=== PATIENT | male | born 1960 | race Caucasian/White ===

== ENCOUNTER → 2017-02-20 | Day surgery (SDC) | payer OTHER ==
[2017-02-19 08:11] VITALS: BMI 27.0
[~2017-02-20] VITALS: Ht 185.4 cm; Wt 93.2 kg
[~2017-02-20] MED LIST: ATV/1 PO; BLOO1KIT92; CALC600T36 PO; CRFL PO; CRG40 PO; EpHEDrine SULFATE 50MG/5ML SYR ONE; FRRS300 PO; FRS/40 PO; FURO-85 PO; INSDGIPEN SC; INSU32MI13 SC; LANC-393 SC; LIDOCAINE HCL 2% 2 ML VIAL (20MG/ML) ONE; MAGN250T8 PO; MAGN400T6 PO; MIDAZOLAM HCL 1 MG/ML 2ML VIAL ONE; MISCCAP80 PO; NVLGI/PEN SC; NVLGIPEN SC; OMEP40CA41 PO; ONDANSETRON INJ 2 MG/ML 2 ML VIAL ONE; PANT1TAB4 PO; PROPOFOL IV EMULSION 10 MG/ML 20 ML VIAL IV ONE; SERT25TA PO; SERT50TA PO; SIMV40TA2 PO; SODIUM CHLORIDE 0.9% 500ML 500 ML IV ONE; SPIR100T PO; VITA1CAP59 PO
[2017-02-20 09:59] VITALS: Ht 185.4 cm; Wt 93.2 kg
--- NOTE | 2017-02-20 10:12 | Endo History and Physical ---
History & Physical Date of Service: Feb 20, 2017. Chief Complaint: ANEMIA Referring Physician: DR DÍAZ History of Present Illness Patient has liver cirrhosis and Hx of varices, noted with drop in H/H. Here for EGD Past Medical History Diabetes, Anxiety, Hypertension, Liver Disease, Depression Past Surgical History Hx Cardiac Surgery: No Hx Internal Defibrillator: No Hx Pacemaker: No Hx Abdominal Surgery: No Hx of Implantable Prosthesis: No Hx Post-Op Nausea and Vomiting: No Hx Cancer Surgery: No Hx Thoracic Surgery: No Hx Orthopedic: No Hx Urinary Tract Surgery: No Family History Polyp Social History Smoking Status: Never Smoker Hx Substance Use: No Hx Alcohol Use: No Allergies Coded Allergies: [place] (Verified Allergy, Unknown, SEASONAL ALLERGIES., 02/20/17) NO KNOWN DRUG ALLERGIES (Verified Allergy, Unknown, NONE, 02/20/17) Ragweed (Verified Allergy, Unknown, SEASONAL ALLERGIES, 02/20/17) Current Medications Reported Home Medications Medications Dose Route/Sig Max Daily Dose Days Date Category Zoloft (Sertraline HCl) 25 Mg Tab 25 Mg PO QAM 02/18/17 Reported Lasix (Furosemide) 40 Mg Tab 40 Mg PO BID 02/18/17 Reported Mag-Ox (Magnesium Oxide) 400 Mg Tab 400 Mg PO BID 11/16/13 Reported Calcium (Calcium W/ Vitamin D) 1 Tab Tab 250 Mg PO BID 11/10/13 Reported Vitamin K2 & D3 45-2000 Mcg-Unit (Vitamin D & K) 1 Cap Cap 1 Cap PO QAM 11/10/13 Reported Aldactone (Spironolactone) 100 Mg Tab 300 Mg PO QAM 09/30/13 Reported Nadolol 40 Mg Tab 40 Mg PO QAM 09/01/13 Reported Ferrous Sulfate 325 Mg Tab 325 Mg PO QAM 09/01/13 Reported Zocor (Simvastatin) 40 Mg Tab 40 Mg PO HS 04/22/13 Reported Vital Signs Weight (Kilograms): 93.18 Height (Feet): 6 Height (Inches): 1 Date Time Temp Pulse Resp B/P (MAP) Pulse Ox O2 Delivery O2 Flow Rate FiO2 02/20/17 10:05 36.7 64 20 133/75 (94) 96 Room Air Physical Exam General Appearance: no apparent distress Respiratory/Chest: Auscultation: breath sounds normal Cardiovascular: Heart Auscultation: RRR Abdomen: Inspection & Palpation: soft, non-distended Assessment and Plan Patient was explained about the risk and benefit of EGD and agreed.
--- NOTE | 2017-02-20 11:18 | GI REPORT ---
Procedure Date: 02/20/2017 10:11 AM Procedure: Upper GI endoscopy Indications: Follow-up of esophageal varices, Anemia Medicines: Monitored Anesthesia Care Complications: No immediate complications. Estimated Blood Loss: Estimated blood loss: none. Procedure: Pre-Anesthesia Assessment: - Prior to the procedure, a History and Physical was performed, and patient medications and allergies were reviewed. The patient is competent. The risks and benefits of the procedure and the sedation options and risks were discussed with the patient. All questions were answered and informed consent was obtained. Patient identification and proposed procedure were verified by the physician and the nurse in the procedure room. Mental Status Examination: alert and oriented. Airway Examination: normal oropharyngeal airway and neck mobility. Respiratory Examination: clear to auscultation. CV Examination: normal. ASA Grade Assessment: IV - A patient with severe systemic disease that is a constant threat to life. After reviewing the risks and benefits, the patient was deemed in satisfactory condition to undergo the procedure. The anesthesia plan was to use monitored anesthesia care (MAC). Immediately prior to administration of medications, the patient was re-assessed for adequacy to receive sedatives. The heart rate, respiratory rate, oxygen saturations, blood pressure, adequacy of pulmonary ventilation, and response to care were monitored throughout the procedure. The physical status of the patient was re-assessed after the procedure. After obtaining informed consent, the endoscope was passed under direct vision. Throughout the procedure, the patient's blood pressure, pulse, and oxygen saturations were monitored continuously. The scope was introduced through the mouth, and advanced to the second part of duodenum. The upper GI endoscopy was accomplished without difficulty. The patient tolerated the procedure well. Findings: Three columns of non-bleeding large (> 5 mm) varices were found in the middle and lower third of the esophagus. Z-line at 36 cm from the incisors. Stigmata of recent bleeding were evident and red yasmeen and white fibrin plug signs were present. Four bands were successfully placed with incomplete eradication of varices. There was no bleeding during the procedure. Moderate portal hypertensive gastropathy was found in the gastric body. A few, small non-bleeding erosions were found in the gastric antrum. The duodenal bulb and 2nd part of the duodenum were normal. Impression: - Large (> 5 mm) esophageal varices with stigmata of recent bleeding (multiple red danny). Banded with 4 bands. - Portal hypertensive gastropathy. - Non-bleeding erosive gastropathy. - Normal duodenal bulb and 2nd part of the duodenum. - No specimens collected. Recommendation: - Discharge patient to home. - Clear liquid diet today. - Full liquid tomorrow then advance as tolerated. - Follow an antireflux regimen. - Use Prilosec (omeprazole) 40 mg PO daily for 2 months (to decrease the size of post banding ulcers). - Use sucralfate suspension 1 gram PO QID for 2 weeks. - Continue beta kendrick with dosage titrated by the heart rate. - Repeat the upper endoscopy in 4 - 6 weeks for retreatment (banding). - Return to referring physician. Kristin Roberts MD 02/20/2017 11:18:10 AM This report has been signed electronically. Note Initiated On: 02/20/2017 10:11 AM I attest to the content of the Intraoperative Record and orders documented therein, exceptions below
--- NOTE | 2017-02-20 11:20 | Discharge Instructions ---
Endoscopy Patient Instructions Date / Procedure(s) Performed Feb 20, 2017. EGD Allergy Information Coded Allergies: [place] (Verified Allergy, Unknown, SEASONAL ALLERGIES., 02/20/17) NO KNOWN DRUG ALLERGIES (Verified Allergy, Unknown, NONE, 02/20/17) Ragweed (Verified Allergy, Unknown, SEASONAL ALLERGIES, 02/20/17) Discharge Date / Findings Feb 20, 2017. Large esophageal varices with stigmata of recent bleed, banded. Portal HTN gastropathy. Gastritis Medication Instructions Omeprazole 40 mg PO daily for 8 weeks Carafate 1 gm qid for 2 weeks. Provider Instructions Activity Restrictions - No exercising or heavy lifting for 24 hours. - Do not drink alcohol the day of the procedure. - Do not drive a car or operate machinery until the day after the procedure. - Do not make any important decisions or sign important papers in 24 hours after the procedure. Following Day: - Return to full activity which may include returning to work/school. Diet Start your diet with liquids and light foods (jello, soup, juice, toast). Then eat your usual diet if not nauseated. Treatment For Common After Affects For mild abdominal pain, bloating, or excessive gas: - Rest - Eat lightly - Lie on right side Follow-Up Information Repeat EGD in 4-6 weeks Follow-up with DR DÍAZ as scheduled Anesthesia Information What You Should Know You have had a procedure that required some medicine to reduce anxiety and discomfort. This treatment is called moderate sedation. After receiving the treatment, you may be sleepy, but you will be able to breathe on your own. The effects of the treatment may last for several hours. Follow these instructions along with Activity/Diet recommendations noted above: * Do NOT do anything where dizziness or clumsiness would be dangerous. * Rest quietly at home today, then you can be up and about tomorrow. * Have a responsible person stay with you the rest of today. * You may have had an I.V. today. If so, you may take the dressing off later today. Recommendations Call your doctor if: * Trouble breathing * Continuous vomiting for more than 24 hours * Temperature above 101 degrees * Severe abdominal pain or bloating * Pain not relieved by pain medicine ordered * There is increased drainage or redness from any incision * A large amount of rectal bleeding greater than 2-3 tablespoons. (If you had a polyp/s removed or have hemorrhoids, a small amount of blood - from the rectum is to be expected.) * You have any unanswered questions or concerns. IN THE EVENT OF A SERIOUS EMERGENCY, GO TO THE NEAREST EMERGENCY ROOM Your discharge instructions were prepared by provider Kristin Roberts. Patient Instructions Signature Page Mehul Murillo Patient (or Guardian) Signature/Date: I have read and understand the instructions given to me by my caregivers. Caregiver/RN/Doctor Signature/Date: The above-named patient and/or guardian has received patient instructions on this date. + Original Patient Signature Page (only) stays with chart. Please make copy for patient.
--- NOTE | 2017-02-20 11:27 | Anesthesiology Progress Note ---
Anesthesia Post Op Note Date & Time Feb 20, 2017 at 11:27 Vital Signs Pain Intensity: 0 Vital Signs Past 12 Hours Date Time Temp Pulse Resp B/P (MAP) Pulse Ox O2 Delivery O2 Flow Rate FiO2 02/20/17 11:03 56 20 103/50 (67) 100 Room Air 02/20/17 10:05 36.7 64 20 133/75 (94) 96 Room Air Notes Mental Status: alert / awake / arousable, participated in evaluation Pt Amnestic to Procedure: Yes Nausea / Vomiting: adequately controlled Pain: adequately controlled Airway Patency, RR, SpO2: stable & adequate BP & HR: stable & adequate Hydration State: stable & adequate Anesthetic Complications: no major complications apparent
[2017-02-20 11:44] VITALS: BP 107/71; PULSE 55; O2SAT 100
== END | disposition home or self-care (01) ==
LOC: C.GI 09:48
PROVIDERS: ATTEND Student in an Organized Health Care Education/Training Program
DX: D64.9 Anemia, unspecified (principal); Z09 Encounter for follow-up examination after completed treatment for conditions other than malignant neoplasm; I85.00 Esophageal varices without bleeding; K31.89 Other diseases of stomach and duodenum; I10 Essential (primary) hypertension; E11.9 Type 2 diabetes mellitus without complications; F32.9 Major depressive disorder, single episode, unspecified; F41.9 Anxiety disorder, unspecified; Z79.899 Other long term (current) drug therapy; Z83.71 Family history of colonic polyps

== ENCOUNTER → 2017-04-15 | Day surgery (SDC) | payer OTHER ==
[2017-04-11 15:43] VITALS: BMI 26.0
[~2017-04-15] VITALS: Ht 185.4 cm; Wt 90.9 kg
[~2017-04-15] MED LIST changes: -ATV/1 PO; -BLOO1KIT92; +ETHANOLAMINE OLEATE 5% 2 ML AMP ONE; -EpHEDrine SULFATE 50MG/5ML SYR ONE; -FURO-85 PO; -INSU32MI13 SC; -LANC-393 SC; -LIDOCAINE HCL 2% 2 ML VIAL (20MG/ML) ONE; -MAGN250T8 PO; -MIDAZOLAM HCL 1 MG/ML 2ML VIAL ONE; -NVLGIPEN SC; -ONDANSETRON INJ 2 MG/ML 2 ML VIAL ONE; -PANT1TAB4 PO; -PROPOFOL IV EMULSION 10 MG/ML 20 ML VIAL IV ONE; -SERT50TA PO
[2017-04-15 13:02] VITALS: Ht 185.4 cm; Wt 90.9 kg
--- NOTE | 2017-04-15 13:30 | Endo History and Physical ---
History & Physical Date of Service: Apr 15, 2017. Chief Complaint: varices, cirrhosis of liver Referring Physician: Dr. Fuentes History of Present Illness 56 yo presenting for f/u EGD for varices as well as colonoscopy due to history of polyps. Past Medical History Diabetes, Anxiety, Hypertension, Liver Disease, Depression Past Surgical History Hx Cardiac Surgery: No Hx Internal Defibrillator: No Hx Pacemaker: No Hx Abdominal Surgery: No Hx of Implantable Prosthesis: No Hx Post-Op Nausea and Vomiting: No Hx Cancer Surgery: No Hx Thoracic Surgery: No Hx Orthopedic: No Hx Urinary Tract Surgery: No Family History Polyp Social History Smoking Status: Never Smoker Hx Substance Use: No Hx Alcohol Use: No Allergies Coded Allergies: [place] (Verified Allergy, Unknown, SEASONAL ALLERGIES., 04/15/17) NO KNOWN DRUG ALLERGIES (Verified Allergy, Unknown, NONE, 04/15/17) Ragweed (Verified Allergy, Unknown, SEASONAL ALLERGIES, 04/15/17) Current Medications Reported Home Medications Medications Dose Route/Sig Max Daily Dose Days Date Category Dose Instructions Lantus Solostar (Insulin Glargine) 100 Unit/Ml Inj 20 Units SC HS 04/11/17 Reported Novolog Flexpen (Insulin Aspart) 100 Units/Ml Inj 1 Dose SC UD 04/11/17 Reported PER SLIDING SCALE Prilosec (Omeprazole) 40 Mg Cap 40 Mg PO BID 04/11/17 Reported Carafate (Sucralfate) 1 Gm/10 Ml Leah 10 Ml PO QID 04/11/17 Reported Probiotic (Probiotic Product) 1 Cap Cap 1 Cap PO DAILY 04/11/17 Reported Zoloft (Sertraline HCl) 25 Mg Tab 25 Mg PO QAM 02/18/17 Reported Lasix (Furosemide) 40 Mg Tab 40 Mg PO BID 02/18/17 Reported Mag-Ox (Magnesium Oxide) 400 Mg Tab 400 Mg PO BID 11/16/13 Reported Calcium (Calcium W/ Vitamin D) 1 Tab Tab 250 Mg PO BID 11/10/13 Reported Vitamin K2 & D3 45-2000 Mcg-Unit (Vitamin D & K) 1 Cap Cap 1 Cap PO QAM 11/10/13 Reported Aldactone (Spironolactone) 100 Mg Tab 300 Mg PO QAM 09/30/13 Reported Nadolol 40 Mg Tab 40 Mg PO QAM 09/01/13 Reported Ferrous Sulfate 325 Mg Tab 325 Mg PO QAM 09/01/13 Reported Zocor (Simvastatin) 40 Mg Tab 40 Mg PO HS 04/22/13 Reported Vital Signs Weight (Kilograms): 90.91 Height (Feet): 6 Height (Inches): 1 Date Time Temp Pulse Resp B/P (MAP) Pulse Ox O2 Delivery O2 Flow Rate FiO2 04/15/17 13:09 37.1 71 20 127/70 (89) 98 Room Air Physical Exam General Appearance: WD/WN, + pertinent finding (pale) Respiratory/Chest: Respiratory effort: no dyspnea Auscultation: breath sounds normal Cardiovascular: Apical Impulse: not displaced Heart Auscultation: RRR, normal S1 Abdomen: Bowel Sounds: normal Inspection & Palpation: soft Assessment and Plan plan for EGD/Colonoscopy today for variceal f/u as well as surveillance
--- NOTE | 2017-04-15 14:29 | GI REPORT ---
Procedure Date: 04/15/2017 1:36 PM Procedure: Upper GI endoscopy Indications: Follow-up of esophageal varices, prior empiric banding complicated by re-bleeding from banding ulcers. Medicines: Monitored Anesthesia Care Complications: No immediate complications. Estimated blood loss: None. Estimated Blood Loss: Estimated blood loss: none. Procedure: Pre-Anesthesia Assessment: - Pre-Anesthesia Assessment: - Prior to the procedure, a History and Physical was performed, and patient medications, allergies and sensitivities were reviewed. The patient's tolerance of previous anesthesia was reviewed. Please see [employer] for complete details. - The risks and benefits of the procedure and the sedation options and risks were discussed with the patient. All questions were answered and informed consent was obtained. - Patient identification and proposed procedure were verified prior to the procedure by the physician and the nurse. The procedure was verified in the pre-procedure area in the procedure room. After obtaining informed consent, the endoscope was passed carefully and meticuously under direct vision and only advanced when the lumen was clearly identified, C02 insuflation was utilized throughout the entirity of the procedure. Throughout the procedure, the patient's blood pressure, pulse, and oxygen saturations were monitored continuously. After obtaining informed consent, the endoscope was passed under direct vision. Throughout the procedure, the patient's blood pressure, pulse, and oxygen saturations were monitored continuously. The scope was introduced through the mouth, and advanced to the second part of duodenum. The upper GI endoscopy was accomplished without difficulty. The patient tolerated the procedure well. Findings: Large (> 5 mm) varices were found in the middle third of the esophagus and in the lower third of the esophagus. No stigmata was identified. No signs of recent bleeding. Portal hypertensive gastropathy was found in the entire examined stomach. The examined duodenum was normal. Impression: - Large (> 5 mm) esophageal varices. - Portal hypertensive gastropathy. - Normal examined duodenum. - No specimens collected. Recommendation: - Discharge patient to home (with escort). - Continue with Nadolol. - Follow up with [facility], specifically discuss if thoughts of repeat banding vs TIPS eval given varices and ascites. Zhang Ashley MD 04/15/2017 2:28:45 PM This report has been signed electronically. Note Initiated On: 04/15/2017 1:36 PM I attest to the content of the Intraoperative Record and orders documented therein, exceptions below
--- NOTE | 2017-04-15 14:30 | GI REPORT ---
Procedure Date: 04/15/2017 1:58 PM Procedure: Colonoscopy Indications: High risk colon cancer surveillance: Personal history of colonic polyps Medicines: Monitored Anesthesia Care Complications: No immediate complications. Estimated blood loss: None. Estimated Blood Loss: Estimated blood loss: none. Procedure: Pre-Anesthesia Assessment: - Pre-Anesthesia Assessment: - Prior to the procedure, a History and Physical was performed, and patient medications, allergies and sensitivities were reviewed. The patient's tolerance of previous anesthesia was reviewed. Please see [employer] for complete details. - The risks and benefits of the procedure and the sedation options and risks were discussed with the patient. All questions were answered and informed consent was obtained. - Patient identification and proposed procedure were verified prior to the procedure by the physician and the nurse. The procedure was verified in the pre-procedure area in the procedure room. After obtaining informed consent, the endoscope was passed carefully and meticuously under direct vision and only advanced when the lumen was clearly identified, C02 insuflation was utilized throughout the entirity of the procedure. Throughout the procedure, the patient's blood pressure, pulse, and oxygen saturations were monitored continuously. After I obtained informed consent, the scope was passed under direct vision. Throughout the procedure, the patient's blood pressure, pulse, and oxygen saturations were monitored continuously. The Scope was introduced through the anus and advanced to the terminal ileum, with identification of the appendiceal orifice and IC valve. The colonoscopy was performed without difficulty. The patient tolerated the procedure well. The quality of the bowel preparation was poor. Findings: Multiple small-mouthed diverticula were found in the sigmoid colon. Non-bleeding rectal varices were found. The terminal ileum appeared normal. The exam was otherwise without abnormality on direct and retroflexion views. Impression: - Preparation of the colon was poor. - Diverticulosis in the sigmoid colon. - Rectal varices. - The examined portion of the ileum was normal. - The examination was otherwise normal on direct and retroflexion views. - No specimens collected. Recommendation: - Discharge patient to home (with escort). - Repeat colonoscopy in 5 years for surveillance. - Return to referring physician as previously scheduled. Zhang Ashley MD 04/15/2017 2:30:09 PM This report has been signed electronically. Note Initiated On: 04/15/2017 1:58 PM I attest to the content of the Intraoperative Record and orders documented therein, exceptions below
--- NOTE | 2017-04-15 14:36 | Discharge Instructions ---
Endoscopy Patient Instructions Date / Procedure(s) Performed Apr 15, 2017. Colonoscopy, EGD Allergy Information Coded Allergies: [place] (Verified Allergy, Unknown, SEASONAL ALLERGIES., 04/15/17) NO KNOWN DRUG ALLERGIES (Verified Allergy, Unknown, NONE, 04/15/17) Ragweed (Verified Allergy, Unknown, SEASONAL ALLERGIES, 04/15/17) Discharge Date / Findings Apr 15, 2017. EGD: Findings: Large (> 5 mm) varices were found in the middle third of the esophagus and in the lower third of the esophagus. No stigmata was identified. No signs of recent bleeding. Portal hypertensive gastropathy was found in the entire examined stomach. The examined duodenum was normal. Impression: - Large (> 5 mm) esophageal varices. - Portal hypertensive gastropathy. - Normal examined duodenum. - No specimens collected. Recommendation: - Discharge patient to home (with escort). - Continue with Nadolol. - Follow up with [facility], specifically discuss if thoughts of repeat banding vs TIPS eval given varices and ascites. Colonoscopy: No polyps Prep was not great Repeat exam in 5 years for surveillance Medication Instructions Stopped Medication(s): stopped all except BP meds Provider Instructions Activity Restrictions - No exercising or heavy lifting for 24 hours. - Do not drink alcohol the day of the procedure. - Do not drive a car or operate machinery until the day after the procedure. - Do not make any important decisions or sign important papers in 24 hours after the procedure. Following Day: - Return to full activity which may include returning to work/school. Diet Start your diet with liquids and light foods (jello, soup, juice, toast). Then eat your usual diet if not nauseated. Treatment For Common After Affects For mild abdominal pain, bloating, or excessive gas: - Rest - Eat lightly - Lie on right side Follow-Up Information Follow-up with Dr. Fuentes as scheduled Anesthesia Information What You Should Know You have had a procedure that required some medicine to reduce anxiety and discomfort. This treatment is called moderate sedation. After receiving the treatment, you may be sleepy, but you will be able to breathe on your own. The effects of the treatment may last for several hours. Follow these instructions along with Activity/Diet recommendations noted above: * Do NOT do anything where dizziness or clumsiness would be dangerous. * Rest quietly at home today, then you can be up and about tomorrow. * Have a responsible person stay with you the rest of today. * You may have had an I.V. today. If so, you may take the dressing off later today. Recommendations Call your doctor if: * Trouble breathing * Continuous vomiting for more than 24 hours * Temperature above 101 degrees * Severe abdominal pain or bloating * Pain not relieved by pain medicine ordered * There is increased drainage or redness from any incision * A large amount of rectal bleeding greater than 2-3 tablespoons. (If you had a polyp/s removed or have hemorrhoids, a small amount of blood - from the rectum is to be expected.) * You have any unanswered questions or concerns. IN THE EVENT OF A SERIOUS EMERGENCY, GO TO THE NEAREST EMERGENCY ROOM Your discharge instructions were prepared by provider Zhang Ashley. Patient Instructions Signature Page Mehul Murillo Patient (or Guardian) Signature/Date: I have read and understand the instructions given to me by my caregivers. Caregiver/RN/Doctor Signature/Date: The above-named patient and/or guardian has received patient instructions on this date. + Original Patient Signature Page (only) stays with chart. Please make copy for patient.
[2017-04-15 14:52] VITALS: BP 99/63; PULSE 66; O2SAT 99
--- NOTE | 2017-04-15 15:05 | Anesthesiology Progress Note ---
Anesthesia Post Op Note Date & Time Apr 15, 2017 at 15:05 Vital Signs Pain Intensity: 0 Vital Signs Past 12 Hours Date Time Temp Pulse Resp B/P (MAP) Pulse Ox O2 Delivery O2 Flow Rate FiO2 04/15/17 14:52 66 20 99/63 (75) 99 Room Air 04/15/17 14:35 62 20 106/58 (74) 98 Room Air 04/15/17 14:20 66 20 89/51 (64) 98 Room Air 04/15/17 13:09 37.1 71 20 127/70 (89) 98 Room Air Notes Mental Status: alert / awake / arousable, participated in evaluation Pt Amnestic to Procedure: Yes Nausea / Vomiting: adequately controlled Pain: adequately controlled Airway Patency, RR, SpO2: stable & adequate BP & HR: stable & adequate Hydration State: stable & adequate Anesthetic Complications: no major complications apparent
== END | disposition home or self-care (01) ==
LOC: C.GI 12:36
PROVIDERS: ATTEND Internal Medicine
DX: Z12.11 Encounter for screening for malignant neoplasm of colon (principal); I85.00 Esophageal varices without bleeding; K31.89 Other diseases of stomach and duodenum; I86.8 Varicose veins of other specified sites; K57.30 Diverticulosis of large intestine without perforation or abscess without bleeding; E11.9 Type 2 diabetes mellitus without complications

== ENCOUNTER 2017-07-04 06:30 | Inpatient (IN) | payer OTHER ==
[~2017-07-04] VITALS: Ht 185.4 cm; Wt 93.0 kg
[2017-07-04] VITALS (10 sets, daily range): BP systolic 107–126; BP diastolic 58–65; PULSE 56–65; TEMP 36.4–37; O2SAT 97–100; Ht 185.4 cm; Wt 93.0 kg
[~2017-07-04 06:30] MED LIST changes: -ETHANOLAMINE OLEATE 5% 2 ML AMP ONE; -SODIUM CHLORIDE 0.9% 500ML 500 ML IV ONE
[2017-07-04] MEDS ORDERED: OCTREOTIDE IV BOLUS & DRIP IV STA ×2 (06:40→08:24)
[2017-07-04] MEDS ORDERED: PANTOprazole INJ 80 MG in DEXTROSE 5% 100ML IV STA (06:44)
[2017-07-04] MEDS ORDERED: OCTREOTIDE BOLUS FROM BAG IV ONE (06:45)
--- NOTE | 2017-07-04 06:49 | EMERGENCY ROOM VISIT NOTE ---
History Report prepared by Ban: Johan Chacon Under the Supervision of: Zachary ArzateO. First contact with patient: 06:37 Chief Complaint: GI ASSESSMENT Stated Complaint: GI BLEED History of Present Illness The patient is a 56 year old male who presents to the Emergency Room with complaints of persistent hematemesis that began this morning, roughly 2 hours ago. The patient states that he has vomited large amounts of blood/clots 5 or 6 separate times. The last episode occurred at 0530, 1 hour ago. The patient does have a history of GI bleeding and had his las scope in April, 2 months ago. He had banding done in March, one month prior. The patient states that he feels like his abdomen is starting to "fill up" and feel full/bloated. He denies any history of chest pain or dyspnea Source of History: patient Onset: 2 hours ago Position: abdomen Quality: other (Full, bloated) Timing: worsening Associated Symptoms: + vomiting (hematemesis), No chest pain, No SOB Review of Systems See HPI for pertinent positives & negatives. A total of 10 systems reviewed and were otherwise negative. Past Medical & Surgical Medical Problems: (1) Acute renal failure (2) Ascites (3) Ascites (4) Diabetes (5) DMII (diabetes mellitus, type 2) (6) ITP (idiopathic thrombocytopenic purpura) (7) CHAWLA (nonalcoholic steatohepatitis) (8) CHAWLA (nonalcoholic steatohepatitis) (9) CHAWLA (nonalcoholic steatohepatitis) (10) Pancreatitis (11) Portal hypertension with esophageal varices (12) Portal hypertensive gastropathy Surgical Problems: (1) S/P tonsillectomy and adenoidectomy (2) Status post colonoscopy with polypectomy Family History Diabetes mellitus Heart disease Hypertension Kidney disease Kidney stones Social History Smoking Status: Never Smoker Alcohol Use: none Drug Use: none Housing Status: other Occupation Status: unemployed Current/Historical Medications Scheduled Calcium W/ Vitamin D (Calcium), 250 MG PO BID Ferrous Sulfate (Ferrous Sulfate), 325 MG PO QAM Furosemide (Lasix), 40 MG PO BID Insulin Aspart (Novolog Flexpen), 1 DOSE SC UD Insulin Glargine (Lantus Solostar), 25 UNITS SC HS Magnesium Oxide (Mg Supplement (Magnesium), 1 TAB PO BID Nadolol (Nadolol), 40 MG PO QAM Omeprazole (Prilosec), 40 MG PO DAILY Probiotic Product (Probiotic), 1 CAP PO DAILY Sertraline (Zoloft), 50 MG PO DAILY Simvastatin (Zocor), 40 MG PO HS Spironolactone (Aldactone), 300 MG PO QAM Vitamin D & K (Vitamin K2 & D3 45-2000 Mcg-Unit), 1 CAP PO QAM Allergies Coded Allergies: Callender (Verified Allergy, Unknown, SEASONAL ALLERGIES., 07/04/17) NO KNOWN DRUG ALLERGIES (Verified Allergy, Unknown, NONE, 07/04/17) Ragweed (Verified Allergy, Unknown, SEASONAL ALLERGIES, 07/04/17) Physical Exam Vital Signs Date Time Temp Pulse Resp B/P (MAP) Pulse Ox O2 Delivery O2 Flow Rate FiO2 07/04/17 08:18 60 120/57 07/04/17 07:49 98 Room Air 07/04/17 07:30 63 146/74 07/04/17 06:59 80 07/04/17 06:33 36.9 70 16 120/64 98 Room Air Physical Exam GENERAL: Patient is awake, alert mildly anxious appearing. Patient is comfortable. EYES: The conjunctivae are pale. The pupils are round and reactive. EARS, NOSE, MOUTH AND THROAT: The nose is without any evidence of any deformity. Mucous membranes are moist tongue is midline NECK: The neck is nontender and supple. RESPIRATORY: Normal respiratory effort is noted there is no evidence of wheezing rhonchi or rales CARDIOVASCULAR: Regular rate and rhythm noted, with a systolic ejection murmurs , rubs or gallops normal S1 normal S2 GASTROINTESTINAL: The abdomen is moderately distended, but soft. Bowel sounds are present in all quadrants. Abdomen is nontender MUSCULOSKELETAL/EXTREMITIES: There is no evidence of gross deformity full range of motion is noted in the hips and shoulders SKIN: There is no obvious evidence of any rash. There is pedal edema bilaterally. There are no petechiae, pallor or cyanosis noted. NEUROLOGIC: Patient is awake alert and oriented x3 strength is symmetric patellar reflexes are 2+ bilaterally Medical Decision & Procedures ER Provider Diagnostic Interpretation: Radiology results as stated below per my review and radiologist interpretation: CHEST ONE VIEW PORTABLE CLINICAL HISTORY: vomiting nausea COMPARISON STUDY: 03/02/2017 FINDINGS: Chronic pleural reactive change right base. Suggestion of mild increase in volume of right effusion. Left lung is clear. No significant cardiac enlargement. IMPRESSION: 1. Mild increase in volume of right pleural effusion. 2. Study is otherwise unremarkable. The above report was generated using voice recognition software. It may contain grammatical, syntax or spelling errors. Electronically signed by: Alvaro Clemons M.D. 07/04/2017 7:06 AM Dictated Date/Time: 07/04/2017 7:06 AM Laboratory Results 07/04/17 06:48 Red Blood Count 2.86, Mean Corpuscular Volume 84.3, Mean Corpuscular Hemoglobin 27.3, Mean Corpuscular Hemoglobin Concent 32.4, Neutrophils (%) (Auto) 79.6, Lymphocytes (%) (Auto) 9.2, Monocytes (%) (Auto) 7.2, Eosinophils (%) (Auto) 2.7 , Basophils (%) (Auto) 1.0, Neutrophils # (Auto) 2.32, Lymphocytes # (Auto) 0.27 , Monocytes # (Auto) 0.21, Eosinophils # (Auto) 0.08, Basophils # (Auto) 0.03 07/04/17 06:48 Test 07/04/17 06:48 07/04/17 06:54 White Blood Count 2.92 K/uL (4.8-10.8) Red Blood Count 2.86 M/uL (4.7-6.1) Hemoglobin 7.8 g/dL (14.0-18.0) Hematocrit 24.1 % (42-52) Mean Corpuscular Volume 84.3 fL (80-100) Mean Corpuscular Hemoglobin 27.3 pg (25-34) Mean Corpuscular Hemoglobin Concent 32.4 g/dl (32-36) Platelet Count 60 K/uL (130-400) Neutrophils (%) (Auto) 79.6 % Lymphocytes (%) (Auto) 9.2 % Monocytes (%) (Auto) 7.2 % Eosinophils (%) (Auto) 2.7 % Basophils (%) (Auto) 1.0 % Neutrophils # (Auto) 2.32 K/uL (1.4-6.5) Lymphocytes # (Auto) 0.27 K/uL (1.2-3.4) Monocytes # (Auto) 0.21 K/uL (0.11-0.59) Eosinophils # (Auto) 0.08 K/uL (0-0.5) Basophils # (Auto) 0.03 K/uL (0-0.2) RDW Standard Deviation 55.5 fL (36.4-46.3) RDW Coefficient of Variation 18.0 % (11.5-14.5) Immature Granulocyte % (Auto) 0.3 % Immature Granulocyte # (Auto) 0.01 K/uL (0.00-0.02) Platelet Estimate DECREASED Giant Platelets 1+ Echinocytes 1+ Prothrombin Time 11.7 SECONDS (9.0-12.0) Prothromb Time International Ratio 1.1 (0.9-1.1) Activated Partial Thromboplast Time 31.7 SECONDS (21.0-31.0) Partial Thromboplastin Ratio 1.2 Est Creatinine Clear Calc Drug Dose 72.2 ml/min Estimated GFR () 71.4 Estimated GFR (Non- 61.6 BUN/Creatinine Ratio 13.7 (10-20) Calcium Level 7.7 mg/dl (8.5-10.1) Total Bilirubin 0.8 mg/dl (0.2-1) Direct Bilirubin 0.3 mg/dl (0-0.2) Aspartate Amino Transf (AST/SGOT) 25 U/L (15-37) Alanine Aminotransferase (ALT/SGPT) 17 U/L (12-78) Alkaline Phosphatase 176 U/L (45-117) Troponin I < 0.015 ng/ml (0-0.045) Total Protein 6.8 gm/dl (6.4-8.2) Albumin 1.9 gm/dl (3.4-5.0) Lipase 248 U/L (73-393) Beta-Hydroxybutyric Acid 0.59 mg/dL (0.2-2.81) Bedside Hemoglobin 7.8 g/dl (14.0-18.0) Bedside Hematocrit 23 % (42-52) Bedside Sodium 133 mEq/L (135-144) Bedside Potassium 3.5 mEq/L (3.3-5.0) Bedside Chloride 94 mEq/L (101-112) Bedside Total CO2 25 mEq/l (24-31) Anion Gap 19.0 mmol/L (16-25) Bedside Blood Urea Nitrogen 17 mg/dl (7-18) Bedside Creatinine 1.1 mg/dl (0.6-1.3) Bedside Glucose (other) 491 mg/dl (70-99) Bedside Ionized Calcium (Christine) 1.14 mmol/l (1.12-1.32) Laboratory results per my review. Medications Administered Medications (Trade) Dose Ordered Sig/Geovanna Route Start Time Stop Time Status Last Admin Dose Admin Pantoprazole Sodium 80 mg/ Dextrose 120 ml @ 480 mls/hr NOW STAT IV 07/04/17 06:44 07/04/17 06:58 DC 07/04/17 07:12 480 MLS/HR Pantoprazole Sodium 40 mg/ Dextrose 100 ml @ 20 mls/hr Q5H IV 07/04/17 06:45 08/03/17 06:44 07/04/17 07:46 20 MLS/HR Octreotide Acetate (Sandostatin Bolus From Bag) 100 mcg ONE ONCE IV 07/04/17 06:45 07/04/17 06:46 DC 07/04/17 07:13 100 MCG Octreotide Acetate 500 mcg/ Sodium Chloride 105 ml @ 10 mls/hr [id number] IV 07/04/17 06:45 08/03/17 06:44 07/04/17 07:12 10 MLS/HR Ondansetron HCl (Zofran Inj) 4 mg NOW STAT IV 07/04/17 07:41 07/04/17 07:43 DC 07/04/17 07:59 4 MG Insulin Human Regular (novoLIN-R U-100 PER UNIT) 6 units NOW STAT IV 07/04/17 07:55 07/04/17 07:56 DC 07/04/17 08:08 6 UNITS Sodium Chloride 500 ml @ 999 mls/hr Q31M STAT IV 07/04/17 07:55 07/04/17 08:25 DC 07/04/17 07:55 999 MLS/HR ECG Per My Interpretation Indication: other (Hematemesis) Rate (beats per minute): 64 Rhythm: normal sinus Findings: no ectopy, other (No ST-segment changes, no PVCs, normal axis) ED Course 0639: The patient was evaluated in room B9. A complete history and physical examination were performed. 0644: Ordered Pantoprazole 120 mL @ 480 mL/hr IV. 0645: Ordered Octreotide Acetate 100 mcg IV. 0738: I discussed the case with Dr. Rodrigo OCHOA. He will evaluate the patient for further treatment. . 0741: Ordered Zofran 4 mg IV. 0746: I discussed the case with Dr. Dennise HERNANDEZ Drum Attendant. He will accept the patient to the ICU. Medical Decision Differential diagnosis: Etiologies such as diverticulosis, AVM, coagulopathy, colitis, inflammatory bowel disease, malignancy, Holley-Adhikari tear, esophagitis, peptic ulcer disease , variceal bleed, gastritis, epistaxis, fissure, hemorrhoids, as well as others were entertained. Nursing notes reviewed. Patient's previous electronic medical records were reviewed. The patient is a 56-year-old male who has a history of Chawla who presented to the emergency department for an evaluation of upper GI bleeding. The patient had multiple episodes of hematemesis with clots. He has a history of esophageal varices. The patient appeared very pale and his initial hemoglobin was low compared to his baseline. The patient was treated with IV fluids IV insulin IV octreotide IV Protonix with a drip as well as well as IV anti- medics. The patient was reevaluated multiple times. The patient had blood transfusion ordered. I discussed patient's laboratory and radiographic studies with him. I discussed his case with the on-call [facility] hospitalist group. I also discussed this case with the mold maker helper group. The GI group was also consulted through the mold maker helper group. The patient was reevaluated multiple times. Medication Reconcilliation Current Medication List: was personally reviewed by me Blood Pressure Screening Patient's blood pressure: Elevated blood pressure Blood pressure disposition: Elevated BP felt to be situational Consults Time Called: 705 Consulting Physician: Dr. Rodrigo Mendez Returned Call: 07 I discussed the case with Dr. Rodrigo Mendez. He will evaluate the patient for further treatment. Additional Consults: Time Called: 07 Consulted Physician: Dr. Dennise HERNANDEZ Drum Attendant Returned Call: 0746 Additional Comments: I discussed the case with Dr. Dennise HERNANDEZ Drum Attendant. He will accept the patient to the ICU. Impression Primary Impression: Upper GI bleed Additional Impressions: Esophageal varices Anemia Hyperglycemia Critical Care I have personally spent greater than 45 minutes of critical care time in the direct management of this patient. This includes bedside care, interpretation of diagnostic studies, and testing, discussion with consultants, patient, and family members, and other required patient management activities. This 45 minutes is in excess of all separately billable procedures. Scribe Attestation The scribe's documentation has been prepared under my direction and personally reviewed by me in its entirety. I confirm that the note above accurately reflects all work, treatment, procedures, and medical decision making performed by me. Departure Information Dispostion Being Evaluated By Surgeon Jamey Benson M.D. (PCP) Patient Instructions My [facility] Problem Qualifiers Additional Impressions: Esophageal varices Esophageal varices type: unspecified type Esophageal varices bleeding: with bleeding Qualified Codes: I85.01 - Esophageal varices with bleeding Anemia Anemia type: unspecified type Qualified Codes: D64.9 - Anemia, unspecified
[2017-07-04 07:07] LABS: HEMATOCRIT 24.1 % (42-52); HEMOGLOBIN 7.8 g/dL (14.0-18.0); MEAN CELL VOLUME 84.3 fL (80-100); MEAN CORPUSCULAR HEMOGLOBIN 27.3 pg (25-34); MEAN CORPUSCULAR HGB CONC 32.4 g/dl (32-36); PLATELET COUNT 60 K/uL (130-400); RED CELL DISTRIBUTION WIDTH SD 55.5 fL (36.4-46.3); WHITE BLOOD COUNT 2.92 K/uL (4.8-10.8)
--- NOTE | 2017-07-04 07:08 | DIAGNOSTIC IMAGING REPORT ---
CHEST ONE VIEW PORTABLE CLINICAL HISTORY: vomiting nausea COMPARISON STUDY: 03/02/2017 FINDINGS: Chronic pleural reactive change right base. Suggestion of mild increase in volume of right effusion. Left lung is clear. No significant cardiac enlargement. IMPRESSION: 1. Mild increase in volume of right pleural effusion. 2. Study is otherwise unremarkable. The above report was generated using voice recognition software. It may contain grammatical, syntax or spelling errors. Electronically signed by: Alvaro Clemons M.D. 07/04/2017 7:06 AM Dictated Date/Time: 07/04/2017 7:06 AM
[2017-07-04 07:09] LABS: ISTAT CREATININE 1.1 mg/dl (0.6-1.3); ISTAT IONIZED CALCIUM 1.14 mmol/l (1.12-1.32); ISTAT POTASSIUM 3.5 mEq/L (3.3-5.0)
[2017-07-04] MEDS: OCTREOTIDE ACETATE INJ 500 MCG in NSS 100ML IV SCH ×2 (07:12→12:01)
[2017-07-04 07:14] LABS: INR 1.1 (0.9-1.1); PTT PATIENT 31.7 SECONDS (21.0-31.0)
[2017-07-04] MEDS ORDERED: SERT50TA PO (07:14)
[2017-07-04] MEDS ORDERED: FURO-85 PO (07:14)
[2017-07-04] MEDS ORDERED: MAGN250T8 PO (07:14)
[2017-07-04] MEDS ORDERED: ATV/1 PO (07:14)
[2017-07-04 07:21] LABS: BASO ABS # 0.03 K/uL (0-0.2); EOS % 2.7 %; EOS ABS # 0.08 K/uL (0-0.5); IG# 0.01 K/uL (0.00-0.02); LYMPH % 9.2 %; LYMPH ABS # 0.27 K/uL (1.2-3.4); MONO % 7.2 %; MONO ABS # 0.21 K/uL (0.11-0.59); NEUT % 79.6 %; NEUT ABS # 2.32 K/uL (1.4-6.5)
[2017-07-04 07:28] LABS: ALBUMIN 1.9 gm/dl (3.4-5.0); ALKALINE PHOSPHATASE 176 U/L (45-117); ALT/SGPT 17 U/L (12-78); AST/SGOT 25 U/L (15-37); BLOOD UREA NITROGEN 18 mg/dl (7-18); CALCIUM 7.7 mg/dl (8.5-10.1); CARBON DIOXIDE 26 mmol/L (21-32); CREATININE 1.29 mg/dl (0.60-1.40); GLUCOSE 479 mg/dl (70-99); LIPASE 248 U/L (73-393); POTASSIUM 3.5 mmol/L (3.5-5.1); SODIUM 132 mmol/L (136-145); TOTAL PROTEIN 6.8 gm/dl (6.4-8.2)
[2017-07-04] MEDS ORDERED: ONDANSETRON INJ 2 MG/ML 2 ML VIAL IV STA (07:41)
[2017-07-04] MEDS: PANTOprazole INJ 40 MG in DEXTROSE 5% 100ML IV SCH ×3 (07:46→18:01)
[2017-07-04] MEDS ORDERED: SODIUM CHLORIDE 0.9% 500ML 500 ML IV STA (07:55)
[2017-07-04] MEDS ORDERED: NovoLIN-R INSULIN PER UNIT CHARGE IV STA (07:55)
[2017-07-04] MEDS ORDERED: LORAZEPAM 2 MG/ML 1 ML VIAL IV PRN (08:30)
[2017-07-04] MEDS ORDERED: ICU PROTOCOL FOR HYPERGLYCEMIA PRN (08:30)
[2017-07-04] MEDS ORDERED: GLUCOSE 10 TABS/TUBE PO PRN (08:30)
[2017-07-04] MEDS ORDERED: GLUCAGON FOR INJ 1 MG VIAL SQ PRN (08:30)
[2017-07-04] MEDS ORDERED: GLUCOSE 40% GEL 15 GM TUBE PO PRN (08:30)
[2017-07-04] MEDS ORDERED: CARBOHYDRATES FOR HYPOGLYCEMIA PO PRN (08:30)
[2017-07-04] MEDS ORDERED: MoRPHine SULFATE 4 MG/ML 1 ML CARP\\VIAL IV PRN (08:30)
[2017-07-04] MEDS ORDERED: DEXTROSE 50% 50 ML SYR IV PRN (08:30)
--- NOTE | 2017-07-04 08:43 | Gastrointestinal Consultation ---
Gastrointestinal Consultation Date of Consultation: July 04, 2017 Attending Physician: [facility]; consult from Dr. Bowden Consulting Physician: Dr. Chris Salazar Reason for Consultation: hematemesis History of Present Illness Patient is a 56 year old male patient of Dr. Fuentes with a hx of NAFLD cirrhosis with esophageal varices and prior bleeding; ascites managed with diuretics. He presented to the ED today because he vomited blood this morning. At 5:30AM he brought up about 16oz of bright red liquid blood with 5 or 6 2-3 inch sized clots as well. He did not feel weak or dizzy. No confusion. No CP. His father brought him to the ED. He is currently resting in bed in the ED and is hemodynamically stable with BP is 120/57, HR 60. Hb is 7.8 down from 9.9 in April. Protonix drip and Octreotide drip are running. No further emesis and no recent melena or hematochezia. No abdominal pain. Most recent EGD was in April with large esophageal varices. Prior to that, he had esophageal varices that were banded in January 2017 and experienced a bleed from an esophageal ulcer (the site of banding) a few weeks later. Past Medical/Surgical History Medical Problems: (1) Anemia Status: Acute (2) Esophageal varices Status: Acute (3) Hematemesis Status: Acute (4) Hematemesis Status: Acute (5) Hyperglycemia Status: Acute (6) Hyperglycemia Status: Acute (7) Upper GI bleed Status: Acute (8) Varices, esophageal Status: Acute (9) Vomiting Status: Acute Past Medical History: 1. DM 2. NAFLD cirrhosis with esophageal varices, ascites 3. Pancreatitis 4. Acute renal failure Past Surgical History: EGDs as mentioned in HPI Paracentesis in 2013 Colonoscopy 04/15/18 Dr. Ashley: non bleeding rectal varices, sigmoid diverticulosis. Family History Diabetes mellitus Heart disease Hypertension Kidney disease Kidney stones Social History Smoking Status: Never Smoker Alcohol Use: none Drug Use: none Housing Status: other Occupation Status: unemployed Allergies Coded Allergies: Zihlman (Verified Allergy, Unknown, SEASONAL ALLERGIES., 07/04/17) NO KNOWN DRUG ALLERGIES (Verified Allergy, Unknown, NONE, 07/04/17) Ragweed (Verified Allergy, Unknown, SEASONAL ALLERGIES, 07/04/17) Current Medications Home Meds and Scripts Medications Dose Route/Sig Max Daily Dose Days Date Category Dose Instructions Ativan (Lorazepam) 1 Mg Tab 1 Mg PO TID PRN 07/04/17 Reported Lasix (Furosemide) 20 Mg Tab 20 Mg PO BID 07/04/17 Reported Zoloft (Sertraline HCl) 50 Mg Tab 50 Mg PO DAILY 07/04/17 Reported Magnesium (Magnesium Oxide (Mg Supplement) 250 Mg Tab 1 Tab PO BID 07/04/17 Reported Lantus Solostar (Insulin Glargine) 100 Unit/Ml Inj 25 Units SC HS 04/11/17 Reported Novolog Flexpen (Insulin Aspart) 100 Units/Ml Inj 1 Dose SC UD 04/11/17 Reported 10UNITS TID + SLIDING SCALE WITH MEALS Prilosec (Omeprazole) 40 Mg Cap 40 Mg PO BID 04/11/17 Reported Probiotic (Probiotic Product) 1 Cap Cap 1 Cap PO DAILY 04/11/17 Reported Calcium (Calcium W/ Vitamin D) 1 Tab Tab 250 Mg PO BID 11/10/13 Reported Vitamin K2 & D3 45-2000 Mcg-Unit (Vitamin D & K) 1 Cap Cap 1 Cap PO QAM 11/10/13 Reported Aldactone (Spironolactone) 100 Mg Tab 300 Mg PO QAM 09/30/13 Reported Nadolol 40 Mg Tab 40 Mg PO QAM 09/01/13 Reported Ferrous Sulfate 325 Mg Tab 325 Mg PO QAM 09/01/13 Reported Zocor (Simvastatin) 40 Mg Tab 40 Mg PO HS 04/22/13 Reported Review of Systems Constitutional: No fever, No chills, No sweats, No weight loss, No weakness Eyes: No eye pain, No redness ENT: No sore throat, No trouble swallowing, No pain on swallowing Respiratory: No cough, No wheezing, No shortness of breath, No dyspnea on exertion Cardiac: No chest pain, No edema, No palpitations Abdomen: + see HPI Neuro: No memory loss, No weakness, No numbness/tingling, No vertigo, No balance problems Psych: No depression symptoms, No anxiety, No insomnia Heme: No abnormal bleeding/bruising, No night sweats Endo: No excessive thirst, No excessive urination Skin: No rash, No itch, No new/changing skin lesions, No jaundice Physical Exam Date Time Temp Pulse Resp B/P (MAP) Pulse Ox O2 Delivery O2 Flow Rate FiO2 07/04/17 08:18 60 120/57 07/04/17 07:49 98 Room Air 07/04/17 07:30 63 146/74 07/04/17 06:59 80 07/04/17 06:33 36.9 70 16 120/64 98 Room Air General Appearance: no apparent distress Eyes: normal inspection, EOMI Neck: supple, no adenopathy, thyroid normal Respiratory/Chest: chest non-tender, lungs clear, normal breath sounds, no accessory muscle use Cardiovascular: regular rate, rhythm, no JVD, no murmur Abdomen: normal bowel sounds, non tender, soft, no organomegaly, + pertinent finding (moderate, soft ascites) Extremities: normal inspection, normal capillary refill, + pedal edema (trace, bilat foot/ankle edema) Neurologic/Psych: alert, normal mood/affect, oriented x 3 Skin: normal color, no jaundice, warm/dry, no rash Laboratory Results Last 24 Hours Test 07/04/17 06:48 07/04/17 06:54 White Blood Count 2.92 K/uL Red Blood Count 2.86 M/uL Hemoglobin 7.8 g/dL Hematocrit 24.1 % Mean Corpuscular Volume 84.3 fL Mean Corpuscular Hemoglobin 27.3 pg Mean Corpuscular Hemoglobin Concent 32.4 g/dl Platelet Count 60 K/uL Neutrophils (%) (Auto) 79.6 % Lymphocytes (%) (Auto) 9.2 % Monocytes (%) (Auto) 7.2 % Eosinophils (%) (Auto) 2.7 % Basophils (%) (Auto) 1.0 % Neutrophils # (Auto) 2.32 K/uL Lymphocytes # (Auto) 0.27 K/uL Monocytes # (Auto) 0.21 K/uL Eosinophils # (Auto) 0.08 K/uL Basophils # (Auto) 0.03 K/uL RDW Standard Deviation 55.5 fL RDW Coefficient of Variation 18.0 % Immature Granulocyte % (Auto) 0.3 % Immature Granulocyte # (Auto) 0.01 K/uL Platelet Estimate DECREASED Giant Platelets 1+ Echinocytes 1+ Prothrombin Time 11.7 SECONDS Prothromb Time International Ratio 1.1 Activated Partial Thromboplast Time 31.7 SECONDS Partial Thromboplastin Ratio 1.2 Sodium Level 132 mmol/L Potassium Level 3.5 mmol/L Chloride Level 99 mmol/L Carbon Dioxide Level 26 mmol/L Anion Gap 6.0 mmol/L 19.0 mmol/L Blood Urea Nitrogen 18 mg/dl Creatinine 1.29 mg/dl Est Creatinine Clear Calc Drug Dose 72.2 ml/min Estimated GFR () 71.4 Estimated GFR (Non- 61.6 BUN/Creatinine Ratio 13.7 Random Glucose 479 mg/dl Calcium Level 7.7 mg/dl Total Bilirubin 0.8 mg/dl Direct Bilirubin 0.3 mg/dl Aspartate Amino Transf (AST/SGOT) 25 U/L Alanine Aminotransferase (ALT/SGPT) 17 U/L Alkaline Phosphatase 176 U/L Troponin I < 0.015 ng/ml Total Protein 6.8 gm/dl Albumin 1.9 gm/dl Lipase 248 U/L Beta-Hydroxybutyric Acid 0.59 mg/dL Bedside Hemoglobin 7.8 g/dl Bedside Hematocrit 23 % Bedside Sodium 133 mEq/L Bedside Potassium 3.5 mEq/L Bedside Chloride 94 mEq/L Bedside Total CO2 25 mEq/l Bedside Blood Urea Nitrogen 17 mg/dl Bedside Creatinine 1.1 mg/dl Bedside Glucose (other) 491 mg/dl Bedside Ionized Calcium (Christine) 1.14 mmol/l Impression Patient is a 56 year old male with NAFLD cirrhosis who experienced hematemesis, likely a variceal bleed. Plan 1. Agree with Protonix and Octreotide drips. 2. Plan for urgent EGD today. 3. Keep NPO, frequent VS, careful monitoring of outputs and recheck Hb/Hct in 2- 4 hrs. I saw and evaluated the patient. He has a history of alcoholic liver disease complicated by ascites and esophageal varices. He presented today with suspicious upper GI bleeding. Physical examination Mild distress Abdominal tenderness Impression: Patient presenting with hematemesis and suspected upper GI bleeding possibly from variceal hemorrhage. We will plan on urgent upper endoscopy today after volume resuscitation, antibiotic initiation, octreotide and a protonix drop. If endoscopic measures fail he will likely need to be transferred to a tertiary center for TIPS placement..
[2017-07-04] MEDS ORDERED: ONDANSETRON INJ 2 MG/ML 2 ML VIAL IV PRN ×2 (08:45→11:00)
--- NOTE | 2017-07-04 08:56 | History and Physical ---
History & Physical Date & Time of Service: July 04, 2017 at 08:40 Chief Complaint: Gi Bleed Primary Care Physician: Jamey Fuentes M.D. History of Present Illness Source: patient, clinic records, hospital records The patient is a 56-year-old diabetic male with Chawla cirrhosis who presents with multiple episodes of hematemesis since 5:00 this morning. He reports eating good pizza last night going to sleep feeling well and then waking up this morning feeling fine. He went to watch some TV and had sudden onset of nausea with vomiting. He reports 5 episodes of vomiting with large palm size clots and some bright red blood. He denies any belly pain, fevers, chills, recent illnesses, chest pain, shortness of breath, blood per rectum. He reports 2 stools a day. 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 He denies any recent weight gain, increase in abdominal girth, confusion, UTI symptoms and is not currently nauseous. He he recently underwent an upper and lower endoscopy on April. Upper endoscopy revealed large greater than 5 mm varices in the middle and lower third of the esophagus with portal hypertensive gastropathy throughout. Colonoscopy at that time revealed no polyps but there was a poor prep noted. He was recently admitted on 02/02-03/05 for hematemesis. He had undergone EGD on 02/20 with bands placed and notable gastritis prior to that admission. He is managed by Dr. Ashley, gastroenterology. He denies any drinking of alcohol. He is an uncontrolled diabetic with recent A1c greater than 11 and glucose in the 400s on average. Past Medical/Surgical History Medical Problems: (1) Acute renal failure Status: Resolved (2) Ascites Status: Chronic (3) DMII (diabetes mellitus, type 2) Status: Chronic (4) ITP (idiopathic thrombocytopenic purpura) Status: Chronic (5) CHAWLA (nonalcoholic steatohepatitis) Status: Chronic (6) Pancreatitis Status: Resolved (7) Portal hypertension with esophageal varices Status: Chronic (8) Portal hypertensive gastropathy Status: Chronic Surgical Problems: (1) S/P tonsillectomy and adenoidectomy Status: Chronic (2) Status post colonoscopy with polypectomy Status: Chronic Family History Diabetes mellitus Heart disease Hypertension Kidney disease Kidney stones Social History Smoking Status: Never Smoker Smokeless Tobacco Use: No Alcohol Use: none Drug Use: none Occupational Status: unemployed Immunizations History of Influenza Vaccine: Yes Influenza Vaccine Date: Feb 12, 2017 History of Tetanus Vaccine?: Yes Tetanus Immunization Date: Mar 11, 2017 History of Pneumococcal: Yes Pneumococcal Date: Feb 07, 2006 History of Hepatitis B Vaccine: Yes Hepatitis Immunization Date: Nov 23, 2013 Allergies Coded Allergies: [place] (Verified Allergy, Unknown, SEASONAL ALLERGIES., 07/04/17) NO KNOWN DRUG ALLERGIES (Verified Allergy, Unknown, NONE, 07/04/17) Ragweed (Verified Allergy, Unknown, SEASONAL ALLERGIES, 07/04/17) Home Medications Scheduled Calcium W/ Vitamin D (Calcium), 250 MG PO BID Ferrous Sulfate (Ferrous Sulfate), 325 MG PO QAM Furosemide (Lasix), 40 MG PO BID Insulin Aspart (Novolog Flexpen), 1 DOSE SC UD Insulin Glargine (Lantus Solostar), 25 UNITS SC HS Magnesium Oxide (Mg Supplement (Magnesium), 1 TAB PO BID Nadolol (Nadolol), 40 MG PO QAM Omeprazole (Prilosec), 40 MG PO DAILY Probiotic Product (Probiotic), 1 CAP PO DAILY Sertraline (Zoloft), 50 MG PO DAILY Simvastatin (Zocor), 40 MG PO HS Spironolactone (Aldactone), 300 MG PO QAM Vitamin D & K (Vitamin K2 & D3 45-2000 Mcg-Unit), 1 CAP PO QAM Review of Systems At least 10 systems were reviewed and negative except as indicated in HPI above. Physical Exam Vital Signs Date Time Temp Pulse Resp B/P (MAP) Pulse Ox O2 Delivery O2 Flow Rate FiO2 07/04/17 08:18 60 120/57 07/04/17 07:49 98 Room Air 07/04/17 07:30 63 146/74 07/04/17 06:59 80 07/04/17 06:33 36.9 70 16 120/64 98 Room Air General Appearance: WD/WN, no apparent distress Head: normocephalic, atraumatic Eyes: normal inspection, PERRL, sclerae normal ENT: hearing grossly normal, pharynx normal, + pertinent finding (Mucous membranes moist) Neck: supple, no adenopathy, no JVD, trachea midline Respiratory/Chest: lungs clear, normal breath sounds, no respiratory distress, no accessory muscle use Cardiovascular: regular rate, rhythm, no edema, no gallop, no JVD, no murmur, normal peripheral pulses Abdomen/GI: normal bowel sounds, non tender, soft, + pertinent finding (No fluid wave seen) Back: normal inspection Extremities/Musculoskelatal: normal inspection, normal capillary refill, no pedal edema, + pertinent finding (Extremities appear warm and well perfused) 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, no motor/sensory deficits, alert, normal mood/affect, oriented x 3 Skin: normal color, warm/dry, no rash, + pertinent finding (The patient is not jaundiced) Diagnostics Laboratory Results 07/04/17 06:48 Red Blood Count 2.86, Mean Corpuscular Volume 84.3, Mean Corpuscular Hemoglobin 27.3, Mean Corpuscular Hemoglobin Concent 32.4, Neutrophils (%) (Auto) 79.6, Lymphocytes (%) (Auto) 9.2, Monocytes (%) (Auto) 7.2, Eosinophils (%) (Auto) 2.7 , Basophils (%) (Auto) 1.0, Neutrophils # (Auto) 2.32, Lymphocytes # (Auto) 0.27 , Monocytes # (Auto) 0.21, Eosinophils # (Auto) 0.08, Basophils # (Auto) 0.03 07/04/17 06:48 Test 07/04/17 06:48 07/04/17 06:54 White Blood Count 2.92 K/uL (4.8-10.8) Red Blood Count 2.86 M/uL (4.7-6.1) Hemoglobin 7.8 g/dL (14.0-18.0) Hematocrit 24.1 % (42-52) Mean Corpuscular Volume 84.3 fL (80-100) Mean Corpuscular Hemoglobin 27.3 pg (25-34) Mean Corpuscular Hemoglobin Concent 32.4 g/dl (32-36) Platelet Count 60 K/uL (130-400) Neutrophils (%) (Auto) 79.6 % Lymphocytes (%) (Auto) 9.2 % Monocytes (%) (Auto) 7.2 % Eosinophils (%) (Auto) 2.7 % Basophils (%) (Auto) 1.0 % Neutrophils # (Auto) 2.32 K/uL (1.4-6.5) Lymphocytes # (Auto) 0.27 K/uL (1.2-3.4) Monocytes # (Auto) 0.21 K/uL (0.11-0.59) Eosinophils # (Auto) 0.08 K/uL (0-0.5) Basophils # (Auto) 0.03 K/uL (0-0.2) RDW Standard Deviation 55.5 fL (36.4-46.3) RDW Coefficient of Variation 18.0 % (11.5-14.5) Immature Granulocyte % (Auto) 0.3 % Immature Granulocyte # (Auto) 0.01 K/uL (0.00-0.02) Platelet Estimate DECREASED Giant Platelets 1+ Echinocytes 1+ Prothrombin Time 11.7 SECONDS (9.0-12.0) Prothromb Time International Ratio 1.1 (0.9-1.1) Activated Partial Thromboplast Time 31.7 SECONDS (21.0-31.0) Partial Thromboplastin Ratio 1.2 Est Creatinine Clear Calc Drug Dose 72.2 ml/min Estimated GFR () 71.4 Estimated GFR (Non- 61.6 BUN/Creatinine Ratio 13.7 (10-20) Calcium Level 7.7 mg/dl (8.5-10.1) Total Bilirubin 0.8 mg/dl (0.2-1) Direct Bilirubin 0.3 mg/dl (0-0.2) Aspartate Amino Transf (AST/SGOT) 25 U/L (15-37) Alanine Aminotransferase (ALT/SGPT) 17 U/L (12-78) Alkaline Phosphatase 176 U/L (45-117) Troponin I < 0.015 ng/ml (0-0.045) Total Protein 6.8 gm/dl (6.4-8.2) Albumin 1.9 gm/dl (3.4-5.0) Lipase 248 U/L (73-393) Beta-Hydroxybutyric Acid 0.59 mg/dL (0.2-2.81) Bedside Hemoglobin 7.8 g/dl (14.0-18.0) Bedside Hematocrit 23 % (42-52) Bedside Sodium 133 mEq/L (135-144) Bedside Potassium 3.5 mEq/L (3.3-5.0) Bedside Chloride 94 mEq/L (101-112) Bedside Total CO2 25 mEq/l (24-31) Anion Gap 19.0 mmol/L (16-25) Bedside Blood Urea Nitrogen 17 mg/dl (7-18) Bedside Creatinine 1.1 mg/dl (0.6-1.3) Bedside Glucose (other) 491 mg/dl (70-99) Bedside Ionized Calcium (Christine) 1.14 mmol/l (1.12-1.32) Results Past 24 Hours Test 07/04/17 06:48 07/04/17 06:54 07/04/17 08:24 Range/Units White Blood Count 2.92 4.8-10.8 K/uL Red Blood Count 2.86 4.7-6.1 M/uL Hemoglobin 7.8 14.0-18.0 g/dL Hematocrit 24.1 42-52 % Mean Corpuscular Volume 84.3 80-100 fL Mean Corpuscular Hemoglobin 27.3 25-34 pg Mean Corpuscular Hemoglobin Concent 32.4 32-36 g/dl Platelet Count 60 130-400 K/uL Neutrophils (%) (Auto) 79.6 % Lymphocytes (%) (Auto) 9.2 % Monocytes (%) (Auto) 7.2 % Eosinophils (%) (Auto) 2.7 % Basophils (%) (Auto) 1.0 % Neutrophils # (Auto) 2.32 1.4-6.5 K/uL Lymphocytes # (Auto) 0.27 1.2-3.4 K/uL Monocytes # (Auto) 0.21 0.11-0.59 K/uL Eosinophils # (Auto) 0.08 0-0.5 K/uL Basophils # (Auto) 0.03 0-0.2 K/uL RDW Standard Deviation 55.5 36.4-46.3 fL RDW Coefficient of Variation 18.0 11.5-14.5 % Immature Granulocyte % (Auto) 0.3 % Immature Granulocyte # (Auto) 0.01 0.00-0.02 K/uL Platelet Estimate DECREASED Giant Platelets 1+ Echinocytes 1+ Prothrombin Time 11.7 9.0-12.0 SECONDS Prothromb Time International Ratio 1.1 0.9-1.1 Activated Partial Thromboplast Time 31.7 21.0-31.0 SECONDS Partial Thromboplastin Ratio 1.2 Sodium Level 132 136-145 mmol/L Potassium Level 3.5 3.5-5.1 mmol/L Chloride Level 99 98-107 mmol/L Carbon Dioxide Level 26 21-32 mmol/L Anion Gap 6.0 19.0 16-25 mmol/L Blood Urea Nitrogen 18 7-18 mg/dl Creatinine 1.29 0.60-1.40 mg/dl Est Creatinine Clear Calc Drug Dose 72.2 ml/min Estimated GFR () 71.4 Estimated GFR (Non- 61.6 BUN/Creatinine Ratio 13.7 10-20 Random Glucose 479 70-99 mg/dl Calcium Level 7.7 8.5-10.1 mg/dl Total Bilirubin 0.8 0.2-1 mg/dl Direct Bilirubin 0.3 0-0.2 mg/dl Aspartate Amino Transf (AST/SGOT) 25 15-37 U/L Alanine Aminotransferase (ALT/SGPT) 17 12-78 U/L Alkaline Phosphatase 176 45-117 U/L Troponin I < 0.015 0-0.045 ng/ml Total Protein 6.8 6.4-8.2 gm/dl Albumin 1.9 3.4-5.0 gm/dl Lipase 248 73-393 U/L Beta-Hydroxybutyric Acid 0.59 0.2-2.81 mg/dL Bedside Hemoglobin 7.8 14.0-18.0 g/dl Bedside Hematocrit 23 42-52 % Bedside Sodium 133 135-144 mEq/L Bedside Potassium 3.5 3.3-5.0 mEq/L Bedside Chloride 94 101-112 mEq/L Bedside Total CO2 25 24-31 mEq/l Bedside Blood Urea Nitrogen 17 7-18 mg/dl Bedside Creatinine 1.1 0.6-1.3 mg/dl Bedside Glucose (other) 491 70-99 mg/dl Bedside Ionized Calcium (Christine) 1.14 1.12-1.32 mmol/l Diagnostic Radiology CHEST ONE VIEW PORTABLE CLINICAL HISTORY: vomiting nausea COMPARISON STUDY: 03/02/2017 FINDINGS: Chronic pleural reactive change right base. Suggestion of mild increase in volume of right effusion. Left lung is clear. No significant cardiac enlargement. IMPRESSION: 1. Mild increase in volume of right pleural effusion. 2. Study is otherwise unremarkable. EKG SR64, LAFB Impression Assessment and Plan 56-year-old man with uncontrolled diabetes and Chawla cirrhosis presents with multiple episodes of hematemesis. 1. Posthemorrhagic anemia secondary to upper GI bleed-known esophageal varices , likely source of bleeding. Patient will be continued on octreotide and Protonix drips and placed in the ICU. 2 large-bore IVs were placed peripherally. Normal saline was given in the ER and 2 units of blood were ordered. The patient is currently hemodynamically stable and is not complaining of nausea or abdominal pain. Will defer to the ICU team for continuing with the transfusion of blood or holding. Trend H&H q. 8. Nadolol was held in setting of acute bleed. GI was consulted. Appreciate recommendations. 2. Cirrhosis-appears compensated, patient's mental status is normal, no dann ascites or abdominal pain is present. No asterixis was noticed on exam. Spironolactone and Lasix were held in the setting of acute GI bleed. 3. Diabetes type 2-uncontrolled with recent A1c greater than 11. Pharmacy consult was ordered for assistance with managing on insulin sliding scale with carb coverage. Glargine was also ordered and 50% of his normal dose at home while patient is n.p.o. Diabetic consult was also ordered for education. The patient reports sugars in the 400s and will need an adjusted regimen for better control once he is more stable prior to discharge. 4. Thrombocytopenia-patient reports a diagnosis of ITP with presence of antibodies approximately 1 year prior to his diagnosis of cirrhosis. It is difficult to tell which of these is causing his thrombus cytopenia however, this is stable. Defer to ICU team for platelet transfusion in setting of bleed. Platelet count is currently 60K, which is his baseline. 5. Leukopenia-at baseline DVT prophylaxis-SCDs, chemoprophylaxis contraindicated in setting of acute bleed. Full code as discussed with the patient on admission. Disposition-to ICU DO Byron Bhatti hospitalist Advanced Directives Existing Living Will: Yes Existing Power of Offset Pressman: Yes Resuscitation Status VTE Prophylaxis Will order VTE Prophylaxis: Yes
[2017-07-04] MEDS ORDERED: PHARMACY GLYCEMIC MGMT CONSULT PRN (08:59)
[2017-07-04] MEDS ORDERED: LORAZEPAM INJ 0.5 MG in SYRINGE 0.75 ML IV PRN (09:15)
[2017-07-04] MEDS ORDERED: INSULIN GLARGINE SOLOSTAR 100 UNITS/ML 3 ML PEN SC SCH (10:00)
[2017-07-04] MEDS: INSULIN ASPART 100 UNITS/ML 3 ML PEN SC SCH ×2 (10:16→12:45)
[2017-07-04] MEDS ORDERED: EpHEDrine SULFATE INJ 50 MG/ML AMP IV PRN (11:00)
[2017-07-04] MEDS ORDERED: FENTANYL CITRATE INJ 50 MCG/1 ML 2 ML VIAL IV PRN (11:00)
[2017-07-04] MEDS ORDERED: LABETALOL HCL IV 5 MG/ML 20ML IV PRN (11:00)
[2017-07-04] MEDS ORDERED: MEPERIDINE HCL 25 MG/ML CARP IV PRN (11:00)
[2017-07-04] MEDS ORDERED: HYDROmorphone INJ 2 MG/ML SYR/VIAL IV PRN (11:00)
[2017-07-04] MEDS ORDERED: ATROPINE SULFATE 0.1 MG/ML 5ML SYR IV PRN (11:00)
[2017-07-04] MEDS ORDERED: NORMOSOL R 1,000 ML IV SCH (11:30)
[2017-07-04] MEDS ORDERED: ONDANSETRON INJ 2 MG/ML 2 ML VIAL ONE (11:53)
[2017-07-04] MEDS ORDERED: SUCCINYLCHOLINE CHLORIDE 20 MG/ML 10 ML VIAL IV ONE (11:53)
[2017-07-04] MEDS ORDERED: MIDAZOLAM HCL 1 MG/ML 2ML VIAL ONE (11:53)
[2017-07-04] MEDS ORDERED: FENTANYL CITRATE INJ 50 MCG/1 ML 2 ML VIAL ONE (11:53)
[2017-07-04] MEDS ORDERED: LIDOCAINE HCL 2% 2 ML VIAL (20MG/ML) ONE (11:53)
[2017-07-04] MEDS ORDERED: PROPOFOL IV EMULSION 10 MG/ML 20 ML VIAL ONE (11:53)
[2017-07-04] MEDS ORDERED: CEFTRIAXONE SOD INJ 1000 MG in DEXTROSE 5% 50ML IV SCH (12:00)
--- NOTE | 2017-07-04 12:27 | History & Physical Bridge Note ---
H&P Re-Evaluation Bridge Note: I have examined the patient, reviewed the History & Physical and in the interval since the performance of the History & Physical I have noted the following changes of clinical significance: No changes noted
[2017-07-04] MEDS ORDERED: INSULIN HUMAN REGULAR PER UNIT 10 UNITS in SYRINGE 9.9 ML IV SCH (12:30)
[2017-07-04] MEDS ORDERED: EpHEDrine SULFATE 50MG/5ML SYR ONE (13:11)
--- NOTE | 2017-07-04 13:12 | GI REPORT ---
Patient Name: Mehul Murillo Procedure Date: 07/04/2017 12:40 PM Date of : 1960 Admit Type: Inpatient Age: 56 Gender: Male Attending MD: Chris Salazar DO Procedure: Upper GI endoscopy Providers: Chris Salazar DO Referring MD: Alejandrina Melgar Do Indications: Hematemesis, For therapy of esophageal varices with bleeding Medicines: General Anesthesia Complications: No immediate complications. Estimated blood loss: Minimal. Estimated Blood Loss: Estimated blood loss was minimal. Procedure: Pre-Anesthesia Assessment: - Prior to the procedure, a History and Physical was performed, and patient medications, allergies and sensitivities were reviewed. The patient's tolerance of previous anesthesia was reviewed. - The risks and benefits of the procedure and the sedation options and risks were discussed with the patient. All questions were answered and informed consent was obtained. - Patient identification and proposed procedure were verified prior to the procedure by the physician, the nurse and the special forces engineer sergeant. The procedure was verified in the procedure room. - Pre-procedure physical examination revealed no contraindications to sedation. - ASA Grade Assessment: IV - A patient with severe systemic disease that is a constant threat to life. - After reviewing the risks and benefits, the patient was deemed in satisfactory condition to undergo the procedure. - The anesthesia plan was to use general anesthesia. - Immediately prior to administration of medications, the patient was re-assessed for adequacy to receive sedatives. - The heart rate, respiratory rate, oxygen saturations, blood pressure, adequacy of pulmonary ventilation, and response to care were monitored throughout the procedure. - The physical status of the patient was re-assessed after the procedure. After obtaining informed consent, the endoscope was passed under direct vision. Throughout the procedure, the patient's blood pressure, pulse, and oxygen saturations were monitored continuously. The scope was introduced through the mouth, and advanced to the third part of duodenum. The upper GI endoscopy was accomplished without difficulty. The patient tolerated the procedure well. Findings: Large (> 5 mm) varices with spurting blood were found in the lower third of the esophagus in the lower third of the esophagus. These had stigmata of recent bleeding. They were 6 mm in largest diameter. Six bands were successfully placed with incomplete eradication of varices. There was no bleeding at the end of the procedure. A large amount of food (residue) was found in the entire examined stomach. Impression: - Bleeding large (> 5 mm) esophageal varices. Incompletely eradicated. Banded. - A large amount of food (residue) in the stomach. - No specimens collected. Recommendation: - [facility]. - Give Protonix (pantoprazole): initiate therapy with 80 mg IV bolus, then 8 mg/hr IV by continuous infusion. - Continue Octreotide 50 micrograms per hour for 72 hours. - Use broad spectrum antibiotics until discharge. - Refer to a tertiary center (patient may need TIPS if rebleeding occurs) Chris Salazar D.O. Chris Salazar DO 07/04/2017 1:12:18 PM This report has been signed electronically. Note Initiated On: 07/04/2017 12:40 PM Number of Addenda: 0 I attest to the content of the Intraoperative Record and orders documented therein, exceptions below {[id number]}
--- NOTE | 2017-07-04 13:14 | [facility] Post Operative Brief Note ---
Immediate Operative Summary Operative Date July 04, 2017. Pre-Operative Diagnosis Variceal Bleed Post-Operative Diagnosis Same as preop Procedure(s) Performed Esophagogastroduodenoscopy Surgeon Dr. Chris Salazar Leisure Studies Professor Surgeon(s) None Estimated Blood Loss 0 ml Findings Consistent with Post-Op Diagnosis Specimens None per Surgeon Anesthesia Type General Complication(s) none Disposition Accompanied Pt To Recover: no Disposition: Surgical ICU
--- NOTE | 2017-07-04 13:38 | Progress Note ---
Progress Note Date of Service July 04, 2017. Progress Note The patient underwent upper endoscopy this afternoon. He was found to have active bleeding from a varix at the gastroesophageal junction. This was treated with esophageal band ligation. We placed 6 bands and the bleeding appeared to have stopped at the end of the exam today. I was not able to evaluate the stomach due to retained contents. Recommendations Continue octreotide drip for 72 hours Continue Protonix drip for 72 hours Continue broad-spectrum antibiotics Would recommend referral to a tertiary center with interventional radiology capabilities as I believe there is a high risk of rebleeding in this patient ( he would then be best served with a TIPS)
--- NOTE | 2017-07-04 14:02 | Critical Care Consultation ---
Critical Care Consultation Date of Consultation: July 04, 2017. Attending Physician: Alejandrina Melgar DO Reason for Consultation: Upper GI bleed History of Present Illness 56 yo male with history of variceal bleeding with previous banding. The patient has a history of NAFLD/DEL CID with portal hypertension, esophageal varices and hepatic portal gastropathy. He presents today after several episodes of hematemesis beginning about 530am this morning with clots of blood. He is unable to quantify the amount. He denies any abdominal or epigastric pain. He has no difficulty with swallowing. He has no melena or hematochezia. He further denies bright red blood per rectum. The patient states that he presents similar to his last episode. When asked about TIPS procedure he states that he has been told in the past that he is "not ready". 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 He is oxygenating well on room air with no pulmonary complaints. He denies fever, sweats, chills, rigors. He has no recent illness or travel. He has no pets at home. He lives with his parents at their home. He currently is on disability. 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 He denies any ethanol or illicit substance abuse and is a non- smoker. Past Medical/Surgical History Medical Problems: Upper GI bleed Acute on chronic anemia History of renal failure Ascites DMII (diabetes mellitus, type 2) ITP (idiopathic thrombocytopenic purpura) DEL CID (nonalcoholic steatohepatitis) Pancreatitis Portal hypertension with esophageal varices Portal hypertensive gastropathy Surgical Problems: S/P tonsillectomy and adenoidectomy Status post colonoscopy with polypectomy Family History Diabetes mellitus Heart disease Hypertension Kidney disease Kidney stones Social History Smoking Status: Never Smoker Smokeless Tobacco Use: No Alcohol Use: none Drug Use: none Marital Status: single Housing Status: lives with family (Lives with parents), other Occupation Status: unemployed Allergies Coded Allergies: [place] (Verified Allergy, Unknown, SEASONAL ALLERGIES., 07/04/17) NO KNOWN DRUG ALLERGIES (Verified Allergy, Unknown, NONE, 07/04/17) Ragweed (Verified Allergy, Unknown, SEASONAL ALLERGIES, 07/04/17) Home Medications Scheduled Calcium W/ Vitamin D (Calcium), 250 MG PO BID Ferrous Sulfate (Ferrous Sulfate), 325 MG PO QAM Furosemide (Lasix), 40 MG PO BID Insulin Aspart (Novolog Flexpen), 1 DOSE SC UD Insulin Glargine (Lantus Solostar), 25 UNITS SC HS Magnesium Oxide (Mg Supplement (Magnesium), 1 TAB PO BID Nadolol (Nadolol), 40 MG PO QAM Omeprazole (Prilosec), 40 MG PO DAILY Probiotic Product (Probiotic), 1 CAP PO DAILY Sertraline (Zoloft), 50 MG PO DAILY Simvastatin (Zocor), 40 MG PO HS Spironolactone (Aldactone), 300 MG PO QAM Vitamin D & K (Vitamin K2 & D3 45-2000 Mcg-Unit), 1 CAP PO QAM Current Inpatient Medications Current Inpatient Medications Medications (Trade) Dose Ordered Sig/Geovanna Route Start Time Stop Time Status Last Admin Dose Admin Pantoprazole Sodium 40 mg/ Dextrose 100 ml @ 20 mls/hr Q5H IV 07/04/17 06:45 08/03/17 06:44 07/04/17 12:01 20 MLS/HR Octreotide Acetate 500 mcg/ Sodium Chloride 105 ml @ 10 mls/hr [id number] IV 07/04/17 06:45 08/03/17 06:44 07/04/17 12:01 10 MLS/HR Lorazepam (Ativan Inj) 0.5 mg Q4H PRN IV 07/04/17 08:30 08/03/17 08:29 Morphine Sulfate (MoRPHine SULFATE INJ) 2 mg Q4H PRN IV 07/04/17 08:30 07/18/17 08:29 Miscellaneous Information (Icu Protocol For Hyperglycemia) 1 ea PRN PRN N/A 07/04/17 08:30 07/06/17 08:29 Insulin Glargine (Lantus Solostar Pen) see protocol BID SC 07/04/17 10:00 08/03/17 09:59 07/04/17 10:17 25 UNITS Insulin Aspart (novoLOG ASPART) SLIDING SCALE If C... ACHS SC 07/04/17 10:00 08/03/17 09:59 07/04/17 12:45 14 UNITS Glucose (Glucose 40% Gel) 15-30 GRAMS 15 GRAMS... UD PRN PO 5/4/18 08:30 08/03/17 08:29 Glucose (Glucose Chew Tab) 4-8 Tablets 4 Tabl... UD PRN PO 07/04/17 08:30 08/03/17 08:29 Dextrose (Dextrose 50% 50ML Syringe) 25-50ML 25ML FOR ... UD PRN IV 07/04/17 08:30 08/03/17 08:29 Glucagon (Glucagon Inj) 1 mg UD PRN SQ 07/04/17 08:30 08/03/17 08:29 Carbohydrates (Carbohydrates For Hypoglycemia) 15-30 GRAMS 15 grams if BSG 54-69... UD PRN PO 07/04/17 08:30 08/03/17 08:29 Miscellaneous Information (Consult Glycemic Management Pharmacy) 1 ea UD PRN N/A 07/04/17 08:59 08/03/17 08:58 Ondansetron HCl (Zofran Inj) 4 mg Q6H PRN IV 07/04/17 08:45 08/03/17 08:44 Lorazepam 0.5 mg/ Syringe 1 ml @ 1 mls/min Q4H PRN IV 07/04/17 09:15 08/03/17 09:14 Fentanyl Citrate (Fentanyl Inj) 50 mcg Q5M PRN IV 07/04/17 11:00 07/04/17 16:00 Hydromorphone HCl (Dilaudid Inj) 0.5 mg Q5M PRN IV 07/04/17 11:00 07/04/17 16:00 Meperidine HCl (Demerol Inj) 25 mg Q5M PRN IV 07/04/17 11:00 07/04/17 16:00 Ondansetron HCl (Zofran Inj) 4 mg ONE PRN IV 07/04/17 11:00 07/04/17 16:00 Labetalol HCl (Normodyne IV) 5 mg Q5M PRN IV 07/04/17 11:00 07/04/17 16:00 Ephedrine Sulfate (EpHEDrine SULFATE INJ) 5 mg Q5M PRN IV 07/04/17 11:00 07/04/17 16:00 Atropine Sulfate (Atropine Sulfate 0.1mg/ml Inj) 0.5 mg Q1M PRN IV 07/04/17 11:00 07/04/17 16:00 Parenteral Electrolyte Solution 1,000 ml @ 100 mls/hr Q10H IV 07/04/17 11:30 08/03/17 11:29 07/04/17 12:01 100 MLS/HR Ceftriaxone Sodium 1 gm/ Dextrose 50 ml @ 100 mls/hr Q24H IV 07/04/17 12:00 07/14/17 11:59 07/04/17 12:27 100 MLS/HR Review of Systems A total of 12 systems was reviewed and is negative other than as listed above in the HPI Physical Exam Date Time Temp Pulse Resp B/P (MAP) Pulse Ox O2 Delivery O2 Flow Rate FiO2 07/04/17 12:06 100 Room Air 07/04/17 11:00 36.5 60 19 122/60 (80) 97 Room Air 60 07/04/17 10:00 36.4 62 15 111/60 (77) 98 Room Air 07/04/17 09:28 64 14 126/65 (85) 99 Room Air 07/04/17 09:10 36.5 65 18 107/59 (75) 100 Room Air 07/04/17 09:10 36.9 61 16 107/59 07/04/17 09:04 64 115/59 07/04/17 09:00 37.0 63 16 115/59 07/04/17 08:52 36.9 59 16 108/64 07/04/17 08:50 60 07/04/17 08:18 60 120/57 07/04/17 07:49 98 Room Air 07/04/17 07:30 63 146/74 07/04/17 06:59 80 07/04/17 06:33 36.9 70 16 120/64 98 Room Air GENERAL : No acute distress. EYES: No icterus, gaze conjugate NOSE: No evidence of epistaxis MOUTH: No lesions or candidiasis. Multiple dental caries. Patient denies pain NECK: Supple. No stridor LUNGS: CTA B/L, no wheezes, rales or rhonchi. Breath sounds equal throughout HEART: Regular, rate controlled. No appreciation of ectopy or murmur ABDOMEN: Soft, NT,BS Present. Somewhat distended. Patient defines this as "close to usual but may be a little bit more distended" EXTREMITIES: No LE edema, pedal pulses intact NEURO: A&OX3 Laboratory Results Last 24 Hours Test 07/04/17 06:48 07/04/17 06:54 07/04/17 08:24 07/04/17 08:51 White Blood Count 2.92 K/uL Red Blood Count 2.86 M/uL Hemoglobin 7.8 g/dL Hematocrit 24.1 % Mean Corpuscular Volume 84.3 fL Mean Corpuscular Hemoglobin 27.3 pg Mean Corpuscular Hemoglobin Concent 32.4 g/dl Platelet Count 60 K/uL Neutrophils (%) (Auto) 79.6 % Lymphocytes (%) (Auto) 9.2 % Monocytes (%) (Auto) 7.2 % Eosinophils (%) (Auto) 2.7 % Basophils (%) (Auto) 1.0 % Neutrophils # (Auto) 2.32 K/uL Lymphocytes # (Auto) 0.27 K/uL Monocytes # (Auto) 0.21 K/uL Eosinophils # (Auto) 0.08 K/uL Basophils # (Auto) 0.03 K/uL RDW Standard Deviation 55.5 fL RDW Coefficient of Variation 18.0 % Immature Granulocyte % (Auto) 0.3 % Immature Granulocyte # (Auto) 0.01 K/uL Platelet Estimate DECREASED Giant Platelets 1+ Echinocytes 1+ Prothrombin Time 11.7 SECONDS Prothromb Time International Ratio 1.1 Activated Partial Thromboplast Time 31.7 SECONDS Partial Thromboplastin Ratio 1.2 Sodium Level 132 mmol/L Potassium Level 3.5 mmol/L Chloride Level 99 mmol/L Carbon Dioxide Level 26 mmol/L Anion Gap 6.0 mmol/L 19.0 mmol/L Blood Urea Nitrogen 18 mg/dl Creatinine 1.29 mg/dl Est Creatinine Clear Calc Drug Dose 72.2 ml/min Estimated GFR () 71.4 Estimated GFR (Non- 61.6 BUN/Creatinine Ratio 13.7 Random Glucose 479 mg/dl Calcium Level 7.7 mg/dl Total Bilirubin 0.8 mg/dl Direct Bilirubin 0.3 mg/dl Aspartate Amino Transf (AST/SGOT) 25 U/L Alanine Aminotransferase (ALT/SGPT) 17 U/L Alkaline Phosphatase 176 U/L Troponin I < 0.015 ng/ml Total Protein 6.8 gm/dl Albumin 1.9 gm/dl Lipase 248 U/L Beta-Hydroxybutyric Acid 0.59 mg/dL Bedside Hemoglobin 7.8 g/dl Bedside Hematocrit 23 % Bedside Sodium 133 mEq/L Bedside Potassium 3.5 mEq/L Bedside Chloride 94 mEq/L Bedside Total CO2 25 mEq/l Bedside Blood Urea Nitrogen 17 mg/dl Bedside Creatinine 1.1 mg/dl Bedside Glucose (other) 491 mg/dl Bedside Ionized Calcium (Christine) 1.14 mmol/l Bedside Glucose 419 mg/dl Test 07/04/17 09:39 07/04/17 12:07 Bedside Glucose 373 mg/dl 388 mg/dl Diagnostic Results CHEST ONE VIEW PORTABLE CLINICAL HISTORY: vomiting nausea COMPARISON STUDY: 03/02/2017 FINDINGS: Chronic pleural reactive change right base. Suggestion of mild increase in volume of right effusion. Left lung is clear. No significant cardiac enlargement. IMPRESSION: 1. Mild increase in volume of right pleural effusion. 2. Study is otherwise unremarkable. Electronically signed by: Alvaro Clemons M.D. 07/04/2017 7:06 AM Assessment & Plan There is a 56-year-old male admitted for upper GI bleed. He is known to the gastroenterology service from [facility]. He has had previous banding which was incomplete. Gastroenterology was contacted and will be taking the patient to the OR for EGD. Pending that he has been started on octreotide and pantoprazole. Patient is a current hemoglobin of 7.8 but is hemodynamically stable. Patient will be typed and crossed but not transfused at this time. Further workup per gastroenterology DEL CID * No history of ethanol use or abuse * AST 25, ALT 17, alk phos 176, albumin 1.9, lipase 248 Neuro * Alert and oriented 4 * No focal findings Cardiovascular * Hemodynamically stable * Home meds include nadolol * Continue simvastatin * N.p.o. for procedure. 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 for procedure * Continue BSG with SSI * Not currently being treated for hypothyroidism * One TSH level on 9/16/14 was 4.98 Heme * Current hemoglobin 7.8; hemoglobin has trended from 8.1-9.9 since 03/02/2017 * Type and cross but hold transfusion at this time pending EGD * History of thrombocytopenia * Platelet count currently 60,000 * Follow serial labs Electrolytes * Sodium 133, potassium 3.5, calcium 7.7, ionized calcium 1.14 * Add potassium to IV fluid * Monitor serial labs Nutrition * N.p.o. pending EGD * Albumin 1.9 * Consider nutritional consult for caloric and nutritional needs GI * Esophageal varices as listed above * Gastroenterology consulted -appreciate Dr. Salazar's input * EGD later today * Continue octreotide and pantoprazole and management per gastroenterology * Continue n.p.o. until cleared by gastroenterology IV access * 3 peripheral IVs are currently in place * No indication for central line at this time * If patient would require transfusion, may benefit from MAC access or central line * Continue to evaluate needs DVT prophylaxis * No chemical prophylaxis secondary to acute bleed * Teds/SCDs CCT: 40 minutes independent of any procedures Thank you for including us in the care of this patient. Please refer to Dr. Bowden's addendum for further recommendations. I have personally evaluated and examined this patient. I agree with assessment and plan of Boni Ruano PA-C. I initially saw the patient in the emergency department where we transitioned care to the critical care service. Patient is a long-standing history of hepatic insufficiency and known esophageal varices. He is typed and screened and we have ordered additional IV access. Additionally I discussed the case with Dr. Salazar gastroenterology service. He was able to place 6 bands however is felt that if he were to rebleed we did not have any therapeutic interventions the patient would be best managed tertiary care center or a TIPS procedure may be undertaken. Additionally Dr. Salazar was unable to determine whether or not gastric varices are present, that is additional concern that I feel transfer to tertiary care center is most appropriate at this time. I have personally spent 40 minutes of critical care time in the direct management of this patient. This is a life/limb threatening event. This includes time spent evaluating patient, direct bedside care, chart review, placing orders, interpretation of diagnostic studies, discussion with consultants, patient, and/or family members regarding treatment decisions, as well as other required patient management activities. This time is exclusive of all separately billable procedures, and teaching time and separate from and in addition to any other critical care service time.
[2017-07-04 14:23] LABS: HEMATOCRIT 23.7 % (42-52); HEMOGLOBIN 7.5 g/dL (14.0-18.0)
[2017-07-04] MEDS ORDERED: NSS + 20MEQ KCL 1000ML 1,000 ML IV SCH (14:30)
--- NOTE | 2017-07-04 14:32 | Anesthesiology Progress Note ---
Anesthesia Post Op Note Date & Time July 04, 2017 at 14:32 Vital Signs Pain Intensity: 0 Vital Signs Past 12 Hours Date Time Temp Pulse Resp B/P (MAP) Pulse Ox O2 Delivery O2 Flow Rate FiO2 07/04/17 14:16 36.6 61 17 104/58 96 Oxymask 2 07/04/17 14:05 36.5 65 20 118/69 95 Oxymask 2 07/04/17 13:50 36.5 63 20 128/68 96 Oxymask 2 07/04/17 13:42 36.6 64 18 118/65 94 Oxymask 2 07/04/17 12:06 100 Room Air 07/04/17 11:00 36.5 60 19 122/60 (80) 97 Room Air 60 07/04/17 10:00 36.4 62 15 111/60 (77) 98 Room Air 07/04/17 09:28 64 14 126/65 (85) 99 Room Air 07/04/17 09:10 36.5 65 18 107/59 (75) 100 Room Air 07/04/17 09:10 36.9 61 16 107/59 07/04/17 09:04 64 115/59 07/04/17 09:00 37.0 63 16 115/59 07/04/17 08:52 36.9 59 16 108/64 07/04/17 08:50 60 07/04/17 08:18 60 120/57 07/04/17 07:49 98 Room Air 07/04/17 07:30 63 146/74 07/04/17 06:59 80 07/04/17 06:33 36.9 70 16 120/64 98 Room Air Notes Mental Status: alert / awake / arousable, participated in evaluation Pt Amnestic to Procedure: Yes Nausea / Vomiting: adequately controlled Pain: adequately controlled Airway Patency, RR, SpO2: stable & adequate BP & HR: stable & adequate Hydration State: stable & adequate Anesthetic Complications: no major complications apparent
--- NOTE | 2017-07-04 15:16 | Discharge Instructions ---
Discharge Instructions Date of Service July 04, 2017. Admission Reason for Admission: Upper Gi Bleed Discharge Discharge Diagnosis / Problem: UGIB 2/2 bleeding esophageal varices Discharge Goals Goal(s): Improve disease control, Therapeutic intervention, Prevent Disease Progression Activity Recommendations Activity Limitations: per Instructions/Follow-up section . Instructions / Follow-Up Instructions / Follow-Up Please ensure follow-up with your primary care physician within one week of discharge from [facility]. You will need close follow-up of your insulin regimen and diabetes management for better sugar control. It was a pleasure taking care of you! Call if you have any questions or problems. You can reach a [place] campusist on duty at [facility] 24 hours a day by calling [phone]. Take care of yourself. Alejandrina Melgar DO [facility] Diet Patient's current hospital diet: Discharge Diet Recommended Diet: N/A (pt is NPO) Procedures Procedures Performed: Esophagogastroduodenoscopy w banding Pending Studies Studies pending at discharge: no Medical Emergencies . Who to Call and When: Medical Emergencies: If at any time you feel your situation is an emergency, please call 911 immediately. . Non-Emergent Contact Non-Emergency issues call your: Primary Care Provider . . "Provider Documentation" section prepared by Alejandrina Melgar. .
--- NOTE | 2017-07-04 15:33 | Pharmacy Progress Note ---
Glycemic Control Intl Consult Date of Service July 04, 2017. Scope Glycemic Pharmacist consulted by Dr Melgar on 07/04/17 for glycemic control and to write orders per formerly [facility] inpatient glycemic control protocol Objective Weight (Kilograms): 93.000 Accuchecks BSG (last 24hrs): Test 07/04/17 06:48 07/04/17 08:51 07/04/17 09:39 07/04/17 12:07 Random Glucose 479 mg/dl (70-99) Bedside Glucose 419 mg/dl (70-99) 373 mg/dl (70-99) 388 mg/dl (70-99) Test 07/04/17 14:33 Bedside Glucose 228 mg/dl (70-99) Laboratory Data (last 24hrs) Test 07/04/17 06:48 07/04/17 06:54 Anion Gap 6.0 mmol/L 19.0 mmol/L BUN/Creatinine Ratio 13.7 Blood Urea Nitrogen 18 mg/dl Creatinine 1.29 mg/dl Potassium Level 3.5 mmol/L Sodium Level 132 mmol/L White Blood Count 2.92 K/uL Red Blood Count 2.86 M/uL Hemoglobin 7.8 g/dL Hematocrit 24.1 % Mean Corpuscular Volume 84.3 fL Mean Corpuscular Hemoglobin 27.3 pg Mean Corpuscular Hemoglobin Concent 32.4 g/dl Platelet Count 60 K/uL Neutrophils (%) (Auto) 79.6 % Lymphocytes (%) (Auto) 9.2 % Monocytes (%) (Auto) 7.2 % Eosinophils (%) (Auto) 2.7 % Basophils (%) (Auto) 1.0 % Neutrophils # (Auto) 2.32 K/uL Lymphocytes # (Auto) 0.27 K/uL Monocytes # (Auto) 0.21 K/uL Eosinophils # (Auto) 0.08 K/uL Basophils # (Auto) 0.03 K/uL Recent Pertinent Medications Outpatient Anti-diabetic Regimen: * Lantus 25 units HS * Novolog 10 units TID with meals * A1c = 9.1 % 03/02/17 Risk Factors for Insulin Resistance: * IVF: Protonix & Octreotide drip * Recent Surgery: s/p Esophagogastroduodenoscopy with banding * Diet: NPO Assessment & Plan ASSESSMENT: * 56 year male admitted with Upper GI bleeding esophageal varices, s/p esophagogastroduodenoscopy with banding * Hyperglycemic upon admission, pt received 6 units IV insulin in ED for BSG 479mg/dl * I then added Lantus, Novolog, and additional IV insulin at 1200 for BSG 388mg/ dl. * Blood sugar now close to goal, will continue to treat with SQ insulin and add accuchecks overnight * Pt may be transferred to [place] for TIPS procedure PLAN FOR INPATIENT GLYCEMIC CONTROL: * Basal insulin with LANTUS 25 units SQ x 1 dose at 1000 * then Lantus 0-25 units based on BSG HS * Regular IV insulin 10 units x 1 dose at 1230 for BSG 388mg/dl * Recheck BSG 228mg/dl at 1433 * No additional IV insulin at this time * Correctional Insulin with NOVOLOG per scale - Q4H for NPO status and for additional accuchecks as patient was hyperglycemic this morning * Goal Range: Low 140 mg/dL - High 180 mg/dL for pt in ICU and A1c * Correction Factor: 15 mg/dL/unit * Nutritional / Prandial insulin per carb ratio of 1 unit per 5 grams CHO consumed * Please note that the plan above was derived based on current level of insulin resistance and hospital stress. These recommendations are appropriate for inpatient admission only. Plan of care upon discharge will need to be reassessed to avoid potential outpatient hypo/hyperglycemia. Thank you.
--- NOTE | 2017-07-04 15:40 | Discharge Summary ---
Discharge Summary Date of Service July 04, 2017. Discharge Summary Admission Date: July 04, 2017 at 08:35 Discharge Date: July 04, 2017 Discharge Disposition: Acute care facility Principal Diagnosis: Post hemorrhagic anemia 2/2 UGIB 2/2 esophageal varices s/p banding on 07/04/17 CHAWLA cirrhosis DMII-uncontrolled Procedures: EGD with banding Vaccinations: None. Consultations: Gastroenterology-Dr. Ramon Salazar Pending Studies/Follow-Up: see instructions below Medication Reconciliation Continued Medications: Calcium W/ Vitamin D (Calcium) 1 Tab Tab 250 MG PO BID Ferrous Sulfate (Ferrous Sulfate) 325 Mg Tab 325 MG PO QAM Furosemide (Lasix) 20 Mg Tab 40 MG PO BID, TAB Insulin Aspart (Novolog Flexpen) 100 Units/Ml Inj 1 DOSE SC UD 10UNITS TID + SLIDING SCALE WITH MEALS Insulin Glargine (Lantus Solostar) 100 Unit/Ml Inj 25 UNITS SC HS Magnesium Oxide (Mg Supplement (Magnesium) 250 Mg Tab 1 TAB PO BID Nadolol (Nadolol) 40 Mg Tab 40 MG PO QAM Omeprazole (Prilosec) 40 Mg Cap 40 MG PO DAILY Probiotic Product (Probiotic) 1 Cap Cap 1 CAP PO DAILY Sertraline (Zoloft) 50 Mg Tab 50 MG PO DAILY, TAB Simvastatin (Zocor) 40 Mg Tab 40 MG PO HS, TAB Spironolactone (Aldactone) 100 Mg Tab 300 MG PO QAM, TAB Vitamin D & K (Vitamin K2 & D3 45-2000 Mcg-Unit) 1 Cap Cap 1 CAP PO QAM Admission Information HPI (per Admitting provider): The patient is a 56-year-old diabetic male with Chawla cirrhosis who presents with multiple episodes of hematemesis since 5:00 this morning. He reports eating good pizza last night going to sleep feeling well and then waking up this morning feeling fine. He went to watch some TV and had sudden onset of nausea with vomiting. He reports 5 episodes of vomiting with large palm size clots and some bright red blood. He denies any belly pain, fevers, chills, recent illnesses, chest pain, shortness of breath, blood per rectum. He reports 2 stools a day. 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 He denies any recent weight gain, increase in abdominal girth, confusion, UTI symptoms and is not currently nauseous. He he recently underwent an upper and lower endoscopy on April. Upper endoscopy revealed large greater than 5 mm varices in the middle and lower third of the esophagus with portal hypertensive gastropathy throughout. Colonoscopy at that time revealed no polyps but there was a poor prep noted. He was recently admitted on 02/02-03/05 for hematemesis. He had undergone EGD on 02/20 with bands placed and notable gastritis prior to that admission. He is managed by Dr. Ashley, gastroenterology. He denies any drinking of alcohol. He is an uncontrolled diabetic with recent A1c greater than 11 and glucose in the 400s on average. Physical Exam (per Admitting): General Appearance: WD/WN, no apparent distress Head: normocephalic, atraumatic Eyes: normal inspection, PERRL, sclerae normal ENT: hearing grossly normal, pharynx normal, + pertinent finding (Mucous membranes moist) Neck: supple, no adenopathy, no JVD, trachea midline Respiratory/Chest: lungs clear, normal breath sounds, no respiratory distress, no accessory muscle use Cardiovascular: regular rate, rhythm, no edema, no gallop, no JVD, no murmur , normal peripheral pulses Abdomen/GI: normal bowel sounds, non tender, soft, + pertinent finding (No fluid wave seen) Back: normal inspection Extremities/Musculoskelatal: normal inspection, normal capillary refill, no pedal edema, + pertinent finding (Extremities appear warm and well perfused) 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 He presented to the ER with 5 episodes of hematemesis with large clots. He was hemodynamically stable on arrival and was transfused 1 unit of blood for an H&H of 7.8 and 24. He underwent endoscopy and was found to have large greater than 5 mm varices with spurting blood. There was also stigmata of recent bleeding present. He was treated with 6 bands , however there was incomplete eradication of the varices. As the patient is high risk for rebleeding and may need TIPS as a result, he will be transferred to tertiary care facility for further management. He will remain on broad- spectrum antibiotic therapy at this time. The patient was transferred in guarded condition to the hospitalist service. Accepting physician Dr. Maciel and the investigative analyst Dr. Pedroza was made aware of the case. Total time spent on discharge = 60 minutes This includes examination of the patient, discharge planning, medication reconciliation, and communication with other providers. Discharge Instructions [facility] [address] [place] [address] Discharge Medical Patient Name: Mehul Murillo Unit Number: [id number] Date of : 1960 Patient Status: Admitted Inpatient Attending Doctor: Alejandrina Melgar DO DI: Medical v5 Discharge Instructions Date of Service July 04, 2017. Admission Reason for Admission: Upper Gi Bleed Discharge Discharge Diagnosis / Problem: UGIB 2/2 bleeding esophageal varices Discharge Goals Goal(s): Improve disease control, Therapeutic intervention, Prevent Disease Progression Activity Recommendations Activity Limitations: per Instructions/Follow-up section . Instructions / Follow-Up Instructions / Follow-Up Please ensure follow-up with your primary care physician within one week of discharge from [facility]. You will need close follow-up of your insulin regimen and diabetes management for better sugar control. It was a pleasure taking care of you! Call if you have any questions or problems. You can reach a [facility] on [facility] at [facility] 24 hours a day by calling [phone]. Take care of yourself. Alejandrina Melgar DO [facility] Current Hospital Diet Patient's current hospital diet: Discharge Diet Recommended Diet: N/A (pt is NPO) Procedures Procedures Performed: Esophagogastroduodenoscopy w banding Pending Studies Studies pending at discharge: no Medical Emergencies . Who to Call and When: Medical Emergencies: If at any time you feel your situation is an emergency, please call 911 immediately. . Non-Emergent Contact Non-Emergency issues call your: Primary Care Provider . . "Provider Documentation" section prepared by Alejandrina Melgar. . Additional Copies To Jamey Fuentes M.D.
[2017-07-04] MEDS ORDERED: INSULIN ASPART 100 UNITS/ML 3 ML PEN SC SCH (16:00)
== END 2017-07-04 18:10 | disposition short-term general hospital (02) | DRG 369 ==
LOC: C.EDB 06:31 → C.MSICU 08:35 → ENRESERV 08:52
PROVIDERS: ADMIT Hospitalist; ATTEND Hospitalist
PROC: 0DJ08ZZ Inspection of Upper Intestinal Tract, Via Natural or Artificial Opening Endoscopic (ICD-10-PCS; principal; 2017-07-04 12:30)
DX: I85.01 Esophageal varices with bleeding (principal); D69.3 Immune thrombocytopenic purpura; K76.6 Portal hypertension; D62 Acute posthemorrhagic anemia; J90 Pleural effusion, not elsewhere classified; K75.81 Nonalcoholic steatohepatitis (NASH); D72.819 Decreased white blood cell count, unspecified; E11.9 Type 2 diabetes mellitus without complications; Z79.4 Long term (current) use of insulin; Z83.3 Family history of diabetes mellitus; Z82.49 Family history of ischemic heart disease and other diseases of the circulatory system; Z84.1 Family history of disorders of kidney and ureter

== ENCOUNTER 2018-02-20 18:04 | Inpatient (IN) ==
[2018-02-20] MEDS ORDERED: ONDANSETRON INJ 2 MG/ML 2 ML VIAL IV STA (18:23)
[2018-02-20] MEDS ORDERED: SODIUM CHLORIDE 0.9% 500 ML IV SCH (18:30)
--- NOTE | 2018-02-20 18:55 | Emergency Department Note ---
Entered by Lili Wilson acting as a scribe for Abdulkadir Lira MD History of Present Illness General Chief complaint: Weakness Stated complaint: WEAKNESS, EDEMA TO LEGS Time Seen by Provider: 02/20/18 18:12 Source: patient Mode of arrival: EMS Limitations: no limitations History of Present Illness Provider complaint: weakness Onset (ago): unknown Associated symptoms: + denies other symptoms (diarrhea, problems with urination) , + nausea/vomiting, + shortness of breath and + other (+burning in stomach, + swelling in legs); no fever/chills The patient is a 57 year old male who presents to the Emergency Room with complaints of weakness. The patient states that he has been vomiting for 2 days and states that there hasn't been any blood in his vomit. The patient states that he has burning in his stomach and shortness of breath. The patient denies being febrile, having diarrhea with black or bloody stool, or problems with urination. The patient also states that he has swelling in his legs and states that he noticed this over a month ago. The patient states that he has a history of liver disease. The patient states that he doesn't drink alcohol. The patient states that he doesn't live alone. Home Medications Home Medications Medication Instructions Recorded Confirmed Type calcium carbonate [Calcium 500] 250 mg PO BID 02/20/18 02/20/18 History ferrous sulfate 325 mg PO BID 02/20/18 02/20/18 History furosemide 40 mg PO BID 02/20/18 02/20/18 History insulin aspart U-100 [Novolog See Label Instructions .ROUTE 02/20/18 02/20/18 History Flexpen U-100 Insulin] .COMPLEX insulin glargine [Lantus Solostar 25 units SUBCUT HS 02/20/18 02/20/18 History U-100 Insulin] lactobacillus combination no.4 1 cap PO DAILY 02/20/18 02/20/18 History [Probiotic] magnesium 250 mg PO BID 02/20/18 02/20/18 History nadolol 40 mg PO QAM 02/20/18 02/20/18 History omeprazole 40 mg PO QAM 02/20/18 02/20/18 History sertraline 50 mg PO DAILY 02/20/18 02/20/18 History simvastatin 40 mg PO HS 02/20/18 02/20/18 History spironolactone 100 mg PO TID 02/20/18 02/20/18 History vitamin D3-vitamin K2 1 tab PO DAILY 02/20/18 02/20/18 History Allergies Allergy/AdvReac Type Severity Reaction Status Date / Time No Known Drug Allergies Allergy Unknown NONE Verified 07/04/17 07:14 ragweed pollen Allergy Unknown SEASONAL Verified 07/04/17 07:14 ALLERGIES [place] Allergy Unknown SEASONAL Uncoded 07/04/17 07:14 ALLERGIES. Past Med/Surg History Medical History Acute renal failure (Acute) Pancreatitis (Chronic) Surgical History History of tonsillectomy (Resolved) Social History Feels Safe at Home: Yes Smoking Status: Never smoker Review of Systems See HPI for pertinent positives & negatives. and A total of 10 systems reviewed and were otherwise negative Physical Exam Vital Signs Vital Signs - 24 hr 02/20/18 18:13 02/20/18 18:50 02/20/18 20:17 Temperature 36.5 C Temperature Source Oral Sepsis Recent Fever Within 48 Hours No Sepsis New/Unexplained Change in Mental Status No Sepsis Action Taken by Nursing No Action Required Pulse Rate 83 83 Pulse Rate [Finger] 83 80 Respiratory Rate 15 15 18 Blood Pressure 153/82 H Blood Pressure [Right Arm] 153/82 H 135/78 Blood Pressure Mean 105 Blood Pressure Mean [Right Arm] 105 97 Pulse Oximetry 94 94 95 Oxygen Delivery Method Room Air Room Air GENERAL: Patient is in no acute distress. HEENT: No acute trauma, normocephalic atraumatic, mucous membranes dry, no nasal congestion, no scleral icterus. NECK: No stridor, no adenopathy, no meningismus, trachea is midline. LUNGS: Clear to auscultation bilaterally, no wheeze, no rhonchi, breath sounds equal. HEART: Without murmurs gallops or rubs, regular rate and rhythm. ABDOMEN: Distended but non-tender, no obvious hernia, no peritonitis. GROIN: Penile edema noted, no erythema. RECTAL: Brown stool, heme negative. EXTREMITIES: No cyanosis, significant bilateral pedal edema, no erythema, full range of motion of all the joints without pain or difficulty, no signs for acute trauma. NEUROLOGIC: Oriented x 3, no acute motor or sensory deficits, no focal weakness. SKIN: Pale with jaundice.. Course 1814: Past medical records reviewed. The patient was evaluated in room A3, and a complete history and physical examination were performed. 2012: I discussed the patient�s case with Dr. Nesbitt - Internal Medicine who will evaluate the patient for further hospitalization. 2026: I updated the patient on his results and admission. The patient's sister is now with him. Consultations Consultation #1: Dr. Nesbitt - Internal Medicine Time: 20:13 Administered Medications Pantoprazole Sodium 40 mg/ (Dextrose) 100 mls @ 20 mls/hr IV Q5H SHEYLA Stop: 03/22/18 19:59 Last Admin: 02/20/18 20:47 Dose: 20 mls/hr Discontinued Medications Sodium Chloride (Nss) 500 mls @ 999 mls/hr IV .Q31M SHEYLA Stop: 02/20/18 19:00 Last Infusion: 02/20/18 20:27 Dose: 0 mls/hr Admin: 02/20/18 19:07 Dose: 999 mls/hr Pantoprazole Sodium 80 mg/ (Dextrose) 120 mls @ 400 mls/hr IV NOW ONE Stop: 02/20/18 20:04 Last Admin: 02/20/18 20:25 Dose: 400 mls/hr Pantoprazole Sodium (Protonix Bolus/Drip) 0 mls @ 1 mls/hr IV ONE STA Stop: 02/20/18 19:48 Last Admin: 02/20/18 20:58 Dose: Not Given Ondansetron HCl (Zofran) 4 mg IV NOW STA Stop: 02/20/18 18:24 Last Admin: 02/20/18 19:07 Dose: 4 mg Potassium Chloride (Klor-Con M20) 40 meq PO NOW STA Stop: 02/20/18 20:32 Last Admin: 02/20/18 20:50 Dose: 40 meq Medical Decision Making Differential Diagnosis Upper or lower GI bleed, anemia, liver failure, renal failure, electrolyte imbalance, UTI, pneumonia, cardiac ischemia. Medical Records Attestation: I reviewed the patient's medical records. Home Medications Current Medication List: was personally reviewed by me Laboratory Data Attestation: I reviewed the patient's lab results. Result diagrams: 02/20/18 18:40 02/20/18 18:40 Lab Results 02/20/18 02/20/18 02/20/18 Range/Units 18:40 18:40 18:40 WBC 5.48 (4.8-10.8) K/uL RBC 2.67 L (4.7-6.1) M/uL Hgb 7.6 L (14.0-18.0) g/dL Hct 24.9 L (42-52) % MCV 93.3 (80-100) fL MCH 28.5 (25-34) pg MCHC 30.5 L (32-36) g/dL RDW Std Deviation 72.5 H (36.4-46.3) fL RDW Coeff of Arpita 21.1 H (11.5-14.5) % Plt Count 73 L (130-400) K/uL MPV 12.3 H (7.4-10.4) fL Immature Gran % (Auto) 0.2 % Neut % (Auto) 88.2 % Lymph % (Auto) 5.5 % [place] % (Auto) 5.3 % Eos % (Auto) 0.4 % Baso % (Auto) 0.4 % Immature Gran # (Auto) 0.01 (0.00-0.02) K/uL Neut # (Auto) 4.84 (1.4-6.5) K/uL Lymph # (Auto) 0.30 L (1.2-3.4) K/uL [place] # (Auto) 0.29 (0.11-0.59) K/uL Eos # (Auto) 0.02 (0-0.5) K/uL Baso # (Auto) 0.02 (0-0.2) K/uL Platelet Estimate Decreased (Normal) RBC Morphology Unremarkable PT 13.8 H (9.0-12.0) Seconds INR 1.4 H (0.9-1.1) APTT 28.9 (21.0-31.0) Seconds PTT Ratio 1.1 Sodium 137 (136-145) mmol/L Potassium 3.3 L (3.5-5.1) mmol/L Chloride 100 (98-107) mmol/L Carbon Dioxide 28 (21-32) mmol/L Anion Gap 9.0 (3-11) BUN 19 H (7-18) mg/dl Creatinine 1.17 (0.6-1.4) mg/dl Est Cr Clr Drug Dosing 78.7 ml/min Est GFR ( Amer) 79.7 Est GFR (Non-Af Amer) 68.8 BUN/Creatinine Ratio 16.1 (10-20) Glucose 219 H (70-99) mg/dl Calcium 7.7 L (8.5-10.1) mg/dl Magnesium 1.9 (1.8-2.4) mg/dl Total Bilirubin 4.2 H (0.1-1) mg/dl AST 26 (15-37) U/L ALT 12 (12-78) U/L Alkaline Phosphatase 139 H (45-117) U/L Ammonia (11-32) umol/L Troponin I < 0.015 (0-0.045) ng/ml Total Protein 8.6 H (6.4-8.2) gm/dl Albumin 1.3 L (3.4-5.0) gm/dl Globulin 7.3 H (2.5-4.0) gm/dl Albumin/Globulin Ratio 0.2 L (0.9-2) Lipase 216 (73-393) U/L TSH 7.960 H (0.300-4.500) uIu/ml Blood Type Antibody Screen 02/20/18 02/20/18 Range/Units 18:40 19:36 WBC (4.8-10.8) K/uL RBC (4.7-6.1) M/uL Hgb (14.0-18.0) g/dL Hct (42-52) % MCV (80-100) fL MCH (25-34) pg MCHC (32-36) g/dL RDW Std Deviation (36.4-46.3) fL RDW Coeff of Arpita (11.5-14.5) % Plt Count (130-400) K/uL MPV (7.4-10.4) fL Immature Gran % (Auto) % Neut % (Auto) % Lymph % (Auto) % [place] % (Auto) % Eos % (Auto) % Baso % (Auto) % Immature Gran # (Auto) (0.00-0.02) K/uL Neut # (Auto) (1.4-6.5) K/uL Lymph # (Auto) (1.2-3.4) K/uL [place] # (Auto) (0.11-0.59) K/uL Eos # (Auto) (0-0.5) K/uL Baso # (Auto) (0-0.2) K/uL Platelet Estimate (Normal) RBC Morphology PT (9.0-12.0) Seconds INR (0.9-1.1) APTT (21.0-31.0) Seconds PTT Ratio Sodium (136-145) mmol/L Potassium (3.5-5.1) mmol/L Chloride (98-107) mmol/L Carbon Dioxide (21-32) mmol/L Anion Gap (3-11) BUN (7-18) mg/dl Creatinine (0.6-1.4) mg/dl Est Cr Clr Drug Dosing ml/min Est GFR ( Amer) Est GFR (Non-Af Amer) BUN/Creatinine Ratio (10-20) Glucose (70-99) mg/dl Calcium (8.5-10.1) mg/dl Magnesium (1.8-2.4) mg/dl Total Bilirubin (0.1-1) mg/dl AST (15-37) U/L ALT (12-78) U/L Alkaline Phosphatase (45-117) U/L Ammonia 26.3 (11-32) umol/L Troponin I (0-0.045) ng/ml Total Protein (6.4-8.2) gm/dl Albumin (3.4-5.0) gm/dl Globulin (2.5-4.0) gm/dl Albumin/Globulin Ratio (0.9-2) Lipase (73-393) U/L TSH (0.300-4.500) uIu/ml Blood Type O Positive Antibody Screen NEGATIVE Imaging Data Radiologist's Impression: Radiology results as stated below per my review and the radiologist's interpretation: US venous doppler LE BI stat pending XR chest 1V portable CLINICAL HISTORY: 57 years-old Male presenting with weakness. TECHNIQUE: Portable upright AP view of the chest was obtained. COMPARISON: 07/04/2017. FINDINGS: Atherosclerosis of the aortic arch. Cardiac silhouette enlarged. Extensive right lower lung opacity increased from prior. Increased right pleural effusion , now moderate in size and likely loculated. Low lung volumes. Osseous structures normal. Elevation of the hemidiaphragms. IMPRESSION: 1. Persistent right basilar infiltrate, which may in large part represent extensive passive atelectasis in the setting of the pleural effusion. Possible increased size of the moderate right pleural effusion, which may be loculated. Underlying infection cannot be excluded. Electronically signed by: Steven Sol M.D. 02/20/2018 7:[address] OF THE ABDOMEN AND PELVIS WITHOUT CONTRAST CLINICAL HISTORY: Vomiting. Possible obstruction. COMPARISON STUDY: CT of the abdomen and pelvis November 13, 2013. TECHNIQUE: Axial images of the abdomen and pelvis were obtained without IV contrast. Images were reviewed in the axial, sagittal, and coronal planes. Automated exposure control was utilized for the study. A dose lowering technique was utilized adhering to the principles of ALARA. FINDINGS: Decreased attenuation of the cardiac blood pressure suggest anemia. There is bilateral gynecomastia. Imaged portions of the lower chest to visualize a large left pleural effusion and small right pleural effusion. 5.4 cm round abnormality within the right lower lobe is incompletely imaged on this exam but favors round atelectasis. Right pleural thickening is noted. No pneumatosis, free air or portal venous gas is present. Evaluation of the abdomen and pelvis is suboptimal on this unenhanced exam. Moderate to large abdominal and pelvic ascites is noted with peritoneal thickening, a nonspecific finding. The liver is shrunken. This indicates cirrhosis. There are gallstones within the gallbladder. The gallbladder is not distended. Moderate splenomegaly is noted. Varices formation is noted. Wall calcification within the portal vein , superior mesenteric vein and splenic vein indicates severe portal hypertension. Patency of these vessels cannot be assessed on this unenhanced exam. There is no evidence for a bowel obstruction. There is pronounced mesenteric vessels engorgement. Moderate wall thickening of several small bowel loops is noted. Rectal wall thickening with adjacent infiltration/fluid is noted. There is no hydronephrosis. Unenhanced images of the adrenal glands and pancreas are grossly unremarkable. There are no suspicious osseous lesions. Bladder wall thickening is noted. There is generalized anasarca. IMPRESSION: 1. Cirrhosis with manifestations of portal hypertension including splenomegaly and varices formation. Moderate to large abdominal and pelvic ascites with peritoneal thickening, a nonspecific finding which could be correlated with evidence for infection. Wall thickening of the portal system, splenic vein and superior mesenteric vein indicates severe portal hypertension. Patency of these vessels cannot be assessed on this unenhanced exam. Discussed with Dr. Lira at time of dictation. 2. Volume overload with anasarca, large left pleural effusion and small right pleural effusion. Right pleural thickening may indicate a chronic pleural effusion or infection. Partially visualized 5.4 cm round right lower lobe abnormality favors round atelectasis. 3. No bowel obstruction. Pronounced mesenteric vessel engorgement/mesenteric edema related to portal hypertension. Moderate wall thickening of several small bowel loops may be due to portal hypertension or hypoalbuminemia. Ischemia cannot be excluded on this exam. No free air, pneumatosis or portal venous gas. Rectal wall thickening likely related to portal hypertension although proctitis could appear similar. 4. Moderate bladder wall thickening which could be correlated with urinalysis. 5. Cholelithiasis. Electronically signed by: Zechariah White M.D. 02/20/2018 8:40 PM ECG Data Attestation: I personally reviewed and interpreted this ECG as follows: Indication: weakness Rate (beats per minute): 79 Rhythm: sinus rhythm Findings: + nonspecific-ST abn and + ST elevation Blood Pressure Blood Pressure Findings: Normal blood pressure MDM Narrative There is no leukocytosis. The patient is quite anemic but this looks to be baseline looking back at previous testing. Rectal exam was heme-negative. Platelet count low in the 70s, also baseline. There is no kidney failure. A mild coagulopathy was seen, likely consistent with his liver disease. Bilirubin was quite elevated at over 4. Ammonia level was not elevated. EKG shows a sinus rhythm, no acute ischemia. Cardiac enzyme testing x1 is not consistent with acute cardiac injury. Lipase is not elevated. TSH slightly elevated indicating some mild hypothyroidism. Chest film shows effusions which appear chronic. No obvious focal pneumonia, no pneumothorax. Abdominal and pelvis CT shows multiple findings consistent with ascites and liver disease, there was no bowel obstruction noted. Bilateral lower extremity ultrasound is pending. The patient received IV saline, he was given IV Protonix and was placed on a Protonix drip. He received IV Zofran. The patient is dehydrated, peripherally fluid overloaded, he has significant ascites and pedal edema, he has edema of his penile shaft. His bilirubin has worsened compared to baseline. He is anemic with a low platelet count. A hospital stay is warranted. Further care is necessary. I spoke to the patient and case management. The on-call hospitalist was consulted. Impression & Plan Liver failure, Weakness, Vomiting, Pedal edema Discharge Plan Visit Data Chief Complaint: Weakness Stated Complaint: WEAKNESS, EDEMA TO LEGS ED Provider: Abdulkadir Lira Discharge Problem: Liver failure, Weakness, Vomiting, Pedal edema Forms Stand Alone Forms: [facility] Prescriptions Prescriptions: No Action furosemide 40 mg tablet 40 mg PO BID RF: 0 spironolactone 100 mg tablet 100 mg PO TID RF: 0 omeprazole 40 mg capsule,delayed release(DR/EC) 40 mg PO QAM RF: 0 nadolol 40 mg tablet 40 mg PO QAM RF: 0 sertraline 50 mg tablet 50 mg PO DAILY RF: 0 simvastatin 40 mg Tablet 40 mg PO HS RF: 0 calcium carbonate [Calcium 500] 500 mg calcium (1,250 mg) Tablet 250 mg PO BID RF: 0 ferrous sulfate 325 mg (65 mg iron) Tablet 325 mg PO BID RF: 0 magnesium 250 mg Tablet 250 mg PO BID RF: 0 insulin aspart U-100 [Novolog Flexpen U-100 Insulin] 100 unit/mL Insulin Pen See Label Instructions .ROUTE .COMPLEX RF: 0 insulin glargine [Lantus Solostar U-100 Insulin] 100 unit/mL (3 mL) Insulin Pen 25 units SUBCUT HS RF: 0 vitamin D3-vitamin K2 1000-90 unit-mcg Tablet,Disintegrating 1 tab PO DAILY RF: 0 lactobacillus combination no.4 [Probiotic] 3 billion cell Capsule 1 cap PO DAILY RF: 0 Referrals Referrals: Jamey Fuentes MD [Primary Care Provider] - The scribe's documentation has been prepared under my direction and personally reviewed by me in its entirety. I confirm that the note above accurately reflects all work, treatment, procedures, and medical decision making performed by me.
--- NOTE | 2018-02-20 19:03 | XRay Report ---
XR chest 1V portable CLINICAL HISTORY: 57 years-old Male presenting with weakness. TECHNIQUE: Portable upright AP view of the chest was obtained. COMPARISON: 07/04/2017. FINDINGS: Atherosclerosis of the aortic arch. Cardiac silhouette enlarged. Extensive right lower lung opacity i ncreased from prior. Increased right pleural effusion, now moderate in size and likely loculated. Low lung volumes. Osseous structures normal. Elevation of the hemidiaphragms. IMPRESSION: 1. Persistent right basilar infiltrate, which may in large part represent extensive passive atelecta sis in the setting of the pleural effusion. Possible increased size of the moderate right pleural eff usion, which may be loculated. Underlying infection cannot be excluded. Electronically signed by: Steven Sol M.D. 02/20/2018 7:02 PM
[2018-02-20 19:29] LABS: INR 1.4 (0.9-1.1); Partial Thromboplastin Ratio 1.1; Partial Thromboplastin Time 28.9 Seconds (21.0-31.0); Prothrombin Time 13.8 Seconds (9.0-12.0)
[2018-02-20 19:41] LABS: Hematocrit (blood only) 24.9 % (42-52); Hemoglobin 7.6 g/dL (14.0-18.0); Mean Corpuscular Hgb Conc 30.5 g/dL (32-36); Mean Corpuscular Volume 93.3 fL (80-100); Mean Platelet Volume 12.3 fL (7.4-10.4); Platelet Count 73 K/uL (130-400); RDW Coefficient of Variation 21.1 % (11.5-14.5); RDW Standard Deviation 72.5 fL (36.4-46.3); Red Blood Count 2.67 M/uL (4.7-6.1); White Blood Count 5.48 K/uL (4.8-10.8)
[2018-02-20 19:42] LABS: Alanine Aminotransferase 12 U/L (12-78); Albumin Level 1.3 gm/dl (3.4-5.0); Aspartate Aminotransferase 26 U/L (15-37); BUN Creatinine Ratio 16.1 (10-20); Basophils # (auto) 0.02 K/uL (0-0.2); Basophils % (auto) 0.4 %; Blood Urea Nitrogen 19 mg/dl (7-18); Calcium 7.7 mg/dl (8.5-10.1); Carbon Dioxide 28 mmol/L (21-32); Chloride 100 mmol/L (98-107); Creatinine Clr Calc Pharmacy 78.7 ml/min; Eosinophils # (auto) 0.02 K/uL (0-0.5); Eosinophils % (auto) 0.4 %; Est GFR (African American) 79.7; Est GFR (Non-African American) 68.8; Glucose 219 mg/dl (70-99); Immature Granulocytes # (auto) 0.01 K/uL (0.00-0.02); Immature Granulocytes % (auto) 0.2 %; Lymphocytes % (auto) 5.5 %; Magnesium 1.9 mg/dl (1.8-2.4); Monocytes # (auto) 0.29 K/uL (0.11-0.59); Monocytes % (auto) 5.3 %; Neutrophils # (auto) 4.84 K/uL (1.4-6.5); Neutrophils % (auto) 88.2 %; Potassium 3.3 mmol/L (3.5-5.1); RBC Morphology Unremarkable; Sodium 137 mmol/L (136-145)
[2018-02-20] MEDS ORDERED: PANTOprazole 80 MG in DEXTROSE 5% 100 ML IV ONE (19:47)
[2018-02-20] MEDS ORDERED: PANTOPRAZOLE BOLUS/DRIP 1 EA IV STA (19:47)
[2018-02-20 19:53] LABS: Albumin Globulin Ratio 0.2 (0.9-2); Alkaline Phosphatase 139 U/L (45-117); Bilirubin,Total 4.2 mg/dl (0.1-1); Globulin 7.3 gm/dl (2.5-4.0); Total Protein 8.6 gm/dl (6.4-8.2); Troponin I < 0.015 ng/ml (0-0.045)
[2018-02-20] MEDS ORDERED: PANTOprazole 40 MG in DEXTROSE 5% 100 ML IV SCH (20:00)
[2018-02-20] MEDS ORDERED: POTASSIUM CHLORIDE 20 MEQ TABCR PO STA (20:31)
--- NOTE | 2018-02-20 20:42 | CT Scan Report ---
CT OF THE ABDOMEN AND PELVIS WITHOUT CONTRAST CLINICAL HISTORY: Vomiting. Possible obstruction. COMPARISON STUDY: CT of the abdomen and pelvis November 13, 2013. TECHNIQUE: Axial images of the abdomen and pelvis were obtained without IV contrast. Images were revi ewed in the axial, sagittal, and coronal planes. Automated exposure control was utilized for the torito dy. A dose lowering technique was utilized adhering to the principles of ALARA. FINDINGS: Decreased attenuation of the cardiac blood pressure suggest anemia. There is bilateral gyne comastia. Imaged portions of the lower chest to visualize a large left pleural effusion and small rig ht pleural effusion. 5.4 cm round abnormality within the right lower lobe is incompletely imaged on t his exam but favors round atelectasis. Right pleural thickening is noted. No pneumatosis, free air or portal venous gas is present. Evaluation of the abdomen and pelvis is suboptimal on this unenhanced exam. Moderate to large abdominal and pelvic ascites is noted with peritoneal thickening, a nonspecif ic finding. The liver is shrunken. This indicates cirrhosis. There are gallstones within the gallblad mamie. The gallbladder is not distended. Moderate splenomegaly is noted. Varices formation is noted. Wa ll calcification within the portal vein, superior mesenteric vein and splenic vein indicates severe p ortal hypertension. Patency of these vessels cannot be assessed on this unenhanced exam. There is no evidence for a bowel obstruction. There is pronounced mesenteric vessels engorgement. Moderate wall t hickening of several small bowel loops is noted. Rectal wall thickening with adjacent infiltration/fl uid is noted. There is no hydronephrosis. Unenhanced images of the adrenal glands and pancreas are gr ossly unremarkable. There are no suspicious osseous lesions. Bladder wall thickening is noted. There is generalized anasarca. IMPRESSION: 1. Cirrhosis with manifestations of portal hypertension including splenomegaly and varices formation. Moderate to large abdominal and pelvic ascites with peritoneal thickening, a nonspecific finding whi ch could be correlated with evidence for infection. Wall thickening of the portal system, splenic vei n and superior mesenteric vein indicates severe portal hypertension. Patency of these vessels cannot be assessed on this unenhanced exam. Discussed with Dr. Lira at time of dictation. 2. Volume overload with anasarca, large left pleural effusion and small right pleural effusion. Right pleural thickening may indicate a chronic pleural effusion or infection. Partially visualized 5.4 cm round right lower lobe abnormality favors round atelectasis. 3. No bowel obstruction. Pronounced mesenteric vessel engorgement/mesenteric edema related to portal hypertension. Moderate wall thickening of several small bowel loops may be due to portal hypertension or hypoalbuminemia. Ischemia cannot be excluded on this exam. No free air, pneumatosis or portal candace ous gas. Rectal wall thickening likely related to portal hypertension although proctitis could appear similar. 4. Moderate bladder wall thickening which could be correlated with urinalysis. 5. Cholelithiasis. Electronically signed by: Zechariah White M.D. 02/20/2018 8:40 PM
[2018-02-20] MEDS ORDERED: FUROSEMIDE 40 MG/4 ML VIAL IV STA (21:08)
--- NOTE | 2018-02-20 21:35 | Ultrasound Report ---
BILATERAL LOWER EXTREMITY VENOUS DOPPLER CLINICAL HISTORY: Lower extremity swelling. COMPARISON STUDY: No previous studies for comparison. TECHNIQUE: Sonography of the deep venous system of the bilateral lower extremities was performed. Co mpression and augmentation were evaluated. FINDINGS: The bilateral common femoral, superficial femoral and popliteal veins were compressible. A ugmentation was normal. Flow was shown within the deep calf vessels although the calf vessels were mcknight boptimally assessed due to lower extremity edema. IMPRESSION: No evidence of deep venous thrombus within the bilateral lower extremities. Electronically signed by: Zechariah White M.D. 02/20/2018 9:33 PM
--- NOTE | 2018-02-20 21:51 | History & Physical Report ---
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 SCDs RE thrombocytopenia, history GI bleed Full code Present on Admission?: Yes History of Present Illness Chief Complaint: Generalized weakness. Primary Care Provider: Jamey Fuentes History obtained from patient, family, and records. Medical history significant for cirrhosis secondary to nonalcoholic fatty liver disease, hypertension, history of esophageal varices, portal gastropathy, colonic polyps, DM 2 insulin requiring, chronic anemia (baseline hemoglobin of 7), mood disorder. Recent confinement July 2017 for UGIB secondary to esophageal varices status post banding. Patient transferred to [facility] [place] for possible TIPS. Patient refused TIPS recommendation due to concerns about potential hepatic encephalopathy post procedure. Last few weeks patient noted by his sister to have progressive functional decline, not doing a lot at home. As per patient progressive abdominal distention and bilateral leg swelling despite compliance with home diuretic regimen. Patient denies chest pain, cough , SOB. 2 days history of nausea and dry heaving. Patient complaining of burning epigastric discomfort. Denies black/bloody stools. Patient noted to be a little more sleepy than usual, eyes droopy as per sister. Patient denies depression. IV PPI given at the ER. 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 Home Medications Home Medications Medication Instructions Recorded Confirmed Type calcium carbonate [Calcium 500] 250 mg PO BID 02/20/18 02/20/18 History ferrous sulfate 325 mg PO BID 02/20/18 02/20/18 History furosemide 40 mg PO BID 02/20/18 02/20/18 History insulin aspart U-100 [Novolog See Label Instructions .ROUTE 02/20/18 02/20/18 History Flexpen U-100 Insulin] .COMPLEX insulin glargine [Lantus Solostar 25 units SUBCUT HS 02/20/18 02/20/18 History U-100 Insulin] lactobacillus combination no.4 1 cap PO DAILY 02/20/18 02/20/18 History [Probiotic] magnesium 250 mg PO BID 02/20/18 02/20/18 History nadolol 40 mg PO QAM 02/20/18 02/20/18 History omeprazole 40 mg PO QAM 02/20/18 02/20/18 History sertraline 50 mg PO DAILY 02/20/18 02/20/18 History simvastatin 40 mg PO HS 02/20/18 02/20/18 History spironolactone 100 mg PO TID 02/20/18 02/20/18 History vitamin D3-vitamin K2 1 tab PO DAILY 02/20/18 02/20/18 History Past Med/Surg History Social History Current Living Situation: Parent and Family Other Information That Helps Us Care for You: No Feels Safe at Home: Yes Smoking Status: Never smoker Do You Dip or Chew Tobacco: No Second Hand Exposure: No Tobacco Cessation Education Requested by Patient: No Hx Alcohol Use: No Hx Substance Use: No Beliefs That Will Affect Care: None Preferred Language: Chilean Communication Ability: has glasse Bicycle Technician Required: No Review of Systems As per HPI, all 10 systems reviewed, all other ROS negative Physical Exam 2 Vital Signs (Past 24 Hours): Last Vital Signs Temp 36.5 C 02/20/18 18:13 Pulse 80 02/20/18 20:17 Resp 18 02/20/18 20:17 BP 135/78 02/20/18 20:17 Pulse Ox 95 02/20/18 20:17 Physical Exam: GENERAL: Comfortable, wane, cachectic/chronically ill, no respiratory distress SKIN: Pallor, warm HEENT: Pale palpebral conjunctivae, droopy eyelids bilateral, dry buccal mucosa NECK : Supple, no tenderness CHEST : Decreased breath sounds , no tenderness HEART : RRR, no obvious murmurs ABDOMEN: distention, positive fluid wave, nontender RECTAL : Stool Hemoccult negative as per ER MD EXTREMITIES : norm LE swelling, no tenderness, no other conspicuous deformities noted NEUROLOGIC : Coherent but occasionally lethargic, no facial asymmetry, no other gross focality, gait and stance not assessed Results & Data Laboratory Results Laboratory Results WBC 5.48 K/uL (4.8-10.8) 02/20/18 18:40 RBC 2.67 M/uL (4.7-6.1) L 02/20/18 18:40 Hgb 7.6 g/dL (14.0-18.0) L 02/20/18 18:40 Hct 24.9 % (42-52) L 02/20/18 18:40 MCV 93.3 fL (80-100) 02/20/18 18:40 MCH 28.5 pg (25-34) 02/20/18 18:40 MCHC 30.5 g/dL (32-36) L 02/20/18 18:40 RDW Std Deviation 72.5 fL (36.4-46.3) H 02/20/18 18:40 RDW Coeff of Arpita 21.1 % (11.5-14.5) H 02/20/18 18:40 Plt Count 73 K/uL (130-400) L 02/20/18 18:40 MPV 12.3 fL (7.4-10.4) H 02/20/18 18:40 Immature Gran % (Auto) 0.2 % 02/20/18 18:40 Neut % (Auto) 88.2 % 02/20/18 18:40 Lymph % (Auto) 5.5 % 02/20/18 18:40 Dickens % (Auto) 5.3 % 02/20/18 18:40 Eos % (Auto) 0.4 % 02/20/18 18:40 Baso % (Auto) 0.4 % 02/20/18 18:40 Immature Gran # (Auto) 0.01 K/uL (0.00-0.02) 02/20/18 18:40 Neut # (Auto) 4.84 K/uL (1.4-6.5) 02/20/18 18:40 Lymph # (Auto) 0.30 K/uL (1.2-3.4) L 02/20/18 18:40 Dickens # (Auto) 0.29 K/uL (0.11-0.59) 02/20/18 18:40 Eos # (Auto) 0.02 K/uL (0-0.5) 02/20/18 18:40 Baso # (Auto) 0.02 K/uL (0-0.2) 02/20/18 18:40 Platelet Estimate Decreased (Normal) 02/20/18 18:40 RBC Morphology Unremarkable 02/20/18 18:40 PT 13.8 Seconds (9.0-12.0) H 02/20/18 18:40 INR 1.4 (0.9-1.1) H 02/20/18 18:40 APTT 28.9 Seconds (21.0-31.0) 02/20/18 18:40 PTT Ratio 1.1 02/20/18 18:40 Sodium 137 mmol/L (136-145) 02/20/18 18:40 Potassium 3.3 mmol/L (3.5-5.1) L 02/20/18 18:40 Chloride 100 mmol/L (98-107) 02/20/18 18:40 Carbon Dioxide 28 mmol/L (21-32) 02/20/18 18:40 Anion Gap 9.0 (3-11) 02/20/18 18:40 BUN 19 mg/dl (7-18) H 02/20/18 18:40 Creatinine 1.17 mg/dl (0.6-1.4) 02/20/18 18:40 Est Cr Clr Drug Dosing 78.7 ml/min 02/20/18 18:40 Est GFR ( Amer) 79.7 02/20/18 18:40 Est GFR (Non-Af Amer) 68.8 02/20/18 18:40 BUN/Creatinine Ratio 16.1 (10-20) 02/20/18 18:40 Glucose 219 mg/dl (70-99) H 02/20/18 18:40 Calcium 7.7 mg/dl (8.5-10.1) L 02/20/18 18:40 Magnesium 1.9 mg/dl (1.8-2.4) 02/20/18 18:40 Total Bilirubin 4.2 mg/dl (0.1-1) H 02/20/18 18:40 AST 26 U/L (15-37) 02/20/18 18:40 ALT 12 U/L (12-78) 02/20/18 18:40 Alkaline Phosphatase 139 U/L (45-117) H 02/20/18 18:40 Ammonia 26.3 umol/L (11-32) 02/20/18 19:36 Troponin I < 0.015 ng/ml (0-0.045) 02/20/18 18:40 Total Protein 8.6 gm/dl (6.4-8.2) H 02/20/18 18:40 Albumin 1.3 gm/dl (3.4-5.0) L 02/20/18 18:40 Globulin 7.3 gm/dl (2.5-4.0) H 02/20/18 18:40 Albumin/Globulin Ratio 0.2 (0.9-2) L 02/20/18 18:40 Lipase 216 U/L (73-393) 02/20/18 18:40 TSH 7.960 uIu/ml (0.300-4.500) H 02/20/18 18:40 Blood Type O Positive 02/20/18 18:40 Antibody Screen NEGATIVE 02/20/18 18:40 Diagnostic Findings Chest x-ray: Persistent right basilar infiltrate, which may in large part represent extensive passive atelectasis in the setting of the pleural effusion. Possible increased size of the moderate right pleural effusion, which may be loculated. Underlying infection cannot be excluded. CT abdomen pelvis: 1. Cirrhosis with manifestations of portal hypertension including splenomegaly and varices formation. Moderate to large abdominal and pelvic ascites with peritoneal thickening, a nonspecific finding which could be correlated with evidence for infection. Wall thickening of the portal system, splenic vein and superior mesenteric vein indicates severe portal hypertension. Patency of these vessels cannot be assessed on this unenhanced exam. 2. Volume overload with anasarca, large left pleural effusion and small right pleural effusion. Right pleural thickening may indicate a chronic pleural effusion or infection. Partially visualized 5.4 cm round right lower lobe abnormality favors round atelectasis. 3. No bowel obstruction. Pronounced mesenteric vessel engorgement/mesenteric edema related to portal hypertension. Moderate wall thickening of several small bowel loops may be due to portal hypertension or hypoalbuminemia. Ischemia cannot be excluded on this exam. No free air, pneumatosis or portal venous gas. Rectal wall thickening likely related to portal hypertension although proctitis could appear similar. 4. Moderate bladder wall thickening which could be correlated with urinalysis. 5. Cholelithiasis. CT head no acute pathology LE venous Dopplers no DVT DS per my interpretation rate 80, NSR, LAD, LAFB, T wave flattening inferior leads
[2018-02-20 22:14] LABS: T4 Free Thyroxine 1.16 ng/dl (0.8-1.6)
--- NOTE | 2018-02-20 22:46 | CT Scan Report ---
CT OF THE HEAD WITHOUT CONTRAST CLINICAL HISTORY: ptosis, ams COMPARISON STUDY: No previous studies for comparison. CT DOSE: 614.27 mGy.cm TECHNIQUE: Helical axial images of the head were obtained without IV contrast. Automated exposure con trol was utilized for the study. A dose lowering technique was utilized adhering to the principles o f ALARA. FINDINGS: No acute intracranial hemorrhage, midline shift or mass effect is present. Brain volume is normal. Ventricular system is normal. The basilar cisterns are patent. There are no extra-axial colle ctions. Rose-white differentiation is maintained. There are no findings to suggest acute dural sinus thrombosis or acute territorial infarct. There is no calvarial fracture. Left maxillary sinus air-flu id levels noted which contains hyperdense material. The right sphenoid sinus is opacified. IMPRESSION: 1. No acute intracranial findings. 2. Air fluid within the left maxillary sinus and opacified right sphenoid sinus. Electronically signed by: Zechariah White M.D. 02/20/2018 10:45 PM
[2018-02-21] MEDS ORDERED: ACETAMINOPHEN 325 MG TAB PO PRN (00:51)
[2018-02-21] MEDS ORDERED: CARBOHYDRATES FOR HYPOGLYCEMIA PO PRN (01:02)
[2018-02-21] MEDS ORDERED: GLUCOSE 10 TABS/TUBE PO PRN (01:02)
[2018-02-21] MEDS ORDERED: DEXTROSE 50% 50 ML SYRINGE IV PRN (01:02)
[2018-02-21] MEDS ORDERED: GLUCAGON FOR INJ 1 MG VIAL IM PRN (01:02)
[2018-02-21] MEDS ORDERED: GLUCOSE 40% GEL 15 GM TUBE PO PRN (01:02)
[2018-02-21] MEDS: INSULIN GLARGINE SOLOSTAR 100 UNITS/ML 3 ML PEN SQ SCH ×2 (01:36→08:41)
[2018-02-21] MEDS: SPIRONOLACTONE 100 MG TAB PO SCH ×4 (01:36→21:19)
[2018-02-21 06:59] LABS: Estimated Average Glucose 154 mg/dl
[2018-02-21 07:35] LABS: Appearance Urine Turbid (Clear); Color Urine Orange; Glucose Urine UA Negative (Negative); Ketones Urine Negative (Negative); Leukocyte Esterase Urine 3+ (Negative); Nitrite Urine Positive (Negative); Protein Urine 1+ (Negative); Specific Gravity Urine 1.021 (1.000-1.030); Urobilinogen Urine Positive (Negative)
[2018-02-21 07:52] LABS: Bilirubin Urine 2+ (Negative); Ictotest Urine Positive (Negative)
[2018-02-21 08:30] LABS: Bacteria Urine 4+ (Negative); RBC Urine 0-4 /hpf (0-4); WBC Urine >30 /hpf (0-5)
[2018-02-21] MEDS: FERROUS SULFATE 325 MG TAB PO SCH ×2 (08:39→17:31)
[2018-02-21] MEDS: PANTOprazole 40 MG TAB PO SCH (08:40)
[2018-02-21] MEDS: NADOLOL 40 MG TAB PO SCH (08:41)
[2018-02-21] MEDS: SERTRALINE HCL 50 MG TABLET PO SCH (08:41)
[2018-02-21] MEDS: FUROSEMIDE 40 MG in SYRINGE 0 ML IV SCH ×2 (08:41→17:31)
[2018-02-21] MEDS ORDERED: LACTOBACILLUS COMBINATION NO 4 PO SCH (09:00)
[2018-02-21] MEDS ORDERED: FUROSEMIDE 40 MG/4 ML VIAL IV SCH (09:00)
[2018-02-21] MEDS ORDERED: cefTRIAXone SODIUM 1,000 MG in DEXTROSE 5% 50 ML IV SCH (09:00)
[2018-02-21] MEDS: ALBUMIN 25% 50 ML IV SCH ×2 (09:06→10:03)
[2018-02-21] MEDS ORDERED: DEXTROSE 5% IV SCH (09:15)
[2018-02-21] MEDS ORDERED: CEFOTAXIME SOD IV SCH (09:15)
[2018-02-21] MEDS ORDERED: cefTRIAXone SODIUM 2,000 MG in DEXTROSE 5% 50 ML IV SCH (10:00)
[2018-02-21 10:17] LABS: Albumin Level 1.2 gm/dl (3.4-5.0); BUN Creatinine Ratio 18.1 (10-20); Creatinine Clr Calc Pharmacy 85.3 ml/min; Est GFR (African American) 87.8; Est GFR (Non-African American) 75.8; Potassium 3.5 mmol/L (3.5-5.1)
[2018-02-21 10:25] LABS: Albumin Globulin Ratio 0.2 (0.9-2); Bilirubin,Total 2.5 mg/dl (0.1-1); Globulin 5.7 gm/dl (2.5-4.0); Total Protein 6.9 gm/dl (6.4-8.2)
--- NOTE | 2018-02-21 11:15 | Ultrasound Report ---
US paracentesis abd w/image CLINICAL HISTORY: 57 years-old Male presenting with r/o SBP. COMPARISON: CT from 02/20/2018. PROCEDURE: The procedure and its risks, benefits, and alternatives were discussed with the patient, and written informed consent was obtained. A timeout was performed to confirm patient identity. Limited ultrasound of the abdomen was performed to determine a safe needle entry site, and the site w as marker for paracentesis. Ascites was noted to be loculated. As a result, it was explained that the overall volume of drainable ascites will likely be less than the volume present. The left lower quadrant was prepped and draped in the usual aseptic fashion. 1% Lidocaine was used fo r local anesthesia. A paracentesis needle-sheath was inserted into the peritoneal space using ultrasound guidance. The ne edle was removed and the sheath was connected to tubing and a vacuum suction device. A total of 2.8 L of clear yellow ascites was aspirated. The sheath was removed, and a dressing applied. The patient tolerated the procedure well. No immediate complications. IMPRESSION: Ultrasound-guided diagnostic and therapeutic paracentesis with aspiration of 2.8 L of ascites. Electronically signed by: Steven Sol M.D. 02/21/2018 11:14 AM
[2018-02-21] MEDS: TRAMADOL HCL 50 MG TABLET PO PRN ×2 (11:37→17:38)
[2018-02-21 12:39] LABS: RBC Peritoneal Fluid (A) < 3000 /uL; WBC Peritoneal Fluid (A) 34 /ul (0-300)
--- NOTE | 2018-02-21 15:30 | Hospitalist Progress Note ---
Date of Service February 21, 2018 Assessment & Plan (1) Decompensated hepatic cirrhosis: Anasarca present with significant ascites and concerning imaging finding. Diagnostic and therapeutic paracentesis performed today. 2.8 L removed. Albumin was given preprocedure in the setting of elevated bilirubin. Patient does not have SBP and empiric antibiotics will be decreased by half empirically recover UTI which is present. Cirrhosis is secondary to NAFLD. GI following. Continue diuretics. Continue daily weights, low-sodium diet. (2) DMII (diabetes mellitus, type 2): Continue Lantus at increased 10 units twice daily and added NovoLog with carb coverage and correction factor. Glucose slightly elevated. We will continue to trend blood sugars overnight. Adjust as needed (3) Thrombocytopenia: Chronic, stable. Secondary to cirrhosis. DVT prophylaxis contraindicated. (4) Anemia of chronic disease: H&H is low but stable. No active bleeding. May benefit from blood transfusion this administration but will discuss with nurse. Threshold to transfuse empirically will be 09/20. (5) DVT prophylaxis: Contraindicated in setting of thrombocytopenia Full code Disposition-continue to monitor pending clinical improvement. Alejandrina Melgar DO [facility] Hospitalist Subjective 57-year-old man presents with generalized weakness and somnolence increasing over the past day. He was admitted with decompensated cirrhosis and presence of ascites. Placed on IV diuretics. He underwent a abdominal paracentesis with no evidence of SBP. 2.8 L were removed. He was treated with preprocedure albumin. Continue diuretics. The patient is expressing significant weakness. Tolerating p.o. Afebrile with no abdominal pain. Consistently having bowel movements daily. Physical Exam 2 Vital Signs (Past 24 Hours): Last Vital Signs Temp 36.4 C L 02/21/18 07:39 Pulse 73 02/21/18 07:39 Resp 20 02/21/18 07:39 BP 100/61 02/21/18 07:39 Pulse Ox 97 02/21/18 07:39 CONSTITUTIONAL: WNWD, vitals as above, generally ill-appearing EYES: normal conjuctivae, +scleral icterus, RESPIRATORY: clear to auscultation bilaterally, no crackles, rales or wheezes, normal respiratory effort CARDIOVASCULAR: regular rate and rhythm, S1 and 2 heard without murmurs, gallops or rubs, no JVD, 3+ peripheral edema to groin GASTROINTESTINAL: normal bowel sounds, soft, nontender, nondistended, hernia noted that is large. +fluid wave MUSCULOSKELETAL: generalized weakness SKIN: warm and dry NEUROLOGIC: CN 2-12 grossly intact, normal cognition, normal speech PSYCHIATRIC: alert cooperative and oriented to person, place and time. Results & Data Laboratory Results Short CBC 02/20/18 Range/Units 18:40 WBC 5.48 (4.8-10.8) K/uL Hgb 7.6 L (14.0-18.0) g/dL Hct 24.9 L (42-52) % Plt Count 73 L (130-400) K/uL BMP 02/20/18 02/21/18 18:40 09:32 Sodium 137 138 Potassium 3.3 L 3.5 Chloride 100 104 Carbon Dioxide 28 28 BUN 19 H 20 H Creatinine 1.17 1.08 Glucose 219 H 177 H Calcium 7.7 L 7.0 L Cardiac Enzymes 02/20/18 Range/Units 18:40 Troponin I < 0.015 (0-0.045) ng/ml Liver Function 02/20/18 02/21/18 Range/Units 18:40 09:32 Total Bilirubin 4.2 H 2.5 H (0.1-1) mg/dl AST 26 26 (15-37) U/L ALT 12 9 L (12-78) U/L Alkaline Phosphatase 139 H 108 (45-117) U/L Albumin 1.3 L 1.2 L (3.4-5.0) gm/dl Urine 02/21/18 Range/Units 07:00 Urine Color [place] Urine Appearance Turbid H (Clear) Urine pH 5.0 (4.5-7.5) Ur Specific [place] 1.021 (1.000-1.030) Urine Protein 1+ H (Negative) Urine Glucose (UA) Negative (Negative) Medications Administered Current Inpatient Medications Acetaminophen (Tylenol) 325 mg PO Q6H PRN PRN Reason: pain/fever Stop: 03/23/18 00:50 Dextrose (Dextrose 50%) 25 - 50 ml IV UD PRN; Protocol PRN Reason: Hypoglycemia Protocol Stop: 03/23/18 01:01 Ferrous Sulfate (Feosol) 325 mg PO BIDM [facility] Stop: 03/23/18 07:59 Last Admin: 02/21/18 17:31 Dose: 325 mg Glucagon (Glucagen) 1 mg IM UD PRN; Protocol PRN Reason: Hypoglycemia Protocol Stop: 03/23/18 01:01 Glucose (Glucose 40%) 15 - 30 gm PO UD PRN; Protocol PRN Reason: Hypoglycemia Protocol Stop: 03/23/18 01:01 Glucose (Dex4 Glucose) 4 - 8 tabs PO UD PRN; Protocol PRN Reason: Hypoglycemia Protocol Stop: 03/23/18 01:01 Prochlorperazine 5 mg/ Syringe 5 mls @ 5 mls/min IV Q6H PRN PRN Reason: Nausea And Vomiting Stop: 03/23/18 00:50 Furosemide 40 mg/ Syringe 4 mls @ 4 mls/min IV BID17 [facility] Stop: 03/23/18 08:59 Last Admin: 02/21/18 17:31 Dose: 4 mls/min Ceftriaxone Sodium 2,000 mg/ (Dextrose) 70 mls @ 140 mls/hr IV DAILY@1000 [facility] Stop: 02/23/18 09:59 Last Infusion: 02/21/18 10:40 Dose: Infused Insulin Aspart (Novolog Flexpen) 0 units SC ACHS [facility] Stop: 03/23/18 20:59 Insulin Glargine (Lantus Solostar Pen) 10 units SC BID [facility] Stop: 03/23/18 20:59 Miscellaneous (Carbohydrates For Hypoglycemia) 15 - 30 gm PO UD PRN PRN Reason: Hypoglycemia Treatment Stop: 03/23/18 01:01 Nadolol (Corgard) 40 mg PO QAM [facility] Stop: 03/23/18 08:59 Last Admin: 02/21/18 08:41 Dose: 40 mg Pantoprazole Sodium (Protonix) 40 mg PO DAILY [facility] Stop: 03/23/18 08:59 Last Admin: 02/21/18 08:40 Dose: 40 mg Sertraline HCl (Zoloft) 50 mg PO DAILY [facility] Stop: 03/23/18 08:59 Last Admin: 02/21/18 08:41 Dose: 50 mg Spironolactone (Aldactone) 100 mg PO TID [facility] Stop: 03/22/18 22:59 Last Admin: 02/21/18 13:51 Dose: 100 mg Tramadol HCl (Ultram) 25 mg PO Q4H PRN PRN Reason: Pain Stop: 03/23/18 00:50 Last Admin: 02/21/18 17:38 Dose: 25 mg
--- NOTE | 2018-02-21 16:37 | Gastrointestinal Consultation ---
Date of Consultation February 21, 2018 Assessment & Plan (1) Decompensated hepatic cirrhosis: 57 yo male with decompensated NAFLD cirrhosis admitted with worsening edema as well as nausea and non-bloody emesis. UA concerning for UTI as possible source of his decompensation. Ascitic fluid studies pending. No s/o Gi bleeding. - Agree with use of antibiotics. Once source identified, can tailor further. - OK to continue current diuretic dose as ordered. Watch renal function and electrolytes closely. - Await cultures. - Na restricted diet. (2) Ascites: (3) Pedal edema: (4) UTI (urinary tract infection): History of Present Illness Reason for Consultation: decompensated cirrhosis Attending Physician: Alejandrina Melgar DO History of Present Illness Mr. 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 He was transferred to [facility] at that time for possible TIPS but this was not pursued as patient was concerned about the risk of hepatic encephalopathy. He was in his usual state until the last few weeks when he noted increasing LE edema and abd girth despite compliance with diuretics. Paracentesis was done and approx 3 L removed. Studies pending. He denies and melena or hematochezia. H/H at baseline. Feels like he has been slower and more tired than usual. Ammonia level is normal. No fevers or abdominal pain. Some nausea and episode of non-bloody emesis. Imaging consistent with volume overload. Labs are significant for INR 1.4, Cr 1.2, TB 2.5 (down from 4.2) stable hgb, and positive UA. Urine and blood cultures as well as ascitic fluid studies are pending. Allergies Allergy/AdvReac Type Severity Reaction Status Date / Time No Known Drug Allergies Allergy Unknown NONE Verified 07/04/17 07:14 ragweed pollen Allergy Unknown SEASONAL Verified 07/04/17 07:14 ALLERGIES [place] Allergy Unknown SEASONAL Uncoded 07/04/17 07:14 ALLERGIES. Home Medications Home Medications Medication Instructions Recorded Confirmed Type calcium carbonate [Calcium 500] 250 mg PO BID 02/20/18 02/20/18 History ferrous sulfate 325 mg PO BID 02/20/18 02/20/18 History furosemide 40 mg PO BID 02/20/18 02/20/18 History insulin aspart U-100 [Novolog See Label Instructions .ROUTE 02/20/18 02/20/18 History Flexpen U-100 Insulin] .COMPLEX insulin glargine [Lantus Solostar 25 units SUBCUT HS 02/20/18 02/20/18 History U-100 Insulin] lactobacillus combination no.4 1 cap PO DAILY 02/20/18 02/20/18 History [Probiotic] magnesium 250 mg PO BID 02/20/18 02/20/18 History nadolol 40 mg PO QAM 02/20/18 02/20/18 History omeprazole 40 mg PO QAM 02/20/18 02/20/18 History sertraline 50 mg PO DAILY 02/20/18 02/20/18 History simvastatin 40 mg PO HS 02/20/18 02/20/18 History spironolactone 100 mg PO TID 02/20/18 02/20/18 History vitamin D3-vitamin K2 1 tab PO DAILY 02/20/18 02/20/18 History Patient History Social History Current Living Situation: Parent and Family Other Information That Helps Us Care for You: No Feels Safe at Home: Yes Smoking Status: Never smoker Do You Dip or Chew Tobacco: No Second Hand Exposure: No Tobacco Cessation Education Requested by Patient: No Hx Alcohol Use: No Hx Substance Use: No Beliefs That Will Affect Care: None Communication Ability: Effective Review of Systems 12 systems reviewed and negative except as noted Physical Exam 2 Vital Signs (Past 24 Hours): Last Vital Signs Temp 36.5 C 02/21/18 15:54 Pulse 71 02/21/18 15:54 Resp 16 02/21/18 15:54 BP 104/56 L 02/21/18 15:54 Pulse Ox 93 02/21/18 15:54 Constitutional: WD/WN, vitals as above Eyes: PERRL, conjunctivae normal, anicteric sclerae Neck: trachea midline, no thyromegaly Respiratory: normal respiratory effort, lungs clear to auscultation Cardiovascular: RRR, no murmur, no edema Extremities: + edema Gastrointestinal (Abdomen): Inspection/Auscultation: normal bowel sounds Percussion/Palpation: + ascites and + dullness to percussion Musculoskeletal: no cyanosis or clubbing, extremities motor strength 5/5 Neurologic: CN's II-XI intact bilaterally Results & Data Laboratory Results reviewed
[2018-02-21] MEDS: INSULIN GLARGINE SOLOSTAR 100 UNITS/ML 3 ML PEN SC SCH (21:11)
[2018-02-21] MEDS: INSULIN ASPART 100 UNITS/ML 3 ML PEN SC SCH (21:14)
[2018-02-22] MEDS: SPIRONOLACTONE 100 MG TAB PO SCH ×3 (08:16→21:19)
[2018-02-22] MEDS: PANTOprazole 40 MG TAB PO SCH (08:16)
[2018-02-22] MEDS: SERTRALINE HCL 50 MG TABLET PO SCH (08:16)
[2018-02-22] MEDS: FERROUS SULFATE 325 MG TAB PO SCH ×2 (08:16→17:08)
[2018-02-22] MEDS: NADOLOL 40 MG TAB PO SCH (08:17)
[2018-02-22] MEDS: INSULIN GLARGINE SOLOSTAR 100 UNITS/ML 3 ML PEN SC SCH ×2 (08:17→21:17)
[2018-02-22] MEDS: INSULIN ASPART 100 UNITS/ML 3 ML PEN SC SCH ×4 (08:18→21:18)
[2018-02-22] MEDS: FUROSEMIDE 40 MG in SYRINGE 0 ML IV SCH ×2 (08:19→17:41)
[2018-02-22 09:17] LABS: Hematocrit (blood only) 21.1 % (42-52); Hemoglobin 6.4 g/dL (14.0-18.0); Mean Corpuscular Hgb Conc 30.3 g/dL (32-36); Mean Platelet Volume 11.2 fL (7.4-10.4); Platelet Count 64 K/uL (130-400); RDW Coefficient of Variation 21.4 % (11.5-14.5); RDW Standard Deviation 73.6 fL (36.4-46.3); Red Blood Count 2.22 M/uL (4.7-6.1); White Blood Count 3.32 K/uL (4.8-10.8)
[2018-02-22 09:25] LABS: Anisocytosis Present; Basophils # (auto) 0.01 K/uL (0-0.2); Basophils % (auto) 0.3 %; Eosinophils # (auto) 0.05 K/uL (0-0.5); Eosinophils % (auto) 1.5 %; Hypochromasia Present; Immature Granulocytes # (auto) 0.01 K/uL (0.00-0.02); Immature Granulocytes % (auto) 0.3 %; Lymphocytes # (auto) 0.43 K/uL (1.2-3.4); Monocytes # (auto) 0.27 K/uL (0.11-0.59); Monocytes % (auto) 8.1 %; Neutrophils # (auto) 2.55 K/uL (1.4-6.5); Neutrophils % (auto) 76.8 %; Ovalocytes 1+
[2018-02-22 09:41] LABS: Albumin Level 1.2 gm/dl (3.4-5.0); BUN Creatinine Ratio 16.1 (10-20); Calcium 7.4 mg/dl (8.5-10.1); Creatinine Clr Calc Pharmacy 70.4 ml/min; Est GFR (African American) 72.2; Est GFR (Non-African American) 62.3; Magnesium 1.8 mg/dl (1.8-2.4); Potassium 3.3 mmol/L (3.5-5.1)
[2018-02-22 09:44] LABS: Albumin Globulin Ratio 0.2 (0.9-2); Bilirubin,Total 1.5 mg/dl (0.1-1); Globulin 5.5 gm/dl (2.5-4.0); Total Protein 6.7 gm/dl (6.4-8.2)
[2018-02-22] MEDS ORDERED: POTASSIUM CHLORIDE 20 MEQ TABCR PO STA (10:10)
[2018-02-22] MEDS: cefTRIAXone SODIUM 1,000 MG in DEXTROSE 5% 50 ML IV SCH (10:29)
[2018-02-22] MEDS ORDERED: ACETAMINOPHEN 325 MG TAB PO SCH (11:30)
[2018-02-22] MEDS ORDERED: FUROSEMIDE 40 MG in SYRINGE 0 ML IV SCH (12:30)
--- NOTE | 2018-02-22 16:15 | Hospitalist Progress Note ---
Date of Service February 22, 2018 Assessment & Plan (1) Decompensated hepatic cirrhosis: Cirrhosis is secondary to NAFLD. Anasarca present with significant ascites. No HE but he is somnolent. This and the weakness may be related to his UTI. Diagnostic and therapeutic paracentesis performed on 02/21. 2.8 L removed. Albumin was given preprocedure in the setting of elevated bilirubin. No albumin today as we are giving blood and do not want to overload. GI following. Continue diuretics. Continue daily weights, low-sodium diet. (2) Acute cystitis: Empiric Rocephin pending culture results. Likely a major contributor to his weakness on presentation. (3) Anemia of chronic disease: H/H dropped too low on bloodwork this morning. No reported bleeding per patient. Will transfuse 2 units now with Lasix given in between units. Repeat H/H in am. (4) DMII (diabetes mellitus, type 2): Continue Lantus at increased 10 units twice daily and added NovoLog with carb coverage and correction factor. Glucose is more controlled today. Cont current regimen (5) Thrombocytopenia: Chronic, stable. Secondary to cirrhosis. DVT prophylaxis contraindicated. (6) Hypokalemia: Likely secondary to diuretics. Replace and repeat BMP in a.m. Hesitant to add daily standing potassium in the setting of high-dose spironolactone. (7) DVT prophylaxis: Contraindicated in setting of thrombocytopenia Full code Disposition-continue to monitor pending clinical improvement. Alejandrina Melgar DO [facility] Hospitalist Subjective No SBP on paracentesis labs from yesterday. Patient denies any fevers, chills, pain. Patient denies any bleeding per rectum or otherwise. H&H decreased below threshold for transfusion. Anasarca appears to be improved to him. He reports his weakness has improved slightly in the last 24 hours. He reports his abdomen feels less full after 2.8 L removed yesterday. He is tolerating p.o. He is afebrile. Physical Exam 2 Vital Signs (Past 24 Hours): Last Vital Signs Temp 36.3 C L 02/22/18 15:57 Pulse 71 02/22/18 15:57 Resp 18 02/22/18 15:57 BP 103/59 L 02/22/18 15:57 Pulse Ox 94 02/22/18 15:57 CONSTITUTIONAL: cachectic-appearing with anasarca and sallowed cheeks. appears malnourished, vitals as above EYES: normal conjuctivae, +scleral icterus RESPIRATORY: clear to auscultation bilaterally, no crackles, rales or wheezes, normal respiratory effort CARDIOVASCULAR: regular rate and rhythm, S1 and 2 heard without murmurs, gallops or rubs, no JVD, 3+ peripheral edema to groin and on abdomen. GASTROINTESTINAL: normal bowel sounds, soft, nontender, nondistended, hernia noted that is large. fluid wave resolved. MUSCULOSKELETAL: generalized weakness SKIN: warm and dry, +jaundice NEUROLOGIC: CN 2-12 grossly intact, normal cognition, normal speech, somnolent PSYCHIATRIC: alert cooperative and oriented to person, place and time. Results & Data Laboratory Results Short CBC 02/22/18 Range/Units 08:50 WBC 3.32 L (4.8-10.8) K/uL Hgb 6.4 L* (14.0-18.0) g/dL Hct 21.1 L (42-52) % Plt Count 64 L (130-400) K/uL BMP 02/22/18 08:50 Sodium 138 Potassium 3.3 L Chloride 101 Carbon Dioxide 32 BUN 21 H Creatinine 1.27 Glucose 126 H Calcium 7.4 L Liver Function 02/22/18 Range/Units 08:50 Total Bilirubin 1.5 H (0.1-1) mg/dl AST 18 (15-37) U/L ALT 9 L (12-78) U/L Alkaline Phosphatase 99 (45-117) U/L Albumin 1.2 L (3.4-5.0) gm/dl
[2018-02-22] MEDS: PROCHLORPERAZINE 5 MG in SYRINGE 4 ML IV PRN (19:41)
[2018-02-23 06:51] LABS: Hematocrit (blood only) 24.4 % (42-52); Hemoglobin 7.4 g/dL (14.0-18.0); Mean Corpuscular Hgb Conc 30.3 g/dL (32-36); Mean Corpuscular Volume 93.1 fL (80-100); RDW Standard Deviation 70.3 fL (36.4-46.3); Red Blood Count 2.62 M/uL (4.7-6.1); White Blood Count 4.05 K/uL (4.8-10.8)
[2018-02-23 06:59] LABS: Mean Platelet Volume 11.7 fL (7.4-10.4); Platelet Count 58 K/uL (130-400)
[2018-02-23 07:34] LABS: BUN Creatinine Ratio 16.5 (10-20); Calcium 7.6 mg/dl (8.5-10.1); Creatinine Clr Calc Pharmacy 77.8 ml/min; Est GFR (African American) 81.4; Est GFR (Non-African American) 70.3; Potassium 3.9 mmol/L (3.5-5.1)
[2018-02-23] MEDS: SERTRALINE HCL 50 MG TABLET PO SCH (07:55)
[2018-02-23] MEDS: FERROUS SULFATE 325 MG TAB PO SCH (07:55)
[2018-02-23] MEDS: SPIRONOLACTONE 100 MG TAB PO SCH ×3 (07:55→20:50)
[2018-02-23] MEDS: PANTOprazole 40 MG TAB PO SCH (07:55)
[2018-02-23] MEDS: NADOLOL 40 MG TAB PO SCH (07:55)
[2018-02-23] MEDS: INSULIN GLARGINE SOLOSTAR 100 UNITS/ML 3 ML PEN SC SCH ×2 (07:56→20:50)
[2018-02-23] MEDS: FUROSEMIDE 40 MG in SYRINGE 0 ML IV SCH (07:56)
[2018-02-23] MEDS: INSULIN ASPART 100 UNITS/ML 3 ML PEN SC SCH ×4 (07:57→20:51)
[2018-02-23] MEDS: cefTRIAXone SODIUM 1,000 MG in DEXTROSE 5% 50 ML IV SCH (10:22)
[2018-02-23] MEDS ORDERED: PROCHLORPERAZINE 5 MG in SYRINGE 4 ML IV ONE (12:45)
--- NOTE | 2018-02-23 12:54 | Gastroenterology Progress Note ---
Date of Service February 23, 2018 Assessment & Plan (1) Decompensated hepatic cirrhosis: 57 yo male with decompensated NAFLD cirrhosis admitted with worsening edema as well as nausea and non-bloody emesis. Urine culture grew Ecoli UTI as possible source of his decompensation. Ascitic fluid studies negative for SBP, Blood culture negative. No s/o GI bleeding. - UTI treatment per primary team. - OK to continue current diuretic dose as ordered. Watch renal function and electrolytes closely. 2g Na diet - Hx of variceal bleeding but currently w/o s/s of GI bleed. Will eval once DC in outpt to consider repeat EGD and possible variceal banding (last banding done 07/2017) (2) Ascites: (3) Pedal edema: (4) UTI (urinary tract infection): Supervising Physician Co-Signing Physician Notes Attg add: I interviewed and examined pt, reviewed chart and labs. Pt without any new complaint. On exam, he has marked wasting; his abdomen is distended and dull to percussion; he has no pedal edema. He is lucid, without asterixis. His labs show normal sodium, increased BUN / creat, and profound hypoalbuminemia. A/P: Vol overload - hold beta blockade given marked ascites and increased creat. Plan to manage ascites by LVP + albumin rather than IV diuretics; his hypoalbuminemia may blunt efficacy of lasix, and may help prevent worsening creat. Hypoalbuminemia - Malnutrition? Protein losing enteropathy? Dietitiian consult. Conside routpt w/u for PLE. Nausea - Hold BID iron, follow after paracentesis. . Consider reglan if persistent. Subjective Pt feels ok overall. Denies any abd pain, n/v, difficulty breathing. He said swelling on legs are improved from admission. He appears to be oriented and not confused today. Physical Exam 2 Vital Signs (Past 24 Hours): Last Vital Signs Temp 36.7 C 02/23/18 07:31 Pulse 68 02/23/18 07:31 Resp 18 02/23/18 07:31 BP 110/62 02/23/18 07:31 Pulse Ox 94 02/23/18 07:31 Constitutional: + thin, cooperative and comfortable Eyes: PERRL, conjunctivae normal, anicteric sclerae ENMT: external ear and nose normal, oropharynx normal Respiratory: normal respiratory effort, lungs clear to auscultation Cardiovascular: Rate/Rhythm: regular rate and regular rhythm Heart Sounds: no murmur Extremities: + edema (+1/2 pitting edema on legs ) Gastrointestinal (Abdomen): Inspection/Auscultation: + abdomen distended (mild ) and normal bowel sounds Percussion/Palpation: abdomen nontender Skin: + pallor; no jaundice Neurologic: Motor/Sensory: no asterixis Psychiatric: A+Ox3, euthymic affect Results & Data Laboratory Results Laboratory Results - last 72 hr 02/20/18 02/20/18 02/20/18 18:40 18:40 18:40 WBC 5.48 RBC 2.67 L Hgb 7.6 L Hct 24.9 L MCV 93.3 MCH 28.5 MCHC 30.5 L RDW Std Deviation 72.5 H RDW Coeff of Arpita 21.1 H Plt Count 73 L MPV 12.3 H Immature Gran % (Auto) 0.2 Neut % (Auto) 88.2 Lymph % (Auto) 5.5 [place] % (Auto) 5.3 Eos % (Auto) 0.4 Baso % (Auto) 0.4 Immature Gran # (Auto) 0.01 Neut # (Auto) 4.84 Lymph # (Auto) 0.30 L [place] # (Auto) 0.29 Eos # (Auto) 0.02 Baso # (Auto) 0.02 Platelet Estimate Decreased RBC Morphology Unremarkable Hypochromasia Anisocytosis Ovalocytes PT 13.8 H INR 1.4 H APTT 28.9 PTT Ratio 1.1 Sodium 137 Potassium 3.3 L Chloride 100 Carbon Dioxide 28 Anion Gap 9.0 BUN 19 H Creatinine 1.17 Est Cr Clr Drug Dosing 78.7 Est GFR ( Amer) 79.7 Est GFR (Non-Af Amer) 68.8 BUN/Creatinine Ratio 16.1 Glucose 219 H POC Glucose Estimat Average Glucose Hemoglobin A1c Calcium 7.7 L Magnesium 1.9 Total Bilirubin 4.2 H AST 26 ALT 12 Alkaline Phosphatase 139 H Ammonia Troponin I < 0.015 Total Protein 8.6 H Albumin 1.3 L Globulin 7.3 H Albumin/Globulin Ratio 0.2 L Lipase 216 TSH 7.960 H Free T4 1.16 Total T3 Urine Color Urine Appearance Urine pH Ur Specific [place] Urine Protein Urine Glucose (UA) Urine Ketones Urine Blood Urine Nitrite Urine Bilirubin Urine Urobilinogen Ur Leukocyte Esterase Urine RBC Urine WBC Ur Epithelial Cells Urine Bacteria Peritoneal Color Peritoneal Appearance Peritoneal WBC Peritoneal RBC Mononuclear WBCs % Polynuclear WBCs % Peritoneal Tot Protein Peritoneal Albumin Peritoneal LDH Peritoneal Glucose Hepatitis C Ab Screen Blood Type Antibody Screen Crossmatch 02/20/18 02/20/18 02/20/18 18:40 18:40 18:40 WBC RBC Hgb Hct MCV MCH MCHC RDW Std Deviation RDW Coeff of Arpita Plt Count MPV Immature Gran % (Auto) Neut % (Auto) Lymph % (Auto) [place] % (Auto) Eos % (Auto) Baso % (Auto) Immature Gran # (Auto) Neut # (Auto) Lymph # (Auto) [place] # (Auto) Eos # (Auto) Baso # (Auto) Platelet Estimate RBC Morphology Hypochromasia Anisocytosis Ovalocytes PT INR APTT PTT Ratio Sodium Potassium Chloride Carbon Dioxide Anion Gap BUN Creatinine Est Cr Clr Drug Dosing Est GFR ( Amer) Est GFR (Non-Af Amer) BUN/Creatinine Ratio Glucose POC Glucose Estimat Average Glucose 154 Hemoglobin A1c 7.0 H Calcium Magnesium Total Bilirubin AST ALT Alkaline Phosphatase Ammonia Troponin I Total Protein Albumin Globulin Albumin/Globulin Ratio Lipase TSH Free T4 Total T3 0.54 L Urine Color Urine Appearance Urine pH Ur Specific [place] Urine Protein Urine Glucose (UA) Urine Ketones Urine Blood Urine Nitrite Urine Bilirubin Urine Urobilinogen Ur Leukocyte Esterase Urine RBC Urine WBC Ur Epithelial Cells Urine Bacteria Peritoneal Color Peritoneal Appearance Peritoneal WBC Peritoneal RBC Mononuclear WBCs % Polynuclear WBCs % Peritoneal Tot Protein Peritoneal Albumin Peritoneal LDH Peritoneal Glucose Hepatitis C Ab Screen Blood Type O Positive Antibody Screen NEGATIVE Crossmatch See Detail 02/20/18 02/20/18 02/21/18 18:40 19:36 07:00 WBC RBC Hgb Hct MCV MCH MCHC RDW Std Deviation RDW Coeff of Arpita Plt Count MPV Immature Gran % (Auto) Neut % (Auto) Lymph % (Auto) [place] % (Auto) Eos % (Auto) Baso % (Auto) Immature Gran # (Auto) Neut # (Auto) Lymph # (Auto) [place] # (Auto) Eos # (Auto) Baso # (Auto) Platelet Estimate RBC Morphology Hypochromasia Anisocytosis Ovalocytes PT INR APTT PTT Ratio Sodium Potassium Chloride Carbon Dioxide Anion Gap BUN Creatinine Est Cr Clr Drug Dosing Est GFR ( Amer) Est GFR (Non-Af Amer) BUN/Creatinine Ratio Glucose POC Glucose Estimat Average Glucose Hemoglobin A1c Calcium Magnesium Total Bilirubin AST ALT Alkaline Phosphatase Ammonia 26.3 Troponin I Total Protein Albumin Globulin Albumin/Globulin Ratio Lipase TSH Free T4 Total T3 Urine Color [place] Urine Appearance Turbid H Urine pH 5.0 Ur Specific [place] 1.021 Urine Protein 1+ H Urine Glucose (UA) Negative Urine Ketones Negative Urine Blood Trace H Urine Nitrite Positive H Urine Bilirubin 2+ H Urine Urobilinogen Positive H Ur Leukocyte Esterase 3+ H Urine RBC 0-4 Urine WBC >30 H Ur Epithelial Cells 0-5 Urine Bacteria 4+ H Peritoneal Color Peritoneal Appearance Peritoneal WBC Peritoneal RBC Mononuclear WBCs % Polynuclear WBCs % Peritoneal Tot Protein Peritoneal Albumin Peritoneal LDH Peritoneal Glucose Hepatitis C Ab Screen Neg Blood Type Antibody Screen Crossmatch 02/21/18 02/21/18 02/21/18 07:03 09:32 11:12 WBC RBC Hgb Hct MCV MCH MCHC RDW Std Deviation RDW Coeff of Arpita Plt Count MPV Immature Gran % (Auto) Neut % (Auto) Lymph % (Auto) [place] % (Auto) Eos % (Auto) Baso % (Auto) Immature Gran # (Auto) Neut # (Auto) Lymph # (Auto) [place] # (Auto) Eos # (Auto) Baso # (Auto) Platelet Estimate RBC Morphology Hypochromasia Anisocytosis Ovalocytes PT INR APTT PTT Ratio Sodium 138 Potassium 3.5 Chloride 104 Carbon Dioxide 28 Anion Gap 6.0 BUN 20 H Creatinine 1.08 Est Cr Clr Drug Dosing 85.3 Est GFR ( Amer) 87.8 Est GFR (Non-Af Amer) 75.8 BUN/Creatinine Ratio 18.1 Glucose 177 H POC Glucose 167 H 192 H Estimat Average Glucose Hemoglobin A1c Calcium 7.0 L Magnesium Total Bilirubin 2.5 H AST 26 ALT 9 L Alkaline Phosphatase 108 Ammonia Troponin I Total Protein 6.9 Albumin 1.2 L Globulin 5.7 H Albumin/Globulin Ratio 0.2 L Lipase TSH Free T4 Total T3 Urine Color Urine Appearance Urine pH Ur Specific [place] Urine Protein Urine Glucose (UA) Urine Ketones Urine Blood Urine Nitrite Urine Bilirubin Urine Urobilinogen Ur Leukocyte Esterase Urine RBC Urine WBC Ur Epithelial Cells Urine Bacteria Peritoneal Color Peritoneal Appearance Peritoneal WBC Peritoneal RBC Mononuclear WBCs % Polynuclear WBCs % Peritoneal Tot Protein Peritoneal Albumin Peritoneal LDH Peritoneal Glucose Hepatitis C Ab Screen Blood Type Antibody Screen Crossmatch 02/21/18 02/21/18 02/21/18 11:30 11:30 11:30 WBC RBC Hgb Hct MCV MCH MCHC RDW Std Deviation RDW Coeff of Arpita Plt Count MPV Immature Gran % (Auto) Neut % (Auto) Lymph % (Auto) [place] % (Auto) Eos % (Auto) Baso % (Auto) Immature Gran # (Auto) Neut # (Auto) Lymph # (Auto) [place] # (Auto) Eos # (Auto) Baso # (Auto) Platelet Estimate RBC Morphology Hypochromasia Anisocytosis Ovalocytes PT INR APTT PTT Ratio Sodium Potassium Chloride Carbon Dioxide Anion Gap BUN Creatinine Est Cr Clr Drug Dosing Est GFR ( Amer) Est GFR (Non-Af Amer) BUN/Creatinine Ratio Glucose POC Glucose Estimat Average Glucose Hemoglobin A1c Calcium Magnesium Total Bilirubin AST ALT Alkaline Phosphatase Ammonia Troponin I Total Protein Albumin Globulin Albumin/Globulin Ratio Lipase TSH Free T4 Total T3 Urine Color Urine Appearance Urine pH Ur Specific [place] Urine Protein Urine Glucose (UA) Urine Ketones Urine Blood Urine Nitrite Urine Bilirubin Urine Urobilinogen Ur Leukocyte Esterase Urine RBC Urine WBC Ur Epithelial Cells Urine Bacteria Peritoneal Color PALE YELLOW Peritoneal Appearance HAZY Peritoneal WBC 34 Peritoneal RBC < 3000 Mononuclear WBCs % 79.0 Polynuclear WBCs % 21.0 Peritoneal Tot Protein Peritoneal Albumin < 0.6 Peritoneal LDH Peritoneal Glucose 169 Hepatitis C Ab Screen Blood Type Antibody Screen Crossmatch 02/21/18 02/21/18 02/21/18 11:30 11:30 16:14 WBC RBC Hgb Hct MCV MCH MCHC RDW Std Deviation RDW Coeff of Arpita Plt Count MPV Immature Gran % (Auto) Neut % (Auto) Lymph % (Auto) [place] % (Auto) Eos % (Auto) Baso % (Auto) Immature Gran # (Auto) Neut # (Auto) Lymph # (Auto) [place] # (Auto) Eos # (Auto) Baso # (Auto) Platelet Estimate RBC Morphology Hypochromasia Anisocytosis Ovalocytes PT INR APTT PTT Ratio Sodium Potassium Chloride Carbon Dioxide Anion Gap BUN Creatinine Est Cr Clr Drug Dosing Est GFR ( Amer) Est GFR (Non-Af Amer) BUN/Creatinine Ratio Glucose POC Glucose 296 H Estimat Average Glucose Hemoglobin A1c Calcium Magnesium Total Bilirubin AST ALT Alkaline Phosphatase Ammonia Troponin I Total Protein Albumin Globulin Albumin/Globulin Ratio Lipase TSH Free T4 Total T3 Urine Color Urine Appearance Urine pH Ur Specific [place] Urine Protein Urine Glucose (UA) Urine Ketones Urine Blood Urine Nitrite Urine Bilirubin Urine Urobilinogen Ur Leukocyte Esterase Urine RBC Urine WBC Ur Epithelial Cells Urine Bacteria Peritoneal Color Peritoneal Appearance Peritoneal WBC Peritoneal RBC Mononuclear WBCs % Polynuclear WBCs % Peritoneal Tot Protein 1.0 Peritoneal Albumin Peritoneal LDH 74 Peritoneal Glucose Hepatitis C Ab Screen Blood Type Antibody Screen Crossmatch 02/21/18 02/21/18 02/21/18 21:01 21:41 22:43 WBC RBC Hgb Hct MCV MCH MCHC RDW Std Deviation RDW Coeff of Arpita Plt Count MPV Immature Gran % (Auto) Neut % (Auto) Lymph % (Auto) [place] % (Auto) Eos % (Auto) Baso % (Auto) Immature Gran # (Auto) Neut # (Auto) Lymph # (Auto) [place] # (Auto) Eos # (Auto) Baso # (Auto) Platelet Estimate RBC Morphology Hypochromasia Anisocytosis Ovalocytes PT INR APTT PTT Ratio Sodium Potassium Chloride Carbon Dioxide Anion Gap BUN Creatinine Est Cr Clr Drug Dosing Est GFR ( Amer) Est GFR (Non-Af Amer) BUN/Creatinine Ratio Glucose POC Glucose 299 H 320 H 271 H Estimat Average Glucose Hemoglobin A1c Calcium Magnesium Total Bilirubin AST ALT Alkaline Phosphatase Ammonia Troponin I Total Protein Albumin Globulin Albumin/Globulin Ratio Lipase TSH Free T4 Total T3 Urine Color Urine Appearance Urine pH Ur Specific [place] Urine Protein Urine Glucose (UA) Urine Ketones Urine Blood Urine Nitrite Urine Bilirubin Urine Urobilinogen Ur Leukocyte Esterase Urine RBC Urine WBC Ur Epithelial Cells Urine Bacteria Peritoneal Color Peritoneal Appearance Peritoneal WBC Peritoneal RBC Mononuclear WBCs % Polynuclear WBCs % Peritoneal Tot Protein Peritoneal Albumin Peritoneal LDH Peritoneal Glucose Hepatitis C Ab Screen Blood Type Antibody Screen Crossmatch 02/22/18 02/22/18 02/22/18 00:20 07:31 08:50 WBC 3.32 L RBC 2.22 L Hgb 6.4 L* Hct 21.1 L MCV 95.0 MCH 28.8 MCHC 30.3 L RDW Std Deviation 73.6 H RDW Coeff of Arpita 21.4 H Plt Count 64 L MPV 11.2 H Immature Gran % (Auto) 0.3 Neut % (Auto) 76.8 Lymph % (Auto) 13.0 [place] % (Auto) 8.1 Eos % (Auto) 1.5 Baso % (Auto) 0.3 Immature Gran # (Auto) 0.01 Neut # (Auto) 2.55 Lymph # (Auto) 0.43 L [place] # (Auto) 0.27 Eos # (Auto) 0.05 Baso # (Auto) 0.01 Platelet Estimate RBC Morphology Hypochromasia Present Anisocytosis Present Ovalocytes 1+ PT INR APTT PTT Ratio Sodium Potassium Chloride Carbon Dioxide Anion Gap BUN Creatinine Est Cr Clr Drug Dosing Est GFR ( Amer) Est GFR (Non-Af Amer) BUN/Creatinine Ratio Glucose POC Glucose 225 H 138 H Estimat Average Glucose Hemoglobin A1c Calcium Magnesium Total Bilirubin AST ALT Alkaline Phosphatase Ammonia Troponin I Total Protein Albumin Globulin Albumin/Globulin Ratio Lipase TSH Free T4 Total T3 Urine Color Urine Appearance Urine pH Ur Specific [place] Urine Protein Urine Glucose (UA) Urine Ketones Urine Blood Urine Nitrite Urine Bilirubin Urine Urobilinogen Ur Leukocyte Esterase Urine RBC Urine WBC Ur Epithelial Cells Urine Bacteria Peritoneal Color Peritoneal Appearance Peritoneal WBC Peritoneal RBC Mononuclear WBCs % Polynuclear WBCs % Peritoneal Tot Protein Peritoneal Albumin Peritoneal LDH Peritoneal Glucose Hepatitis C Ab Screen Blood Type Antibody Screen Crossmatch 02/22/18 02/22/18 02/22/18 08:50 11:32 16:21 WBC RBC Hgb Hct MCV MCH MCHC RDW Std Deviation RDW Coeff of Arpita Plt Count MPV Immature Gran % (Auto) Neut % (Auto) Lymph % (Auto) [place] % (Auto) Eos % (Auto) Baso % (Auto) Immature Gran # (Auto) Neut # (Auto) Lymph # (Auto) [place] # (Auto) Eos # (Auto) Baso # (Auto) Platelet Estimate RBC Morphology Hypochromasia Anisocytosis Ovalocytes PT INR APTT PTT Ratio Sodium 138 Potassium 3.3 L Chloride 101 Carbon Dioxide 32 Anion Gap 5.0 BUN 21 H Creatinine 1.27 Est Cr Clr Drug Dosing 70.4 Est GFR ( Amer) 72.2 Est GFR (Non-Af Amer) 62.3 BUN/Creatinine Ratio 16.1 Glucose 126 H POC Glucose 144 H 181 H Estimat Average Glucose Hemoglobin A1c Calcium 7.4 L Magnesium 1.8 Total Bilirubin 1.5 H AST 18 ALT 9 L Alkaline Phosphatase 99 Ammonia Troponin I Total Protein 6.7 Albumin 1.2 L Globulin 5.5 H Albumin/Globulin Ratio 0.2 L Lipase TSH Free T4 Total T3 Urine Color Urine Appearance Urine pH Ur Specific [place] Urine Protein Urine Glucose (UA) Urine Ketones Urine Blood Urine Nitrite Urine Bilirubin Urine Urobilinogen Ur Leukocyte Esterase Urine RBC Urine WBC Ur Epithelial Cells Urine Bacteria Peritoneal Color Peritoneal Appearance Peritoneal WBC Peritoneal RBC Mononuclear WBCs % Polynuclear WBCs % Peritoneal Tot Protein Peritoneal Albumin Peritoneal LDH Peritoneal Glucose Hepatitis C Ab Screen Blood Type Antibody Screen Crossmatch 02/22/18 02/23/18 02/23/18 19:55 06:29 06:29 WBC 4.05 L RBC 2.62 L Hgb 7.4 L Hct 24.4 L MCV 93.1 MCH 28.2 MCHC 30.3 L RDW Std Deviation 70.3 H RDW Coeff of Arpita 21.0 H Plt Count 58 L MPV 11.7 H Immature Gran % (Auto) Neut % (Auto) Lymph % (Auto) [place] % (Auto) Eos % (Auto) Baso % (Auto) Immature Gran # (Auto) Neut # (Auto) Lymph # (Auto) [place] # (Auto) Eos # (Auto) Baso # (Auto) Platelet Estimate RBC Morphology Hypochromasia Anisocytosis Ovalocytes PT INR APTT PTT Ratio Sodium 138 Potassium 3.9 D Chloride 102 Carbon Dioxide 33 H Anion Gap 3.0 BUN 19 H Creatinine 1.15 Est Cr Clr Drug Dosing 77.8 Est GFR ( Amer) 81.4 Est GFR (Non-Af Amer) 70.3 BUN/Creatinine Ratio 16.5 Glucose 110 H POC Glucose 199 H Estimat Average Glucose Hemoglobin A1c Calcium 7.6 L Magnesium Total Bilirubin AST ALT Alkaline Phosphatase Ammonia Troponin I Total Protein Albumin Globulin Albumin/Globulin Ratio Lipase TSH Free T4 Total T3 Urine Color Urine Appearance Urine pH Ur Specific [place] Urine Protein Urine Glucose (UA) Urine Ketones Urine Blood Urine Nitrite Urine Bilirubin Urine Urobilinogen Ur Leukocyte Esterase Urine RBC Urine WBC Ur Epithelial Cells Urine Bacteria Peritoneal Color Peritoneal Appearance Peritoneal WBC Peritoneal RBC Mononuclear WBCs % Polynuclear WBCs % Peritoneal Tot Protein Peritoneal Albumin Peritoneal LDH Peritoneal Glucose Hepatitis C Ab Screen Blood Type Antibody Screen Crossmatch 02/23/18 02/23/18 07:38 11:19 WBC RBC Hgb Hct MCV MCH MCHC RDW Std Deviation RDW Coeff of Arpita Plt Count MPV Immature Gran % (Auto) Neut % (Auto) Lymph % (Auto) [place] % (Auto) Eos % (Auto) Baso % (Auto) Immature Gran # (Auto) Neut # (Auto) Lymph # (Auto) [place] # (Auto) Eos # (Auto) Baso # (Auto) Platelet Estimate RBC Morphology Hypochromasia Anisocytosis Ovalocytes PT INR APTT PTT Ratio Sodium Potassium Chloride Carbon Dioxide Anion Gap BUN Creatinine Est Cr Clr Drug Dosing Est GFR ( Amer) Est GFR (Non-Af Amer) BUN/Creatinine Ratio Glucose POC Glucose 122 H 164 H Estimat Average Glucose Hemoglobin A1c Calcium Magnesium Total Bilirubin AST ALT Alkaline Phosphatase Ammonia Troponin I Total Protein Albumin Globulin Albumin/Globulin Ratio Lipase TSH Free T4 Total T3 Urine Color Urine Appearance Urine pH Ur Specific [place] Urine Protein Urine Glucose (UA) Urine Ketones Urine Blood Urine Nitrite Urine Bilirubin Urine Urobilinogen Ur Leukocyte Esterase Urine RBC Urine WBC Ur Epithelial Cells Urine Bacteria Peritoneal Color Peritoneal Appearance Peritoneal WBC Peritoneal RBC Mononuclear WBCs % Polynuclear WBCs % Peritoneal Tot Protein Peritoneal Albumin Peritoneal LDH Peritoneal Glucose Hepatitis C Ab Screen Blood Type Antibody Screen Crossmatch
[2018-02-23] MEDS: PROCHLORPERAZINE 5 MG in SYRINGE 4 ML IV PRN (17:00)
[2018-02-23] MEDS: FUROSEMIDE 40 MG TAB PO SCH (17:44)
[2018-02-23] MEDS: TRAMADOL HCL 50 MG TABLET PO PRN (17:45)
--- NOTE | 2018-02-23 18:26 | Hospitalist Progress Note ---
Date of Service February 23, 2018 Assessment & Plan (1) Decompensated hepatic cirrhosis: Diagnostic and therapeutic paracentesis performed on 02/21/18 with 2.8 L removed. As per GI notes on 02/23/18 the plan appears to be give albumin today and possible paracentesis again on 02/24/18 will keep NPo after midnight except meds/sips/chips (2) Acute cystitis: urine culture from 02/21/18 as pansensitive Escherichia coli, continue ceftriaxone which was started on 02/22/18 (3) Anemia of chronic disease: Hgb 6.4 on 02/22/18 and after blood transfusion is 7.4 on AM of 02/23/18, continue to monitor CBC, maintain active type and screen (4) DMII (diabetes mellitus, type 2): Continue Lantus at increased 10 units twice daily and NovoLog with carb coverage and correction factor. (5) Thrombocytopenia: Chronic, stable. Secondary to cirrhosis (6) Hypokalemia: serum sodium at goal today replete as needed to maintain serum potassium above 3.5 (7) DVT prophylaxis: SCDs continue PT/OT Full code Subjective Patient seen and examined earlier today and reported that he generally feels weak. breathes on room air and moves all extremities. he reports that his abdominal distension is now about the same size as he was before he got tapped with paracentesis on the admission. Patient reports he is eating with some nausea. Denied abdominal pain. denies chest pain or shortness of breath Physical Exam 2 Vital Signs (Past 24 Hours): Last Vital Signs Temp 36.8 C 02/23/18 16:12 Pulse 72 02/23/18 16:12 Resp 18 02/23/18 16:12 BP 117/69 02/23/18 16:12 Pulse Ox 95 02/23/18 16:12 Constitutional: WD/WN, vitals as above Eyes: EOM intact bilaterally ENMT: external ear and nose normal, oropharynx normal Respiratory: normal respiratory effort, lungs clear to auscultation Cardiovascular: Rate/Rhythm: regular rate and regular rhythm Gastrointestinal (Abdomen): Inspection/Auscultation: + abdomen distended and normal bowel sounds Musculoskeletal: no cyanosis or clubbing, extremities motor strength 5/5 Head/Neck/Chest: normocephalic Neurologic: PERRL, EOMI, accommodation nl, no face palsy, no dysarthria CN' s II-XI intact bilaterally Psychiatric: A+Ox3, euthymic affect
[2018-02-23] MEDS: ALBUMIN HUMAN 25% 12.5 GM/50 ML VIAL IV SCH ×4 (19:58→22:19)
[2018-02-24 06:29] LABS: Hematocrit (blood only) 20.6 % (42-52); Hemoglobin 6.5 g/dL (14.0-18.0); Mean Corpuscular Hgb Conc 31.6 g/dL (32-36); Mean Corpuscular Volume 92.4 fL (80-100); Platelet Count 49 K/uL (130-400); RDW Coefficient of Variation 20.5 % (11.5-14.5); RDW Standard Deviation 68.3 fL (36.4-46.3); Red Blood Count 2.23 M/uL (4.7-6.1); White Blood Count 3.06 K/uL (4.8-10.8)
[2018-02-24 06:38] LABS: Anisocytosis Present; Basophils # (auto) 0.01 K/uL (0-0.2); Basophils % (auto) 0.3 %; Eosinophils # (auto) 0.03 K/uL (0-0.5); Hypochromasia Present; Immature Granulocytes # (auto) 0.01 K/uL (0.00-0.02); Immature Granulocytes % (auto) 0.3 %; Lymphocytes # (auto) 0.36 K/uL (1.2-3.4); Lymphocytes % (auto) 11.8 %; Monocytes # (auto) 0.25 K/uL (0.11-0.59); Monocytes % (auto) 8.2 %; Neutrophils % (auto) 78.4 %; Ovalocytes 1+
[2018-02-24 06:49] LABS: Albumin Level 1.5 gm/dl (3.4-5.0); BUN Creatinine Ratio 18.6 (10-20); Calcium 7.5 mg/dl (8.5-10.1); Creatinine Clr Calc Pharmacy 75.2 ml/min; Est GFR (African American) 78.1; Est GFR (Non-African American) 67.4; Magnesium 1.8 mg/dl (1.8-2.4); Potassium 3.9 mmol/L (3.5-5.1)
[2018-02-24 06:51] LABS: Albumin Globulin Ratio 0.3 (0.9-2); Bilirubin,Total 1.9 mg/dl (0.1-1); Globulin 5.2 gm/dl (2.5-4.0); Total Protein 6.7 gm/dl (6.4-8.2)
[2018-02-24] MEDS: FUROSEMIDE 40 MG TAB PO SCH ×2 (09:33→18:24)
[2018-02-24] MEDS: SERTRALINE HCL 50 MG TABLET PO SCH (09:33)
[2018-02-24] MEDS: PANTOprazole 40 MG TAB PO SCH (09:33)
[2018-02-24] MEDS: SPIRONOLACTONE 100 MG TAB PO SCH ×3 (09:34→21:14)
[2018-02-24] MEDS: INSULIN ASPART 100 UNITS/ML 3 ML PEN SC SCH ×4 (09:34→21:08)
[2018-02-24] MEDS: INSULIN GLARGINE SOLOSTAR 100 UNITS/ML 3 ML PEN SC SCH ×2 (09:35→21:08)
--- NOTE | 2018-02-24 11:01 | Hospitalist Progress Note ---
Date of Service February 24, 2018 Assessment & Plan (1) Decompensated hepatic cirrhosis: 57 year old male who presents to the Emergency Room with complaints of weakness and evaluations to date shows decompensated cirrohosis with anemia Diagnostic and therapeutic paracentesis performed on 02/21/18 with 2.8 L removed. Because patient continues to be anemic and no worsening abdominal distention between 02/23/18 to 02/24/18, will defer paracentesis tentatively for tomorrow on 02/25/18 Low salt, diabetic diet for now; will keep NPO after midnight except meds/sips/ chips continue furosemide 40 mg BID oral, continue nadolol 40 mg daily Hypoalbuminemia from cirrhosis patient has received albumin on this admission shuttle repairer consult (2) Acute cystitis: urine culture from 02/21/18 as pansensitive Escherichia coli, continue ceftriaxone which was started on 02/22/18 (3) Anemia of chronic disease: Hgb 6.4 on 02/22/18 and after blood transfusion is 7.4 on AM of 02/23/18 Hgb 6.5 on 02/24/18 and transfused 1 unit PRBC;Gastroenterology service notified ; continue to monitor CBC, maintain active type and screen (4) DMII (diabetes mellitus, type 2): Continue Lantus at increased 10 units twice daily and NovoLog with carb coverage and correction factor. (5) Thrombocytopenia: Chronic, Secondary to cirrhosis platelets downtrended to 49, continue to monitor (6) Hypokalemia: serum sodium at goal today replete as needed to maintain serum potassium above 3.5 Hypomagnesemia serum magnesium 1.8, give 1 gram Iv magnesium and place on scheduled daily oral magnesium (7) DVT prophylaxis: SCDs continue PT/OT Full code Subjective Patient seen and examined at bedside. Because Hgb dropped on AM labs, patient receiving 1 unit or PRBC breathes on room air and moves all extremities. Denies abdominal pain. denies vomiting. denies blood from body orifices. Abdominal distention remains unchanged as yesterday denies chest pain or shortness of breath. denies lightheadedness Physical Exam 2 Vital Signs (Past 24 Hours): Last Vital Signs Temp 36.7 C 02/24/18 08:03 Pulse 67 02/24/18 08:03 Resp 20 02/24/18 08:03 BP 115/61 02/24/18 08:03 Pulse Ox 94 02/24/18 08:03 Constitutional: WD/WN, vitals as above Eyes: EOM intact bilaterally ENMT: external ear and nose normal, oropharynx normal Respiratory: normal respiratory effort, lungs clear to auscultation Cardiovascular: Rate/Rhythm: regular rate and regular rhythm Gastrointestinal (Abdomen): Inspection/Auscultation: + abdomen distended and normal bowel sounds Musculoskeletal: no cyanosis or clubbing, extremities motor strength 5/5 Head/Neck/Chest: normocephalic Neurologic: PERRL, EOMI, accommodation nl, no face palsy, no dysarthria CN' s II-XI intact bilaterally Psychiatric: A+Ox3, euthymic affect
[2018-02-24] MEDS ORDERED: MAGNESIUM SULFATE / D5W 1 GM/100 ML BAG IV ONE (11:45)
[2018-02-24] MEDS: cefTRIAXone SODIUM 1,000 MG in DEXTROSE 5% 50 ML IV SCH (12:46)
--- NOTE | 2018-02-24 13:25 | Gastroenterology Progress Note ---
Date of Service February 24, 2018 Subjective Pt is without complaint today. He had fall in hgb from 7's to 6's, without corresponding rise in BUN and no overt GIB. He is currently receiving 1 U PRBC. He is saadia PO well. On exam, he appears chronically ill, much older thatn stated age. He is lucid, answering questions appropriately, although his speech is slow. He is cachectic , with muscle wasting. Abd exam shows distention that is perhaps mildly increased from yesterday but not tense. He has no flank edema. Abd is dull to percussion; I cannot appreciate a fluid wave. Extrem: mild bilat pedal edema bilat to both knees. He has faint asterixis. Labs reviewed A/P: Volume overload - Cont same dose of diuretics, hold beta-blockade. Plan for LVP with albumin tomorrow. Anemia, Drop in Hgb - Fall in Hgb may be dilutional, related to volume shift in this pt with profoundly low albumin and portal HTN; it also may be related to occult GI blood loss due to portal gastropathy. Follow for now; may consider eventual EGD if cont to fall, although he most likely does not have a bleeding lesion that would be amenable to endoscopic intervention. Malnutrition, hypoalbuminemia - Cont to follow and encourage PO intake. Physical Exam 2 Vital Signs (Past 24 Hours): Last Vital Signs Temp 36.8 C 02/24/18 10:05 Pulse 67 02/24/18 10:05 Resp 20 02/24/18 10:05 BP 103/51 L 02/24/18 10:05 Pulse Ox 95 02/24/18 10:05
[2018-02-24] MEDS: PROCHLORPERAZINE 5 MG in SYRINGE 4 ML IV PRN (13:26)
[2018-02-24] MEDS: MAGNESIUM OXIDE 400 MG TAB PO SCH (13:46)
[2018-02-24 14:17] LABS: Mean Corpuscular Hgb Conc 31.5 g/dL (32-36)
[2018-02-24 14:29] LABS: Hematocrit (blood only) 24.1 % (42-52); Hemoglobin 7.6 g/dL (14.0-18.0); Mean Corpuscular Volume 92.3 fL (80-100); RDW Standard Deviation 64.8 fL (36.4-46.3); Red Blood Count 2.61 M/uL (4.7-6.1); White Blood Count 3.79 K/uL (4.8-10.8)
[2018-02-24 15:19] LABS: Platelet Count 62 K/uL (130-400)
[2018-02-25 07:38] LABS: Hemoglobin 7.2 g/dL (14.0-18.0); Mean Corpuscular Hgb Conc 32.7 g/dL (32-36); Mean Corpuscular Volume 92.4 fL (80-100); RDW Standard Deviation 65.6 fL (36.4-46.3); Red Blood Count 2.38 M/uL (4.7-6.1); White Blood Count 3.32 K/uL (4.8-10.8)
[2018-02-25 08:05] LABS: BUN Creatinine Ratio 18.8 (10-20); Calcium 8.2 mg/dl (8.5-10.1); Creatinine Clr Calc Pharmacy 81.3 ml/min; Est GFR (African American) 85.9; Est GFR (Non-African American) 74.1; Magnesium 1.9 mg/dl (1.8-2.4); Phosphorus 3.2 mg/dl (2.5-4.9); Potassium 3.9 mmol/L (3.5-5.1)
[2018-02-25] MEDS: PANTOprazole 40 MG TAB PO SCH (08:28)
[2018-02-25] MEDS: MAGNESIUM OXIDE 400 MG TAB PO SCH (08:28)
[2018-02-25] MEDS: SERTRALINE HCL 50 MG TABLET PO SCH (08:28)
[2018-02-25] MEDS: SPIRONOLACTONE 100 MG TAB PO SCH ×3 (08:28→21:24)
[2018-02-25] MEDS: FUROSEMIDE 40 MG TAB PO SCH ×2 (08:28→17:40)
[2018-02-25] MEDS: INSULIN ASPART 100 UNITS/ML 3 ML PEN SC SCH ×4 (08:30→21:26)
[2018-02-25 08:33] LABS: Anisocytosis Present; Basophils # (auto) 0.01 K/uL (0-0.2); Basophils % (auto) 0.3 %; Eosinophils # (auto) 0.04 K/uL (0-0.5); Eosinophils % (auto) 1.2 %; Immature Granulocytes # (auto) 0.01 K/uL (0.00-0.02); Immature Granulocytes % (auto) 0.3 %; Lymphocytes # (auto) 0.33 K/uL (1.2-3.4); Lymphocytes % (auto) 9.9 %; Mean Platelet Volume 11.5 fL (7.4-10.4); Monocytes # (auto) 0.24 K/uL (0.11-0.59); Monocytes % (auto) 7.2 %; Neutrophils # (auto) 2.69 K/uL (1.4-6.5); Neutrophils % (auto) 81.1 %; Ovalocytes 1+; Platelet Count 51 K/uL (130-400)
[2018-02-25] MEDS: INSULIN GLARGINE SOLOSTAR 100 UNITS/ML 3 ML PEN SC SCH ×2 (08:48→21:25)
[2018-02-25] MEDS: ALBUMIN HUMAN 25% 12.5 GM/50 ML VIAL IV SCH ×4 (09:56→13:49)
[2018-02-25] MEDS: cefTRIAXone SODIUM 1,000 MG in DEXTROSE 5% 50 ML IV SCH (12:15)
--- NOTE | 2018-02-25 12:16 | Ultrasound Report ---
ULTRASOUND GUIDED THERAPEUTIC PARACENTESIS CLINICAL HISTORY: ascites PROCEDURE: The risks, benefits, and alternatives to the procedure were discussed with the patient inc luding the risk of bleeding, infection and injury to adjacent structures. The patient agreed to the procedure and informed written consent was obtained. Following real-time ultrasound localization, the skin of the left lower quadrant was prepped and draped. Following local anesthesia with Xylocaine, t he sheath paracentesis needle was inserted and approximately 2.8 liters of serosanguineous fluid was removed by vacuum suction. The patient tolerated the procedure well and no immediate complications were evident. IMPRESSION: Ultrasound-guided paracentesis with removal of 2.8 liters of ascites. Electronically signed by: Zechariah White M.D. 02/25/2018 12:14 PM
--- NOTE | 2018-02-25 13:13 | Gastroenterology Progress Note ---
Date of Service February 25, 2018 Assessment & Plan (1) Decompensated hepatic cirrhosis: 57 yo male with decompensated NAFLD cirrhosis admitted with worsening edema as well as nausea and non-bloody emesis. Urine culture grew Ecoli UTI as possible source of his decompensation. Ascitic fluid studies negative for SBP, Blood culture negative. No s/o GI bleeding. His blood ct dropped over the weekend and needing 1U PRBC transfusion. Hgb 6.5 - >7.2. He denies s/s of acute GI bleeding. Is scheduled for u/s guided paracentesis today. - Monitor H/H and transfuse as needed. Will consider EGD eval (hx of variceal bleed; last banded 07/2017) if blood ct continues to drop - U/S guided paracentesis w fluid cell ct, cx. Will give Albumin 25% 50g IV total pre/post paracentesis - Continue current diuretics, 2g Na diet. Attg add: I interviewed and examined pt, reviewed chart and labs. Pt without acute complaints, s/p paracentesis this am. Hgb fluctuating, without gross evidence of GIB. No changes in management - cont current diuretic dose, HE therapy. (2) Ascites: (3) Pedal edema: (4) UTI (urinary tract infection): Subjective Pt reports feeling fine. Denies any abd pain, n/v, eating well. He is scheduled for u/s guided paracentesis this afternoon. Physical Exam 2 Vital Signs (Past 24 Hours): Last Vital Signs Temp 36.6 C 02/25/18 12:45 Pulse 64 02/25/18 13:02 Resp 18 02/25/18 13:02 BP 117/65 02/25/18 13:02 Pulse Ox 97 02/25/18 13:02 Constitutional: + thin, cooperative and comfortable Eyes: PERRL, conjunctivae normal, anicteric sclerae ENMT: external ear and nose normal, oropharynx normal Respiratory: normal respiratory effort, lungs clear to auscultation Cardiovascular: Rate/Rhythm: regular rate and regular rhythm Heart Sounds: no murmur Extremities: + edema (+1/2 pitting edema on legs ) Gastrointestinal (Abdomen): Inspection/Auscultation: + abdomen distended (mild ) and normal bowel sounds Percussion/Palpation: abdomen nontender Skin: + pallor; no jaundice Neurologic: Motor/Sensory: no asterixis Psychiatric: A+Ox3, euthymic affect
--- NOTE | 2018-02-25 19:08 | Hospitalist Progress Note ---
Date of Service February 25, 2018 Assessment & Plan (1) Decompensated hepatic cirrhosis: 57 year old male who presents to the Emergency Room with complaints of weakness and evaluations to date shows decompensated cirrohosis with anemia Diagnostic and therapeutic paracentesis performed on 02/21/18 with 2.8 L removed. paracentesis again performed on 02/25/18 Low salt, diabetic diet for now continue furosemide 40 mg BID oral, continue nadolol 40 mg daily Hypoalbuminemia from cirrhosis patient has received albumin on this admission strap maker consult (2) Acute cystitis: urine culture from 02/21/18 as pansensitive Escherichia coli, continue ceftriaxone which was started on 02/22/18 (3) Anemia of chronic disease: Hgb 6.4 on 02/22/18 and after blood transfusion is 7.4 on AM of 02/23/18 Hgb 6.5 on 02/24/18 and transfused 1 unit PRBC; Hgb 7.2 on 02/25/18 monitor (4) DMII (diabetes mellitus, type 2): Continue Lantus at increased 10 units twice daily and NovoLog with carb coverage and correction factor. (5) Thrombocytopenia: Chronic, Secondary to cirrhosis platelets downtrended to 49K and now back up to 62K (6) Hypokalemia: serum sodium at goal today replete as needed to maintain serum potassium above 3.5 Hypomagnesemia serum magnesium now is 1.9, on daily oral magnesium (7) DVT prophylaxis: SCDs continue PT/OT Full code Subjective Patient s/p paracentesis again today. Abdomen is less distended. Patient denies abdominal pain. Denies vomiting. denies shortness of breath. denies chest pain. denies lightheadedness Physical Exam 2 Vital Signs (Past 24 Hours): Last Vital Signs Temp 36.2 C L 02/25/18 13:55 Pulse 73 02/25/18 13:55 Resp 18 02/25/18 13:55 BP 113/63 02/25/18 13:55 Pulse Ox 97 02/25/18 13:55 Constitutional: WD/WN, vitals as above Eyes: EOM intact bilaterally ENMT: external ear and nose normal, oropharynx normal Respiratory: normal respiratory effort, lungs clear to auscultation Cardiovascular: Rate/Rhythm: regular rate and regular rhythm Gastrointestinal (Abdomen): Inspection/Auscultation: + abdomen distended and normal bowel sounds Musculoskeletal: no cyanosis or clubbing, extremities motor strength 5/5 Head/Neck/Chest: normocephalic Neurologic: PERRL, EOMI, accommodation nl, no face palsy, no dysarthria CN' s II-XI intact bilaterally Psychiatric: A+Ox3, euthymic affect
[2018-02-25] MEDS: TRAMADOL HCL 50 MG TABLET PO PRN (21:24)
[2018-02-26] MEDS: TRAMADOL HCL 50 MG TABLET PO PRN ×2 (01:26→08:36)
[2018-02-26 06:52] LABS: Hematocrit (blood only) 21.5 % (42-52); Hemoglobin 6.8 g/dL (14.0-18.0); Mean Corpuscular Hgb Conc 31.6 g/dL (32-36); Mean Corpuscular Volume 93.1 fL (80-100); Mean Platelet Volume 11.7 fL (7.4-10.4); Platelet Count 54 K/uL (130-400); RDW Coefficient of Variation 19.9 % (11.5-14.5); RDW Standard Deviation 64.9 fL (36.4-46.3); Red Blood Count 2.31 M/uL (4.7-6.1); White Blood Count 2.71 K/uL (4.8-10.8)
[2018-02-26 07:00] LABS: Albumin Level 1.6 gm/dl (3.4-5.0); BUN Creatinine Ratio 17.3 (10-20); Creatinine Clr Calc Pharmacy 76.5 ml/min; Est GFR (African American) 79.7; Est GFR (Non-African American) 68.8; Magnesium 1.8 mg/dl (1.8-2.4); Potassium 3.9 mmol/L (3.5-5.1)
[2018-02-26 07:06] LABS: Albumin Globulin Ratio 0.3 (0.9-2); Bilirubin,Total 1.4 mg/dl (0.1-1); Total Protein 6.6 gm/dl (6.4-8.2)
[2018-02-26 07:41] LABS: Anisocytosis Present; Basophils # (auto) 0.02 K/uL (0-0.2); Basophils % (auto) 0.7 %; Eosinophils # (auto) 0.03 K/uL (0-0.5); Eosinophils % (auto) 1.1 %; Immature Granulocytes # (auto) 0.01 K/uL (0.00-0.02); Immature Granulocytes % (auto) 0.4 %; Lymphocytes % (auto) 11.1 %; Monocytes # (auto) 0.28 K/uL (0.11-0.59); Monocytes % (auto) 10.3 %; Neutrophils # (auto) 2.07 K/uL (1.4-6.5); Neutrophils % (auto) 76.4 %; Spherocytes 1+
[2018-02-26] MEDS: SPIRONOLACTONE 100 MG TAB PO SCH ×3 (08:23→20:35)
[2018-02-26] MEDS: FUROSEMIDE 40 MG TAB PO SCH ×2 (08:23→17:07)
[2018-02-26] MEDS: INSULIN ASPART 100 UNITS/ML 3 ML PEN SC SCH ×4 (08:23→20:31)
[2018-02-26] MEDS: MAGNESIUM OXIDE 400 MG TAB PO SCH ×3 (08:23→20:36)
[2018-02-26] MEDS: SERTRALINE HCL 50 MG TABLET PO SCH (08:23)
[2018-02-26] MEDS: PANTOprazole 40 MG TAB PO SCH (08:23)
[2018-02-26] MEDS: INSULIN GLARGINE SOLOSTAR 100 UNITS/ML 3 ML PEN SC SCH ×2 (08:24→20:36)
--- NOTE | 2018-02-26 09:27 | Hospitalist Progress Note ---
Date of Service February 26, 2018 Assessment & Plan (1) Decompensated hepatic cirrhosis: 57 year old male who presents to the Emergency Room with complaints of weakness and evaluations to date shows decompensated cirrohosis with anemia Diagnostic and therapeutic paracentesis performed on 02/21/18 with 2.8 L removed. paracentesis again performed on 02/25/18 with 2.8 L removed Low salt, diabetic diet for now continue furosemide 40 mg BID oral - will give additional 20 mg IV Lasix on because of blood transfuions continue nadolol 40 mg daily Hypoalbuminemia from cirrhosis patient has received albumin on this admission point of sale associate consult (2) Acute cystitis: urine culture from 02/21/18 as pansensitive Escherichia coli, ceftriaxone daily was started on 02/22/18, stopped order on 02/26/18 as a 3 day course of antibiotics should be sufficient for uncomplicated urinary tract infection (3) Anemia of chronic disease: Hgb 6.4 on 02/22/18 and after 1 PRBC the Hgb is 7.4 on AM of 02/23/18 Hgb 6.5 on 02/24/18 and transfused 1 unit PRBC; Hgb 7.2 on 02/25/18 Hgb 6.8 on 02/26/18 and 2 units or PRBC to be transfused given frequent Hgb downtrended appreciate further gastroenterology recommendations (4) DMII (diabetes mellitus, type 2): Continue Lantus at increased 10 units twice daily and NovoLog with carb coverage and correction factor. (5) Thrombocytopenia: Chronic, Secondary to cirrhosis platelets stablizing around 50 K (6) Hypokalemia: serum sodium at goal today replete as needed to maintain serum potassium above 3.5 Hypomagnesemia serum magnesium now is 1.8, increase oral magnesium to BID (7) DVT prophylaxis: SCDs continue PT/OT Full code Subjective Patient receiving blood transfusion denies lightheadedness or gross bleeding from orifices Denies vomiting. denies shortness of breath. denies chest pain. denies lightheadedness Physical Exam 2 Vital Signs (Past 24 Hours): Last Vital Signs Temp 36.5 C 02/26/18 08:31 Pulse 67 02/26/18 08:31 Resp 18 02/26/18 08:31 BP 119/74 02/26/18 08:31 Pulse Ox 96 02/26/18 08:31 Constitutional: WD/WN, vitals as above Eyes: EOM intact bilaterally ENMT: external ear and nose normal, oropharynx normal Respiratory: normal respiratory effort, lungs clear to auscultation Cardiovascular: Rate/Rhythm: regular rate and regular rhythm Gastrointestinal (Abdomen): Inspection/Auscultation: + abdomen distended and normal bowel sounds Musculoskeletal: no cyanosis or clubbing, extremities motor strength 5/5 Head/Neck/Chest: normocephalic Neurologic: PERRL, EOMI, accommodation nl, no face palsy, no dysarthria CN' s II-XI intact bilaterally Psychiatric: A+Ox3, euthymic affect
--- NOTE | 2018-02-26 10:22 | Gastroenterology Progress Note ---
Date of Service February 26, 2018 Assessment & Plan (1) Decompensated hepatic cirrhosis: 57 yo male with decompensated NAFLD cirrhosis admitted with worsening edema as well as nausea and non-bloody emesis. Urine culture grew Ecoli UTI as possible source of his decompensation. Ascitic fluid studies negative for SBP, Blood culture negative. No s/o GI bleeding but he has had downward trending HGB requiring transfusion. He ate regular breakfast this AM. - No acute GI bleeding but downward trending H&H - Continue to monitor - Trend H&H - Transfuse PRN - Does have hx of varices banded in July - EGD tomorrow - Continue current diuretics, 2g Na diet - If ongoing paracentesis are needed can discuss options - ? TIPS Thank you for allowing us to participate in the care of this patient. Please call with any acute changes, questions or concerns. Please see addendum below with additional recommendation from my supervising physician. Attg add: I interviewed and examined pt, reviewed chart and labs. Pt without complaint. His abd is stably distended. His Hgb has fallen. RECS: - Anemi a- related to tap? occult GIB. Follow for now, plan EGD tomorrow to eval Hgb drift. - Volume overload - cont same dose of diuretics. (2) Ascites: (3) Pedal edema: (4) UTI (urinary tract infection): Subjective Pt was seen and evaluated, chart reviewed. No complaints this AM. Recieving unit of blood as HGB drifted down. Otherwise feels well. Moving bowels daily. Brown stools. Denies prior black/bloody stools. Tolerating PO. No nausea, vomiting. Denies any hematemesis or coffee ground emesis. Is hungry. No fever, chills, CP, SOB Physical Exam 2 Vital Signs (Past 24 Hours): Last Vital Signs Temp 36.5 C 02/26/18 08:31 Pulse 67 02/26/18 08:31 Resp 18 02/26/18 08:31 BP 119/74 02/26/18 08:31 Pulse Ox 96 02/26/18 08:31 Constitutional: + ill appearing, + thin, cooperative and comfortable Respiratory: normal respiratory effort, lungs clear to auscultation Cardiovascular: RRR, no murmur, no edema Gastrointestinal (Abdomen): normal bowel sounds, soft, nontender, no hepatosplenomegaly Skin: no rashes, warm and dry no jaundice Results & Data Laboratory Results 02/26/18 02/26/18 02/26/18 Range/Units 07:44 06:12 06:12 WBC 2.71 L (4.8-10.8) K/uL RBC 2.31 L (4.7-6.1) M/uL Hgb 6.8 L* (14.0-18.0) g/dL Hct 21.5 L (42-52) % MCV 93.1 (80-100) fL MCH 29.4 (25-34) pg MCHC 31.6 L (32-36) g/dL RDW Std Deviation 64.9 H (36.4-46.3) fL RDW Coeff of Arpita 19.9 H (11.5-14.5) % Plt Count 54 L (130-400) K/uL MPV 11.7 H (7.4-10.4) fL Immature Gran % (Auto) 0.4 % Neut % (Auto) 76.4 % Lymph % (Auto) 11.1 % [place] % (Auto) 10.3 % Eos % (Auto) 1.1 % Baso % (Auto) 0.7 % Immature Gran # (Auto) 0.01 (0.00-0.02) K/uL Neut # (Auto) 2.07 (1.4-6.5) K/uL Lymph # (Auto) 0.30 L (1.2-3.4) K/uL [place] # (Auto) 0.28 (0.11-0.59) K/uL Eos # (Auto) 0.03 (0-0.5) K/uL Baso # (Auto) 0.02 (0-0.2) K/uL Giant Platelets 1+ Anisocytosis Present Spherocytes 1+ Sodium 132 L (136-145) mmol/L Potassium 3.9 (3.5-5.1) mmol/L Chloride 94 L (98-107) mmol/L Carbon Dioxide 32 (21-32) mmol/L Anion Gap 6.0 (3-11) BUN 20 H (7-18) mg/dl Creatinine 1.17 (0.6-1.4) mg/dl Est Cr Clr Drug Dosing 76.5 ml/min Est GFR ( Amer) 79.7 Est GFR (Non-Af Amer) 68.8 BUN/Creatinine Ratio 17.3 (10-20) Glucose 252 H (70-99) mg/dl POC Glucose 240 H (70-99) Calcium 8.0 L (8.5-10.1) mg/dl Magnesium 1.8 (1.8-2.4) mg/dl Total Bilirubin 1.4 H (0.1-1) mg/dl AST 18 (15-37) U/L ALT 9 L (12-78) U/L Alkaline Phosphatase 106 (45-117) U/L Total Protein 6.6 (6.4-8.2) gm/dl Albumin 1.6 L (3.4-5.0) gm/dl Globulin 5.0 H (2.5-4.0) gm/dl Albumin/Globulin Ratio 0.3 L (0.9-2) Blood Type Antibody Screen Crossmatch 02/25/18 02/25/18 02/25/18 Range/Units 19:56 16:13 13:07 WBC (4.8-10.8) K/uL RBC (4.7-6.1) M/uL Hgb (14.0-18.0) g/dL Hct (42-52) % MCV (80-100) fL MCH (25-34) pg MCHC (32-36) g/dL RDW Std Deviation (36.4-46.3) fL RDW Coeff of Arpita (11.5-14.5) % Plt Count (130-400) K/uL MPV (7.4-10.4) fL Immature Gran % (Auto) % Neut % (Auto) % Lymph % (Auto) % [place] % (Auto) % Eos % (Auto) % Baso % (Auto) % Immature Gran # (Auto) (0.00-0.02) K/uL Neut # (Auto) (1.4-6.5) K/uL Lymph # (Auto) (1.2-3.4) K/uL [place] # (Auto) (0.11-0.59) K/uL Eos # (Auto) (0-0.5) K/uL Baso # (Auto) (0-0.2) K/uL Giant Platelets Anisocytosis Spherocytes Sodium (136-145) mmol/L Potassium (3.5-5.1) mmol/L Chloride (98-107) mmol/L Carbon Dioxide (21-32) mmol/L Anion Gap (3-11) BUN (7-18) mg/dl Creatinine (0.6-1.4) mg/dl Est Cr Clr Drug Dosing ml/min Est GFR ( Amer) Est GFR (Non-Af Amer) BUN/Creatinine Ratio (10-20) Glucose (70-99) mg/dl POC Glucose 210 H 218 H 182 H (70-99) Calcium (8.5-10.1) mg/dl Magnesium (1.8-2.4) mg/dl Total Bilirubin (0.1-1) mg/dl AST (15-37) U/L ALT (12-78) U/L Alkaline Phosphatase (45-117) U/L Total Protein (6.4-8.2) gm/dl Albumin (3.4-5.0) gm/dl Globulin (2.5-4.0) gm/dl Albumin/Globulin Ratio (0.9-2) Blood Type Antibody Screen Crossmatch 02/24/18 Range/Units 06:03 WBC (4.8-10.8) K/uL RBC (4.7-6.1) M/uL Hgb (14.0-18.0) g/dL Hct (42-52) % MCV (80-100) fL MCH (25-34) pg MCHC (32-36) g/dL RDW Std Deviation (36.4-46.3) fL RDW Coeff of Arpita (11.5-14.5) % Plt Count (130-400) K/uL MPV (7.4-10.4) fL Immature Gran % (Auto) % Neut % (Auto) % Lymph % (Auto) % [place] % (Auto) % Eos % (Auto) % Baso % (Auto) % Immature Gran # (Auto) (0.00-0.02) K/uL Neut # (Auto) (1.4-6.5) K/uL Lymph # (Auto) (1.2-3.4) K/uL [place] # (Auto) (0.11-0.59) K/uL Eos # (Auto) (0-0.5) K/uL Baso # (Auto) (0-0.2) K/uL Giant Platelets Anisocytosis Spherocytes Sodium (136-145) mmol/L Potassium (3.5-5.1) mmol/L Chloride (98-107) mmol/L Carbon Dioxide (21-32) mmol/L Anion Gap (3-11) BUN (7-18) mg/dl Creatinine (0.6-1.4) mg/dl Est Cr Clr Drug Dosing ml/min Est GFR ( Amer) Est GFR (Non-Af Amer) BUN/Creatinine Ratio (10-20) Glucose (70-99) mg/dl POC Glucose (70-99) Calcium (8.5-10.1) mg/dl Magnesium (1.8-2.4) mg/dl Total Bilirubin (0.1-1) mg/dl AST (15-37) U/L ALT (12-78) U/L Alkaline Phosphatase (45-117) U/L Total Protein (6.4-8.2) gm/dl Albumin (3.4-5.0) gm/dl Globulin (2.5-4.0) gm/dl Albumin/Globulin Ratio (0.9-2) Blood Type O Positive Antibody Screen NEGATIVE Crossmatch See Detail
[2018-02-26] MEDS ORDERED: FUROSEMIDE 20 MG in SYRINGE 0 ML IV ONE (13:00)
[2018-02-26] MEDS: PROCHLORPERAZINE 5 MG in SYRINGE 4 ML IV PRN ×2 (13:19→17:55)
[2018-02-26 17:21] LABS: Mean Corpuscular Hgb Conc 31.1 g/dL (32-36)
[2018-02-26 17:33] LABS: Hematocrit (blood only) 29.2 % (42-52); Hemoglobin 9.2 g/dL (14.0-18.0); Mean Corpuscular Volume 92.4 fL (80-100); RDW Coefficient of Variation 19.6 % (11.5-14.5); RDW Standard Deviation 63.4 fL (36.4-46.3); Red Blood Count 3.16 M/uL (4.7-6.1); White Blood Count 3.51 K/uL (4.8-10.8)
[2018-02-26 18:13] LABS: Platelet Count 58 K/uL (130-400)
[2018-02-26 18:14] LABS: Basophils # (auto) 0.03 K/uL (0-0.2); Basophils % (auto) 0.9 %; Eosinophils # (auto) 0.03 K/uL (0-0.5); Eosinophils % (auto) 0.9 %; Immature Granulocytes # (auto) 0.02 K/uL (0.00-0.02); Immature Granulocytes % (auto) 0.6 %; Lymphocytes # (auto) 0.33 K/uL (1.2-3.4); Lymphocytes % (auto) 9.4 %; Monocytes # (auto) 0.43 K/uL (0.11-0.59); Monocytes % (auto) 12.3 %; Neutrophils # (auto) 2.67 K/uL (1.4-6.5); Neutrophils % (auto) 75.9 %; Spherocytes 1+
[2018-02-27] MEDS ORDERED: Nursing to Pharmacy Communication ONE (01:14)
[2018-02-27 05:59] LABS: Hematocrit (blood only) 26.9 % (42-52); Hemoglobin 8.7 g/dL (14.0-18.0); Mean Corpuscular Volume 91.5 fL (80-100); RDW Coefficient of Variation 19.6 % (11.5-14.5); Red Blood Count 2.94 M/uL (4.7-6.1); White Blood Count 3.44 K/uL (4.8-10.8)
[2018-02-27 06:14] LABS: BUN Creatinine Ratio 20.7 (10-20); Calcium 8.6 mg/dl (8.5-10.1); Est GFR (African American) 88.8; Est GFR (Non-African American) 76.7; Magnesium 1.9 mg/dl (1.8-2.4); Potassium 4.4 mmol/L (3.5-5.1)
[2018-02-27 06:20] LABS: Basophils # (auto) 0.02 K/uL (0-0.2); Basophils % (auto) 0.6 %; Eosinophils # (auto) 0.05 K/uL (0-0.5); Eosinophils % (auto) 1.5 %; Immature Granulocytes # (auto) 0.01 K/uL (0.00-0.02); Immature Granulocytes % (auto) 0.3 %; Lymphocytes # (auto) 0.39 K/uL (1.2-3.4); Lymphocytes % (auto) 11.3 %; Mean Corpuscular Hgb Conc 32.3 g/dL (32-36); Mean Platelet Volume 10.4 fL (7.4-10.4); Monocytes # (auto) 0.34 K/uL (0.11-0.59); Monocytes % (auto) 9.9 %; Neutrophils # (auto) 2.63 K/uL (1.4-6.5); Neutrophils % (auto) 76.4 %; Platelet Count 49 K/uL (130-400)
[2018-02-27] MEDS: INSULIN ASPART 100 UNITS/ML 3 ML PEN SC SCH ×4 (06:28→20:56)
[2018-02-27] MEDS ORDERED: PROPOFOL IV EMULSION 10 MG/ML 20 ML VIAL IV ONE (08:07)
[2018-02-27] MEDS ORDERED: LIDOCAINE HCL 2% 2 ML VIAL/AMP(20MG/ML) INFIL ONE (08:07)
--- NOTE | 2018-02-27 08:18 | Gastroenterology Progress Note ---
Date of Service February 27, 2018 Assessment & Plan (1) Decompensated hepatic cirrhosis: 57 yo male with decompensated NAFLD cirrhosis admitted with worsening edema as well as nausea and non-bloody emesis. Urine culture grew Ecoli UTI as possible source of his decompensation. Ascitic fluid studies negative for SBP, Blood culture negative. No s/o GI bleeding but he has had downward trending HGB requiring transfusion and is NPO for EGD. - Keep NPO - EGD today - Please see EGD report for additional recommendations once completed - Continue current diuretics, 2g Na diet Thank you for allowing us to participate in the care of this patient. Please call with any acute changes, questions or concerns. Please see addendum below with additional recommendation from my supervising physician. Attg add: I interviewed and examined pt, reviewed chart and labs. Pt with downward drifitng hg, although no overt GIB. SUspect portal enteropathy/ gastropathy; plan EGD. (2) Ascites: (3) Pedal edema: (4) UTI (urinary tract infection): Subjective Pt was seen and evaluated down in endoscopy unit, chart reviewed. No complaints this AM. Recieving 2 units of blood as HGB drifted down. Continues to deny abd pain, nausea, vomiting. No black or bloody stools. No hematemesis or coffee ground emesis. Otherwise feels well. Is NPO. No fever, chills, CP, SOB Constitutional: no fever, no chills and no weight loss Respiratory: no cough, no chest congestion and no wheezing Cardiovascular: no chest pain, no chest pain at rest and no claudication Gastrointestinal: no abdominal pain, no belching and no melena Physical Exam 2 Vital Signs (Past 24 Hours): Last Vital Signs Temp 36.8 C 02/27/18 08:07 Pulse 67 02/27/18 08:07 Resp 16 02/27/18 08:07 BP 120/68 02/27/18 08:07 Pulse Ox 96 02/27/18 08:07 Constitutional: + ill appearing, + thin, cooperative and comfortable Respiratory: normal respiratory effort, lungs clear to auscultation Cardiovascular: RRR, no murmur, no edema Gastrointestinal (Abdomen): normal bowel sounds, soft, nontender, no hepatosplenomegaly Skin: no rashes, warm and dry no jaundice Results & Data Laboratory Results 02/27/18 02/27/18 02/27/18 Range/Units 06:00 05:51 05:51 WBC 3.44 L (4.8-10.8) K/uL RBC 2.94 L (4.7-6.1) M/uL Hgb 8.7 L (14.0-18.0) g/dL Hct 26.9 L (42-52) % MCV 91.5 (80-100) fL MCH 29.6 (25-34) pg MCHC 32.3 (32-36) g/dL RDW Std Deviation 64.0 H (36.4-46.3) fL RDW Coeff of Arpita 19.6 H (11.5-14.5) % Plt Count 49 L (130-400) K/uL MPV 10.4 (7.4-10.4) fL Immature Gran % (Auto) 0.3 % Neut % (Auto) 76.4 % Lymph % (Auto) 11.3 % [place] % (Auto) 9.9 % Eos % (Auto) 1.5 % Baso % (Auto) 0.6 % Immature Gran # (Auto) 0.01 (0.00-0.02) K/uL Neut # (Auto) 2.63 (1.4-6.5) K/uL Lymph # (Auto) 0.39 L (1.2-3.4) K/uL [place] # (Auto) 0.34 (0.11-0.59) K/uL Eos # (Auto) 0.05 (0-0.5) K/uL Baso # (Auto) 0.02 (0-0.2) K/uL Platelet Estimate (Normal) Giant Platelets 1+ Spherocytes Sodium 132 L (136-145) mmol/L Potassium 4.4 (3.5-5.1) mmol/L Chloride 94 L (98-107) mmol/L Carbon Dioxide 34 H (21-32) mmol/L Anion Gap 5.0 (3-11) BUN 22 H (7-18) mg/dl Creatinine 1.07 (0.6-1.4) mg/dl Est Cr Clr Drug Dosing 80.0 ml/min Est GFR ( Amer) 88.8 Est GFR (Non-Af Amer) 76.7 BUN/Creatinine Ratio 20.7 H (10-20) Glucose 151 H (70-99) mg/dl POC Glucose 175 H (70-99) Calcium 8.6 (8.5-10.1) mg/dl Magnesium 1.9 (1.8-2.4) mg/dl Blood Type Antibody Screen Crossmatch 02/26/18 02/26/18 02/26/18 Range/Units 20:14 17:11 16:32 WBC 3.51 L (4.8-10.8) K/uL RBC 3.16 L (4.7-6.1) M/uL Hgb 9.2 L (14.0-18.0) g/dL Hct 29.2 L (42-52) % MCV 92.4 (80-100) fL MCH 29.1 (25-34) pg MCHC 31.1 L (32-36) g/dL RDW Std Deviation 63.4 H (36.4-46.3) fL RDW Coeff of Arpita 19.6 H (11.5-14.5) % Plt Count 58 L (130-400) K/uL MPV (7.4-10.4) fL Immature Gran % (Auto) 0.6 % Neut % (Auto) 75.9 % Lymph % (Auto) 9.4 % [place] % (Auto) 12.3 % Eos % (Auto) 0.9 % Baso % (Auto) 0.9 % Immature Gran # (Auto) 0.02 (0.00-0.02) K/uL Neut # (Auto) 2.67 (1.4-6.5) K/uL Lymph # (Auto) 0.33 L (1.2-3.4) K/uL [place] # (Auto) 0.43 (0.11-0.59) K/uL Eos # (Auto) 0.03 (0-0.5) K/uL Baso # (Auto) 0.03 (0-0.2) K/uL Platelet Estimate Decreased (Normal) Giant Platelets Spherocytes 1+ Sodium (136-145) mmol/L Potassium (3.5-5.1) mmol/L Chloride (98-107) mmol/L Carbon Dioxide (21-32) mmol/L Anion Gap (3-11) BUN (7-18) mg/dl Creatinine (0.6-1.4) mg/dl Est Cr Clr Drug Dosing ml/min Est GFR ( Amer) Est GFR (Non-Af Amer) BUN/Creatinine Ratio (10-20) Glucose (70-99) mg/dl POC Glucose 152 H 143 H (70-99) Calcium (8.5-10.1) mg/dl Magnesium (1.8-2.4) mg/dl Blood Type Antibody Screen Crossmatch 02/26/18 02/24/18 Range/Units 11:32 06:03 WBC (4.8-10.8) K/uL RBC (4.7-6.1) M/uL Hgb (14.0-18.0) g/dL Hct (42-52) % MCV (80-100) fL MCH (25-34) pg MCHC (32-36) g/dL RDW Std Deviation (36.4-46.3) fL RDW Coeff of Arpita (11.5-14.5) % Plt Count (130-400) K/uL MPV (7.4-10.4) fL Immature Gran % (Auto) % Neut % (Auto) % Lymph % (Auto) % [place] % (Auto) % Eos % (Auto) % Baso % (Auto) % Immature Gran # (Auto) (0.00-0.02) K/uL Neut # (Auto) (1.4-6.5) K/uL Lymph # (Auto) (1.2-3.4) K/uL [place] # (Auto) (0.11-0.59) K/uL Eos # (Auto) (0-0.5) K/uL Baso # (Auto) (0-0.2) K/uL Platelet Estimate (Normal) Giant Platelets Spherocytes Sodium (136-145) mmol/L Potassium (3.5-5.1) mmol/L Chloride (98-107) mmol/L Carbon Dioxide (21-32) mmol/L Anion Gap (3-11) BUN (7-18) mg/dl Creatinine (0.6-1.4) mg/dl Est Cr Clr Drug Dosing ml/min Est GFR ( Amer) Est GFR (Non-Af Amer) BUN/Creatinine Ratio (10-20) Glucose (70-99) mg/dl POC Glucose 166 H (70-99) Calcium (8.5-10.1) mg/dl Magnesium (1.8-2.4) mg/dl Blood Type O Positive Antibody Screen NEGATIVE Crossmatch See Detail
[2018-02-27] MEDS ORDERED: KETAMINE HCL INJ 50 MG/ML 10 ML VIAL ONE (08:23)
[2018-02-27] MEDS ORDERED: fentaNYL citrate 100 MCG/2 ML VIAL ONE (08:24)
[2018-02-27] MEDS ORDERED: MIDAZOLAM HCL 1 MG/ML 2ML VIAL ONE (08:24)
--- NOTE | 2018-02-27 08:43 | Anesthesiology Consultation ---
Date of Service February 27, 2018 Assessment & Plan Chart Review Chart Review: Acceptable Risk for Surgery and Patient NOT seen in Pre Admission Testing Consults Requested none ASA ASA4 Proposed Anesthesia Anesthesia Type: MAC Risk / Benefits Reviewed With: PT / POA / Parent / Guardian, Accepts Plan and Informed Consent Obtained NPO Date Last Intake of Fluids: 02/26/18 Time Last Intake of Fluids: 22:00 Date Last Intake of Solids: 02/26/18 Time Last Intake of Solids: 18:00 History Surgery Operation Date: 02/27/18 08:30 Proposed Procedures p Esophagogastroduodenoscopy Dr Mathieu Mahmood Height/Weight Height: 6 ft Weight: 72 kg Allergies Allergy/AdvReac Type Severity Reaction Status Date / Time No Known Drug Allergies Allergy Unknown NONE Verified 07/04/17 07:14 ragweed pollen Allergy Unknown SEASONAL Verified 07/04/17 07:14 ALLERGIES [place] Allergy Unknown SEASONAL Uncoded 07/04/17 07:14 ALLERGIES. Medications Home Medications Medication Instructions Recorded Confirmed Last Taken calcium carbonate [Calcium 500] 250 mg PO BID 02/20/18 02/20/18 Unknown ferrous sulfate 325 mg PO BID 02/20/18 02/20/18 Unknown furosemide 40 mg PO BID 02/20/18 02/20/18 Unknown insulin aspart U-100 [Novolog See Label Instructions .ROUTE 02/20/18 02/20/18 Unknown Flexpen U-100 Insulin] .COMPLEX insulin glargine [Lantus Solostar 25 units SUBCUT HS 02/20/18 02/20/18 Unknown U-100 Insulin] lactobacillus combination no.4 1 cap PO DAILY 02/20/18 02/20/18 Unknown [Probiotic] magnesium 250 mg PO BID 02/20/18 02/20/18 Unknown nadolol 40 mg PO QAM 02/20/18 02/20/18 Unknown omeprazole 40 mg PO QAM 02/20/18 02/20/18 Unknown sertraline 50 mg PO DAILY 02/20/18 02/20/18 Unknown simvastatin 40 mg PO HS 02/20/18 02/20/18 Unknown spironolactone 100 mg PO TID 02/20/18 02/20/18 Unknown vitamin D3-vitamin K2 1 tab PO DAILY 02/20/18 02/20/18 Unknown Active Medications Generic Name Dose Route Start Last Admin Trade Name Freq PRN Reason Stop Dose Admin Furosemide 40 mg 02/23/18 17:00 02/26/18 17:07 Lasix PO 03/25/18 16:59 40 mg BID17 SHEYLA Administration Prochlorperazine 5 mg/ Syringe 5 mls @ 5 mls/min 02/21/18 00:51 02/26/18 17: 55 IV 03/23/18 00:50 5 mls/min Q6H PRN Administration Nausea And Vomiting Insulin Aspart 0 units 02/27/18 06:00 02/27/18 06:28 Novolog Flexpen SC 03/29/18 05:59 1 units Q6 SHEYLA Administration Insulin Glargine 10 units 02/21/18 21:00 02/26/18 20:36 Lantus Solostar Pen SC 03/23/18 20:59 10 units BID SHEYLA Administration Magnesium Oxide 400 mg 02/26/18 10:00 02/26/18 20:36 Mag-Ox PO 03/28/18 09:59 400 mg BID SHEYLA Administration Pantoprazole Sodium 40 mg 02/21/18 09:00 02/26/18 08:23 Protonix PO 03/23/18 08:59 40 mg DAILY SHEYLA Administration Sertraline HCl 50 mg 02/21/18 09:00 02/26/18 08:23 Zoloft PO 03/23/18 08:59 50 mg DAILY SHEYLA Administration Spironolactone 100 mg 02/20/18 23:00 02/26/18 20:35 Aldactone PO 03/22/18 22:59 100 mg TID SHEYLA Administration Tramadol HCl 25 mg 02/21/18 00:51 02/26/18 08:36 Ultram PO 03/23/18 00:50 25 mg Q4H PRN Administration Pain Beta Raul Beta Raul Taken Within 24 Hours: No Past Medical History Medical History Acute renal failure (Acute) Pancreatitis (Chronic) Cirrhosis Colon polyp Dyslipidemia Esophageal varices Hypertension Portal hypertension Splenomegaly Past Surgical History Surgical History History of tonsillectomy (Resolved) Past Anesthesia History No Hx of Anesthesia Complications History of PONV No Motion Sickness Screening History of Motion Sickness: No Social History Smoking Status: Never smoker Do You Dip or Chew Tobacco: No Hx Alcohol Use: No Hx Substance Use: No substance use type: does not use Exercise / Class Metabolic Activity III < 4 Walking/Shop/Light housework Negative for chest pain or shortness of breath. Patient denies active symptoms of GERD. Physical Exam Vital Signs Last Vital Signs Temp 36.8 C 02/27/18 08:07 Pulse 67 02/27/18 08:07 Resp 16 02/27/18 08:07 BP 120/68 02/27/18 08:07 Pulse Ox 96 02/27/18 08:07 Constitutional + cachectic ENMT Mouth: + poor dentition (Chipped, missing, broken and rotten throughout); no TMJ abnormality and oral opening not small Thyromental Distance: < 3.5 Finger Breadths Mallampati Class: II Neck normal visual inspection; neck extension not limited Respiratory normal respiratory effort Auscultation: lungs clear to auscultation bilaterally Cardiovascular Rate/Rhythm: regular rate and regular rhythm Heart Sounds: no murmur Psychiatric A+Ox3, euthymic affect Testing Electrocardiogram Date: 02/20/18 Findings: + NSR @ (79) Possible Left atrial enlargement, Left axis deviation, Prolonged QT, Abnormal ECG, When compared with ECG of 04-JUL-2017 06:53, T wave amplitude has decreased in Lateral leads Chest X-Ray Date: 02/20/18 FINDINGS: Atherosclerosis of the aortic arch. Cardiac silhouette enlarged. Extensive right lower lung opacity increased from prior. Increased right pleural effusion , now moderate in size and likely loculated. Low lung volumes. Osseous structures normal. Elevation of the hemidiaphragms. IMPRESSION: 1. Persistent right basilar infiltrate, which may in large part represent extensive passive atelectasis in the setting of the pleural effusion. Possible increased size of the moderate right pleural effusion, which may be loculated. Underlying infection cannot be excluded. Laboratory Results 02/27/18 05:51 02/27/18 05:51 Blood Type O Positive 02/24/18 06:03 Antibody Screen NEGATIVE 02/24/18 06:03 PT 13.8 Seconds (9.0-12.0) H 02/20/18 18:40 INR 1.4 (0.9-1.1) H 02/20/18 18:40 APTT 28.9 Seconds (21.0-31.0) 02/20/18 18:40 Hemoglobin A1c 7.0 % (4.5-5.6) H 02/20/18 18:40 Urine Color [place] 02/21/18 07:00 Urine Appearance Turbid (Clear) H 02/21/18 07:00 Urine pH 5.0 (4.5-7.5) 02/21/18 07:00 Ur Specific [place] 1.021 (1.000-1.030) 02/21/18 07:00 Urine Protein 1+ (Negative) H 02/21/18 07:00 Urine Glucose (UA) Negative (Negative) 02/21/18 07:00 Urine Ketones Negative (Negative) 02/21/18 07:00 Urine Nitrite Positive (Negative) H 02/21/18 07:00 Ur Leukocyte Esterase 3+ (Negative) H 02/21/18 07:00 Urine RBC 0-4 /hpf (0-4) 02/21/18 07:00 Urine WBC >30 /hpf (0-5) H 02/21/18 07:00 Ur Epithelial Cells 0-5 /lpf (0-5) 02/21/18 07:00 02/21/18 11:30 Gram Stain - Final Peritoneal Fluid Aerobic and Anaerobic Culture - Final No growth 02/20/18 18:50 Blood Culture - Final Blood No growth 02/20/18 18:40 Blood Culture - Final Blood No growth 02/21/18 07:00 Urine Culture - Final Urine,Clean Catch Escherichia coli 02/27/18 06:00 POC Glucose 175 H
[2018-02-27] MEDS: INSULIN GLARGINE SOLOSTAR 100 UNITS/ML 3 ML PEN SC SCH ×2 (09:00→20:57)
--- NOTE | 2018-02-27 09:05 | History & Physical Bridge Note ---
Date of Service February 27, 2018 History & Physical Bridge Note I have examined the patient, reviewed the History & Physical and in the interval since the performance of the History & Physical I have noted the following changes of clinical significance: no changes noted
--- NOTE | 2018-02-27 10:27 | Anesthesiology Progress Note ---
Date of Service February 27, 2018 Anesthesia Post Procedure Vital Signs Vital Signs: Temp Pulse Pulse Resp BP BP Pulse Ox 02/27/18 10:19 64 16 107/67 98 02/27/18 10:04 62 16 109/64 100 02/27/18 09:49 61 16 102/61 100 02/27/18 08:07 36.8 C 67 16 120/68 96 02/27/18 07:58 36.4 C L 68 16 118/66 94 02/26/18 23:10 36.5 C 67 16 113/68 94 02/26/18 15:38 36.7 C 73 18 109/69 95 02/26/18 14:48 36.5 C 59 L 18 126/71 93 02/26/18 14:42 36.5 C 59 L 18 126/71 93 02/26/18 13:00 36.4 C L 72 18 113/66 96 02/26/18 12:30 36.4 C L 78 18 122/68 93 02/26/18 12:15 36.4 C L 78 18 108/61 96 02/26/18 11:56 36.5 C 74 16 115/65 95 02/26/18 11:13 36.6 C 73 18 105/48 L 97 02/26/18 10:45 36.4 C L 70 18 109/51 L Pain Intensity Bilateral Abdomen: Pain Intensity: 4 Notes Mental Status: alert / awake / arousable and participated in evaluation Nausea / Vomiting: adequately controlled Pain: adequately controlled Airway Patency, RR, SpO2: stable & adequate BP & HR: stable & adequate Hydration State: stable & adequate Anesthetic Complications: no major complications apparent and Pt Satisfied with anesthetic care
[2018-02-27] MEDS: SPIRONOLACTONE 100 MG TAB PO SCH ×3 (11:57→20:57)
--- NOTE | 2018-02-27 12:27 | GI REPORT ---
Patient Name: Mehul Murillo Procedure Date: 02/27/2018 8:15 AM Date of : 1960 Admit Type: Inpatient Age: 57 Gender: Male Attending MD: Smita Mahmood MD Procedure: Upper GI endoscopy Providers: Smita Mahmood MD Referring MD: Andriy White M.d. Indications: Acute post hemorrhagic anemia Medicines: See the Anesthesia note for documentation of the administered medications Complications: No immediate complications. Estimated Blood Loss: Estimated blood loss: none. Procedure: Pre-Anesthesia Assessment: - ASA Grade Assessment: IV - A patient with severe systemic disease that is a constant threat to life. After obtaining informed consent, the endoscope was passed under direct vision. Throughout the procedure, the patient's blood pressure, pulse, and oxygen saturations were monitored continuously. The Endoscope was introduced through the mouth, and advanced to the third part of duodenum. The upper GI endoscopy was accomplished without difficulty. The patient tolerated the procedure well. Findings: There were two columns small straight grade 1 varices that did not encroach onto esophageal lumen in the lower esophagus without red yasmeen signs or risks of impending hemorrhage. There was stigmata of banding in the lower esophagus. There were two small punctate ulcers in the lower esophagus, just above the GE junction. These were brushed. Appearance may be consistent with pill esophagitis, although viral esophagitis is not excluded. There was a ring at the GE junction. There were no gastric varices. There was mild portal gastropathy in the body of the stomach. The antral folds were edematous and deformed. No ulcer was seen with careful examination. There was mild contact oozing of the mucosa in the antrum. The mucosa of the duodenum was nodular, with spontaneous oozing. Appearance consistent with portal duodenopathy. Impression: G1 varices. Small distal esophageal ulcers, likely pill esophagitis but cannot exclude viral esophagitis. Portal gastropathy. Portal duodenopathy with spontaneous oozing. Recommendation: - Discharge patient to floor. Further recs to follow. Andreea Cruz MD 02/27/2018 12:27:24 PM This report has been signed electronically. Note Initiated On: 02/27/2018 8:15 AM Number of Addenda: 0 I attest to the content of the Intraoperative Record and orders documented therein, exceptions below {[id number]}
[2018-02-27] MEDS: MAGNESIUM OXIDE 400 MG TAB PO SCH ×2 (13:27→20:58)
[2018-02-27] MEDS: PANTOprazole 40 MG TAB PO SCH (13:27)
[2018-02-27] MEDS: SERTRALINE HCL 50 MG TABLET PO SCH (13:27)
[2018-02-27] MEDS: FUROSEMIDE 40 MG TAB PO SCH ×2 (13:27→16:49)
[2018-02-27] MEDS: TRAMADOL HCL 50 MG TABLET PO PRN ×2 (15:07→21:07)
[2018-02-27] MEDS: PROCHLORPERAZINE 5 MG in SYRINGE 4 ML IV PRN (15:41)
--- NOTE | 2018-02-27 15:59 | Palliative Care Consultation ---
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 Patient was admitted on 1220 with increased weakness, vomiting for 2 days, burning in his stomach, and increased lower extremity edema. Patient had been taking his PPI prior to admission. In the emergency room patient's hemoglobin was 6.8 with a platelet count of 73K -he was admitted to manage his vomiting and evaluate anemia. Patient with large amount of ascites-he underwent paracentesis on 02/21 for 2.8 L and again on 02/25 for another 2.8 L Since admission patient has required transfusion of 5 units of packed red cells. She was seen and evaluated by GI who performed an upper endoscopy which showed oozing from the duodenum as well as punctate ulceration. Patient is continued on his PPI. Patient's last transfusion was on 02/26-he received 2 units for hemoglobin of 6.8, his hemoglobin this a.m. was 8.7. Last platelet count was 49K, albumin was 1.3 at admission-last albumin 1.6, on admission total bilirubin was 4.2- last labs 1.4, of note patient's INR on admission was 1.4. Patient was found to have a UTI and was treated with Rocephin. Patient states he feels he is getting a little bit better, reports his appetite has increased. Patient reports mild abdominal pain/discomfort-improved after paracentesis. Patient has marked hepatomegaly on exam. - When asked about CODE STATUS-patient reported "code 1",-patient will remain a FULL CODE. - Discussed with patient goals of care-he is awaiting further recommendations per GI-we will follow along to assist with medical decision making. (2) Decompensated hepatic cirrhosis: Patient followed by GI (3) DEL CID (nonalcoholic steatohepatitis): On liver transplant list at [place] (4) Acute renal failure: Creatinine improved-now 1.07 (5) Vomiting: Resolved, may have been due to UTI Nausea presence: unspecified Vomiting Intractability: unspecified Vomiting type: unspecified Qualified Code(s): R11.10 - Vomiting, unspecified (6) Ascites: Status post thoracentesis on 02/21 and on 02/25-both times were 2.8 L History of Present Illness Reason for Consultation: Address goals of care Requesting Physician: Andriy White MD Attending Physician: Andriy White MD History of Present Illness Patient is a 57-year-old 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 Patient was admitted on 1220 with increased weakness, vomiting for 2 days, burning in his stomach, and increased lower extremity edema. Patient had been taking his PPI prior to admission. In the emergency room patient's hemoglobin was 6.8 with a platelet count of 73K -he was admitted to manage his vomiting and evaluate anemia. Patient with large amount of ascites-he underwent paracentesis on 02/21 for 2.8 L and again on 02/25 for another 2.8 L Since admission patient has required transfusion of 5 units of packed red cells. She was seen and evaluated by GI who performed an upper endoscopy which showed oozing from the duodenum as well as punctate ulceration. Patient is continued on his PPI. Patient's last transfusion was on 02/26-he received 2 units for hemoglobin of 6.8, his hemoglobin this a.m. was 8.7. Last platelet count was 49K, albumin was 1.3 at admission-last albumin 1.6, on admission total bilirubin was 4.2- last labs 1.4, of note patient's INR on admission was 1.4. Patient was found to have a UTI and was treated with Rocephin. Patient states he feels he is getting a little bit better, reports his appetite has increased. Patient reports mild abdominal pain/discomfort-improved after paracentesis. Patient has marked hepatomegaly on exam. 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 Patient is single, no children. Allergies Allergy/AdvReac Type Severity Reaction Status Date / Time No Known Drug Allergies Allergy Unknown NONE Verified 07/04/17 07:14 ragweed pollen Allergy Unknown SEASONAL Verified 07/04/17 07:14 ALLERGIES [place] Allergy Unknown SEASONAL Uncoded 07/04/17 07:14 ALLERGIES. Home Medications Home Medications Medication Instructions Recorded Confirmed Type calcium carbonate [Calcium 500] 250 mg PO BID 02/20/18 02/20/18 History ferrous sulfate 325 mg PO BID 02/20/18 02/20/18 History furosemide 40 mg PO BID 02/20/18 02/20/18 History insulin aspart U-100 [Novolog See Label Instructions .ROUTE 02/20/18 02/20/18 History Flexpen U-100 Insulin] .COMPLEX insulin glargine [Lantus Solostar 25 units SUBCUT HS 02/20/18 02/20/18 History U-100 Insulin] lactobacillus combination no.4 1 cap PO DAILY 02/20/18 02/20/18 History [Probiotic] magnesium 250 mg PO BID 02/20/18 02/20/18 History nadolol 40 mg PO QAM 02/20/18 02/20/18 History omeprazole 40 mg PO QAM 02/20/18 02/20/18 History sertraline 50 mg PO DAILY 02/20/18 02/20/18 History simvastatin 40 mg PO HS 02/20/18 02/20/18 History spironolactone 100 mg PO TID 02/20/18 02/20/18 History vitamin D3-vitamin K2 1 tab PO DAILY 02/20/18 02/20/18 History Patient History Medical History Acute renal failure (Acute) Pancreatitis (Chronic) Cirrhosis Colon polyp Dyslipidemia Esophageal varices Hypertension Portal hypertension Splenomegaly Surgical History History of tonsillectomy (Resolved) Social History Current Living Situation: Parent and Family Other Information That Helps Us Care for You: No Feels Safe at Home: Yes Smoking Status: Never smoker Do You Dip or Chew Tobacco: No Hx Alcohol Use: No Hx Substance Use: No Beliefs That Will Affect Care: None Communication Ability: Effective Review of Systems Appetite improved since admission Eyes: no problem reported Ear, Nose, Mouth, Throat: no problem reported Poor dentition Respiratory: no problem reported Cardiovascular: no problem reported Hepatomegaly, ascites, NAFLD Weakness, muscle atrophy, lower extremity edema Weakness Anemia, thrombocytopenia, coagulopathy Physical Exam 2 Vital Signs (Past 24 Hours): Last Vital Signs Temp 36.6 C 02/27/18 15:13 Pulse 71 02/27/18 15:13 Resp 18 02/27/18 15:13 BP 120/74 02/27/18 15:13 Pulse Ox 95 02/27/18 15:13 Constitutional: Cachectic, temporal wasting Eyes: EOMI, mild esotropia ENMT: Poor dentition Respiratory: Clear Cardiovascular: Regular rate, left lower extremity edema pitting to the knee, no edema on the right Gastrointestinal (Abdomen): Distended, nontender with light palpation, hepatomegaly-liver edge just above iliac crest Musculoskeletal: Significant muscle wasting Neurologic: Weakness Time Spent Attending Total time spent 50 minutes with greater than 50% of the time spent at bedside discussing patient's goals of care, CODE STATUS and reviewing current labs and endoscopy findings.
--- NOTE | 2018-02-27 18:09 | Hospitalist Progress Note ---
Date of Service February 27, 2018 Assessment & Plan (1) Decompensated hepatic cirrhosis: 57 year old male who presents to the Emergency Room with complaints of weakness and evaluations to date shows decompensated cirrohosis with anemia Diagnostic and therapeutic paracentesis performed on 02/21/18 with 2.8 L removed. paracentesis again performed on 02/25/18 with 2.8 L removed Low salt, diabetic diet for now continue furosemide 40 mg BID oral - will give additional 20 mg IV Lasix on because of blood transfuions continue nadolol 40 mg daily 02/27/18 upper EDG: which reports gastric varices, portal gastropathy, portal duodenopathy with spontaneous oozing, small distal esophageal ulcers. -discussed with patient that he is at high risk to continue having slow GI bleed and recurrent ascites. Palliative care also dicsussed with patient. Patient now considering TIPs option in future. Will continue to monitor inpatient at [facility] for now. Hypoalbuminemia from cirrhosis patient has received albumin on this admission superintendent transportation consult (2) Acute cystitis: urine culture from 02/21/18 as pansensitive Escherichia coli, ceftriaxone daily was started on 02/22/18, stopped order on 02/26/18 as a 3 day course of antibiotics should be sufficient for uncomplicated urinary tract infection (3) Anemia of chronic disease: Hgb 6.4 on 02/22/18 and after 1 PRBC the Hgb is 7.4 on AM of 02/23/18 Hgb 6.5 on 02/24/18 and transfused 1 unit PRBC; Hgb 7.2 on 02/25/18 Hgb 6.8 on 02/26/18 and 2 units or PRBC to be transfused given frequent Hgb downtrended and repeat was 9.2 Hgb 8.7 on 02/27/18 (4) DMII (diabetes mellitus, type 2): Continue Lantus at increased 10 units twice daily and NovoLog with carb coverage and correction factor. (5) Thrombocytopenia: Chronic, Secondary to cirrhosis platelets stablizing around 50 K (6) Hypokalemia: serum sodium at goal today replete as needed to maintain serum potassium above 3.5 Hypomagnesemia serum magnesium now is 1.9, continue oral magnesium to BID (7) DVT prophylaxis: SCDs continue PT/OT Full code Subjective Patient returned from upper EDG: which reports gastric varices, portal gastropathy, portal duodenopathy with spontaneous oozing, small distal esophageal ulcers denies lightheadedness Denies vomiting. denies shortness of breath. denies chest pain. denies abdominal pain Physical Exam 2 Vital Signs (Past 24 Hours): Last Vital Signs Temp 36.6 C 02/27/18 15:13 Pulse 71 02/27/18 15:13 Resp 18 02/27/18 15:13 BP 120/74 02/27/18 15:13 Pulse Ox 95 02/27/18 15:13 Constitutional: WD/WN, vitals as above Eyes: EOM intact bilaterally ENMT: external ear and nose normal, oropharynx normal Neck: normal visual inspection and trachea midline Respiratory: normal respiratory effort, lungs clear to auscultation Cardiovascular: Rate/Rhythm: regular rate and regular rhythm Gastrointestinal (Abdomen): Inspection/Auscultation: + abdomen distended and normal bowel sounds Musculoskeletal: no cyanosis or clubbing, extremities motor strength 5/5 Head/Neck/Chest: normocephalic Neurologic: PERRL, EOMI, accommodation nl, no face palsy, no dysarthria CN' s II-XI intact bilaterally Psychiatric: A+Ox3, euthymic affect
[2018-02-28] MEDS ORDERED: INSULIN ASPART 100 UNITS/ML 3 ML PEN SC SCH
[2018-02-28 08:10] LABS: Hematocrit (blood only) 28.5 % (42-52); Mean Corpuscular Hgb Conc 31.6 g/dL (32-36); Mean Corpuscular Volume 92.2 fL (80-100); RDW Coefficient of Variation 19.2 % (11.5-14.5); RDW Standard Deviation 62.9 fL (36.4-46.3); Red Blood Count 3.09 M/uL (4.7-6.1)
[2018-02-28] MEDS: SPIRONOLACTONE 100 MG TAB PO SCH ×3 (08:24→21:59)
[2018-02-28] MEDS: FUROSEMIDE 40 MG TAB PO SCH ×2 (08:25→16:35)
[2018-02-28] MEDS: SERTRALINE HCL 50 MG TABLET PO SCH (08:26)
[2018-02-28] MEDS: MAGNESIUM OXIDE 400 MG TAB PO SCH ×2 (08:26→22:00)
[2018-02-28] MEDS: PANTOprazole 40 MG TAB PO SCH (08:26)
[2018-02-28] MEDS: INSULIN GLARGINE SOLOSTAR 100 UNITS/ML 3 ML PEN SC SCH ×2 (08:27→22:01)
[2018-02-28] MEDS: INSULIN ASPART 100 UNITS/ML 3 ML PEN SC SCH ×4 (08:29→22:00)
[2018-02-28] MEDS: TRAMADOL HCL 50 MG TABLET PO PRN ×2 (08:33→12:34)
[2018-02-28 08:35] LABS: Mean Platelet Volume 11.6 fL (7.4-10.4); Platelet Count 61 K/uL (130-400)
[2018-02-28 08:36] LABS: Basophils # (auto) 0.01 K/uL (0-0.2); Basophils % (auto) 0.3 %; Eosinophils # (auto) 0.03 K/uL (0-0.5); Eosinophils % (auto) 0.8 %; Immature Granulocytes # (auto) 0.01 K/uL (0.00-0.02); Immature Granulocytes % (auto) 0.3 %; Lymphocytes # (auto) 0.31 K/uL (1.2-3.4); Lymphocytes % (auto) 7.8 %; Neutrophils # (auto) 3.24 K/uL (1.4-6.5); Neutrophils % (auto) 80.8 %
[2018-02-28] MEDS: PROCHLORPERAZINE 5 MG in SYRINGE 4 ML IV PRN ×2 (09:24→17:09)
[2018-02-28] MEDS ORDERED: ONDANSETRON INJ 2 MG/ML 2 ML VIAL IV STA (12:21)
--- NOTE | 2018-02-28 16:06 | Hospitalist Progress Note ---
Date of Service February 28, 2018 Assessment & Plan (1) Decompensated hepatic cirrhosis: 57 year old male who presents to the Emergency Room with complaints of weakness and evaluations to date shows decompensated cirrohosis with anemia Diagnostic and therapeutic paracentesis performed on 02/21/18 with 2.8 L removed. paracentesis again performed on 02/25/18 with 2.8 L removed Low salt, diabetic diet for now continue furosemide 40 mg BID oral - will give additional 20 mg IV Lasix on because of blood transfuions continue nadolol 40 mg daily 02/27/18 upper EDG: which reports gastric varices, portal gastropathy, portal duodenopathy with spontaneous oozing, small distal esophageal ulcers. -discussed with patient that he is at high risk to continue having slow GI bleed and recurrent ascites. Palliative care also dicsussed with patient. Patient now considering TIPs option in future. Will continue to monitor inpatient at [facility] for now. 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 (2) Acute cystitis: urine culture from 02/21/18 as pansensitive Escherichia coli, ceftriaxone daily was started on 02/22/18, stopped order on 02/26/18 as a 3 day course of antibiotics should be sufficient for uncomplicated urinary tract infection (3) Anemia of chronic disease: Hgb 6.4 on 02/22/18 and after 1 PRBC the Hgb is 7.4 on AM of 02/23/18 Hgb 6.5 on 02/24/18 and transfused 1 unit PRBC; Hgb 7.2 on 02/25/18 Hgb 6.8 on 02/26/18 and 2 units or PRBC to be transfused given frequent Hgb downtrended and repeat was 9.2 Hgb 8.7 on 02/27/18 Hgb 9 on 02/28/18 (4) DMII (diabetes mellitus, type 2): Continue Lantus at increased 10 units twice daily and NovoLog with carb coverage and correction factor. (5) Thrombocytopenia: Chronic, Secondary to cirrhosis platelets stablizing around 50 K (6) Hypokalemia: serum potassium at goal 02/27/18 Hypomagnesemia serum magnesium now is 1.9 02/27/18 continue oral magnesium to BID (7) DVT prophylaxis: SCDs continue PT/OT Full code Subjective Recent CBC trend more stable However patient reports mnimally ambulating. Feels weak. Denies chest pain or shortness of breath. Denies abdominal pain or leg pains Have encouraged patient to walk more today Reported more nausea. No vomitting at this time Physical Exam 2 Vital Signs (Past 24 Hours): Last Vital Signs Temp 36.4 C L 02/28/18 14:51 Pulse 75 02/28/18 14:51 Resp 18 02/28/18 14:51 BP 132/74 02/28/18 14:51 Pulse Ox 94 02/28/18 14:51 Constitutional: WD/WN, vitals as above Eyes: EOM intact bilaterally ENMT: external ear and nose normal, oropharynx normal Neck: normal visual inspection and trachea midline Respiratory: normal respiratory effort, lungs clear to auscultation Cardiovascular: Rate/Rhythm: regular rate and regular rhythm Gastrointestinal (Abdomen): Inspection/Auscultation: + abdomen distended and normal bowel sounds Musculoskeletal: no cyanosis or clubbing, extremities motor strength 5/5 Head/Neck/Chest: normocephalic Neurologic: PERRL, EOMI, accommodation nl, no face palsy, no dysarthria CN' s II-XI intact bilaterally Psychiatric: A+Ox3, euthymic affect
[2018-03-01] MEDS: INSULIN GLARGINE SOLOSTAR 100 UNITS/ML 3 ML PEN SC SCH ×2 (08:23→20:23)
[2018-03-01] MEDS: MAGNESIUM OXIDE 400 MG TAB PO SCH ×2 (08:24→20:21)
[2018-03-01] MEDS: INSULIN ASPART 100 UNITS/ML 3 ML PEN SC SCH ×4 (08:24→20:23)
[2018-03-01] MEDS: PANTOprazole 40 MG TAB PO SCH (08:24)
[2018-03-01] MEDS: SPIRONOLACTONE 100 MG TAB PO SCH ×3 (08:24→20:21)
[2018-03-01] MEDS: SERTRALINE HCL 50 MG TABLET PO SCH (08:24)
[2018-03-01] MEDS: FUROSEMIDE 40 MG TAB PO SCH ×2 (08:24→17:16)
[2018-03-01] MEDS: PROCHLORPERAZINE 5 MG in SYRINGE 4 ML IV PRN (10:13)
--- NOTE | 2018-03-01 16:21 | Hospitalist Progress Note ---
Date of Service March 01, 2018 Assessment & Plan (1) Decompensated hepatic cirrhosis: 57 year old male who presents to the Emergency Room with complaints of weakness and evaluations to date shows decompensated cirrohosis with anemia Diagnostic and therapeutic paracentesis performed on 02/21/18 with 2.8 L removed. paracentesis again performed on 02/25/18 with 2.8 L removed Low salt, diabetic diet for now continue furosemide 40 mg BID oral - given additional 20 mg IV Lasix on because of blood transfuions continue nadolol 40 mg daily 02/27/18 upper EDG: which reports gastric varices, portal gastropathy, portal duodenopathy with spontaneous oozing, small distal esophageal ulcers. -discussed with patient that he is at high risk to continue having slow GI bleed and recurrent ascites. -Palliative care saw the patient on 02/27/18 -of note there is a August 27, 2017 transplant comittee note that discusses that " The patient was referred for a TIPS during the hospital admission and refused procedure. The recommendation of the Tx comm is that he remain on tx list at this time and he will be offered an appt to discuss the need for the TIPS with Dr. Topete" -Patient now considering TIPs option in future, however as per inpatient house painter helper that there does not seem to be emergent need for TIPs procedure at this time Hypoalbuminemia from cirrhosis patient has received albumin on this admission surgical physician assistant consulted (2) Acute cystitis: -urine culture from 02/21/18 as pansensitive Escherichia coli, -ceftriaxone daily was started on 02/22/18, stopped order on 02/26/18 as a 3 day course of antibiotics should be sufficient for uncomplicated urinary tract infection (3) Anemia of chronic disease: Hgb 6.4 on 02/22/18 and after 1 PRBC the Hgb is 7.4 on AM of 02/23/18 Hgb 6.5 on 02/24/18 and transfused 1 unit PRBC; Hgb 7.2 on 02/25/18 Hgb 6.8 on 02/26/18 and 2 units or PRBC to be transfused given frequent Hgb downtrended and repeat was 9.2 Hgb 8.7 on 02/27/18 Hgb 9 on 02/28/18 will check CBC on 03/02/18 (4) DMII (diabetes mellitus, type 2): Continue Lantus at increased 10 units twice daily and NovoLog with carb coverage and correction factor. (5) Thrombocytopenia: Chronic, Secondary to cirrhosis platelets stablizing around 50 K (6) Hypokalemia: serum potassium at goal 02/27/18 Hypomagnesemia serum magnesium now is 1.9 02/27/18 continue oral magnesium to BID recheck electrolytes on 03/02/18 (7) DVT prophylaxis: SCDs continue PT/OT Full code Subjective Recent CBC trend more stable Have encouraged the patient to try to do more ambulation today. Review of PT notes on 03/01/18 that due to patient's functional limitations he would benefit from rehab with PT/OT services when medically ready to be discharged from hospital Denies chest pain or shortness of breath. Denies abdominal pain. the abdomen is somewhat more distended today compared to last paracentesis but not grossly over distended Physical Exam 2 Vital Signs (Past 24 Hours): Last Vital Signs Temp 36.8 C 03/01/18 15:12 Pulse 78 03/01/18 15:12 Resp 18 03/01/18 15:12 BP 123/72 03/01/18 15:12 Pulse Ox 95 03/01/18 15:12 Constitutional: WD/WN, vitals as above Eyes: EOM intact bilaterally ENMT: external ear and nose normal, oropharynx normal Neck: normal visual inspection and trachea midline Respiratory: normal respiratory effort, lungs clear to auscultation Cardiovascular: Rate/Rhythm: regular rate and regular rhythm Gastrointestinal (Abdomen): Inspection/Auscultation: + abdomen distended and normal bowel sounds Musculoskeletal: no cyanosis or clubbing, extremities motor strength 5/5 Head/Neck/Chest: normocephalic Neurologic: PERRL, EOMI, accommodation nl, no face palsy, no dysarthria CN' s II-XI intact bilaterally Psychiatric: A+Ox3, euthymic affect
[2018-03-01] MEDS: TRAMADOL HCL 50 MG TABLET PO PRN (18:35)
[2018-03-02 07:16] LABS: Hematocrit (blood only) 28.3 % (42-52); Mean Corpuscular Hgb Conc 31.8 g/dL (32-36); Mean Corpuscular Volume 93.1 fL (80-100); RDW Coefficient of Variation 18.8 % (11.5-14.5); RDW Standard Deviation 63.7 fL (36.4-46.3); Red Blood Count 3.04 M/uL (4.7-6.1)
[2018-03-02 07:24] LABS: Mean Platelet Volume 11.3 fL (7.4-10.4); Platelet Count 73 K/uL (130-400)
[2018-03-02 07:40] LABS: Basophils # (auto) 0.01 K/uL (0-0.2); Basophils % (auto) 0.2 %; Eosinophils # (auto) 0.03 K/uL (0-0.5); Eosinophils % (auto) 0.6 %; Immature Granulocytes # (auto) 0.01 K/uL (0.00-0.02); Immature Granulocytes % (auto) 0.2 %; Lymphocytes # (auto) 0.42 K/uL (1.2-3.4); Lymphocytes % (auto) 8.6 %; Monocytes # (auto) 0.37 K/uL (0.11-0.59); Monocytes % (auto) 7.6 %; Neutrophils # (auto) 4.06 K/uL (1.4-6.5); Neutrophils % (auto) 82.8 %
[2018-03-02 07:49] LABS: Albumin Level 1.8 gm/dl (3.4-5.0); BUN Creatinine Ratio 23.8 (10-20); Calcium 9.1 mg/dl (8.5-10.1); Creatinine Clr Calc Pharmacy 48.8 ml/min; Est GFR (African American) 57.7; Est GFR (Non-African American) 49.7; Magnesium 2.1 mg/dl (1.8-2.4); Potassium 4.9 mmol/L (3.5-5.1)
[2018-03-02 07:52] LABS: Albumin Globulin Ratio 0.3 (0.9-2); Globulin 6.6 gm/dl (2.5-4.0); Total Protein 8.4 gm/dl (6.4-8.2)
[2018-03-02] MEDS: PANTOprazole 40 MG TAB PO SCH ×2 (07:57→21:34)
[2018-03-02] MEDS: SPIRONOLACTONE 100 MG TAB PO SCH ×3 (07:57→21:34)
[2018-03-02] MEDS: MAGNESIUM OXIDE 400 MG TAB PO SCH ×2 (07:58→21:35)
[2018-03-02] MEDS: TRAMADOL HCL 50 MG TABLET PO PRN ×2 (07:58→18:02)
[2018-03-02] MEDS: INSULIN ASPART 100 UNITS/ML 3 ML PEN SC SCH ×4 (07:58→21:36)
[2018-03-02] MEDS: FUROSEMIDE 40 MG TAB PO SCH ×2 (07:58→16:50)
[2018-03-02] MEDS: SERTRALINE HCL 50 MG TABLET PO SCH (07:58)
[2018-03-02] MEDS: INSULIN GLARGINE SOLOSTAR 100 UNITS/ML 3 ML PEN SC SCH ×2 (07:59→21:36)
--- NOTE | 2018-03-02 09:47 | Anesthesiology Progress Note ---
Date of Service March 02, 2018 Anesthesia Post Procedure Vital Signs Vital Signs: Temp Pulse Resp BP BP Pulse Ox 03/04/18 07:19 36.6 C 81 16 156/85 H 97 03/04/18 00:35 154/81 H 03/03/18 23:03 36.2 C L 77 16 162/81 H 95 03/03/18 14:55 36.7 C 79 18 140/76 97 Pain Intensity Bilateral Abdomen: Pain Intensity: 1 Notes Mental Status: alert / awake / arousable and participated in evaluation Nausea / Vomiting: adequately controlled Pain: adequately controlled Airway Patency, RR, SpO2: stable & adequate BP & HR: stable & adequate Hydration State: stable & adequate Anesthetic Complications: no major complications apparent and Pt Satisfied with anesthetic care
--- NOTE | 2018-03-02 14:20 | Palliative Care Progress Note ---
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 Patient was admitted on 122 with increased weakness, vomiting for 2 days, burning in his stomach, and increased lower extremity edema. Patient had been taking his PPI prior to admission. In the emergency room patient's hemoglobin was 6.8 with a platelet count of 73K -he was admitted to manage his vomiting and evaluate anemia. Patient with large amount of ascites-he underwent paracentesis on 02/21 for 2.8 L and again on 02/25 for another 2.8 L Since admission patient has required transfusion of 5 units of packed red cells. She was seen and evaluated by GI who performed an upper endoscopy which showed oozing from the duodenum as well as punctate ulceration. Patient is continued on his PPI. Patient's last transfusion was on 02/26-he received 2 units for hemoglobin of 6.8, his hemoglobin this a.m. was 9.0. Last platelet count was 73K, albumin was 1.3 at admission-last albumin 1.8, on admission total bilirubin was 4.2- last labs 2.0, of note patient's INR on admission was 1.4. Patient was found to have a UTI and was treated with Rocephin. Patient states he feels he is getting a little bit better, reports his appetite has increased. Patient reports mild abdominal pain/discomfort-improved after paracentesis. Patient has marked hepatomegaly on exam. - When asked about CODE STATUS-patient reported "code 1",-patient will remain a FULL CODE. - Discussed with patient and his sister ,goals of care-he would like to receive some rehab to regain strength with the goal of eventually returning home (2) Decompensated hepatic cirrhosis: Patient followed by GI-ascites has not reaccumulated by exam, labs stable (3) DEL CID (nonalcoholic steatohepatitis): On liver transplant list at [facility] (4) Acute renal failure: Creatinine elevated at 1.53-monitor for hepatorenal syndrome (5) Vomiting: Resolved, may have been due to UTI (6) Ascites: Status post thoracentesis on 02/21 and on 02/25-both times were 2.8 L-has not reaccumulated by exam Subjective Patient awake and alert, no acute distress. Patient appears slightly less fatigued. Patient does feel he is slightly stronger, as well as his appetite has also increased slightly. Patient denies fever, chills, chest pain, shortness of breath, or GI issues. Patient does not have any evidence of ascites reaccumulation on exam. Lower extremity edema has resolved-improved from last exam. Patient seen and examined-patient's sister and co-POA at bedside. Physical Exam 2 Vital Signs (Past 24 Hours): Last Vital Signs Temp 36.7 C 03/02/18 07:48 Pulse 80 03/02/18 07:48 Resp 20 03/02/18 07:48 BP 137/75 03/02/18 07:48 Pulse Ox 93 03/02/18 07:48 Constitutional: Cachectic, temporal wasting Eyes: EOMI Respiratory: Unlabored Cardiovascular: Regular rate, no edema Gastrointestinal (Abdomen): Distended, no tenderness with light palpation, marked hepatomegaly Musculoskeletal: Generalized weakness, muscle atrophy Skin: No increased pallor Neurologic: Alert and oriented x4 Psychiatric: Appropriate Time Spent Attending Total time spent 35 minutes with greater than 50% of the time spent at bedside discussing patient's options for further care with his sister who is his co- POA. Patient is excepting of rehab at [facility] as a first choice, [facility] as a second choice. Patient's goal is to get stronger and to return home-patient lives with his elderly parents and provides transportation for them. _ (1) Vomiting Nausea presence: unspecified Vomiting Intractability: unspecified Vomiting type: unspecified Qualified Code(s): R11.10 - Vomiting, unspecified
--- NOTE | 2018-03-02 18:00 | Hospitalist Progress Note ---
Date of Service March 02, 2018 Assessment & Plan (1) ASTRID (acute kidney injury): Likely related to diuretic use vs poor PO intake (finishing 25-50% of meals). Recent IV Lasix was stopped. Repeat in am and consider adjusting diuretics. 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 This is resolved with therapeutic paracentesis and diuretic use. He continues on home diuretic dose of Lasix 40 mg p.o. twice daily and Aldactone 100 mg p.o. 3 times daily. He is continued on nadolol 40 mg p.o. daily. He underwent an upper endoscopy on 02/27 revealing evidence of gastric varices, portal gastropathy, portal dual adenopathy with spontaneous oozing and small distal esophageal ulcers. Increase Protonix to twice daily. GI was following patient but there has been no rec since EGD performed. Per [facility] transplant note in outpatient records, the patient was referred for a TIPS and refused at that time. He is amenable to this as an option now. We will wait for GI recommendations regarding urgency of this and clearance for discharge to [facility]. (3) Acute cystitis: Pansensitive E. coli treated with ceftriaxone. Repeat UA to ensure cure. (4) Anemia of chronic disease: Multifactorial including anemia of chronic disease and chronic GI blood loss. Stable H&H through the weekend after 5 units of packed red blood cells this admission. Continue to monitor every other day. No bright red blood per rectum per patient or other bleeding. (5) DMII (diabetes mellitus, type 2): Not at goal, increase Lantus from 10 units twice daily to 16 units twice daily. Continue current carb coverage and correction factor with NovoLog scale. (6) Thrombocytopenia: Chronic, Secondary to cirrhosis (7) DVT prophylaxis: SCDs, chemoprophylaxis contraindicated with oozing of blood seen in GI tract, and relatively contraindicated in setting of thrombocytopenia. continue PT/OT Full code-confirmed by patient again today Dispo-once cleared by GI will send to [facility]AL Melgar DO [facility] Hospitalist Subjective 57-year-old man with Del Cid cirrhosis presented with decompensation including anasarca. Weakness was thought secondary to UTI which was treated with ceftriaxone. However, patient remains extremely weak. He is out of bed with assistance only and is fine with transferring to [facility] once cleared from GI. We discussed the spontaneous oozing and varices found on EGD and stable H& H over the weekend. He denies any rectal bleeding or other bleeding or bruising. We discussed the [facility] transplant plan regarding follow-up in the office and possible TIPS placement. The patient is amenable to TIPS placement if it were to be offered at this point. His sister is present at the bedside and offers that in the last 2 years he has been neglectful of his finances and not forthcoming with other issues such as this. It is questionable if this was intentional or if the patient was intermittently confused. He is currently lucid today. He is eating 25-50% of his meals and denies any nausea or abdominal pain. He denies any fevers, chills or other issues at this time. Physical Exam 2 Vital Signs (Past 24 Hours): Last Vital Signs Temp 36.7 C 03/02/18 15:00 Pulse 75 03/02/18 15:00 Resp 18 03/02/18 15:00 BP 137/76 03/02/18 15:00 Pulse Ox 96 03/02/18 15:00 CONSTITUTIONAL: cachectic, weak and ill-appearing, vitals as above EYES: normal conjuctivae, +scleral icterus RESPIRATORY: clear to auscultation bilaterally, no crackles, rales or wheezes, normal respiratory effort CARDIOVASCULAR: regular rate and rhythm, S1 and 2 heard without murmurs, gallops or rubs, no JVD, no peripheral edema GASTROINTESTINAL: normal bowel sounds, soft, nontender, nondistended, palpable hernia is stable. MUSCULOSKELETAL: generalized weakness, head is NCAT SKIN: warm and dry, some chronic pretibial brownish skin macular markings bilaterally NEUROLOGIC: No facial palsy, no dysarthria but slow to respond. CN 2-12 grossly intact, no sensory deficit, normal cognition, normal speech PSYCHIATRIC: alert cooperative, flat affect, slow to respond to questioning. Results & Data Laboratory Results Short CBC 02/20/18 02/20/18 02/20/18 Range/Units 18:40 18:40 18:40 WBC (4.8-10.8) K/uL RBC 2.67 L (4.7-6.1) M/uL Hgb (14.0-18.0) g/dL Hct (42-52) % MCV 93.3 (80-100) fL MCH 28.5 (25-34) pg MCHC 30.5 L (32-36) g/dL RDW Std Deviation 72.5 H (36.4-46.3) fL RDW Coeff of Arpita 21.1 H (11.5-14.5) % Plt Count (130-400) K/uL MPV 12.3 H (7.4-10.4) fL Immature Gran % (Auto) 0.2 % Neut % (Auto) 88.2 % Lymph % (Auto) 5.5 % [place] % (Auto) 5.3 % Eos % (Auto) 0.4 % Baso % (Auto) 0.4 % Immature Gran # (Auto) 0.01 (0.00-0.02) K/uL Neut # (Auto) 4.84 (1.4-6.5) K/uL Lymph # (Auto) 0.30 L (1.2-3.4) K/uL [place] # (Auto) 0.29 (0.11-0.59) K/uL Eos # (Auto) 0.02 (0-0.5) K/uL Baso # (Auto) 0.02 (0-0.2) K/uL Platelet Estimate Decreased (Normal) Giant Platelets RBC Morphology Unremarkable Hypochromasia Anisocytosis Spherocytes Ovalocytes PT 13.8 H (9.0-12.0) Seconds INR 1.4 H (0.9-1.1) APTT 28.9 (21.0-31.0) Seconds PTT Ratio 1.1 Sodium 137 (136-145) mmol/L Potassium 3.3 L (3.5-5.1) mmol/L Chloride 100 (98-107) mmol/L Carbon Dioxide 28 (21-32) mmol/L Anion Gap 9.0 (3-11) BUN 19 H (7-18) mg/dl Creatinine 1.17 (0.6-1.4) mg/dl Est Cr Clr Drug Dosing 78.7 ml/min Est GFR ( Amer) 79.7 Est GFR (Non-Af Amer) 68.8 BUN/Creatinine Ratio 16.1 (10-20) Glucose 219 H (70-99) mg/dl POC Glucose (70-99) Estimat Average Glucose mg/dl Hemoglobin A1c (4.5-5.6) % Calcium 7.7 L (8.5-10.1) mg/dl Phosphorus (2.5-4.9) mg/dl Magnesium 1.9 (1.8-2.4) mg/dl Total Bilirubin 4.2 H (0.1-1) mg/dl AST 26 (15-37) U/L ALT 12 (12-78) U/L Alkaline Phosphatase 139 H (45-117) U/L Ammonia (11-32) umol/L Troponin I < 0.015 (0-0.045) ng/ml Total Protein 8.6 H (6.4-8.2) gm/dl Albumin 1.3 L (3.4-5.0) gm/dl Globulin 7.3 H (2.5-4.0) gm/dl Albumin/Globulin Ratio 0.2 L (0.9-2) Lipase 216 (73-393) U/L TSH 7.960 H (0.300-4.500) uIu/ml Free T4 1.16 (0.8-1.6) ng/dl Total T3 (0.60-1.81) ng/ml Urine Color Urine Appearance (Clear) Urine pH (4.5-7.5) Ur Specific Superior (1.000-1.030) Urine Protein (Negative) Urine Glucose (UA) (Negative) Urine Ketones (Negative) Urine Blood (Negative) Urine Nitrite (Negative) Urine Bilirubin (Negative) Urine Urobilinogen (Negative) Ur Leukocyte Esterase (Negative) Urine RBC (0-4) /hpf Urine WBC (0-5) /hpf Ur Epithelial Cells (0-5) /lpf Urine Bacteria (Negative) Peritoneal Color Peritoneal Appearance Peritoneal WBC (0-300) /ul Peritoneal RBC /uL Mononuclear WBCs % % Polynuclear WBCs % % Peritoneal Tot Protein g/dl Peritoneal Albumin g/dl Peritoneal LDH IU Peritoneal Glucose mg/dl Hepatitis C Ab Screen (Neg) Blood Type Antibody Screen Crossmatch 02/20/18 02/20/18 02/20/18 Range/Units 18:40 18:40 18:40 WBC (4.8-10.8) K/uL RBC (4.7-6.1) M/uL Hgb (14.0-18.0) g/dL Hct (42-52) % MCV (80-100) fL MCH (25-34) pg MCHC (32-36) g/dL RDW Std Deviation (36.4-46.3) fL RDW Coeff of Arpita (11.5-14.5) % Plt Count (130-400) K/uL MPV (7.4-10.4) fL Immature Gran % (Auto) % Neut % (Auto) % Lymph % (Auto) % [place] % (Auto) % Eos % (Auto) % Baso % (Auto) % Immature Gran # (Auto) (0.00-0.02) K/uL Neut # (Auto) (1.4-6.5) K/uL Lymph # (Auto) (1.2-3.4) K/uL [place] # (Auto) (0.11-0.59) K/uL Eos # (Auto) (0-0.5) K/uL Baso # (Auto) (0-0.2) K/uL Platelet Estimate (Normal) Giant Platelets RBC Morphology Hypochromasia Anisocytosis Spherocytes Ovalocytes PT (9.0-12.0) Seconds INR (0.9-1.1) APTT (21.0-31.0) Seconds PTT Ratio Sodium (136-145) mmol/L Potassium (3.5-5.1) mmol/L Chloride (98-107) mmol/L Carbon Dioxide (21-32) mmol/L Anion Gap (3-11) BUN (7-18) mg/dl Creatinine (0.6-1.4) mg/dl Est Cr Clr Drug Dosing ml/min Est GFR ( Amer) Est GFR (Non-Af Amer) BUN/Creatinine Ratio (10-20) Glucose (70-99) mg/dl POC Glucose (70-99) Estimat Average Glucose 154 mg/dl Hemoglobin A1c 7.0 H (4.5-5.6) % Calcium (8.5-10.1) mg/dl Phosphorus (2.5-4.9) mg/dl Magnesium (1.8-2.4) mg/dl Total Bilirubin (0.1-1) mg/dl AST (15-37) U/L ALT (12-78) U/L Alkaline Phosphatase (45-117) U/L Ammonia (11-32) umol/L Troponin I (0-0.045) ng/ml Total Protein (6.4-8.2) gm/dl Albumin (3.4-5.0) gm/dl Globulin (2.5-4.0) gm/dl Albumin/Globulin Ratio (0.9-2) Lipase (73-393) U/L TSH (0.300-4.500) uIu/ml Free T4 (0.8-1.6) ng/dl Total T3 0.54 L (0.60-1.81) ng/ml Urine Color Urine Appearance (Clear) Urine pH (4.5-7.5) Ur Specific Superior (1.000-1.030) Urine Protein (Negative) Urine Glucose (UA) (Negative) Urine Ketones (Negative) Urine Blood (Negative) Urine Nitrite (Negative) Urine Bilirubin (Negative) Urine Urobilinogen (Negative) Ur Leukocyte Esterase (Negative) Urine RBC (0-4) /hpf Urine WBC (0-5) /hpf Ur Epithelial Cells (0-5) /lpf Urine Bacteria (Negative) Peritoneal Color Peritoneal Appearance Peritoneal WBC (0-300) /ul Peritoneal RBC /uL Mononuclear WBCs % % Polynuclear WBCs % % Peritoneal Tot Protein g/dl Peritoneal Albumin g/dl Peritoneal LDH IU Peritoneal Glucose mg/dl Hepatitis C Ab Screen (Neg) Blood Type O Positive Antibody Screen NEGATIVE Crossmatch See Detail 02/20/18 02/20/18 02/21/18 Range/Units 18:40 19:36 07:00 WBC (4.8-10.8) K/uL RBC (4.7-6.1) M/uL Hgb (14.0-18.0) g/dL Hct (42-52) % MCV (80-100) fL MCH (25-34) pg MCHC (32-36) g/dL RDW Std Deviation (36.4-46.3) fL RDW Coeff of Arpita (11.5-14.5) % Plt Count (130-400) K/uL MPV (7.4-10.4) fL Immature Gran % (Auto) % Neut % (Auto) % Lymph % (Auto) % [place] % (Auto) % Eos % (Auto) % Baso % (Auto) % Immature Gran # (Auto) (0.00-0.02) K/uL Neut # (Auto) (1.4-6.5) K/uL Lymph # (Auto) (1.2-3.4) K/uL [place] # (Auto) (0.11-0.59) K/uL Eos # (Auto) (0-0.5) K/uL Baso # (Auto) (0-0.2) K/uL Platelet Estimate (Normal) Giant Platelets RBC Morphology Hypochromasia Anisocytosis Spherocytes Ovalocytes PT (9.0-12.0) Seconds INR (0.9-1.1) APTT (21.0-31.0) Seconds PTT Ratio Sodium (136-145) mmol/L Potassium (3.5-5.1) mmol/L Chloride (98-107) mmol/L Carbon Dioxide (21-32) mmol/L Anion Gap (3-11) BUN (7-18) mg/dl Creatinine (0.6-1.4) mg/dl Est Cr Clr Drug Dosing ml/min Est GFR ( Amer) Est GFR (Non-Af Amer) BUN/Creatinine Ratio (10-20) Glucose (70-99) mg/dl POC Glucose (70-99) Estimat Average Glucose mg/dl Hemoglobin A1c (4.5-5.6) % Calcium (8.5-10.1) mg/dl Phosphorus (2.5-4.9) mg/dl Magnesium (1.8-2.4) mg/dl Total Bilirubin (0.1-1) mg/dl AST (15-37) U/L ALT (12-78) U/L Alkaline Phosphatase (45-117) U/L Ammonia 26.3 (11-32) umol/L Troponin I (0-0.045) ng/ml Total Protein (6.4-8.2) gm/dl Albumin (3.4-5.0) gm/dl Globulin (2.5-4.0) gm/dl Albumin/Globulin Ratio (0.9-2) Lipase (73-393) U/L TSH (0.300-4.500) uIu/ml Free T4 (0.8-1.6) ng/dl Total T3 (0.60-1.81) ng/ml Urine Color Errol Urine Appearance Turbid H (Clear) Urine pH 5.0 (4.5-7.5) Ur Specific Superior 1.021 (1.000-1.030) Urine Protein 1+ H (Negative) Urine Glucose (UA) Negative (Negative) Urine Ketones Negative (Negative) Urine Blood Trace H (Negative) Urine Nitrite Positive H (Negative) Urine Bilirubin 2+ H (Negative) Urine Urobilinogen Positive H (Negative) Ur Leukocyte Esterase 3+ H (Negative) Urine RBC 0-4 (0-4) /hpf Urine WBC >30 H (0-5) /hpf Ur Epithelial Cells 0-5 (0-5) /lpf Urine Bacteria 4+ H (Negative) Peritoneal Color Peritoneal Appearance Peritoneal WBC (0-300) /ul Peritoneal RBC /uL Mononuclear WBCs % % Polynuclear WBCs % % Peritoneal Tot Protein g/dl Peritoneal Albumin g/dl Peritoneal LDH IU Peritoneal Glucose mg/dl Hepatitis C Ab Screen Neg (Neg) Blood Type Antibody Screen Crossmatch 02/21/18 02/21/18 02/21/18 Range/Units 07:03 09:32 11:12 WBC (4.8-10.8) K/uL RBC (4.7-6.1) M/uL Hgb (14.0-18.0) g/dL Hct (42-52) % MCV (80-100) fL MCH (25-34) pg MCHC (32-36) g/dL RDW Std Deviation (36.4-46.3) fL RDW Coeff of Arpita (11.5-14.5) % Plt Count (130-400) K/uL MPV (7.4-10.4) fL Immature Gran % (Auto) % Neut % (Auto) % Lymph % (Auto) % [place] % (Auto) % Eos % (Auto) % Baso % (Auto) % Immature Gran # (Auto) (0.00-0.02) K/uL Neut # (Auto) (1.4-6.5) K/uL Lymph # (Auto) (1.2-3.4) K/uL [place] # (Auto) (0.11-0.59) K/uL Eos # (Auto) (0-0.5) K/uL Baso # (Auto) (0-0.2) K/uL Platelet Estimate (Normal) Giant Platelets RBC Morphology Hypochromasia Anisocytosis Spherocytes Ovalocytes PT (9.0-12.0) Seconds INR (0.9-1.1) APTT (21.0-31.0) Seconds PTT Ratio Sodium 138 (136-145) mmol/L Potassium 3.5 (3.5-5.1) mmol/L Chloride 104 (98-107) mmol/L Carbon Dioxide 28 (21-32) mmol/L Anion Gap 6.0 (3-11) BUN 20 H (7-18) mg/dl Creatinine 1.08 (0.6-1.4) mg/dl Est Cr Clr Drug Dosing 85.3 ml/min Est GFR ( Amer) 87.8 Est GFR (Non-Af Amer) 75.8 BUN/Creatinine Ratio 18.1 (10-20) Glucose 177 H (70-99) mg/dl POC Glucose 167 H 192 H (70-99) Estimat Average Glucose mg/dl Hemoglobin A1c (4.5-5.6) % Calcium 7.0 L (8.5-10.1) mg/dl Phosphorus (2.5-4.9) mg/dl Magnesium (1.8-2.4) mg/dl Total Bilirubin 2.5 H (0.1-1) mg/dl AST 26 (15-37) U/L ALT 9 L (12-78) U/L Alkaline Phosphatase 108 (45-117) U/L Ammonia (11-32) umol/L Troponin I (0-0.045) ng/ml Total Protein 6.9 (6.4-8.2) gm/dl Albumin 1.2 L (3.4-5.0) gm/dl Globulin 5.7 H (2.5-4.0) gm/dl Albumin/Globulin Ratio 0.2 L (0.9-2) Lipase (73-393) U/L TSH (0.300-4.500) uIu/ml Free T4 (0.8-1.6) ng/dl Total T3 (0.60-1.81) ng/ml Urine Color Urine Appearance (Clear) Urine pH (4.5-7.5) Ur Specific Superior (1.000-1.030) Urine Protein (Negative) Urine Glucose (UA) (Negative) Urine Ketones (Negative) Urine Blood (Negative) Urine Nitrite (Negative) Urine Bilirubin (Negative) Urine Urobilinogen (Negative) Ur Leukocyte Esterase (Negative) Urine RBC (0-4) /hpf Urine WBC (0-5) /hpf Ur Epithelial Cells (0-5) /lpf Urine Bacteria (Negative) Peritoneal Color Peritoneal Appearance Peritoneal WBC (0-300) /ul Peritoneal RBC /uL Mononuclear WBCs % % Polynuclear WBCs % % Peritoneal Tot Protein g/dl Peritoneal Albumin g/dl Peritoneal LDH IU Peritoneal Glucose mg/dl Hepatitis C Ab Screen (Neg) Blood Type Antibody Screen Crossmatch 02/21/18 02/21/18 02/21/18 Range/Units 11:30 11:30 11:30 WBC (4.8-10.8) K/uL RBC (4.7-6.1) M/uL Hgb (14.0-18.0) g/dL Hct (42-52) % MCV (80-100) fL MCH (25-34) pg MCHC (32-36) g/dL RDW Std Deviation (36.4-46.3) fL RDW Coeff of Arpita (11.5-14.5) % Plt Count (130-400) K/uL MPV (7.4-10.4) fL Immature Gran % (Auto) % Neut % (Auto) % Lymph % (Auto) % [place] % (Auto) % Eos % (Auto) % Baso % (Auto) % Immature Gran # (Auto) (0.00-0.02) K/uL Neut # (Auto) (1.4-6.5) K/uL Lymph # (Auto) (1.2-3.4) K/uL [place] # (Auto) (0.11-0.59) K/uL Eos # (Auto) (0-0.5) K/uL Baso # (Auto) (0-0.2) K/uL Platelet Estimate (Normal) Giant Platelets RBC Morphology Hypochromasia Anisocytosis Spherocytes Ovalocytes PT (9.0-12.0) Seconds INR (0.9-1.1) APTT (21.0-31.0) Seconds PTT Ratio Sodium (136-145) mmol/L Potassium (3.5-5.1) mmol/L Chloride (98-107) mmol/L Carbon Dioxide (21-32) mmol/L Anion Gap (3-11) BUN (7-18) mg/dl Creatinine (0.6-1.4) mg/dl Est Cr Clr Drug Dosing ml/min Est GFR ( Amer) Est GFR (Non-Af Amer) BUN/Creatinine Ratio (10-20) Glucose (70-99) mg/dl POC Glucose (70-99) Estimat Average Glucose mg/dl Hemoglobin A1c (4.5-5.6) % Calcium (8.5-10.1) mg/dl Phosphorus (2.5-4.9) mg/dl Magnesium (1.8-2.4) mg/dl Total Bilirubin (0.1-1) mg/dl AST (15-37) U/L ALT (12-78) U/L Alkaline Phosphatase (45-117) U/L Ammonia (11-32) umol/L Troponin I (0-0.045) ng/ml Total Protein (6.4-8.2) gm/dl Albumin (3.4-5.0) gm/dl Globulin (2.5-4.0) gm/dl Albumin/Globulin Ratio (0.9-2) Lipase (73-393) U/L TSH (0.300-4.500) uIu/ml Free T4 (0.8-1.6) ng/dl Total T3 (0.60-1.81) ng/ml Urine Color Urine Appearance (Clear) Urine pH (4.5-7.5) Ur Specific Superior (1.000-1.030) Urine Protein (Negative) Urine Glucose (UA) (Negative) Urine Ketones (Negative) Urine Blood (Negative) Urine Nitrite (Negative) Urine Bilirubin (Negative) Urine Urobilinogen (Negative) Ur Leukocyte Esterase (Negative) Urine RBC (0-4) /hpf Urine WBC (0-5) /hpf Ur Epithelial Cells (0-5) /lpf Urine Bacteria (Negative) Peritoneal Color PALE YELLOW Peritoneal Appearance HAZY Peritoneal WBC 34 (0-300) /ul Peritoneal RBC < 3000 /uL Mononuclear WBCs % 79.0 % Polynuclear WBCs % 21.0 % Peritoneal Tot Protein g/dl Peritoneal Albumin < 0.6 g/dl Peritoneal LDH IU Peritoneal Glucose 169 mg/dl Hepatitis C Ab Screen (Neg) Blood Type Antibody Screen Crossmatch 12/02/21/18 02/21/18 Range/Units 11:30 11:30 16:14 WBC (4.8-10.8) K/uL RBC (4.7-6.1) M/uL Hgb (14.0-18.0) g/dL Hct (42-52) % MCV (80-100) fL MCH (25-34) pg MCHC (32-36) g/dL RDW Std Deviation (36.4-46.3) fL RDW Coeff of Arpita (11.5-14.5) % Plt Count (130-400) K/uL MPV (7.4-10.4) fL Immature Gran % (Auto) % Neut % (Auto) % Lymph % (Auto) % [place] % (Auto) % Eos % (Auto) % Baso % (Auto) % Immature Gran # (Auto) (0.00-0.02) K/uL Neut # (Auto) (1.4-6.5) K/uL Lymph # (Auto) (1.2-3.4) K/uL [place] # (Auto) (0.11-0.59) K/uL Eos # (Auto) (0-0.5) K/uL Baso # (Auto) (0-0.2) K/uL Platelet Estimate (Normal) Giant Platelets RBC Morphology Hypochromasia Anisocytosis Spherocytes Ovalocytes PT (9.0-12.0) Seconds INR (0.9-1.1) APTT (21.0-31.0) Seconds PTT Ratio Sodium (136-145) mmol/L Potassium (3.5-5.1) mmol/L Chloride (98-107) mmol/L Carbon Dioxide (21-32) mmol/L Anion Gap (3-11) BUN (7-18) mg/dl Creatinine (0.6-1.4) mg/dl Est Cr Clr Drug Dosing ml/min Est GFR ( Amer) Est GFR (Non-Af Amer) BUN/Creatinine Ratio (10-20) Glucose (70-99) mg/dl POC Glucose 296 H (70-99) Estimat Average Glucose mg/dl Hemoglobin A1c (4.5-5.6) % Calcium (8.5-10.1) mg/dl Phosphorus (2.5-4.9) mg/dl Magnesium (1.8-2.4) mg/dl Total Bilirubin (0.1-1) mg/dl AST (15-37) U/L ALT (12-78) U/L Alkaline Phosphatase (45-117) U/L Ammonia (11-32) umol/L Troponin I (0-0.045) ng/ml Total Protein (6.4-8.2) gm/dl Albumin (3.4-5.0) gm/dl Globulin (2.5-4.0) gm/dl Albumin/Globulin Ratio (0.9-2) Lipase (73-393) U/L TSH (0.300-4.500) uIu/ml Free T4 (0.8-1.6) ng/dl Total T3 (0.60-1.81) ng/ml Urine Color Urine Appearance (Clear) Urine pH (4.5-7.5) Ur Specific Superior (1.000-1.030) Urine Protein (Negative) Urine Glucose (UA) (Negative) Urine Ketones (Negative) Urine Blood (Negative) Urine Nitrite (Negative) Urine Bilirubin (Negative) Urine Urobilinogen (Negative) Ur Leukocyte Esterase (Negative) Urine RBC (0-4) /hpf Urine WBC (0-5) /hpf Ur Epithelial Cells (0-5) /lpf Urine Bacteria (Negative) Peritoneal Color Peritoneal Appearance Peritoneal WBC (0-300) /ul Peritoneal RBC /uL Mononuclear WBCs % % Polynuclear WBCs % % Peritoneal Tot Protein 1.0 g/dl Peritoneal Albumin g/dl Peritoneal LDH 74 IU Peritoneal Glucose mg/dl Hepatitis C Ab Screen (Neg) Blood Type Antibody Screen Crossmatch 02/21/18 02/21/18 02/21/18 Range/Units 21:01 21:41 22:43 WBC (4.8-10.8) K/uL RBC (4.7-6.1) M/uL Hgb (14.0-18.0) g/dL Hct (42-52) % MCV (80-100) fL MCH (25-34) pg MCHC (32-36) g/dL RDW Std Deviation (36.4-46.3) fL RDW Coeff of Arpita (11.5-14.5) % Plt Count (130-400) K/uL MPV (7.4-10.4) fL Immature Gran % (Auto) % Neut % (Auto) % Lymph % (Auto) % [place] % (Auto) % Eos % (Auto) % Baso % (Auto) % Immature Gran # (Auto) (0.00-0.02) K/uL Neut # (Auto) (1.4-6.5) K/uL Lymph # (Auto) (1.2-3.4) K/uL [place] # (Auto) (0.11-0.59) K/uL Eos # (Auto) (0-0.5) K/uL Baso # (Auto) (0-0.2) K/uL Platelet Estimate (Normal) Giant Platelets RBC Morphology Hypochromasia Anisocytosis Spherocytes Ovalocytes PT (9.0-12.0) Seconds INR (0.9-1.1) APTT (21.0-31.0) Seconds PTT Ratio Sodium (136-145) mmol/L Potassium (3.5-5.1) mmol/L Chloride (98-107) mmol/L Carbon Dioxide (21-32) mmol/L Anion Gap (3-11) BUN (7-18) mg/dl Creatinine (0.6-1.4) mg/dl Est Cr Clr Drug Dosing ml/min Est GFR ( Amer) Est GFR (Non-Af Amer) BUN/Creatinine Ratio (10-20) Glucose (70-99) mg/dl POC Glucose 299 H 320 H 271 H (70-99) Estimat Average Glucose mg/dl Hemoglobin A1c (4.5-5.6) % Calcium (8.5-10.1) mg/dl Phosphorus (2.5-4.9) mg/dl Magnesium (1.8-2.4) mg/dl Total Bilirubin (0.1-1) mg/dl AST (15-37) U/L ALT (12-78) U/L Alkaline Phosphatase (45-117) U/L Ammonia (11-32) umol/L Troponin I (0-0.045) ng/ml Total Protein (6.4-8.2) gm/dl Albumin (3.4-5.0) gm/dl Globulin (2.5-4.0) gm/dl Albumin/Globulin Ratio (0.9-2) Lipase (73-393) U/L TSH (0.300-4.500) uIu/ml Free T4 (0.8-1.6) ng/dl Total T3 (0.60-1.81) ng/ml Urine Color Urine Appearance (Clear) Urine pH (4.5-7.5) Ur Specific Superior (1.000-1.030) Urine Protein (Negative) Urine Glucose (UA) (Negative) Urine Ketones (Negative) Urine Blood (Negative) Urine Nitrite (Negative) Urine Bilirubin (Negative) Urine Urobilinogen (Negative) Ur Leukocyte Esterase (Negative) Urine RBC (0-4) /hpf Urine WBC (0-5) /hpf Ur Epithelial Cells (0-5) /lpf Urine Bacteria (Negative) Peritoneal Color Peritoneal Appearance Peritoneal WBC (0-300) /ul Peritoneal RBC /uL Mononuclear WBCs % % Polynuclear WBCs % % Peritoneal Tot Protein g/dl Peritoneal Albumin g/dl Peritoneal LDH IU Peritoneal Glucose mg/dl Hepatitis C Ab Screen (Neg) Blood Type Antibody Screen Crossmatch 02/22/18 02/22/18 02/22/18 Range/Units 00:20 07:31 08:50 WBC (4.8-10.8) K/uL RBC 2.22 L (4.7-6.1) M/uL Hgb (14.0-18.0) g/dL Hct (42-52) % MCV 95.0 (80-100) fL MCH 28.8 (25-34) pg MCHC 30.3 L (32-36) g/dL RDW Std Deviation 73.6 H (36.4-46.3) fL RDW Coeff of Arpita 21.4 H (11.5-14.5) % Plt Count (130-400) K/uL MPV 11.2 H (7.4-10.4) fL Immature Gran % (Auto) 0.3 % Neut % (Auto) 76.8 % Lymph % (Auto) 13.0 % [place] % (Auto) 8.1 % Eos % (Auto) 1.5 % Baso % (Auto) 0.3 % Immature Gran # (Auto) 0.01 (0.00-0.02) K/uL Neut # (Auto) 2.55 (1.4-6.5) K/uL Lymph # (Auto) 0.43 L (1.2-3.4) K/uL [place] # (Auto) 0.27 (0.11-0.59) K/uL Eos # (Auto) 0.05 (0-0.5) K/uL Baso # (Auto) 0.01 (0-0.2) K/uL Platelet Estimate (Normal) Giant Platelets RBC Morphology Hypochromasia Present Anisocytosis Present Spherocytes Ovalocytes 1+ PT (9.0-12.0) Seconds INR (0.9-1.1) APTT (21.0-31.0) Seconds PTT Ratio Sodium (136-145) mmol/L Potassium (3.5-5.1) mmol/L Chloride (98-107) mmol/L Carbon Dioxide (21-32) mmol/L Anion Gap (3-11) BUN (7-18) mg/dl Creatinine (0.6-1.4) mg/dl Est Cr Clr Drug Dosing ml/min Est GFR ( Amer) Est GFR (Non-Af Amer) BUN/Creatinine Ratio (10-20) Glucose (70-99) mg/dl POC Glucose 225 H 138 H (70-99) Estimat Average Glucose mg/dl Hemoglobin A1c (4.5-5.6) % Calcium (8.5-10.1) mg/dl Phosphorus (2.5-4.9) mg/dl Magnesium (1.8-2.4) mg/dl Total Bilirubin (0.1-1) mg/dl AST (15-37) U/L ALT (12-78) U/L Alkaline Phosphatase (45-117) U/L Ammonia (11-32) umol/L Troponin I (0-0.045) ng/ml Total Protein (6.4-8.2) gm/dl Albumin (3.4-5.0) gm/dl Globulin (2.5-4.0) gm/dl Albumin/Globulin Ratio (0.9-2) Lipase (73-393) U/L TSH (0.300-4.500) uIu/ml Free T4 (0.8-1.6) ng/dl Total T3 (0.60-1.81) ng/ml Urine Color Urine Appearance (Clear) Urine pH (4.5-7.5) Ur Specific [place] (1.000-1.030) Urine Protein (Negative) Urine Glucose (UA) (Negative) Urine Ketones (Negative) Urine Blood (Negative) Urine Nitrite (Negative) Urine Bilirubin (Negative) Urine Urobilinogen (Negative) Ur Leukocyte Esterase (Negative) Urine RBC (0-4) /hpf Urine WBC (0-5) /hpf Ur Epithelial Cells (0-5) /lpf Urine Bacteria (Negative) Peritoneal Color Peritoneal Appearance Peritoneal WBC (0-300) /ul Peritoneal RBC /uL Mononuclear WBCs % % Polynuclear WBCs % % Peritoneal Tot Protein g/dl Peritoneal Albumin g/dl Peritoneal LDH IU Peritoneal Glucose mg/dl Hepatitis C Ab Screen (Neg) Blood Type Antibody Screen Crossmatch 02/22/18 02/22/18 02/22/18 Range/Units 08:50 11:32 16:21 WBC (4.8-10.8) K/uL RBC (4.7-6.1) M/uL Hgb (14.0-18.0) g/dL Hct (42-52) % MCV (80-100) fL MCH (25-34) pg MCHC (32-36) g/dL RDW Std Deviation (36.4-46.3) fL RDW Coeff of Arpita (11.5-14.5) % Plt Count (130-400) K/uL MPV (7.4-10.4) fL Immature Gran % (Auto) % Neut % (Auto) % Lymph % (Auto) % [place] % (Auto) % Eos % (Auto) % Baso % (Auto) % Immature Gran # (Auto) (0.00-0.02) K/uL Neut # (Auto) (1.4-6.5) K/uL Lymph # (Auto) (1.2-3.4) K/uL [place] # (Auto) (0.11-0.59) K/uL Eos # (Auto) (0-0.5) K/uL Baso # (Auto) (0-0.2) K/uL Platelet Estimate (Normal) Giant Platelets RBC Morphology Hypochromasia Anisocytosis Spherocytes Ovalocytes PT (9.0-12.0) Seconds INR (0.9-1.1) APTT (21.0-31.0) Seconds PTT Ratio Sodium 138 (136-145) mmol/L Potassium 3.3 L (3.5-5.1) mmol/L Chloride 101 (98-107) mmol/L Carbon Dioxide 32 (21-32) mmol/L Anion Gap 5.0 (3-11) BUN 21 H (7-18) mg/dl Creatinine 1.27 (0.6-1.4) mg/dl Est Cr Clr Drug Dosing 70.4 ml/min Est GFR ( Amer) 72.2 Est GFR (Non-Af Amer) 62.3 BUN/Creatinine Ratio 16.1 (10-20) Glucose 126 H (70-99) mg/dl POC Glucose 144 H 181 H (70-99) Estimat Average Glucose mg/dl Hemoglobin A1c (4.5-5.6) % Calcium 7.4 L (8.5-10.1) mg/dl Phosphorus (2.5-4.9) mg/dl Magnesium 1.8 (1.8-2.4) mg/dl Total Bilirubin 1.5 H (0.1-1) mg/dl AST 18 (15-37) U/L ALT 9 L (12-78) U/L Alkaline Phosphatase 99 (45-117) U/L Ammonia (11-32) umol/L Troponin I (0-0.045) ng/ml Total Protein 6.7 (6.4-8.2) gm/dl Albumin 1.2 L (3.4-5.0) gm/dl Globulin 5.5 H (2.5-4.0) gm/dl Albumin/Globulin Ratio 0.2 L (0.9-2) Lipase (73-393) U/L TSH (0.300-4.500) uIu/ml Free T4 (0.8-1.6) ng/dl Total T3 (0.60-1.81) ng/ml Urine Color Urine Appearance (Clear) Urine pH (4.5-7.5) Ur Specific Superior (1.000-1.030) Urine Protein (Negative) Urine Glucose (UA) (Negative) Urine Ketones (Negative) Urine Blood (Negative) Urine Nitrite (Negative) Urine Bilirubin (Negative) Urine Urobilinogen (Negative) Ur Leukocyte Esterase (Negative) Urine RBC (0-4) /hpf Urine WBC (0-5) /hpf Ur Epithelial Cells (0-5) /lpf Urine Bacteria (Negative) Peritoneal Color Peritoneal Appearance Peritoneal WBC (0-300) /ul Peritoneal RBC /uL Mononuclear WBCs % % Polynuclear WBCs % % Peritoneal Tot Protein g/dl Peritoneal Albumin g/dl Peritoneal LDH IU Peritoneal Glucose mg/dl Hepatitis C Ab Screen (Neg) Blood Type Antibody Screen Crossmatch 02/22/18 02/23/18 02/23/18 Range/Units 19:55 06:29 06:29 WBC (4.8-10.8) K/uL RBC 2.62 L (4.7-6.1) M/uL Hgb (14.0-18.0) g/dL Hct (42-52) % MCV 93.1 (80-100) fL MCH 28.2 (25-34) pg MCHC 30.3 L (32-36) g/dL RDW Std Deviation 70.3 H (36.4-46.3) fL RDW Coeff of Arpita 21.0 H (11.5-14.5) % Plt Count (130-400) K/uL MPV 11.7 H (7.4-10.4) fL Immature Gran % (Auto) % Neut % (Auto) % Lymph % (Auto) % [place] % (Auto) % Eos % (Auto) % Baso % (Auto) % Immature Gran # (Auto) (0.00-0.02) K/uL Neut # (Auto) (1.4-6.5) K/uL Lymph # (Auto) (1.2-3.4) K/uL [place] # (Auto) (0.11-0.59) K/uL Eos # (Auto) (0-0.5) K/uL Baso # (Auto) (0-0.2) K/uL Platelet Estimate (Normal) Giant Platelets RBC Morphology Hypochromasia Anisocytosis Spherocytes Ovalocytes PT (9.0-12.0) Seconds INR (0.9-1.1) APTT (21.0-31.0) Seconds PTT Ratio Sodium 138 (136-145) mmol/L Potassium 3.9 D (3.5-5.1) mmol/L Chloride 102 (98-107) mmol/L Carbon Dioxide 33 H (21-32) mmol/L Anion Gap 3.0 (3-11) BUN 19 H (7-18) mg/dl Creatinine 1.15 (0.6-1.4) mg/dl Est Cr Clr Drug Dosing 77.8 ml/min Est GFR ( Amer) 81.4 Est GFR (Non-Af Amer) 70.3 BUN/Creatinine Ratio 16.5 (10-20) Glucose 110 H (70-99) mg/dl POC Glucose 199 H (70-99) Estimat Average Glucose mg/dl Hemoglobin A1c (4.5-5.6) % Calcium 7.6 L (8.5-10.1) mg/dl Phosphorus (2.5-4.9) mg/dl Magnesium (1.8-2.4) mg/dl Total Bilirubin (0.1-1) mg/dl AST (15-37) U/L ALT (12-78) U/L Alkaline Phosphatase (45-117) U/L Ammonia (11-32) umol/L Troponin I (0-0.045) ng/ml Total Protein (6.4-8.2) gm/dl Albumin (3.4-5.0) gm/dl Globulin (2.5-4.0) gm/dl Albumin/Globulin Ratio (0.9-2) Lipase (73-393) U/L TSH (0.300-4.500) uIu/ml Free T4 (0.8-1.6) ng/dl Total T3 (0.60-1.81) ng/ml Urine Color Urine Appearance (Clear) Urine pH (4.5-7.5) Ur Specific Superior (1.000-1.030) Urine Protein (Negative) Urine Glucose (UA) (Negative) Urine Ketones (Negative) Urine Blood (Negative) Urine Nitrite (Negative) Urine Bilirubin (Negative) Urine Urobilinogen (Negative) Ur Leukocyte Esterase (Negative) Urine RBC (0-4) /hpf Urine WBC (0-5) /hpf Ur Epithelial Cells (0-5) /lpf Urine Bacteria (Negative) Peritoneal Color Peritoneal Appearance Peritoneal WBC (0-300) /ul Peritoneal RBC /uL Mononuclear WBCs % % Polynuclear WBCs % % Peritoneal Tot Protein g/dl Peritoneal Albumin g/dl Peritoneal LDH IU Peritoneal Glucose mg/dl Hepatitis C Ab Screen (Neg) Blood Type Antibody Screen Crossmatch 12/24/18 12/24/18 12/24/18 Range/Units 07:38 11:19 16:37 WBC (4.8-10.8) K/uL RBC (4.7-6.1) M/uL Hgb (14.0-18.0) g/dL Hct (42-52) % MCV (80-100) fL MCH (25-34) pg MCHC (32-36) g/dL RDW Std Deviation (36.4-46.3) fL RDW Coeff of Arpita (11.5-14.5) % Plt Count (130-400) K/uL MPV (7.4-10.4) fL Immature Gran % (Auto) % Neut % (Auto) % Lymph % (Auto) % [place] % (Auto) % Eos % (Auto) % Baso % (Auto) % Immature Gran # (Auto) (0.00-0.02) K/uL Neut # (Auto) (1.4-6.5) K/uL Lymph # (Auto) (1.2-3.4) K/uL [place] # (Auto) (0.11-0.59) K/uL Eos # (Auto) (0-0.5) K/uL Baso # (Auto) (0-0.2) K/uL Platelet Estimate (Normal) Giant Platelets RBC Morphology Hypochromasia Anisocytosis Spherocytes Ovalocytes PT (9.0-12.0) Seconds INR (0.9-1.1) APTT (21.0-31.0) Seconds PTT Ratio Sodium (136-145) mmol/L Potassium (3.5-5.1) mmol/L Chloride (98-107) mmol/L Carbon Dioxide (21-32) mmol/L Anion Gap (3-11) BUN (7-18) mg/dl Creatinine (0.6-1.4) mg/dl Est Cr Clr Drug Dosing ml/min Est GFR ( Amer) Est GFR (Non-Af Amer) BUN/Creatinine Ratio (10-20) Glucose (70-99) mg/dl POC Glucose 122 H 164 H 226 H (70-99) Estimat Average Glucose mg/dl Hemoglobin A1c (4.5-5.6) % Calcium (8.5-10.1) mg/dl Phosphorus (2.5-4.9) mg/dl Magnesium (1.8-2.4) mg/dl Total Bilirubin (0.1-1) mg/dl AST (15-37) U/L ALT (12-78) U/L Alkaline Phosphatase (45-117) U/L Ammonia (11-32) umol/L Troponin I (0-0.045) ng/ml Total Protein (6.4-8.2) gm/dl Albumin (3.4-5.0) gm/dl Globulin (2.5-4.0) gm/dl Albumin/Globulin Ratio (0.9-2) Lipase (73-393) U/L TSH (0.300-4.500) uIu/ml Free T4 (0.8-1.6) ng/dl Total T3 (0.60-1.81) ng/ml Urine Color Urine Appearance (Clear) Urine pH (4.5-7.5) Ur Specific Superior (1.000-1.030) Urine Protein (Negative) Urine Glucose (UA) (Negative) Urine Ketones (Negative) Urine Blood (Negative) Urine Nitrite (Negative) Urine Bilirubin (Negative) Urine Urobilinogen (Negative) Ur Leukocyte Esterase (Negative) Urine RBC (0-4) /hpf Urine WBC (0-5) /hpf Ur Epithelial Cells (0-5) /lpf Urine Bacteria (Negative) Peritoneal Color Peritoneal Appearance Peritoneal WBC (0-300) /ul Peritoneal RBC /uL Mononuclear WBCs % % Polynuclear WBCs % % Peritoneal Tot Protein g/dl Peritoneal Albumin g/dl Peritoneal LDH IU Peritoneal Glucose mg/dl Hepatitis C Ab Screen (Neg) Blood Type Antibody Screen Crossmatch 02/23/18 02/24/18 02/24/18 Range/Units 20:09 06:03 06:03 WBC (4.8-10.8) K/uL RBC 2.23 L (4.7-6.1) M/uL Hgb (14.0-18.0) g/dL Hct (42-52) % MCV 92.4 (80-100) fL MCH 29.1 (25-34) pg MCHC 31.6 L (32-36) g/dL RDW Std Deviation 68.3 H (36.4-46.3) fL RDW Coeff of Arpita 20.5 H (11.5-14.5) % Plt Count (130-400) K/uL MPV (7.4-10.4) fL Immature Gran % (Auto) 0.3 % Neut % (Auto) 78.4 % Lymph % (Auto) 11.8 % [place] % (Auto) 8.2 % Eos % (Auto) 1.0 % Baso % (Auto) 0.3 % Immature Gran # (Auto) 0.01 (0.00-0.02) K/uL Neut # (Auto) 2.40 (1.4-6.5) K/uL Lymph # (Auto) 0.36 L (1.2-3.4) K/uL [place] # (Auto) 0.25 (0.11-0.59) K/uL Eos # (Auto) 0.03 (0-0.5) K/uL Baso # (Auto) 0.01 (0-0.2) K/uL Platelet Estimate (Normal) Giant Platelets 1+ RBC Morphology Hypochromasia Present Anisocytosis Present Spherocytes Ovalocytes 1+ PT (9.0-12.0) Seconds INR (0.9-1.1) APTT (21.0-31.0) Seconds PTT Ratio Sodium (136-145) mmol/L Potassium (3.5-5.1) mmol/L Chloride (98-107) mmol/L Carbon Dioxide (21-32) mmol/L Anion Gap (3-11) BUN (7-18) mg/dl Creatinine (0.6-1.4) mg/dl Est Cr Clr Drug Dosing ml/min Est GFR ( Amer) Est GFR (Non-Af Amer) BUN/Creatinine Ratio (10-20) Glucose (70-99) mg/dl POC Glucose 223 H (70-99) Estimat Average Glucose mg/dl Hemoglobin A1c (4.5-5.6) % Calcium (8.5-10.1) mg/dl Phosphorus (2.5-4.9) mg/dl Magnesium (1.8-2.4) mg/dl Total Bilirubin (0.1-1) mg/dl AST (15-37) U/L ALT (12-78) U/L Alkaline Phosphatase (45-117) U/L Ammonia (11-32) umol/L Troponin I (0-0.045) ng/ml Total Protein (6.4-8.2) gm/dl Albumin (3.4-5.0) gm/dl Globulin (2.5-4.0) gm/dl Albumin/Globulin Ratio (0.9-2) Lipase (73-393) U/L TSH (0.300-4.500) uIu/ml Free T4 (0.8-1.6) ng/dl Total T3 (0.60-1.81) ng/ml Urine Color Urine Appearance (Clear) Urine pH (4.5-7.5) Ur Specific Superior (1.000-1.030) Urine Protein (Negative) Urine Glucose (UA) (Negative) Urine Ketones (Negative) Urine Blood (Negative) Urine Nitrite (Negative) Urine Bilirubin (Negative) Urine Urobilinogen (Negative) Ur Leukocyte Esterase (Negative) Urine RBC (0-4) /hpf Urine WBC (0-5) /hpf Ur Epithelial Cells (0-5) /lpf Urine Bacteria (Negative) Peritoneal Color Peritoneal Appearance Peritoneal WBC (0-300) /ul Peritoneal RBC /uL Mononuclear WBCs % % Polynuclear WBCs % % Peritoneal Tot Protein g/dl Peritoneal Albumin g/dl Peritoneal LDH IU Peritoneal Glucose mg/dl Hepatitis C Ab Screen (Neg) Blood Type O Positive Antibody Screen NEGATIVE Crossmatch See Detail 02/24/18 02/24/18 02/24/18 Range/Units 06:03 07:46 09:31 WBC (4.8-10.8) K/uL RBC (4.7-6.1) M/uL Hgb (14.0-18.0) g/dL Hct (42-52) % MCV (80-100) fL MCH (25-34) pg MCHC (32-36) g/dL RDW Std Deviation (36.4-46.3) fL RDW Coeff of Arpita (11.5-14.5) % Plt Count (130-400) K/uL MPV (7.4-10.4) fL Immature Gran % (Auto) % Neut % (Auto) % Lymph % (Auto) % [place] % (Auto) % Eos % (Auto) % Baso % (Auto) % Immature Gran # (Auto) (0.00-0.02) K/uL Neut # (Auto) (1.4-6.5) K/uL Lymph # (Auto) (1.2-3.4) K/uL [place] # (Auto) (0.11-0.59) K/uL Eos # (Auto) (0-0.5) K/uL Baso # (Auto) (0-0.2) K/uL Platelet Estimate (Normal) Giant Platelets RBC Morphology Hypochromasia Anisocytosis Spherocytes Ovalocytes PT (9.0-12.0) Seconds INR (0.9-1.1) APTT (21.0-31.0) Seconds PTT Ratio Sodium 137 (136-145) mmol/L Potassium 3.9 (3.5-5.1) mmol/L Chloride 100 (98-107) mmol/L Carbon Dioxide 33 H (21-32) mmol/L Anion Gap 4.0 (3-11) BUN 22 H (7-18) mg/dl Creatinine 1.19 (0.6-1.4) mg/dl Est Cr Clr Drug Dosing 75.2 ml/min Est GFR ( Amer) 78.1 Est GFR (Non-Af Amer) 67.4 BUN/Creatinine Ratio 18.6 (10-20) Glucose 174 H (70-99) mg/dl POC Glucose 187 H 161 H (70-99) Estimat Average Glucose mg/dl Hemoglobin A1c (4.5-5.6) % Calcium 7.5 L (8.5-10.1) mg/dl Phosphorus (2.5-4.9) mg/dl Magnesium 1.8 (1.8-2.4) mg/dl Total Bilirubin 1.9 H (0.1-1) mg/dl AST 17 (15-37) U/L ALT 7 L (12-78) U/L Alkaline Phosphatase 90 (45-117) U/L Ammonia (11-32) umol/L Troponin I (0-0.045) ng/ml Total Protein 6.7 (6.4-8.2) gm/dl Albumin 1.5 L (3.4-5.0) gm/dl Globulin 5.2 H (2.5-4.0) gm/dl Albumin/Globulin Ratio 0.3 L (0.9-2) Lipase (73-393) U/L TSH (0.300-4.500) uIu/ml Free T4 (0.8-1.6) ng/dl Total T3 (0.60-1.81) ng/ml Urine Color Urine Appearance (Clear) Urine pH (4.5-7.5) Ur Specific Superior (1.000-1.030) Urine Protein (Negative) Urine Glucose (UA) (Negative) Urine Ketones (Negative) Urine Blood (Negative) Urine Nitrite (Negative) Urine Bilirubin (Negative) Urine Urobilinogen (Negative) Ur Leukocyte Esterase (Negative) Urine RBC (0-4) /hpf Urine WBC (0-5) /hpf Ur Epithelial Cells (0-5) /lpf Urine Bacteria (Negative) Peritoneal Color Peritoneal Appearance Peritoneal WBC (0-300) /ul Peritoneal RBC /uL Mononuclear WBCs % % Polynuclear WBCs % % Peritoneal Tot Protein g/dl Peritoneal Albumin g/dl Peritoneal LDH IU Peritoneal Glucose mg/dl Hepatitis C Ab Screen (Neg) Blood Type Antibody Screen Crossmatch 02/24/18 02/24/18 02/24/18 Range/Units 11:25 13:47 16:10 WBC (4.8-10.8) K/uL RBC 2.61 L (4.7-6.1) M/uL Hgb (14.0-18.0) g/dL Hct (42-52) % MCV 92.3 (80-100) fL MCH 29.1 (25-34) pg MCHC 31.5 L (32-36) g/dL RDW Std Deviation 64.8 H (36.4-46.3) fL RDW Coeff of Arpita 20.0 H (11.5-14.5) % Plt Count (130-400) K/uL MPV (7.4-10.4) fL Immature Gran % (Auto) % Neut % (Auto) % Lymph % (Auto) % [place] % (Auto) % Eos % (Auto) % Baso % (Auto) % Immature Gran # (Auto) (0.00-0.02) K/uL Neut # (Auto) (1.4-6.5) K/uL Lymph # (Auto) (1.2-3.4) K/uL [place] # (Auto) (0.11-0.59) K/uL Eos # (Auto) (0-0.5) K/uL Baso # (Auto) (0-0.2) K/uL Platelet Estimate Decreased (Normal) Giant Platelets RBC Morphology Hypochromasia Anisocytosis Spherocytes Ovalocytes PT (9.0-12.0) Seconds INR (0.9-1.1) APTT (21.0-31.0) Seconds PTT Ratio Sodium (136-145) mmol/L Potassium (3.5-5.1) mmol/L Chloride (98-107) mmol/L Carbon Dioxide (21-32) mmol/L Anion Gap (3-11) BUN (7-18) mg/dl Creatinine (0.6-1.4) mg/dl Est Cr Clr Drug Dosing ml/min Est GFR ( Amer) Est GFR (Non-Af Amer) BUN/Creatinine Ratio (10-20) Glucose (70-99) mg/dl POC Glucose 154 H 176 H (70-99) Estimat Average Glucose mg/dl Hemoglobin A1c (4.5-5.6) % Calcium (8.5-10.1) mg/dl Phosphorus (2.5-4.9) mg/dl Magnesium (1.8-2.4) mg/dl Total Bilirubin (0.1-1) mg/dl AST (15-37) U/L ALT (12-78) U/L Alkaline Phosphatase (45-117) U/L Ammonia (11-32) umol/L Troponin I (0-0.045) ng/ml Total Protein (6.4-8.2) gm/dl Albumin (3.4-5.0) gm/dl Globulin (2.5-4.0) gm/dl Albumin/Globulin Ratio (0.9-2) Lipase (73-393) U/L TSH (0.300-4.500) uIu/ml Free T4 (0.8-1.6) ng/dl Total T3 (0.60-1.81) ng/ml Urine Color Urine Appearance (Clear) Urine pH (4.5-7.5) Ur Specific [place] (1.000-1.030) Urine Protein (Negative) Urine Glucose (UA) (Negative) Urine Ketones (Negative) Urine Blood (Negative) Urine Nitrite (Negative) Urine Bilirubin (Negative) Urine Urobilinogen (Negative) Ur Leukocyte Esterase (Negative) Urine RBC (0-4) /hpf Urine WBC (0-5) /hpf Ur Epithelial Cells (0-5) /lpf Urine Bacteria (Negative) Peritoneal Color Peritoneal Appearance Peritoneal WBC (0-300) /ul Peritoneal RBC /uL Mononuclear WBCs % % Polynuclear WBCs % % Peritoneal Tot Protein g/dl Peritoneal Albumin g/dl Peritoneal LDH IU Peritoneal Glucose mg/dl Hepatitis C Ab Screen (Neg) Blood Type Antibody Screen Crossmatch 02/24/18 02/25/18 02/25/18 Range/Units 20:43 05:52 07:13 WBC (4.8-10.8) K/uL RBC 2.38 L (4.7-6.1) M/uL Hgb (14.0-18.0) g/dL Hct (42-52) % MCV 92.4 (80-100) fL MCH 30.3 (25-34) pg MCHC 32.7 (32-36) g/dL RDW Std Deviation 65.6 H (36.4-46.3) fL RDW Coeff of Arpita 20.0 H (11.5-14.5) % Plt Count (130-400) K/uL MPV 11.5 H (7.4-10.4) fL Immature Gran % (Auto) 0.3 % Neut % (Auto) 81.1 % Lymph % (Auto) 9.9 % [place] % (Auto) 7.2 % Eos % (Auto) 1.2 % Baso % (Auto) 0.3 % Immature Gran # (Auto) 0.01 (0.00-0.02) K/uL Neut # (Auto) 2.69 (1.4-6.5) K/uL Lymph # (Auto) 0.33 L (1.2-3.4) K/uL [place] # (Auto) 0.24 (0.11-0.59) K/uL Eos # (Auto) 0.04 (0-0.5) K/uL Baso # (Auto) 0.01 (0-0.2) K/uL Platelet Estimate Decreased (Normal) Giant Platelets RBC Morphology Hypochromasia Anisocytosis Present Spherocytes Ovalocytes 1+ PT (9.0-12.0) Seconds INR (0.9-1.1) APTT (21.0-31.0) Seconds PTT Ratio Sodium (136-145) mmol/L Potassium (3.5-5.1) mmol/L Chloride (98-107) mmol/L Carbon Dioxide (21-32) mmol/L Anion Gap (3-11) BUN (7-18) mg/dl Creatinine (0.6-1.4) mg/dl Est Cr Clr Drug Dosing ml/min Est GFR ( Amer) Est GFR (Non-Af Amer) BUN/Creatinine Ratio (10-20) Glucose (70-99) mg/dl POC Glucose 220 H 259 H (70-99) Estimat Average Glucose mg/dl Hemoglobin A1c (4.5-5.6) % Calcium (8.5-10.1) mg/dl Phosphorus (2.5-4.9) mg/dl Magnesium (1.8-2.4) mg/dl Total Bilirubin (0.1-1) mg/dl AST (15-37) U/L ALT (12-78) U/L Alkaline Phosphatase (45-117) U/L Ammonia (11-32) umol/L Troponin I (0-0.045) ng/ml Total Protein (6.4-8.2) gm/dl Albumin (3.4-5.0) gm/dl Globulin (2.5-4.0) gm/dl Albumin/Globulin Ratio (0.9-2) Lipase (73-393) U/L TSH (0.300-4.500) uIu/ml Free T4 (0.8-1.6) ng/dl Total T3 (0.60-1.81) ng/ml Urine Color Urine Appearance (Clear) Urine pH (4.5-7.5) Ur Specific [place] (1.000-1.030) Urine Protein (Negative) Urine Glucose (UA) (Negative) Urine Ketones (Negative) Urine Blood (Negative) Urine Nitrite (Negative) Urine Bilirubin (Negative) Urine Urobilinogen (Negative) Ur Leukocyte Esterase (Negative) Urine RBC (0-4) /hpf Urine WBC (0-5) /hpf Ur Epithelial Cells (0-5) /lpf Urine Bacteria (Negative) Peritoneal Color Peritoneal Appearance Peritoneal WBC (0-300) /ul Peritoneal RBC /uL Mononuclear WBCs % % Polynuclear WBCs % % Peritoneal Tot Protein g/dl Peritoneal Albumin g/dl Peritoneal LDH IU Peritoneal Glucose mg/dl Hepatitis C Ab Screen (Neg) Blood Type Antibody Screen Crossmatch 02/25/18 02/25/18 02/25/18 Range/Units 07:13 08:21 13:07 WBC (4.8-10.8) K/uL RBC (4.7-6.1) M/uL Hgb (14.0-18.0) g/dL Hct (42-52) % MCV (80-100) fL MCH (25-34) pg MCHC (32-36) g/dL RDW Std Deviation (36.4-46.3) fL RDW Coeff of Arpita (11.5-14.5) % Plt Count (130-400) K/uL MPV (7.4-10.4) fL Immature Gran % (Auto) % Neut % (Auto) % Lymph % (Auto) % [place] % (Auto) % Eos % (Auto) % Baso % (Auto) % Immature Gran # (Auto) (0.00-0.02) K/uL Neut # (Auto) (1.4-6.5) K/uL Lymph # (Auto) (1.2-3.4) K/uL [place] # (Auto) (0.11-0.59) K/uL Eos # (Auto) (0-0.5) K/uL Baso # (Auto) (0-0.2) K/uL Platelet Estimate (Normal) Giant Platelets RBC Morphology Hypochromasia Anisocytosis Spherocytes Ovalocytes PT (9.0-12.0) Seconds INR (0.9-1.1) APTT (21.0-31.0) Seconds PTT Ratio Sodium 134 L (136-145) mmol/L Potassium 3.9 (3.5-5.1) mmol/L Chloride 95 L (98-107) mmol/L Carbon Dioxide 31 (21-32) mmol/L Anion Gap 8.0 (3-11) BUN 21 H (7-18) mg/dl Creatinine 1.10 (0.6-1.4) mg/dl Est Cr Clr Drug Dosing 81.3 ml/min Est GFR ( Amer) 85.9 Est GFR (Non-Af Amer) 74.1 BUN/Creatinine Ratio 18.8 (10-20) Glucose 216 H (70-99) mg/dl POC Glucose 223 H 182 H (70-99) Estimat Average Glucose mg/dl Hemoglobin A1c (4.5-5.6) % Calcium 8.2 L (8.5-10.1) mg/dl Phosphorus 3.2 (2.5-4.9) mg/dl Magnesium 1.9 (1.8-2.4) mg/dl Total Bilirubin (0.1-1) mg/dl AST (15-37) U/L ALT (12-78) U/L Alkaline Phosphatase (45-117) U/L Ammonia (11-32) umol/L Troponin I (0-0.045) ng/ml Total Protein (6.4-8.2) gm/dl Albumin (3.4-5.0) gm/dl Globulin (2.5-4.0) gm/dl Albumin/Globulin Ratio (0.9-2) Lipase (73-393) U/L TSH (0.300-4.500) uIu/ml Free T4 (0.8-1.6) ng/dl Total T3 (0.60-1.81) ng/ml Urine Color Urine Appearance (Clear) Urine pH (4.5-7.5) Ur Specific [place] (1.000-1.030) Urine Protein (Negative) Urine Glucose (UA) (Negative) Urine Ketones (Negative) Urine Blood (Negative) Urine Nitrite (Negative) Urine Bilirubin (Negative) Urine Urobilinogen (Negative) Ur Leukocyte Esterase (Negative) Urine RBC (0-4) /hpf Urine WBC (0-5) /hpf Ur Epithelial Cells (0-5) /lpf Urine Bacteria (Negative) Peritoneal Color Peritoneal Appearance Peritoneal WBC (0-300) /ul Peritoneal RBC /uL Mononuclear WBCs % % Polynuclear WBCs % % Peritoneal Tot Protein g/dl Peritoneal Albumin g/dl Peritoneal LDH IU Peritoneal Glucose mg/dl Hepatitis C Ab Screen (Neg) Blood Type Antibody Screen Crossmatch 02/25/18 02/25/18 02/26/18 Range/Units 16:13 19:56 06:12 WBC (4.8-10.8) K/uL RBC 2.31 L (4.7-6.1) M/uL Hgb (14.0-18.0) g/dL Hct (42-52) % MCV 93.1 (80-100) fL MCH 29.4 (25-34) pg MCHC 31.6 L (32-36) g/dL RDW Std Deviation 64.9 H (36.4-46.3) fL RDW Coeff of Arpita 19.9 H (11.5-14.5) % Plt Count (130-400) K/uL MPV 11.7 H (7.4-10.4) fL Immature Gran % (Auto) 0.4 % Neut % (Auto) 76.4 % Lymph % (Auto) 11.1 % [place] % (Auto) 10.3 % Eos % (Auto) 1.1 % Baso % (Auto) 0.7 % Immature Gran # (Auto) 0.01 (0.00-0.02) K/uL Neut # (Auto) 2.07 (1.4-6.5) K/uL Lymph # (Auto) 0.30 L (1.2-3.4) K/uL [place] # (Auto) 0.28 (0.11-0.59) K/uL Eos # (Auto) 0.03 (0-0.5) K/uL Baso # (Auto) 0.02 (0-0.2) K/uL Platelet Estimate (Normal) Giant Platelets 1+ RBC Morphology Hypochromasia Anisocytosis Present Spherocytes 1+ Ovalocytes PT (9.0-12.0) Seconds INR (0.9-1.1) APTT (21.0-31.0) Seconds PTT Ratio Sodium (136-145) mmol/L Potassium (3.5-5.1) mmol/L Chloride (98-107) mmol/L Carbon Dioxide (21-32) mmol/L Anion Gap (3-11) BUN (7-18) mg/dl Creatinine (0.6-1.4) mg/dl Est Cr Clr Drug Dosing ml/min Est GFR ( Amer) Est GFR (Non-Af Amer) BUN/Creatinine Ratio (10-20) Glucose (70-99) mg/dl POC Glucose 218 H 210 H (70-99) Estimat Average Glucose mg/dl Hemoglobin A1c (4.5-5.6) % Calcium (8.5-10.1) mg/dl Phosphorus (2.5-4.9) mg/dl Magnesium (1.8-2.4) mg/dl Total Bilirubin (0.1-1) mg/dl AST (15-37) U/L ALT (12-78) U/L Alkaline Phosphatase (45-117) U/L Ammonia (11-32) umol/L Troponin I (0-0.045) ng/ml Total Protein (6.4-8.2) gm/dl Albumin (3.4-5.0) gm/dl Globulin (2.5-4.0) gm/dl Albumin/Globulin Ratio (0.9-2) Lipase (73-393) U/L TSH (0.300-4.500) uIu/ml Free T4 (0.8-1.6) ng/dl Total T3 (0.60-1.81) ng/ml Urine Color Urine Appearance (Clear) Urine pH (4.5-7.5) Ur Specific Superior (1.000-1.030) Urine Protein (Negative) Urine Glucose (UA) (Negative) Urine Ketones (Negative) Urine Blood (Negative) Urine Nitrite (Negative) Urine Bilirubin (Negative) Urine Urobilinogen (Negative) Ur Leukocyte Esterase (Negative) Urine RBC (0-4) /hpf Urine WBC (0-5) /hpf Ur Epithelial Cells (0-5) /lpf Urine Bacteria (Negative) Peritoneal Color Peritoneal Appearance Peritoneal WBC (0-300) /ul Peritoneal RBC /uL Mononuclear WBCs % % Polynuclear WBCs % % Peritoneal Tot Protein g/dl Peritoneal Albumin g/dl Peritoneal LDH IU Peritoneal Glucose mg/dl Hepatitis C Ab Screen (Neg) Blood Type Antibody Screen Crossmatch 02/26/18 02/26/18 02/26/18 Range/Units 06:12 07:44 11:32 WBC (4.8-10.8) K/uL RBC (4.7-6.1) M/uL Hgb (14.0-18.0) g/dL Hct (42-52) % MCV (80-100) fL MCH (25-34) pg MCHC (32-36) g/dL RDW Std Deviation (36.4-46.3) fL RDW Coeff of Arpita (11.5-14.5) % Plt Count (130-400) K/uL MPV (7.4-10.4) fL Immature Gran % (Auto) % Neut % (Auto) % Lymph % (Auto) % [place] % (Auto) % Eos % (Auto) % Baso % (Auto) % Immature Gran # (Auto) (0.00-0.02) K/uL Neut # (Auto) (1.4-6.5) K/uL Lymph # (Auto) (1.2-3.4) K/uL [place] # (Auto) (0.11-0.59) K/uL Eos # (Auto) (0-0.5) K/uL Baso # (Auto) (0-0.2) K/uL Platelet Estimate (Normal) Giant Platelets RBC Morphology Hypochromasia Anisocytosis Spherocytes Ovalocytes PT (9.0-12.0) Seconds INR (0.9-1.1) APTT (21.0-31.0) Seconds PTT Ratio Sodium 132 L (136-145) mmol/L Potassium 3.9 (3.5-5.1) mmol/L Chloride 94 L (98-107) mmol/L Carbon Dioxide 32 (21-32) mmol/L Anion Gap 6.0 (3-11) BUN 20 H (7-18) mg/dl Creatinine 1.17 (0.6-1.4) mg/dl Est Cr Clr Drug Dosing 76.5 ml/min Est GFR ( Amer) 79.7 Est GFR (Non-Af Amer) 68.8 BUN/Creatinine Ratio 17.3 (10-20) Glucose 252 H (70-99) mg/dl POC Glucose 240 H 166 H (70-99) Estimat Average Glucose mg/dl Hemoglobin A1c (4.5-5.6) % Calcium 8.0 L (8.5-10.1) mg/dl Phosphorus (2.5-4.9) mg/dl Magnesium 1.8 (1.8-2.4) mg/dl Total Bilirubin 1.4 H (0.1-1) mg/dl AST 18 (15-37) U/L ALT 9 L (12-78) U/L Alkaline Phosphatase 106 (45-117) U/L Ammonia (11-32) umol/L Troponin I (0-0.045) ng/ml Total Protein 6.6 (6.4-8.2) gm/dl Albumin 1.6 L (3.4-5.0) gm/dl Globulin 5.0 H (2.5-4.0) gm/dl Albumin/Globulin Ratio 0.3 L (0.9-2) Lipase (73-393) U/L TSH (0.300-4.500) uIu/ml Free T4 (0.8-1.6) ng/dl Total T3 (0.60-1.81) ng/ml Urine Color Urine Appearance (Clear) Urine pH (4.5-7.5) Ur Specific [place] (1.000-1.030) Urine Protein (Negative) Urine Glucose (UA) (Negative) Urine Ketones (Negative) Urine Blood (Negative) Urine Nitrite (Negative) Urine Bilirubin (Negative) Urine Urobilinogen (Negative) Ur Leukocyte Esterase (Negative) Urine RBC (0-4) /hpf Urine WBC (0-5) /hpf Ur Epithelial Cells (0-5) /lpf Urine Bacteria (Negative) Peritoneal Color Peritoneal Appearance Peritoneal WBC (0-300) /ul Peritoneal RBC /uL Mononuclear WBCs % % Polynuclear WBCs % % Peritoneal Tot Protein g/dl Peritoneal Albumin g/dl Peritoneal LDH IU Peritoneal Glucose mg/dl Hepatitis C Ab Screen (Neg) Blood Type Antibody Screen Crossmatch 02/26/18 02/26/18 02/26/18 Range/Units 16:32 17:11 20:14 WBC (4.8-10.8) K/uL RBC 3.16 L (4.7-6.1) M/uL Hgb (14.0-18.0) g/dL Hct (42-52) % MCV 92.4 (80-100) fL MCH 29.1 (25-34) pg MCHC 31.1 L (32-36) g/dL RDW Std Deviation 63.4 H (36.4-46.3) fL RDW Coeff of Arpita 19.6 H (11.5-14.5) % Plt Count (130-400) K/uL MPV (7.4-10.4) fL Immature Gran % (Auto) 0.6 % Neut % (Auto) 75.9 % Lymph % (Auto) 9.4 % [place] % (Auto) 12.3 % Eos % (Auto) 0.9 % Baso % (Auto) 0.9 % Immature Gran # (Auto) 0.02 (0.00-0.02) K/uL Neut # (Auto) 2.67 (1.4-6.5) K/uL Lymph # (Auto) 0.33 L (1.2-3.4) K/uL [place] # (Auto) 0.43 (0.11-0.59) K/uL Eos # (Auto) 0.03 (0-0.5) K/uL Baso # (Auto) 0.03 (0-0.2) K/uL Platelet Estimate Decreased (Normal) Giant Platelets RBC Morphology Hypochromasia Anisocytosis Spherocytes 1+ Ovalocytes PT (9.0-12.0) Seconds INR (0.9-1.1) APTT (21.0-31.0) Seconds PTT Ratio Sodium (136-145) mmol/L Potassium (3.5-5.1) mmol/L Chloride (98-107) mmol/L Carbon Dioxide (21-32) mmol/L Anion Gap (3-11) BUN (7-18) mg/dl Creatinine (0.6-1.4) mg/dl Est Cr Clr Drug Dosing ml/min Est GFR ( Amer) Est GFR (Non-Af Amer) BUN/Creatinine Ratio (10-20) Glucose (70-99) mg/dl POC Glucose 143 H 152 H (70-99) Estimat Average Glucose mg/dl Hemoglobin A1c (4.5-5.6) % Calcium (8.5-10.1) mg/dl Phosphorus (2.5-4.9) mg/dl Magnesium (1.8-2.4) mg/dl Total Bilirubin (0.1-1) mg/dl AST (15-37) U/L ALT (12-78) U/L Alkaline Phosphatase (45-117) U/L Ammonia (11-32) umol/L Troponin I (0-0.045) ng/ml Total Protein (6.4-8.2) gm/dl Albumin (3.4-5.0) gm/dl Globulin (2.5-4.0) gm/dl Albumin/Globulin Ratio (0.9-2) Lipase (73-393) U/L TSH (0.300-4.500) uIu/ml Free T4 (0.8-1.6) ng/dl Total T3 (0.60-1.81) ng/ml Urine Color Urine Appearance (Clear) Urine pH (4.5-7.5) Ur Specific Superior (1.000-1.030) Urine Protein (Negative) Urine Glucose (UA) (Negative) Urine Ketones (Negative) Urine Blood (Negative) Urine Nitrite (Negative) Urine Bilirubin (Negative) Urine Urobilinogen (Negative) Ur Leukocyte Esterase (Negative) Urine RBC (0-4) /hpf Urine WBC (0-5) /hpf Ur Epithelial Cells (0-5) /lpf Urine Bacteria (Negative) Peritoneal Color Peritoneal Appearance Peritoneal WBC (0-300) /ul Peritoneal RBC /uL Mononuclear WBCs % % Polynuclear WBCs % % Peritoneal Tot Protein g/dl Peritoneal Albumin g/dl Peritoneal LDH IU Peritoneal Glucose mg/dl Hepatitis C Ab Screen (Neg) Blood Type Antibody Screen Crossmatch 02/27/18 02/27/18 02/27/18 Range/Units 05:51 05:51 06:00 WBC (4.8-10.8) K/uL RBC 2.94 L (4.7-6.1) M/uL Hgb (14.0-18.0) g/dL Hct (42-52) % MCV 91.5 (80-100) fL MCH 29.6 (25-34) pg MCHC 32.3 (32-36) g/dL RDW Std Deviation 64.0 H (36.4-46.3) fL RDW Coeff of Arpita 19.6 H (11.5-14.5) % Plt Count (130-400) K/uL MPV 10.4 (7.4-10.4) fL Immature Gran % (Auto) 0.3 % Neut % (Auto) 76.4 % Lymph % (Auto) 11.3 % [place] % (Auto) 9.9 % Eos % (Auto) 1.5 % Baso % (Auto) 0.6 % Immature Gran # (Auto) 0.01 (0.00-0.02) K/uL Neut # (Auto) 2.63 (1.4-6.5) K/uL Lymph # (Auto) 0.39 L (1.2-3.4) K/uL [place] # (Auto) 0.34 (0.11-0.59) K/uL Eos # (Auto) 0.05 (0-0.5) K/uL Baso # (Auto) 0.02 (0-0.2) K/uL Platelet Estimate (Normal) Giant Platelets 1+ RBC Morphology Hypochromasia Anisocytosis Spherocytes Ovalocytes PT (9.0-12.0) Seconds INR (0.9-1.1) APTT (21.0-31.0) Seconds PTT Ratio Sodium 132 L (136-145) mmol/L Potassium 4.4 (3.5-5.1) mmol/L Chloride 94 L (98-107) mmol/L Carbon Dioxide 34 H (21-32) mmol/L Anion Gap 5.0 (3-11) BUN 22 H (7-18) mg/dl Creatinine 1.07 (0.6-1.4) mg/dl Est Cr Clr Drug Dosing 80.0 ml/min Est GFR ( Amer) 88.8 Est GFR (Non-Af Amer) 76.7 BUN/Creatinine Ratio 20.7 H (10-20) Glucose 151 H (70-99) mg/dl POC Glucose 175 H (70-99) Estimat Average Glucose mg/dl Hemoglobin A1c (4.5-5.6) % Calcium 8.6 (8.5-10.1) mg/dl Phosphorus (2.5-4.9) mg/dl Magnesium 1.9 (1.8-2.4) mg/dl Total Bilirubin (0.1-1) mg/dl AST (15-37) U/L ALT (12-78) U/L Alkaline Phosphatase (45-117) U/L Ammonia (11-32) umol/L Troponin I (0-0.045) ng/ml Total Protein (6.4-8.2) gm/dl Albumin (3.4-5.0) gm/dl Globulin (2.5-4.0) gm/dl Albumin/Globulin Ratio (0.9-2) Lipase (73-393) U/L TSH (0.300-4.500) uIu/ml Free T4 (0.8-1.6) ng/dl Total T3 (0.60-1.81) ng/ml Urine Color Urine Appearance (Clear) Urine pH (4.5-7.5) Ur Specific Superior (1.000-1.030) Urine Protein (Negative) Urine Glucose (UA) (Negative) Urine Ketones (Negative) Urine Blood (Negative) Urine Nitrite (Negative) Urine Bilirubin (Negative) Urine Urobilinogen (Negative) Ur Leukocyte Esterase (Negative) Urine RBC (0-4) /hpf Urine WBC (0-5) /hpf Ur Epithelial Cells (0-5) /lpf Urine Bacteria (Negative) Peritoneal Color Peritoneal Appearance Peritoneal WBC (0-300) /ul Peritoneal RBC /uL Mononuclear WBCs % % Polynuclear WBCs % % Peritoneal Tot Protein g/dl Peritoneal Albumin g/dl Peritoneal LDH IU Peritoneal Glucose mg/dl Hepatitis C Ab Screen (Neg) Blood Type Antibody Screen Crossmatch 02/27/18 02/27/18 02/27/18 Range/Units 11:28 16:47 20:37 WBC (4.8-10.8) K/uL RBC (4.7-6.1) M/uL Hgb (14.0-18.0) g/dL Hct (42-52) % MCV (80-100) fL MCH (25-34) pg MCHC (32-36) g/dL RDW Std Deviation (36.4-46.3) fL RDW Coeff of Arpita (11.5-14.5) % Plt Count (130-400) K/uL MPV (7.4-10.4) fL Immature Gran % (Auto) % Neut % (Auto) % Lymph % (Auto) % [place] % (Auto) % Eos % (Auto) % Baso % (Auto) % Immature Gran # (Auto) (0.00-0.02) K/uL Neut # (Auto) (1.4-6.5) K/uL Lymph # (Auto) (1.2-3.4) K/uL [place] # (Auto) (0.11-0.59) K/uL Eos # (Auto) (0-0.5) K/uL Baso # (Auto) (0-0.2) K/uL Platelet Estimate (Normal) Giant Platelets RBC Morphology Hypochromasia Anisocytosis Spherocytes Ovalocytes PT (9.0-12.0) Seconds INR (0.9-1.1) APTT (21.0-31.0) Seconds PTT Ratio Sodium (136-145) mmol/L Potassium (3.5-5.1) mmol/L Chloride (98-107) mmol/L Carbon Dioxide (21-32) mmol/L Anion Gap (3-11) BUN (7-18) mg/dl Creatinine (0.6-1.4) mg/dl Est Cr Clr Drug Dosing ml/min Est GFR ( Amer) Est GFR (Non-Af Amer) BUN/Creatinine Ratio (10-20) Glucose (70-99) mg/dl POC Glucose 153 H 213 H 200 H (70-99) Estimat Average Glucose mg/dl Hemoglobin A1c (4.5-5.6) % Calcium (8.5-10.1) mg/dl Phosphorus (2.5-4.9) mg/dl Magnesium (1.8-2.4) mg/dl Total Bilirubin (0.1-1) mg/dl AST (15-37) U/L ALT (12-78) U/L Alkaline Phosphatase (45-117) U/L Ammonia (11-32) umol/L Troponin I (0-0.045) ng/ml Total Protein (6.4-8.2) gm/dl Albumin (3.4-5.0) gm/dl Globulin (2.5-4.0) gm/dl Albumin/Globulin Ratio (0.9-2) Lipase (73-393) U/L TSH (0.300-4.500) uIu/ml Free T4 (0.8-1.6) ng/dl Total T3 (0.60-1.81) ng/ml Urine Color Urine Appearance (Clear) Urine pH (4.5-7.5) Ur Specific Superior (1.000-1.030) Urine Protein (Negative) Urine Glucose (UA) (Negative) Urine Ketones (Negative) Urine Blood (Negative) Urine Nitrite (Negative) Urine Bilirubin (Negative) Urine Urobilinogen (Negative) Ur Leukocyte Esterase (Negative) Urine RBC (0-4) /hpf Urine WBC (0-5) /hpf Ur Epithelial Cells (0-5) /lpf Urine Bacteria (Negative) Peritoneal Color Peritoneal Appearance Peritoneal WBC (0-300) /ul Peritoneal RBC /uL Mononuclear WBCs % % Polynuclear WBCs % % Peritoneal Tot Protein g/dl Peritoneal Albumin g/dl Peritoneal LDH IU Peritoneal Glucose mg/dl Hepatitis C Ab Screen (Neg) Blood Type Antibody Screen Crossmatch 02/28/18 02/28/18 02/28/18 Range/Units 07:39 07:55 11:29 WBC (4.8-10.8) K/uL RBC 3.09 L (4.7-6.1) M/uL Hgb (14.0-18.0) g/dL Hct (42-52) % MCV 92.2 (80-100) fL MCH 29.1 (25-34) pg MCHC 31.6 L (32-36) g/dL RDW Std Deviation 62.9 H (36.4-46.3) fL RDW Coeff of Arpita 19.2 H (11.5-14.5) % Plt Count (130-400) K/uL MPV 11.6 H (7.4-10.4) fL Immature Gran % (Auto) 0.3 % Neut % (Auto) 80.8 % Lymph % (Auto) 7.8 % [place] % (Auto) 10.0 % Eos % (Auto) 0.8 % Baso % (Auto) 0.3 % Immature Gran # (Auto) 0.01 (0.00-0.02) K/uL Neut # (Auto) 3.24 (1.4-6.5) K/uL Lymph # (Auto) 0.31 L (1.2-3.4) K/uL [place] # (Auto) 0.40 (0.11-0.59) K/uL Eos # (Auto) 0.03 (0-0.5) K/uL Baso # (Auto) 0.01 (0-0.2) K/uL Platelet Estimate (Normal) Giant Platelets RBC Morphology Hypochromasia Anisocytosis Spherocytes Ovalocytes PT (9.0-12.0) Seconds INR (0.9-1.1) APTT (21.0-31.0) Seconds PTT Ratio Sodium (136-145) mmol/L Potassium (3.5-5.1) mmol/L Chloride (98-107) mmol/L Carbon Dioxide (21-32) mmol/L Anion Gap (3-11) BUN (7-18) mg/dl Creatinine (0.6-1.4) mg/dl Est Cr Clr Drug Dosing ml/min Est GFR ( Amer) Est GFR (Non-Af Amer) BUN/Creatinine Ratio (10-20) Glucose (70-99) mg/dl POC Glucose 153 H 206 H (70-99) Estimat Average Glucose mg/dl Hemoglobin A1c (4.5-5.6) % Calcium (8.5-10.1) mg/dl Phosphorus (2.5-4.9) mg/dl Magnesium (1.8-2.4) mg/dl Total Bilirubin (0.1-1) mg/dl AST (15-37) U/L ALT (12-78) U/L Alkaline Phosphatase (45-117) U/L Ammonia (11-32) umol/L Troponin I (0-0.045) ng/ml Total Protein (6.4-8.2) gm/dl Albumin (3.4-5.0) gm/dl Globulin (2.5-4.0) gm/dl Albumin/Globulin Ratio (0.9-2) Lipase (73-393) U/L TSH (0.300-4.500) uIu/ml Free T4 (0.8-1.6) ng/dl Total T3 (0.60-1.81) ng/ml Urine Color Urine Appearance (Clear) Urine pH (4.5-7.5) Ur Specific Superior (1.000-1.030) Urine Protein (Negative) Urine Glucose (UA) (Negative) Urine Ketones (Negative) Urine Blood (Negative) Urine Nitrite (Negative) Urine Bilirubin (Negative) Urine Urobilinogen (Negative) Ur Leukocyte Esterase (Negative) Urine RBC (0-4) /hpf Urine WBC (0-5) /hpf Ur Epithelial Cells (0-5) /lpf Urine Bacteria (Negative) Peritoneal Color Peritoneal Appearance Peritoneal WBC (0-300) /ul Peritoneal RBC /uL Mononuclear WBCs % % Polynuclear WBCs % % Peritoneal Tot Protein g/dl Peritoneal Albumin g/dl Peritoneal LDH IU Peritoneal Glucose mg/dl Hepatitis C Ab Screen (Neg) Blood Type Antibody Screen Crossmatch 02/28/18 02/28/18 03/01/18 Range/Units 16:37 19:55 07:31 WBC (4.8-10.8) K/uL RBC (4.7-6.1) M/uL Hgb (14.0-18.0) g/dL Hct (42-52) % MCV (80-100) fL MCH (25-34) pg MCHC (32-36) g/dL RDW Std Deviation (36.4-46.3) fL RDW Coeff of Arpita (11.5-14.5) % Plt Count (130-400) K/uL MPV (7.4-10.4) fL Immature Gran % (Auto) % Neut % (Auto) % Lymph % (Auto) % [place] % (Auto) % Eos % (Auto) % Baso % (Auto) % Immature Gran # (Auto) (0.00-0.02) K/uL Neut # (Auto) (1.4-6.5) K/uL Lymph # (Auto) (1.2-3.4) K/uL [place] # (Auto) (0.11-0.59) K/uL Eos # (Auto) (0-0.5) K/uL Baso # (Auto) (0-0.2) K/uL Platelet Estimate (Normal) Giant Platelets RBC Morphology Hypochromasia Anisocytosis Spherocytes Ovalocytes PT (9.0-12.0) Seconds INR (0.9-1.1) APTT (21.0-31.0) Seconds PTT Ratio Sodium (136-145) mmol/L Potassium (3.5-5.1) mmol/L Chloride (98-107) mmol/L Carbon Dioxide (21-32) mmol/L Anion Gap (3-11) BUN (7-18) mg/dl Creatinine (0.6-1.4) mg/dl Est Cr Clr Drug Dosing ml/min Est GFR ( Amer) Est GFR (Non-Af Amer) BUN/Creatinine Ratio (10-20) Glucose (70-99) mg/dl POC Glucose 213 H 148 H 182 H (70-99) Estimat Average Glucose mg/dl Hemoglobin A1c (4.5-5.6) % Calcium (8.5-10.1) mg/dl Phosphorus (2.5-4.9) mg/dl Magnesium (1.8-2.4) mg/dl Total Bilirubin (0.1-1) mg/dl AST (15-37) U/L ALT (12-78) U/L Alkaline Phosphatase (45-117) U/L Ammonia (11-32) umol/L Troponin I (0-0.045) ng/ml Total Protein (6.4-8.2) gm/dl Albumin (3.4-5.0) gm/dl Globulin (2.5-4.0) gm/dl Albumin/Globulin Ratio (0.9-2) Lipase (73-393) U/L TSH (0.300-4.500) uIu/ml Free T4 (0.8-1.6) ng/dl Total T3 (0.60-1.81) ng/ml Urine Color Urine Appearance (Clear) Urine pH (4.5-7.5) Ur Specific Superior (1.000-1.030) Urine Protein (Negative) Urine Glucose (UA) (Negative) Urine Ketones (Negative) Urine Blood (Negative) Urine Nitrite (Negative) Urine Bilirubin (Negative) Urine Urobilinogen (Negative) Ur Leukocyte Esterase (Negative) Urine RBC (0-4) /hpf Urine WBC (0-5) /hpf Ur Epithelial Cells (0-5) /lpf Urine Bacteria (Negative) Peritoneal Color Peritoneal Appearance Peritoneal WBC (0-300) /ul Peritoneal RBC /uL Mononuclear WBCs % % Polynuclear WBCs % % Peritoneal Tot Protein g/dl Peritoneal Albumin g/dl Peritoneal LDH IU Peritoneal Glucose mg/dl Hepatitis C Ab Screen (Neg) Blood Type Antibody Screen Crossmatch 03/01/18 03/01/18 03/01/18 Range/Units 11:37 16:28 20:17 WBC (4.8-10.8) K/uL RBC (4.7-6.1) M/uL Hgb (14.0-18.0) g/dL Hct (42-52) % MCV (80-100) fL MCH (25-34) pg MCHC (32-36) g/dL RDW Std Deviation (36.4-46.3) fL RDW Coeff of Arpita (11.5-14.5) % Plt Count (130-400) K/uL MPV (7.4-10.4) fL Immature Gran % (Auto) % Neut % (Auto) % Lymph % (Auto) % [place] % (Auto) % Eos % (Auto) % Baso % (Auto) % Immature Gran # (Auto) (0.00-0.02) K/uL Neut # (Auto) (1.4-6.5) K/uL Lymph # (Auto) (1.2-3.4) K/uL [place] # (Auto) (0.11-0.59) K/uL Eos # (Auto) (0-0.5) K/uL Baso # (Auto) (0-0.2) K/uL Platelet Estimate (Normal) Giant Platelets RBC Morphology Hypochromasia Anisocytosis Spherocytes Ovalocytes PT (9.0-12.0) Seconds INR (0.9-1.1) APTT (21.0-31.0) Seconds PTT Ratio Sodium (136-145) mmol/L Potassium (3.5-5.1) mmol/L Chloride (98-107) mmol/L Carbon Dioxide (21-32) mmol/L Anion Gap (3-11) BUN (7-18) mg/dl Creatinine (0.6-1.4) mg/dl Est Cr Clr Drug Dosing ml/min Est GFR ( Amer) Est GFR (Non-Af Amer) BUN/Creatinine Ratio (10-20) Glucose (70-99) mg/dl POC Glucose 225 H 219 H 202 H (70-99) Estimat Average Glucose mg/dl Hemoglobin A1c (4.5-5.6) % Calcium (8.5-10.1) mg/dl Phosphorus (2.5-4.9) mg/dl Magnesium (1.8-2.4) mg/dl Total Bilirubin (0.1-1) mg/dl AST (15-37) U/L ALT (12-78) U/L Alkaline Phosphatase (45-117) U/L Ammonia (11-32) umol/L Troponin I (0-0.045) ng/ml Total Protein (6.4-8.2) gm/dl Albumin (3.4-5.0) gm/dl Globulin (2.5-4.0) gm/dl Albumin/Globulin Ratio (0.9-2) Lipase (73-393) U/L TSH (0.300-4.500) uIu/ml Free T4 (0.8-1.6) ng/dl Total T3 (0.60-1.81) ng/ml Urine Color Urine Appearance (Clear) Urine pH (4.5-7.5) Ur Specific [place] (1.000-1.030) Urine Protein (Negative) Urine Glucose (UA) (Negative) Urine Ketones (Negative) Urine Blood (Negative) Urine Nitrite (Negative) Urine Bilirubin (Negative) Urine Urobilinogen (Negative) Ur Leukocyte Esterase (Negative) Urine RBC (0-4) /hpf Urine WBC (0-5) /hpf Ur Epithelial Cells (0-5) /lpf Urine Bacteria (Negative) Peritoneal Color Peritoneal Appearance Peritoneal WBC (0-300) /ul Peritoneal RBC /uL Mononuclear WBCs % % Polynuclear WBCs % % Peritoneal Tot Protein g/dl Peritoneal Albumin g/dl Peritoneal LDH IU Peritoneal Glucose mg/dl Hepatitis C Ab Screen (Neg) Blood Type Antibody Screen Crossmatch 03/02/18 03/02/18 03/02/18 Range/Units 06:52 06:52 07:16 WBC 4.90 (4.8-10.8) K/uL RBC 3.04 L (4.7-6.1) M/uL Hgb 9.0 L (14.0-18.0) g/dL Hct 28.3 L (42-52) % MCV 93.1 (80-100) fL MCH 29.6 (25-34) pg MCHC 31.8 L (32-36) g/dL RDW Std Deviation 63.7 H (36.4-46.3) fL RDW Coeff of Arpita 18.8 H (11.5-14.5) % Plt Count 73 L (130-400) K/uL MPV 11.3 H (7.4-10.4) fL Immature Gran % (Auto) 0.2 % Neut % (Auto) 82.8 % Lymph % (Auto) 8.6 % [place] % (Auto) 7.6 % Eos % (Auto) 0.6 % Baso % (Auto) 0.2 % Immature Gran # (Auto) 0.01 (0.00-0.02) K/uL Neut # (Auto) 4.06 (1.4-6.5) K/uL Lymph # (Auto) 0.42 L (1.2-3.4) K/uL [place] # (Auto) 0.37 (0.11-0.59) K/uL Eos # (Auto) 0.03 (0-0.5) K/uL Baso # (Auto) 0.01 (0-0.2) K/uL Platelet Estimate (Normal) Giant Platelets RBC Morphology Hypochromasia Anisocytosis Spherocytes Ovalocytes PT (9.0-12.0) Seconds INR (0.9-1.1) APTT (21.0-31.0) Seconds PTT Ratio Sodium 132 L (136-145) mmol/L Potassium 4.9 (3.5-5.1) mmol/L Chloride 94 L (98-107) mmol/L Carbon Dioxide 32 (21-32) mmol/L Anion Gap 6.0 (3-11) BUN 36 H (7-18) mg/dl Creatinine 1.53 H (0.6-1.4) mg/dl Est Cr Clr Drug Dosing 48.8 ml/min Est GFR ( Amer) 57.7 Est GFR (Non-Af Amer) 49.7 BUN/Creatinine Ratio 23.8 H (10-20) Glucose 178 H (70-99) mg/dl POC Glucose 197 H (70-99) Estimat Average Glucose mg/dl Hemoglobin A1c (4.5-5.6) % Calcium 9.1 (8.5-10.1) mg/dl Phosphorus (2.5-4.9) mg/dl Magnesium 2.1 (1.8-2.4) mg/dl Total Bilirubin 2.0 H (0.1-1) mg/dl AST 27 (15-37) U/L ALT 14 (12-78) U/L Alkaline Phosphatase 157 H (45-117) U/L Ammonia (11-32) umol/L Troponin I (0-0.045) ng/ml Total Protein 8.4 H (6.4-8.2) gm/dl Albumin 1.8 L (3.4-5.0) gm/dl Globulin 6.6 H (2.5-4.0) gm/dl Albumin/Globulin Ratio 0.3 L (0.9-2) Lipase (73-393) U/L TSH (0.300-4.500) uIu/ml Free T4 (0.8-1.6) ng/dl Total T3 (0.60-1.81) ng/ml Urine Color Urine Appearance (Clear) Urine pH (4.5-7.5) Ur Specific [place] (1.000-1.030) Urine Protein (Negative) Urine Glucose (UA) (Negative) Urine Ketones (Negative) Urine Blood (Negative) Urine Nitrite (Negative) Urine Bilirubin (Negative) Urine Urobilinogen (Negative) Ur Leukocyte Esterase (Negative) Urine RBC (0-4) /hpf Urine WBC (0-5) /hpf Ur Epithelial Cells (0-5) /lpf Urine Bacteria (Negative) Peritoneal Color Peritoneal Appearance Peritoneal WBC (0-300) /ul Peritoneal RBC /uL Mononuclear WBCs % % Polynuclear WBCs % % Peritoneal Tot Protein g/dl Peritoneal Albumin g/dl Peritoneal LDH IU Peritoneal Glucose mg/dl Hepatitis C Ab Screen (Neg) Blood Type Antibody Screen Crossmatch 03/02/18 03/02/18 Range/Units 11:15 16:15 WBC (4.8-10.8) K/uL RBC (4.7-6.1) M/uL Hgb (14.0-18.0) g/dL Hct (42-52) % MCV (80-100) fL MCH (25-34) pg MCHC (32-36) g/dL RDW Std Deviation (36.4-46.3) fL RDW Coeff of Arpita (11.5-14.5) % Plt Count (130-400) K/uL MPV (7.4-10.4) fL Immature Gran % (Auto) % Neut % (Auto) % Lymph % (Auto) % [place] % (Auto) % Eos % (Auto) % Baso % (Auto) % Immature Gran # (Auto) (0.00-0.02) K/uL Neut # (Auto) (1.4-6.5) K/uL Lymph # (Auto) (1.2-3.4) K/uL [place] # (Auto) (0.11-0.59) K/uL Eos # (Auto) (0-0.5) K/uL Baso # (Auto) (0-0.2) K/uL Platelet Estimate (Normal) Giant Platelets RBC Morphology Hypochromasia Anisocytosis Spherocytes Ovalocytes PT (9.0-12.0) Seconds INR (0.9-1.1) APTT (21.0-31.0) Seconds PTT Ratio Sodium (136-145) mmol/L Potassium (3.5-5.1) mmol/L Chloride (98-107) mmol/L Carbon Dioxide (21-32) mmol/L Anion Gap (3-11) BUN (7-18) mg/dl Creatinine (0.6-1.4) mg/dl Est Cr Clr Drug Dosing ml/min Est GFR ( Amer) Est GFR (Non-Af Amer) BUN/Creatinine Ratio (10-20) Glucose (70-99) mg/dl POC Glucose 232 H 219 H (70-99) Estimat Average Glucose mg/dl Hemoglobin A1c (4.5-5.6) % Calcium (8.5-10.1) mg/dl Phosphorus (2.5-4.9) mg/dl Magnesium (1.8-2.4) mg/dl Total Bilirubin (0.1-1) mg/dl AST (15-37) U/L ALT (12-78) U/L Alkaline Phosphatase (45-117) U/L Ammonia (11-32) umol/L Troponin I (0-0.045) ng/ml Total Protein (6.4-8.2) gm/dl Albumin (3.4-5.0) gm/dl Globulin (2.5-4.0) gm/dl Albumin/Globulin Ratio (0.9-2) Lipase (73-393) U/L TSH (0.300-4.500) uIu/ml Free T4 (0.8-1.6) ng/dl Total T3 (0.60-1.81) ng/ml Urine Color Urine Appearance (Clear) Urine pH (4.5-7.5) Ur Specific [place] (1.000-1.030) Urine Protein (Negative) Urine Glucose (UA) (Negative) Urine Ketones (Negative) Urine Blood (Negative) Urine Nitrite (Negative) Urine Bilirubin (Negative) Urine Urobilinogen (Negative) Ur Leukocyte Esterase (Negative) Urine RBC (0-4) /hpf Urine WBC (0-5) /hpf Ur Epithelial Cells (0-5) /lpf Urine Bacteria (Negative) Peritoneal Color Peritoneal Appearance Peritoneal WBC (0-300) /ul Peritoneal RBC /uL Mononuclear WBCs % % Polynuclear WBCs % % Peritoneal Tot Protein g/dl Peritoneal Albumin g/dl Peritoneal LDH IU Peritoneal Glucose mg/dl Hepatitis C Ab Screen (Neg) Blood Type Antibody Screen Crossmatch [facility] 03/02/18 06:52 Sodium 132 L Potassium 4.9 Chloride 94 L Carbon Dioxide 32 BUN 36 H Creatinine 1.53 H Glucose 178 H Calcium 9.1 Liver Function 03/02/18 Range/Units 06:52 Total Bilirubin 2.0 H (0.2-1) mg/dl AST 27 (15-37) U/L ALT 14 (12-78) U/L Alkaline Phosphatase 157 H (45-117) U/L Albumin 1.8 L (3.4-5.0) gm/dl Medications Administered Current Inpatient Medications Acetaminophen (Tylenol) 325 mg PO Q6H PRN PRN Reason: pain/fever Stop: 03/23/18 00:50 Dextrose (Dextrose 50%) 25 - 50 ml IV UD PRN; Protocol PRN Reason: Hypoglycemia Protocol Stop: 03/23/18 01:01 Furosemide (Lasix) 40 mg PO [id number] [facility] Stop: 03/25/18 16:59 Last Admin: 03/02/18 16:50 Dose: 40 mg Glucagon (Glucagen) 1 mg IM UD PRN; Protocol PRN Reason: Hypoglycemia Protocol Stop: 03/23/18 01:01 Glucose (Glucose 40%) 15 - 30 gm PO UD PRN; Protocol PRN Reason: Hypoglycemia Protocol Stop: 03/23/18 01:01 Glucose (Dex4 Glucose) 4 - 8 tabs PO UD PRN; Protocol PRN Reason: Hypoglycemia Protocol Stop: 03/23/18 01:01 Prochlorperazine 5 mg/ Syringe 5 mls @ 5 mls/min IV Q6H PRN PRN Reason: Nausea And Vomiting Stop: 03/23/18 00:50 Last Admin: 03/01/18 10:13 Dose: 5 mls/min Insulin Aspart (Novolog Flexpen) 0 units SC ACHS [facility] Stop: 04/01/18 20:59 Insulin Glargine (Lantus Solostar Pen) 16 units SC BID [facility] Stop: 04/01/18 20:59 Magnesium Oxide (Mag-Ox) 400 mg PO BID [facility] Stop: 03/28/18 09:59 Last Admin: 03/02/18 07:58 Dose: 400 mg Miscellaneous (Carbohydrates For Hypoglycemia) 15 - 30 gm PO UD PRN PRN Reason: Hypoglycemia Treatment Stop: 03/23/18 01:01 Pantoprazole Sodium (Protonix) 40 mg PO BID [facility] Stop: 04/01/18 20:59 Sertraline HCl (Zoloft) 50 mg PO DAILY [facility] Stop: 03/23/18 08:59 Last Admin: 03/02/18 07:58 Dose: 50 mg Spironolactone (Aldactone) 100 mg PO TID [facility] Stop: 03/22/18 22:59 Last Admin: 03/02/18 15:34 Dose: 100 mg Tramadol HCl (Ultram) 25 mg PO Q4H PRN PRN Reason: Pain Stop: 03/23/18 00:50 Last Admin: 03/02/18 18:02 Dose: 25 mg
[2018-03-02] MEDS ORDERED: INSULIN ASPART 100 UNITS/ML 3 ML PEN SC SCH (18:16)
[2018-03-03 05:47] LABS: Hematocrit (blood only) 28.2 % (42-52); Mean Corpuscular Hgb Conc 31.9 g/dL (32-36); Mean Corpuscular Volume 92.8 fL (80-100); RDW Coefficient of Variation 18.7 % (11.5-14.5); RDW Standard Deviation 63.4 fL (36.4-46.3); Red Blood Count 3.04 M/uL (4.7-6.1); White Blood Count 4.71 K/uL (4.8-10.8)
[2018-03-03 06:04] LABS: Mean Platelet Volume 11.5 fL (7.4-10.4); Platelet Count 79 K/uL (130-400)
[2018-03-03 06:07] LABS: INR 1.2 (0.9-1.1); Prothrombin Time 12.4 Seconds (9.0-12.0)
[2018-03-03 06:30] LABS: BUN Creatinine Ratio 32.9 (10-20); Calcium 8.9 mg/dl (8.5-10.1); Creatinine Clr Calc Pharmacy 63.6 ml/min; Est GFR (African American) 79.7; Est GFR (Non-African American) 68.8; Phosphorus 3.9 mg/dl (2.5-4.9)
[2018-03-03] MEDS: PANTOprazole 40 MG TAB PO SCH (09:16)
[2018-03-03] MEDS: SERTRALINE HCL 50 MG TABLET PO SCH (09:16)
[2018-03-03] MEDS: SPIRONOLACTONE 100 MG TAB PO SCH ×2 (09:17→14:33)
[2018-03-03] MEDS: MAGNESIUM OXIDE 400 MG TAB PO SCH ×2 (09:18→21:21)
[2018-03-03] MEDS: INSULIN GLARGINE SOLOSTAR 100 UNITS/ML 3 ML PEN SC SCH ×2 (09:19→21:18)
[2018-03-03] MEDS: INSULIN ASPART 100 UNITS/ML 3 ML PEN SC SCH ×4 (09:20→21:20)
[2018-03-03] MEDS: FUROSEMIDE 40 MG TAB PO SCH (09:23)
[2018-03-03] MEDS: TRAMADOL HCL 50 MG TABLET PO PRN (10:16)
[2018-03-03 12:59] LABS: Appearance Urine Clear (Clear); Bilirubin Urine Negative (Negative); Color Urine Yellow; Glucose Urine UA Negative (Negative); Ketones Urine Negative (Negative); Leukocyte Esterase Urine Negative (Negative); Nitrite Urine Negative (Negative); Protein Urine Negative (Negative); Specific Gravity Urine 1.015 (1.000-1.030); Urobilinogen Urine Negative (Negative); pH Urine 7.5 (4.5-7.5)
[2018-03-03] MEDS ORDERED: POLYETHYLENE (MIRALAX) 17 GM PACK PO PRN (14:11)
[2018-03-03] MEDS ORDERED: PHARMACY GLYCEMIC MGMT CONSULT SCH (14:51)
--- NOTE | 2018-03-03 16:13 | Hospitalist Progress Note ---
Date of Service March 03, 2018 Assessment & Plan (1) Hyponatremia: Poor p.o. intake this admission secondary to severe generalized weakness. As anasarca has improved and creatinine is fluctuating up and down, will decrease diuretics to Lasix 40 p.o. daily and Aldactone 100 p.o. daily. Continue to encourage patient to eat and hydrate. He is notably not taking an excessive free water. (2) ASTRID (acute kidney injury): Resolved. Adjusting diuretics down in setting of hyponatremia and poor p.o. intake. . 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 This is resolved with therapeutic paracentesis and diuretic use. He continues on home diuretic dose of Lasix 40 mg p.o. twice daily and Aldactone 100 mg p.o. 3 times daily. He is continued on nadolol 40 mg p.o. daily. He underwent an upper endoscopy on 02/27 revealing evidence of gastric varices, portal gastropathy, portal dual adenopathy with spontaneous oozing and small distal esophageal ulcers. I discussed the case with Dr. Barbosa today, [employer] principal on-call, and with stable H&H the patient is cleared for discharge to [facility]. We discussed the option of TIPS which will be something to explore as an outpatient with [facility]. This was reviewed with the patient today who verbalized understanding. (4) Acute cystitis: Pansensitive E. coli treated with ceftriaxone. Repeat urinalysis is clear. (5) Anemia of chronic disease: Multifactorial including anemia of chronic disease and chronic GI blood loss. Stable H&H through the weekend after 5 units of packed red blood cells this admission. No bright red blood per rectum per patient or other bleeding. Essentially stable at this point and will stop phlebotomizing so as not to add to his anemia. (6) DMII (diabetes mellitus, type 2): Not at goal, increase Lantus from 16 units twice daily to 25 units twice daily. Continue #3 carb coverage and consulted inpatient glycemic pharmacist for assistance. (7) Thrombocytopenia: Chronic, Secondary to cirrhosis (8) DVT prophylaxis: SCDs, chemoprophylaxis contraindicated with oozing of blood seen in GI tract, in setting of anemia requiring blood transfusion this admission, and relatively contraindicated in setting of thrombocytopenia. continue PT/OT Full code-confirmed by patient again today Dispo-once cleared by GI will send to [facility] Alejandrina Melgar DO [facility] Hospitalist Subjective 57-year-old man with Chawla cirrhosis presented with decompensation including anasarca. Weakness was thought secondary to UTI which was treated with ceftriaxone. However, patient remains extremely weak. He is out of bed with assistance only and is fine with transferring to [facility]. He denies symptoms today, he reports not drinking excessive water. He is tolerating p.o. but appears to have a low appetite. He is motivated to walk around, but is cautious with this secondary to his weakness. He is amenable to using MiraLAX to have a bowel movement today with elevated ammonia level. He is oriented. Physical Exam 2 Vital Signs (Past 24 Hours): Last Vital Signs Temp 36.7 C 03/03/18 14:55 Pulse 79 03/03/18 14:55 Resp 18 03/03/18 14:55 BP 140/76 03/03/18 14:55 Pulse Ox 97 03/03/18 14:55 CONSTITUTIONAL: cachectic, weak and ill-appearing, vitals as above EYES: normal conjuctivae, +scleral icterus RESPIRATORY: clear to auscultation bilaterally with some decreased breath sounds on the right lung, no crackles, rales or wheezes, normal respiratory effort CARDIOVASCULAR: regular rate and rhythm, S1 and 2 heard without murmurs, gallops or rubs, no JVD, no peripheral edema GASTROINTESTINAL: normal bowel sounds, soft, nontender, nondistended, palpable engorgement is stable. MUSCULOSKELETAL: generalized weakness, head is NCAT SKIN: warm and dry, some chronic pretibial brownish skin macular markings bilaterally NEUROLOGIC: No facial palsy, no dysarthria but slow to respond. CN 2-12 grossly intact, no sensory deficit, normal cognition, normal speech PSYCHIATRIC: alert cooperative, flat affect, slow to respond to questioning. Results & Data Laboratory Results Short CBC 03/03/18 Range/Units 05:24 WBC 4.71 L (4.8-10.8) K/uL Hgb 9.0 L (14.0-18.0) g/dL Hct 28.2 L (42-52) % Plt Count 79 L (130-400) K/uL BMP 03/03/18 05:24 Sodium 129 L Potassium 5.0 Chloride 93 L Carbon Dioxide 30 BUN 39 H Creatinine 1.17 D Glucose 211 H Calcium 8.9 Liver Function 03/03/18 Range/Units 05:24 Albumin 2.0 L (3.4-5.0) gm/dl Urine 03/03/18 Range/Units 12:50 Urine Color Yellow Urine Appearance Clear (Clear) Urine pH 7.5 (4.5-7.5) Ur Specific [place] 1.015 (1.000-1.030) Urine Protein Negative (Negative) Urine Glucose (UA) Negative (Negative) Medications Administered Current Inpatient Medications Acetaminophen (Tylenol) 325 mg PO Q6H PRN PRN Reason: pain/fever Stop: 03/23/18 00:50 Dextrose (Dextrose 50%) 25 - 50 ml IV UD PRN; Protocol PRN Reason: Hypoglycemia Protocol Stop: 03/23/18 01:01 Furosemide (Lasix) 40 mg PO QAM [facility] Stop: 04/03/18 08:59 Glucagon (Glucagen) 1 mg IM UD PRN; Protocol PRN Reason: Hypoglycemia Protocol Stop: 03/23/18 01:01 Glucose (Glucose 40%) 15 - 30 gm PO UD PRN; Protocol PRN Reason: Hypoglycemia Protocol Stop: 03/23/18 01:01 Glucose (Dex4 Glucose) 4 - 8 tabs PO UD PRN; Protocol PRN Reason: Hypoglycemia Protocol Stop: 03/23/18 01:01 Prochlorperazine 5 mg/ Syringe 5 mls @ 5 mls/min IV Q6H PRN PRN Reason: Nausea And Vomiting Stop: 03/23/18 00:50 Last Admin: 03/01/18 10:13 Dose: 5 mls/min Insulin Aspart (Novolog Flexpen) 0 units SC ACHS [facility]; Protocol Stop: 04/01/18 20:59 Last Admin: 03/03/18 17:06 Dose: 20 units Insulin Aspart (Novolog Flexpen) 0 units SC 0000 [facility]; Protocol Stop: 03/04/18 00:01 Insulin Glargine (Lantus Solostar Pen) 0 units SC BID [facility]; Protocol Stop: 04/02/18 20:59 Magnesium Oxide (Mag-Ox) 400 mg PO BID [facility] Stop: 03/28/18 09:59 Last Admin: 03/03/18 09:18 Dose: 400 mg Miscellaneous (Carbohydrates For Hypoglycemia) 15 - 30 gm PO UD PRN PRN Reason: Hypoglycemia Treatment Stop: 03/23/18 01:01 Miscellaneous Information (Consult Glycemic Management Pharmacy) 1 ea N/A UD [facility] Stop: 04/02/18 14:50 Pantoprazole Sodium (Protonix) 40 mg PO QAM [facility] Stop: 04/03/18 08:59 Polyethylene Glycol (Miralax Powder Packet) 17 gm PO DAILY PRN PRN Reason: Constipation Stop: 04/02/18 14:10 Sertraline HCl (Zoloft) 50 mg PO DAILY [facility] Stop: 03/23/18 08:59 Last Admin: 03/03/18 09:16 Dose: 50 mg Spironolactone (Aldactone) 100 mg PO QAM [facility] Stop: 04/03/18 08:59 Tramadol HCl (Ultram) 25 mg PO Q4H PRN PRN Reason: Pain Stop: 03/23/18 00:50 Last Admin: 03/03/18 10:16 Dose: 25 mg
[2018-03-03] MEDS ORDERED: INSULIN GLARGINE SOLOSTAR 100 UNITS/ML 3 ML PEN SC SCH (21:00)
[2018-03-04] MEDS ORDERED: INSULIN ASPART 100 UNITS/ML 3 ML PEN SC SCH
[2018-03-04 07:23] LABS: BUN Creatinine Ratio 29.5 (10-20); Calcium 8.9 mg/dl (8.5-10.1); Creatinine Clr Calc Pharmacy 55.5 ml/min; Est GFR (African American) 70.2; Est GFR (Non-African American) 60.6; Phosphorus 3.9 mg/dl (2.5-4.9); Potassium 4.9 mmol/L (3.5-5.1)
[2018-03-04] MEDS: INSULIN ASPART 100 UNITS/ML 3 ML PEN SC SCH ×4 (08:16→21:26)
[2018-03-04] MEDS: INSULIN GLARGINE SOLOSTAR 100 UNITS/ML 3 ML PEN SC SCH ×2 (08:17→21:26)
[2018-03-04] MEDS: PANTOprazole 40 MG TAB PO SCH (08:17)
[2018-03-04] MEDS: SERTRALINE HCL 50 MG TABLET PO SCH (08:17)
[2018-03-04] MEDS: MAGNESIUM OXIDE 400 MG TAB PO SCH ×2 (08:18→21:24)
[2018-03-04] MEDS ORDERED: FUROSEMIDE 40 MG TAB PO SCH (09:00)
[2018-03-04] MEDS ORDERED: SPIRONOLACTONE 100 MG TAB PO SCH (09:00)
--- NOTE | 2018-03-04 09:39 | Pharmacy Report ---
Glycemic Control Consultation - Date of Service March 04, 2018 - Scope Scope: Glycemic Pharmacist consulted by Dr Melgar on 03/03/18 for glycemic control and to write orders per [facility] inpatient glycemic control protocol - Objective Weight: 62.6 kg Accuchecks BSG (last 24hrs): 03/03/18 03/03/18 03/03/18 11:38 16:04 20:39 Glucose POC Glucose 264 H 293 H 118 H 03/03/18 03/04/18 03/04/18 23:58 06:39 07:03 Glucose 196 H POC Glucose 100 H > 600 H* 03/04/18 03/04/18 07:03 07:04 Glucose POC Glucose 219 H 263 H Laboratory Data (last 24hrs): 03/04/18 03/04/18 06:39 08:45 Potassium 4.9 Carbon Dioxide 32 Anion Gap 5.0 Creatinine 1.30 Est Cr Clr Drug Dosing 55.5 Osmolality 297 HbA1c: Hemoglobin A1c 7.0 % (4.5-5.6) H 02/20/18 18:40 - Recent Pertinent Medications Outpatient Anti-diabetic Regimen: * Lantus 25 units SQ HS * A1c = 7 % 02/20/18 The patient is currently receiving: * Basal insulin: Lantus 16-20 units every 12 hours * Correctional Insulin: Novolog Correction per scale ACHS Goal Range: Low 120 mg/dL - High 160 mg/dL Correction Factor: 20 mg/dL/unit * Prandial insulin: Per carb ratio of 1 unit per 8 grams CHO consumed - Assessment & Plan Assessment & Plan: ASSESSMENT: * 57 yr old T2DM with h/o Chawla cirrhosis presenting with decompensation and weakness. * Hyperglycemia persists despite ~20% increase in basal and bolus insulin yesterday afternoon. * Mehul received 71 units of SQ insulin yesterday (32 units of basal/ 39 units of bolus) * Fasting BSG of 219 mg/dL is above goal. I will continue Lantus dose per scale until basal needs are known. * Post prandial BSGs are trending downward after change to Novolog was made on PM. PLAN FOR INPATIENT GLYCEMIC CONTROL: * Basal insulin * Lantus per scale SQ BID * 16 units for BSG < 120 * 18 units for BSG 120 - 200 * 20 units for BSG > 200 * Bolus insulin * NovoLog per scale ACHS or Q6hrs while NPO * Goal Range: Low 120 mg/dL - High 160 mg/dL * Correction Factor: 20 mg/dL/unit * Nutritional / Prandial insulin per carb ratio of 1 unit per 8 grams CHO consumed PLAN FOR DISCHARGE: * A1c of 7% (02/20/18) is acceptable. Recommend continuation of home regimen on discharge with dose titration per outpatient provider. Thank you.
[2018-03-04 11:44] LABS: Creatinine Urine Random 23.3 mg/dl
[2018-03-04] MEDS ORDERED: SODIUM CHLORIDE 0.9% 500 ML IV SCH (14:45)
--- NOTE | 2018-03-04 15:06 | Hospitalist Progress Note ---
Date of Service March 04, 2018 Assessment & Plan (1) Hepatic encephalopathy: clinically more encephalopathic today. At least 1 BM daily, encouraged 2- 3. Waxing and waning mental status and appears very fatigued. Frequently falling asleep during our conversation. (2) Hyponatremia: Likely secondary to hypovolemia. Orthostatics are positive. Poor p.o. intake this admission secondary to severe generalized weakness. As anasarca has improved and creatinine is fluctuating up and down, initially dropped diuretics to Lasix and Aldactone once daily. Will hold these for now and give 500 cc of fluid. Continue to encourage to eat and hydrate well. He is notably not taking in excess of free water. Lab and urine studies ordered. (3) ASTRID (acute kidney injury): Resolved. Adjusting diuretics down in setting of hyponatremia and poor p.o. intake. . 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 This is resolved with therapeutic paracentesis and diuretic use. He continues on home diuretic dose of Lasix 40 mg p.o. twice daily and Aldactone 100 mg p.o. 3 times daily. He is continued on nadolol 40 mg p.o. daily. He underwent an upper endoscopy on 02/27 revealing evidence of gastric varices, portal gastropathy, portal dual adenopathy with spontaneous oozing and small distal esophageal ulcers. I discussed the case with Dr. Barbosa, and with stable H&H the patient is cleared for discharge. We discussed the option of TIPS which will be something to explore as an outpatient with [facility]. This was reviewed with the patient and his sister who verbalized understanding. (5) Acute cystitis: Pansensitive E. coli treated with ceftriaxone. Repeat urinalysis is clear. (6) Anemia of chronic disease: Multifactorial including anemia of chronic disease and chronic GI blood loss. Stable H&H through the weekend after 5 units of packed red blood cells this admission. No bright red blood per rectum per patient or other bleeding. Essentially stable at this point and will stop phlebotomizing so as not to add to his anemia. (7) DMII (diabetes mellitus, type 2): Uncontrolled into the 300s last night but now at goal this morning. Apprec inpatient glycemic pharmacist assistance with insulin titrations. (8) Thrombocytopenia: Chronic, Secondary to cirrhosis (9) DVT prophylaxis: SCDs, chemoprophylaxis contraindicated with oozing of blood seen in GI tract, in setting of anemia requiring blood transfusion this admission, and relatively contraindicated in setting of thrombocytopenia. continue PT/OT DNR after repeat discussion with [facility] with sister, Jigna, present for the conversation. Dispo-will need placement if he leaves, but may be moving toward comfort care measures based on status. Uncertain at this time. Alejandrina Melgar DO [facility] Hospitalist Subjective 57-year-old man with end-stage Chawla cirrhosis. Waxing and waning mental status secondary to likely hepatic encephalopathy. Patient reports 1 bowel movement today. Encouraged at least 2-3. Sister Jigna is at bedside. Had a very dann conversation with patient and sister regarding condition and lack of clinical improvement this admission. The patient insists he is a full code and wants to go to a prison. We will continue to have discussions with palliative care. Review of systems is limited secondary to mental status however patient denies any pain at this time. Physical Exam 2 Vital Signs (Past 24 Hours): Last Vital Signs Temp 36.6 C 03/04/18 07:19 Pulse 81 03/04/18 07:19 Resp 16 03/04/18 07:19 BP 156/85 H 03/04/18 07:19 Pulse Ox 97 03/04/18 07:19 CONSTITUTIONAL: cachectic, weak and ill-appearing, vitals as above EYES: normal conjuctivae, +scleral icterus RESPIRATORY: clear to auscultation bilaterall, normal respiratory effort CARDIOVASCULAR: regular rate and rhythm, S1 and 2 heard without murmurs, gallops or rubs, no JVD, no peripheral edema GASTROINTESTINAL: normal bowel sounds, soft, nontender, nondistended, palpable engorgement is stable. MUSCULOSKELETAL: generalized weakness, head is NCAT SKIN: warm and dry, some chronic pretibial brownish skin macular markings bilaterally NEUROLOGIC: No facial palsy, no dysarthria but slow to respond. CN 2-12 grossly intact, no sensory deficit, normal cognition, normal speech PSYCHIATRIC: Somnolent but can reorient to verbal stimulation and become cooperative, flat affect, slow to respond to questioning. Results & Data Laboratory Results [facility] 03/04/18 06:39 Sodium 128 L Potassium 4.9 Chloride 91 L Carbon Dioxide 32 BUN 38 H Creatinine 1.30 Glucose 196 H Calcium 8.9 Medications Administered Current Inpatient Medications Acetaminophen (Tylenol) 325 mg PO Q6H PRN PRN Reason: pain/fever Stop: 03/23/18 00:50 Dextrose (Dextrose 50%) 25 - 50 ml IV UD PRN; Protocol PRN Reason: Hypoglycemia Protocol Stop: 03/23/18 01:01 Furosemide (Lasix) 40 mg PO QAM [facility] Stop: 04/03/18 08:59 Last Admin: 03/04/18 08:18 Dose: 40 mg Glucagon (Glucagen) 1 mg IM UD PRN; Protocol PRN Reason: Hypoglycemia Protocol Stop: 03/23/18 01:01 Glucose (Glucose 40%) 15 - 30 gm PO UD PRN; Protocol PRN Reason: Hypoglycemia Protocol Stop: 03/23/18 01:01 Glucose (Dex4 Glucose) 4 - 8 tabs PO UD PRN; Protocol PRN Reason: Hypoglycemia Protocol Stop: 03/23/18 01:01 Prochlorperazine 5 mg/ Syringe 5 mls @ 5 mls/min IV Q6H PRN PRN Reason: Nausea And Vomiting Stop: 03/23/18 00:50 Last Admin: 03/01/18 10:13 Dose: 5 mls/min Insulin Aspart (Novolog Flexpen) 0 units SC ACHS [facility]; Protocol Stop: 04/01/18 20:59 Last Admin: 03/04/18 21:26 Dose: 9 units Insulin Glargine (Lantus Solostar Pen) 0 units SC BID [facility]; Protocol Stop: 04/02/18 20:59 Last Admin: 03/04/18 21:26 Dose: 20 units Magnesium Oxide (Mag-Ox) 400 mg PO BID [facility] Stop: 03/28/18 09:59 Last Admin: 03/04/18 21:24 Dose: 400 mg Miscellaneous (Carbohydrates For Hypoglycemia) 15 - 30 gm PO UD PRN PRN Reason: Hypoglycemia Treatment Stop: 03/23/18 01:01 Miscellaneous Information (Consult Glycemic Management Pharmacy) 1 ea N/A UD [facility] Stop: 04/02/18 14:50 Pantoprazole Sodium (Protonix) 40 mg PO QAM [facility] Stop: 04/03/18 08:59 Last Admin: 03/04/18 08:17 Dose: 40 mg Polyethylene Glycol (Miralax Powder Packet) 17 gm PO DAILY PRN PRN Reason: Constipation Stop: 04/02/18 14:10 Last Admin: 03/04/18 21:37 Dose: 17 gm Sertraline HCl (Zoloft) 50 mg PO DAILY [facility] Stop: 03/23/18 08:59 Last Admin: 03/04/18 08:17 Dose: 50 mg Spironolactone (Aldactone) 100 mg PO QAM [facility] Stop: 04/03/18 08:59 Last Admin: 03/04/18 08:18 Dose: 100 mg Tramadol HCl (Ultram) 25 mg PO Q4H PRN PRN Reason: Pain Stop: 03/23/18 00:50 Last Admin: 03/03/18 10:16 Dose: 25 mg
--- NOTE | 2018-03-04 15:26 | Palliative Care Progress Note ---
Date of Service March 04, 2018 Assessment & Plan (1) Palliative care encounter: -57-year-old male with NAFLD -on the liver transplant list at [place]. Patient was admitted on 02/20 with increased weakness, vomiting for 2 days, burning in his stomach, and increased lower extremity edema. Hemoglobin was 6.8 with a plt count of 73K. He was admitted to manage his vomiting and evaluate anemia. Had large amount of ascites-he underwent paracentesis on 02/21 for 2.8 L and again on 02/25 for another 2.8 L. Patient has required transfusion of 5 units of packed red cells. He was seen and evaluated by GI who performed an upper endoscopy which showed oozing from the duodenum as well as punctate ulceration. Patient is continued on his PPI. Found to have UTI which has been treated with Rocephin. INR has been elevated indicative of severe liver disease. -Patient seen in follow up today to discuss code status and goals of care. -Patient's sister, Jigna, who shares POA with patient's father, is quite concerned. She states patient's condition is worsening every day in her opinion. He is severely weak, thin, fragile, and becoming encephalopathic. -Patient is drowsy but awake and able to answer open-ended questions appropriately. Patient was confused about the date but is otherwise oriented. -We discussed CODE STATUS. Patient initially stated that he wanted to be a " full code," however, when we talked further about what that means, he stated he would not want that. 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 He will now be DO NOT RESUSCITATE/level 5. -Asked patient what his wishes would be if he continues to decline despite the treatment he is receiving. Patient stated, "If it looks like I'm gonna go, just let me go." His sister Jigna was tearful but also agreed with patient's decision. Patient does not want his life prolonged if he has poor quality of life. To him, quality of life means spending meaningful time with family and being able to take care of his mom and dad. -Uncertain of discharge planning. Patient has no insurance and likely does not qualify for medical assistance. However, he does not have the funds to pay out of pocket for SNF services for a long period of time. -Given patient's severe liver disease, albumin 2.0, INR 1.2, ammonia >80, progressive weakness and continued decline, I am uncertain of when he will be ready for discharge. These are very poor prognostic signs. Uncertain of rehab potential at this point. Patient's sister seems to be aware of poor prognosis and states she plans to bring her elderly parents to hospital to see patient. (2) Decompensated hepatic cirrhosis: -Severe liver disease. On transplant list per report. -Approaching end-stage if not already there. -GI following. -S/P two paracenteses since admission. Last one on 02/25. (3) DEL CID (nonalcoholic steatohepatitis): (4) Acute renal failure: -Resolved for now. -Monitor for hepatorenal syndrome. Subjective Met with patient and sister, Jigna, at length. Patient is not improving as far as strength or mentation. See A&P for details. Constitutional: + weakness and + anorexia Ear, Nose, Mouth, Throat: no dysphagia Respiratory: no cough and no dyspnea Cardiovascular: no chest pain and no edema Gastrointestinal: + bloating; no abdominal pain, no nausea and no vomiting no BM today Musculoskeletal: + muscle weakness Neurologic: no confusion Psychiatric: no anxiety Physical Exam 2 Vital Signs (Past 24 Hours): Last Vital Signs Temp 36.6 C 03/04/18 07:19 Pulse 81 03/04/18 07:19 Resp 16 03/04/18 07:19 BP 156/85 H 03/04/18 07:19 Pulse Ox 97 03/04/18 07:19 Constitutional: + ill appearing and + cachectic; no acute distress ENMT: Ears: no hearing impairment Neck: normal visual inspection and trachea midline Respiratory: normal respiratory effort, lungs clear to auscultation Auscultation: + diminished lung sounds Cardiovascular: RRR, no murmur, no edema Heart Sounds: + murmur Gastrointestinal (Abdomen): Inspection/Auscultation: + abdomen distended and normal bowel sounds Percussion/Palpation: abdomen soft; abdomen nontender and no guarding Skin: no rashes, warm and dry Neurologic: awake (but drowsy/lethargic) Psychiatric: Orientation: oriented to person, oriented to place and cooperative; + not oriented to time Time Spent Midlevel 45 minutes with >50% of time spent at bedside with patient and sister discussing CODE STATUS and goals of care.
[2018-03-05 07:23] LABS: BUN Creatinine Ratio 29.6 (10-20); Creatinine Clr Calc Pharmacy 58.9 ml/min; Est GFR (African American) 72.9; Est GFR (Non-African American) 62.9; Potassium 4.7 mmol/L (3.5-5.1)
[2018-03-05] MEDS: PANTOprazole 40 MG TAB PO SCH (08:35)
[2018-03-05] MEDS: SERTRALINE HCL 50 MG TABLET PO SCH (08:35)
[2018-03-05] MEDS: MAGNESIUM OXIDE 400 MG TAB PO SCH ×2 (08:35→21:58)
--- NOTE | 2018-03-05 09:59 | Pharmacy Report ---
Pharmacy Glycemic Short Note 2 - Date of Service March 05, 2018 - Glycemic Short BSG Results (Last 24 hours): 03/04/18 03/04/18 03/04/18 11:00 16:26 20:35 Glucose POC Glucose 157 H 221 H 329 H 03/04/18 03/05/18 03/05/18 20:36 06:35 07:27 Glucose 128 H POC Glucose 325 H 138 H OUTPATIENT ANTIDIABETIC REGIMEN: * Lantus 25 units SQ HS * A1c = 7 % 02/20/18 ASSESSMENT: * 57 yr old T2DM with h/o Chawla cirrhosis presenting with decompensation and weakness * Mehul received 85 units of SQ insulin yesterday (40 units of basal/ 45 units of bolus) * Fasting BSG of 138 mg/dL is above goal. No changes will be made to basal insulin today. * Post prandial BSGs have improved but continue to trend up throughout the day. Will tighten Novolog CF and CR. PLAN FOR INPATIENT GLYCEMIC CONTROL: * Basal insulin * Lantus per scale SQ BID * 16 units for BSG < 120 * 18 units for BSG 120 - 200 * 20 units for BSG > 200 * Bolus insulin - tighten * NovoLog per scale ACHS or Q6hrs while NPO * Goal Range: Low 120 mg/dL - High 160 mg/dL * Correction Factor: 15 mg/dL/unit * Nutritional / Prandial insulin per carb ratio of 1 unit per 6 grams CHO consumed PLAN FOR DISCHARGE: * A1c of 7% (02/20/18) is acceptable. Recommend continuation of home regimen on discharge with dose titration per outpatient provider. Thank you.
[2018-03-05] MEDS: INSULIN GLARGINE SOLOSTAR 100 UNITS/ML 3 ML PEN SC SCH ×2 (10:12→21:54)
[2018-03-05] MEDS: INSULIN ASPART 100 UNITS/ML 3 ML PEN SC SCH ×4 (10:12→21:52)
--- NOTE | 2018-03-05 15:39 | Palliative Care Progress Note ---
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 Patient was admitted on 1220 with increased weakness, vomiting for 2 days, burning in his stomach, and increased lower extremity edema. Patient had been taking his PPI prior to admission. In the emergency room patient's hemoglobin was 6.8 with a platelet count of 73K -he was admitted to manage his vomiting and evaluate anemia. Patient with large amount of ascites-he underwent paracentesis on 02/21 for 2.8 L and again on 02/25 for another 2.8 L Since admission patient has required transfusion of 5 units of packed red cells. She was seen and evaluated by GI who performed an upper endoscopy which showed oozing from the duodenum as well as punctate ulceration. Patient is continued on his PPI. Patient's last transfusion was on 02/26-he received 2 units for hemoglobin of 6.8, his hemoglobin this a.m. was 9.0. Last platelet count was 73K, albumin was 1.3 at admission-last albumin 1.8, on admission total bilirubin was 4.2- last labs 2.0, of note patient's INR on admission was 1.4. Patient was found to have a UTI and was treated with Rocephin. Patient with increased fatigue-family attributes it to now having a roommate Patient reports mild abdominal pain/discomfort-improved after paracentesis. Patient has marked hepatomegaly on exam. -Per discussion with MISTY Parks yesterday-patient is now a DNR. -Patient's sister is looking into facilities for when patient is discharged (2) Decompensated hepatic cirrhosis: Patient followed by GI-ascites has not reaccumulated by exam, labs stable , ammonia slightly improved (3) DEL CID (nonalcoholic steatohepatitis): On liver transplant list at [place]-patient now DNR, moving towards comfort care (4) Acute renal failure: Creatinine improved-now 1.26, down from 1.53-monitor for hepatorenal syndrome (5) Vomiting: Resolved, may have been due to UTI (6) Ascites: Status post thoracentesis on 02/21 and on 02/25-both times were 2.8 L-has not reaccumulated by exam Subjective Patient seen and examined, no acute distress, no family at bedside. Did speak to patient's sister later by phone. Patient appeared very fatigued, would only answer questions by nodding yes or no , opened his eyes briefly. Patient denied pain, fever, chills, general discomfort, abdominal pain. Patient does not have any increased abdominal distention. Patient's ammonia level has slightly decreased to 78, pleural fluid culture has been no growth. Physical Exam 2 Vital Signs (Past 24 Hours): Last Vital Signs Temp 36.4 C L 03/04/18 23:59 Pulse 87 03/04/18 23:59 Resp 18 03/04/18 23:59 BP 156/75 H 03/04/18 23:59 Pulse Ox 97 03/04/18 23:59 Constitutional: NAD ENMT: Poor dentition, dry mucous membranes Respiratory: Unlabored Cardiovascular: Regular rate, no edema Gastrointestinal (Abdomen): Distended, minimal ascites, marked hepatomegaly, nontender to palpation Musculoskeletal: Positive muscle wasting Skin: No increased pallor Neurologic: Fatigued, less alert Time Spent Attending Total time spent 35 minutes with greater than 50% of the time at bedside assessing patient's level of comfort as well as discussing goals of care with patient's sister _ (1) Vomiting Nausea presence: unspecified Vomiting Intractability: unspecified Vomiting type: unspecified Qualified Code(s): R11.10 - Vomiting, unspecified
--- NOTE | 2018-03-05 16:14 | Hospitalist Progress Note ---
Date of Service March 05, 2018 Assessment & Plan (1) Hepatic encephalopathy: appears brighter today, ammonia trending down. +BM (2) Hyponatremia: improved to 132 2/2 IVF and holding duretics. (3) ASTRID (acute kidney injury): Resolved. Adjusting diuretics down in setting of hyponatremia and poor p.o. intake. . (4) Liver cirrhosis secondary to DEL CID: Decompensated cirrhotic on admission with anasarca. This is resolved with therapeutic paracentesis and diuretic use. He continues on home diuretic dose of Lasix 40 mg p.o. twice daily and Aldactone 100 mg p.o. 3 times daily. He is continued on nadolol 40 mg p.o. daily. He underwent an upper endoscopy on 02/27 revealing evidence of gastric varices, portal gastropathy, portal dual adenopathy with spontaneous oozing and small distal esophageal ulcers. I discussed the case with Dr. Barbosa, and with stable H&H the patient is cleared for discharge. We discussed the option of TIPS which will be something to explore as an outpatient with [facility]. This was reviewed with the patient and his sister who verbalized understanding. (5) Acute cystitis: Pansensitive E. coli treated with ceftriaxone. Repeat urinalysis is clear. (6) Anemia of chronic disease: Multifactorial including anemia of chronic disease and chronic GI blood loss. Stable H&H through the weekend after 5 units of packed red blood cells this admission. No bright red blood per rectum per patient or other bleeding. Essentially stable at this point and will stop phlebotomizing so as not to add to his anemia. (7) DMII (diabetes mellitus, type 2): At goal, Apprec inpatient glycemic pharmacist assistance with insulin titrations. (8) Thrombocytopenia: Chronic, Secondary to cirrhosis (9) DVT prophylaxis: SCDs, chemoprophylaxis contraindicated with oozing of blood seen in GI tract, in setting of anemia requiring blood transfusion this admission, and relatively contraindicated in setting of thrombocytopenia. continue PT/OT DNR after repeat discussion with WARREN Lucas-Palliative Care with sisterJigna, present for the conversation. Dispo-will need placement if he leaves, but may be moving toward comfort care measures based on status. Uncertain at this time. Transfer to 4th floor. Alejandrina Melgar DO [facility] Hospitalist Subjective Appears more fatigued today. Sister at bedside and feels he is worse. Discussed DNR status. The patient reports no issues today but is clearly more fatigued. Physical Exam 2 Vital Signs (Past 24 Hours): Last Vital Signs Temp 36.3 C L 03/05/18 16:00 Pulse 80 03/05/18 16:00 Resp 16 03/05/18 16:00 BP 170/89 H 03/05/18 16:00 Pulse Ox 100 03/05/18 16:00 CONSTITUTIONAL: cachectic, weak and ill-appearing, vitals as above, frequently falling asleep EYES: normal conjuctivae, +scleral icterus RESPIRATORY: clear to auscultation bilateral, normal respiratory effort CARDIOVASCULAR: regular rate and rhythm, S1 and 2 heard without murmurs, gallops or rubs, no JVD, no peripheral edema GASTROINTESTINAL: normal bowel sounds, soft, nontender, nondistended, palpable engorgement is stable. MUSCULOSKELETAL: generalized weakness, head is NCAT SKIN: warm and dry, some chronic pretibial brownish skin macular markings bilaterally NEUROLOGIC: No facial palsy, no dysarthria but slow to respond. CN 2-12 grossly intact, no sensory deficit, normal cognition, normal speech PSYCHIATRIC: Somnolent but can reorient to verbal stimulation and become cooperative, flat affect, slow to respond to questioning. Results & Data Laboratory Results [facility] 03/05/18 06:35 Sodium 132 L Potassium 4.7 Chloride 94 L Carbon Dioxide 31 BUN 37 H Creatinine 1.26 Glucose 128 H Calcium 9.0 Medications Administered Current Inpatient Medications Acetaminophen (Tylenol) 325 mg PO Q6H PRN PRN Reason: pain/fever Stop: 03/23/18 00:50 Dextrose (Dextrose 50%) 25 - 50 ml IV UD PRN; Protocol PRN Reason: Hypoglycemia Protocol Stop: 03/23/18 01:01 Furosemide (Lasix) 40 mg PO QAM [facility] Stop: 04/03/18 08:59 Last Admin: 03/04/18 08:18 Dose: 40 mg Glucagon (Glucagen) 1 mg IM UD PRN; Protocol PRN Reason: Hypoglycemia Protocol Stop: 03/23/18 01:01 Glucose (Glucose 40%) 15 - 30 gm PO UD PRN; Protocol PRN Reason: Hypoglycemia Protocol Stop: 03/23/18 01:01 Glucose (Dex4 Glucose) 4 - 8 tabs PO UD PRN; Protocol PRN Reason: Hypoglycemia Protocol Stop: 03/23/18 01:01 Prochlorperazine 5 mg/ Syringe 5 mls @ 5 mls/min IV Q6H PRN PRN Reason: Nausea And Vomiting Stop: 03/23/18 00:50 Last Admin: 03/01/18 10:13 Dose: 5 mls/min Insulin Aspart (Novolog Flexpen) 0 units SC ACHS [facility]; Protocol Stop: 04/01/18 20:59 Last Admin: 03/05/18 21:52 Dose: 7 units Insulin Glargine (Lantus Solostar Pen) 0 units SC BID [facility]; Protocol Stop: 04/02/18 20:59 Last Admin: 03/05/18 21:54 Dose: 20 units Magnesium Oxide (Mag-Ox) 400 mg PO BID [facility] Stop: 03/28/18 09:59 Last Admin: 03/05/18 21:58 Dose: 400 mg Miscellaneous (Carbohydrates For Hypoglycemia) 15 - 30 gm PO UD PRN PRN Reason: Hypoglycemia Treatment Stop: 03/23/18 01:01 Miscellaneous Information (Consult Glycemic Management Pharmacy) 1 ea N/A UD [facility] Stop: 04/02/18 14:50 Pantoprazole Sodium (Protonix) 40 mg PO QAM [facility] Stop: 04/03/18 08:59 Last Admin: 03/05/18 08:35 Dose: 40 mg Polyethylene Glycol (Miralax Powder Packet) 17 gm PO DAILY PRN PRN Reason: Constipation Stop: 04/02/18 14:10 Last Admin: 03/04/18 21:37 Dose: 17 gm Sertraline HCl (Zoloft) 50 mg PO DAILY [facility] Stop: 03/23/18 08:59 Last Admin: 03/05/18 08:35 Dose: 50 mg Spironolactone (Aldactone) 100 mg PO QAM [facility] Stop: 04/03/18 08:59 Last Admin: 03/04/18 08:18 Dose: 100 mg Tramadol HCl (Ultram) 25 mg PO Q4H PRN PRN Reason: Pain Stop: 03/23/18 00:50 Last Admin: 03/03/18 10:16 Dose: 25 mg
[2018-03-06] MEDS: SERTRALINE HCL 50 MG TABLET PO SCH (08:47)
[2018-03-06] MEDS: PANTOprazole 40 MG TAB PO SCH (08:47)
[2018-03-06] MEDS: MAGNESIUM OXIDE 400 MG TAB PO SCH ×2 (08:48→20:55)
[2018-03-06] MEDS: INSULIN GLARGINE SOLOSTAR 100 UNITS/ML 3 ML PEN SC SCH ×2 (08:49→20:57)
[2018-03-06] MEDS: INSULIN ASPART 100 UNITS/ML 3 ML PEN SC SCH ×5 (08:50→20:55)
[2018-03-06] MEDS: TRAMADOL HCL 50 MG TABLET PO PRN (09:46)
[2018-03-06] MEDS: PROCHLORPERAZINE 5 MG in SYRINGE 4 ML IV PRN (12:19)
[2018-03-06] MEDS: LORazepam 0.5 MG/1 ML VIAL IV PRN (13:32)
[2018-03-06] MEDS: ONDANSETRON INJ 2 MG/ML 2 ML VIAL IV SCH ×2 (13:32→20:57)
--- NOTE | 2018-03-06 14:50 | Pharmacy Report ---
Pharmacy Glycemic Short Note 2 - Date of Service March 06, 2018 - Glycemic Short BSG Results (Last 24 hours): 03/05/18 03/05/18 03/06/18 16:32 20:54 07:35 POC Glucose 169 H 256 H 166 H 03/06/18 11:22 POC Glucose 268 H ASSESSMENT: * BSG at lunch today 268mg/dL. Lunchtime hyperglycemia likely attributable to late breakfast today, ate around 1000. HS hyperglycemia 03/05/18 likely due to refused AM lantus on 03/05/18. * Will consider becoming slightly more aggressive with BID lantus PLAN FOR INPATIENT GLYCEMIC CONTROL: * Basal insulin * Lantus per scale SQ BID * 16 units for BSG < 120 * 18 units for BSG 120 - 160 * 20 units for BSG > 160 * Bolus insulin * NovoLog per scale ACHS or Q6hrs while NPO * Goal Range: Low 120 mg/dL - High 160 mg/dL * Correction Factor: 15 mg/dL/unit * Nutritional / Prandial insulin per carb ratio of 1 unit per 6 grams CHO consumed * adding ,04 checks PLAN FOR DISCHARGE: * A1c of 7% (02/20/18) is acceptable. Recommend continuation of home regimen on discharge with dose titration per outpatient provider. Thank you.
--- NOTE | 2018-03-06 15:09 | Palliative Care Progress Note ---
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 Patient was admitted on 122 with increased weakness, vomiting for 2 days, burning in his stomach, and increased lower extremity edema. Patient had been taking his PPI prior to admission. In the emergency room patient's hemoglobin was 6.8 with a platelet count of 73K -he was admitted to manage his vomiting and evaluate anemia. Patient with large amount of ascites-he underwent paracentesis on 02/21 for 2.8 L and again on 02/25 for another 2.8 L Since admission patient has required transfusion of 5 units of packed red cells. She was seen and evaluated by GI who performed an upper endoscopy which showed oozing from the duodenum as well as punctate ulceration. Patient is continued on his PPI. Patient's last transfusion was on 02/26-he received 2 units for hemoglobin of 6.8, his hemoglobin this a.m. was 9.0. Last platelet count was 73K, albumin was 1.3 at admission-last albumin 1.8, on admission total bilirubin was 4.2- last labs 2.0, of note patient's INR on admission was 1.4. Patient was found to have a UTI and was treated with Rocephin. Patient has continued to decline despite supportive therapy-believe that patient is now at end of life - Discussed transitioning to comfort measures with patient's sister-she will notify us when she is ready to make him strictly comfort care. Discussed patient's current condition, wishes, treatment options including burden versus benefit at length with his sister. Will continue to provide emotional support and medical decision making (2) Decompensated hepatic cirrhosis: Patient followed by GI-ascites has not reaccumulated by exam (3) DEL CID (nonalcoholic steatohepatitis): Approaching [id number]-patient now DNR, moving towards comfort care (4) Acute renal failure: Creatinine improved-now 1.26, down from 1.53-monitor for hepatorenal syndrome (5) Vomiting: Resolved, may have been due to UTI (6) Ascites: Status post thoracentesis on 02/21 and on 02/25-both times were 2.8 L-has not reaccumulated by exam Subjective Patient seen and examined, patient sister at bedside. Patient more confused, irritable, appears to be declining Patient is allowing his sister to feed him-sister realizes patient has declined and is nearing end-of-life Patient denies pain, or discomfort. Is more confused, having more difficulty answering simple questions. Nursing reports that patient ate last night-vomited later that night. Patient' s mental status waxes and wanes. Physical Exam 2 Vital Signs (Past 24 Hours): Last Vital Signs Temp 36.9 C 03/06/18 07:53 Pulse 86 03/06/18 07:53 Resp 22 03/06/18 07:53 BP 154/75 H 03/06/18 07:53 Pulse Ox 90 03/06/18 07:53 Physical Exam: Patient in no acute distress, market increased weakness- patient not able to hold his head upright. Eyes: EOMI ENMT: Patient keeping neck flexed forward Respiratory: Unlabored Cardiovascular: Regular rate Gastrointestinal (Abdomen): Distended, nontender to palpation, marked hepato- megaly Musculoskeletal: Muscle atrophy, increased weakness Skin: Increased pallor Neurologic: Decreased alertness, increased irritability Time Spent Attending Total time spent 50 minutes with greater than 50% of time spent at bedside discussing treatment options, patient's current status as well as goals of care.Collaborated with attending physician. _ (1) Vomiting Nausea presence: unspecified Vomiting Intractability: unspecified Vomiting type: unspecified Qualified Code(s): R11.10 - Vomiting, unspecified
[2018-03-07] MEDS: INSULIN ASPART 100 UNITS/ML 3 ML PEN SC SCH ×5 (00:33→16:42)
--- NOTE | 2018-03-07 05:25 | Hospitalist Progress Note ---
Date of Service March 06, 2018 Assessment & Plan (1) Hepatic encephalopathy: clinically more encephalopathic today. Very agitated and then becomes somnolent. Ativan given for agitation (2) Hyponatremia: Improved with holding diuretics. Cont to hold at this time. (3) Liver cirrhosis secondary to DELC ID: Decompensated cirrhotic on admission with anasarca. This is resolved with therapeutic paracentesis and diuretic use. He continues on home diuretic dose of Lasix 40 mg p.o. twice daily and Aldactone 100 mg p.o. 3 times daily. He is continued on nadolol 40 mg p.o. daily. He underwent an upper endoscopy on 02/27 revealing evidence of gastric varices, portal gastropathy, portal dual adenopathy with spontaneous oozing and small distal esophageal ulcers. I discussed the case with Dr. Barbosa, and with stable H&H the patient is cleared for discharge. We discussed the option of [facility] This was reviewed with the patient and his sister who verbalized understanding. (4) Anemia of chronic disease: Multifactorial including anemia of chronic disease and chronic GI blood loss. Stable H&H through the weekend after 5 units of packed red blood cells this admission. No bright red blood per rectum per patient or other bleeding. Essentially stable at this point and will stop phlebotomizing regularly so as not to add to his anemia. Trend H/H in am. (5) DMII (diabetes mellitus, type 2): At goal, Apprec inpatient glycemic pharmacist assistance with insulin titrations. (6) Thrombocytopenia: Chronic, Secondary to cirrhosis (7) DVT prophylaxis: SCDs, chemoprophylaxis contraindicated with oozing of blood seen in GI tract, in setting of anemia requiring blood transfusion this admission, and relatively contraindicated in setting of thrombocytopenia. continue PT/OT DNR after repeat discussion with WARREN Lucas-Palliative Care with sister, Jigna, present for the conversation. Dispo-will need placement if he leaves, but may be moving toward comfort care measures based on status. Alejandrina Melgar DO [facility] Hospitalist Subjective more agitated today Dr Hopkins and sister at bedside Discussed CC measures, but she is not there yet. Physical Exam 2 Vital Signs (Past 24 Hours): Last Vital Signs Temp 36.6 C 03/06/18 23:00 Pulse 98 H 01/04/19 23:00 Resp 20 03/06/18 23:00 BP 164/80 H 03/06/18 23:00 Pulse Ox 96 03/06/18 23:00 CONSTITUTIONAL: cachectic, weak and ill-appearing, vitals as above,agitation- spitting at nurses, encephalopathic, then becomes somnolent. EYES: normal conjuctivae, +scleral icterus RESPIRATORY: clear to auscultation bilateral, normal respiratory effort CARDIOVASCULAR: regular rate and rhythm, S1 and 2 heard without murmurs, gallops or rubs, no JVD, no peripheral edema GASTROINTESTINAL: normal bowel sounds, soft, nontender, nondistended, palpable engorgement is stable. MUSCULOSKELETAL: generalized weakness, head is NCAT SKIN: warm and dry, some chronic pretibial brownish skin macular markings bilaterally NEUROLOGIC: No facial palsy, no dysarthria but slow to respond. CN 2-12 grossly intact, no sensory deficit, normal cognition, normal speech PSYCHIATRIC: Somnolent but can reorient to verbal stimulation and become cooperative, flat affect, slow to respond to questioning. Results & Data Medications Administered Current Inpatient Medications Acetaminophen (Tylenol) 325 mg PO Q6H PRN PRN Reason: pain/fever Stop: 03/23/18 00:50 Dextrose (Dextrose 50%) 25 - 50 ml IV UD PRN; Protocol PRN Reason: Hypoglycemia Protocol Stop: 03/23/18 01:01 Furosemide (Lasix) 40 mg PO QAM [facility] Stop: 04/03/18 08:59 Last Admin: 03/04/18 08:18 Dose: 40 mg Glucagon (Glucagen) 1 mg IM UD PRN; Protocol PRN Reason: Hypoglycemia Protocol Stop: 03/23/18 01:01 Glucose (Glucose 40%) 15 - 30 gm PO UD PRN; Protocol PRN Reason: Hypoglycemia Protocol Stop: 03/23/18 01:01 Glucose (Dex4 Glucose) 4 - 8 tabs PO UD PRN; Protocol PRN Reason: Hypoglycemia Protocol Stop: 03/23/18 01:01 Prochlorperazine 5 mg/ Syringe 5 mls @ 5 mls/min IV Q6H PRN PRN Reason: Nausea And Vomiting Stop: 03/23/18 00:50 Last Admin: 03/06/18 12:19 Dose: 5 mls/min Lorazepam (Ativan) 0.5 mg in 1 mls @ 1 mls/min IV Q4H PRN PRN Reason: Anxiety/Agitation Stop: 04/05/18 13:17 Last Admin: 03/06/18 13:32 Dose: 1 mls/min Insulin Aspart (Novolog Flexpen) 0 units SC ACHS [facility]; Protocol Stop: 04/01/18 20:59 Last Admin: 03/06/18 20:55 Dose: Not Given Insulin Glargine (Lantus Solostar Pen) 0 units SC BID [facility]; Protocol Stop: 04/02/18 20:59 Last Admin: 03/06/18 20:57 Dose: 20 units Magnesium Oxide (Mag-Ox) 400 mg PO BID [facility] Stop: 03/28/18 09:59 Last Admin: 03/06/18 20:55 Dose: Not Given Miscellaneous (Carbohydrates For Hypoglycemia) 15 - 30 gm PO UD PRN PRN Reason: Hypoglycemia Treatment Stop: 03/23/18 01:01 Miscellaneous Information (Consult Glycemic Management Pharmacy) 1 ea N/A UD [facility] Stop: 04/02/18 14:50 Ondansetron HCl (Zofran) 4 mg IV Q8H [facility] Stop: 04/05/18 13:29 Last Admin: 03/06/18 20:57 Dose: 4 mg Pantoprazole Sodium (Protonix) 40 mg PO QAM [facility] Stop: 04/03/18 08:59 Last Admin: 03/06/18 08:47 Dose: Not Given Polyethylene Glycol (Miralax Powder Packet) 17 gm PO DAILY PRN PRN Reason: Constipation Stop: 04/02/18 14:10 Last Admin: 03/04/18 21:37 Dose: 17 gm Sertraline HCl (Zoloft) 50 mg PO DAILY [facility] Stop: 03/23/18 08:59 Last Admin: 03/06/18 08:47 Dose: Not Given Spironolactone (Aldactone) 100 mg PO QAM [facility] Stop: 04/03/18 08:59 Last Admin: 03/04/18 08:18 Dose: 100 mg Tramadol HCl (Ultram) 25 mg PO Q4H PRN PRN Reason: Pain Stop: 03/23/18 00:50 Last Admin: 03/06/18 09:46 Dose: 25 mg
[2018-03-07] MEDS: ONDANSETRON INJ 2 MG/ML 2 ML VIAL IV SCH ×3 (05:31→21:17)
[2018-03-07 06:24] LABS: Hematocrit (blood only) 27.6 % (42-52); Hemoglobin 8.9 g/dL (14.0-18.0); Mean Corpuscular Hgb Conc 32.2 g/dL (32-36); Mean Corpuscular Volume 93.2 fL (80-100); Mean Platelet Volume 10.7 fL (7.4-10.4); Platelet Count 92 K/uL (130-400); RDW Coefficient of Variation 18.8 % (11.5-14.5); RDW Standard Deviation 63.3 fL (36.4-46.3); Red Blood Count 2.96 M/uL (4.7-6.1)
[2018-03-07 07:02] LABS: Calcium 8.7 mg/dl (8.5-10.1); Creatinine Clr Calc Pharmacy 57.1 ml/min; Est GFR (African American) 70.2; Est GFR (Non-African American) 60.6; Potassium 4.4 mmol/L (3.5-5.1)
[2018-03-07] MEDS: MAGNESIUM OXIDE 400 MG TAB PO SCH (09:22)
[2018-03-07] MEDS: PANTOprazole 40 MG TAB PO SCH (09:22)
[2018-03-07] MEDS: SERTRALINE HCL 50 MG TABLET PO SCH (09:23)
[2018-03-07] MEDS: INSULIN GLARGINE SOLOSTAR 100 UNITS/ML 3 ML PEN SC SCH (09:23)
[2018-03-07] MEDS ORDERED: INSULIN GLARGINE SOLOSTAR 100 UNITS/ML 3 ML PEN SC SCH (10:39)
[2018-03-07] MEDS ORDERED: ONDANSETRON INJ 2 MG/ML 2 ML VIAL IV PRN (10:40)
--- NOTE | 2018-03-07 10:42 | Hospitalist Progress Note ---
Date of Service March 07, 2018 Assessment & Plan (1) Hepatic encephalopathy: (2) Hyponatremia: (3) Liver cirrhosis secondary to DEL CID: (4) Anemia of chronic disease: (5) DMII (diabetes mellitus, type 2): (6) Thrombocytopenia: (7) Comfort measures only status: The patient was agitated yesterday and received some Ativan not easily arousable since that time. His Sister Jigna is at the bedside. She is power of employment law attorney and shares this with her father. She states she discussed the case with her father last night and they have decided to make the patient comfort care measures. He is currently altered and unarousable. Comfort care measures were instituted. Roxanol as needed Ativan as needed Zofran as needed liberalize diet to regular. Dose Roxanol as needed respiratory rate greater than 16 or obvious respiratory distress or agitation or pain. Will hold off on atropine drops or scalloping patch until patient is having secretions. Discuss with nurse that [facility] placement is an option if family is amenable. Subjective 57 yo M with DEL CID cirrhosis that is end-stage now on comfort measures per sister. ROS and understanding was not able to be obtained from patient who is obtunded. Pt appears comfortable. Physical Exam 2 Vital Signs (Past 24 Hours): Last Vital Signs Temp 36.7 C 03/07/18 07:58 Pulse 84 03/07/18 07:58 Resp 24 03/07/18 07:58 BP 151/80 H 03/07/18 07:58 Pulse Ox 95 03/07/18 07:58 GEn: unarousable, opens eyes spontaneously but does not localize, patient appears comfortable. HEENT: NC/AT, PERRL, +scleral icterus RESP: CTAB, no respiratory distress CV: reg rate and rhythm, S1/2 heard, no mgr ABD: nondistended, somewhat firm and this is the same as prior exams over last few days EXT: no edema Results & Data Laboratory Results Short CBC 03/07/18 Range/Units 06:04 WBC 4.10 L (4.8-10.8) K/uL Hgb 8.9 L (14.0-18.0) g/dL Hct 27.6 L (42-52) % Plt Count 92 L (130-400) K/uL BMP 03/07/18 06:04 Sodium 131 L Potassium 4.4 Chloride 98 Carbon Dioxide 28 BUN 34 H Creatinine 1.30 Glucose 94 Calcium 8.7 Medications Administered Current Inpatient Medications Acetaminophen (Tylenol) 325 mg PO Q6H PRN PRN Reason: pain/fever Stop: 03/23/18 00:50 Dextrose (Dextrose 50%) 25 - 50 ml IV UD PRN; Protocol PRN Reason: Hypoglycemia Protocol Stop: 03/23/18 01:01 Glucagon (Glucagen) 1 mg IM UD PRN; Protocol PRN Reason: Hypoglycemia Protocol Stop: 03/23/18 01:01 Glucose (Glucose 40%) 15 - 30 gm PO UD PRN; Protocol PRN Reason: Hypoglycemia Protocol Stop: 03/23/18 01:01 Glucose (Dex4 Glucose) 4 - 8 tabs PO UD PRN; Protocol PRN Reason: Hypoglycemia Protocol Stop: 03/23/18 01:01 Lorazepam (Ativan) 0.5 mg in 1 mls @ 1 mls/min IV Q4H PRN PRN Reason: Anxiety/Agitation Stop: 04/05/18 13:17 Last Admin: 03/06/18 13:32 Dose: 1 mls/min Insulin Aspart (Novolog Flexpen) 0 units SC ACHS [facility]; Protocol Stop: 04/01/18 20:59 Insulin Glargine (Lantus Solostar Pen) 0 units SC BID [facility]; Protocol Stop: 04/02/18 20:59 Miscellaneous (Carbohydrates For Hypoglycemia) 15 - 30 gm PO UD PRN PRN Reason: Hypoglycemia Treatment Stop: 03/23/18 01:01 Morphine Sulfate (Roxanol) 10 mg PO Q1H PRN PRN Reason: RR>16, agitation, pain Stop: 03/21/18 10:39 Ondansetron HCl (Zofran) 4 mg IV Q8H [facility] Stop: 04/05/18 13:29 Last Admin: 03/07/18 05:31 Dose: 4 mg Ondansetron HCl (Zofran) 4 mg IV Q6H PRN PRN Reason: Nausea Stop: 04/06/18 10:39 Tramadol HCl (Ultram) 25 mg PO Q4H PRN PRN Reason: Pain Stop: 03/23/18 00:50 Last Admin: 03/06/18 09:46 Dose: 25 mg
[2018-03-07] MEDS: MoRPHine SULFATE 10 MG/0.5 ML UDP PO PRN ×2 (14:47→15:46)
[2018-03-07] MEDS: LORazepam 0.5 MG/1 ML VIAL IV PRN (16:25)
[2018-03-08] MEDS ORDERED: INSULIN ASPART 100 UNITS/ML 3 ML PEN SC SCH
[2018-03-08] MEDS: ONDANSETRON INJ 2 MG/ML 2 ML VIAL IV SCH (05:24)
[2018-03-08] MEDS: MoRPHine SULFATE 10 MG/0.5 ML UDP PO PRN ×2 (10:25→14:22)
--- NOTE | 2018-03-08 15:51 | Hospitalist Progress Note ---
Date of Service March 08, 2018 Assessment & Plan (1) Hepatic encephalopathy: clinically more encephalopathic today. Very agitated and then becomes somnolent. Ativan given for agitation (2) Hyponatremia: Improved with holding diuretics. Cont to hold at this time. 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 This is resolved with therapeutic paracentesis and diuretic use. He continues on home diuretic dose of Lasix 40 mg p.o. twice daily and Aldactone 100 mg p.o. 3 times daily. He is continued on nadolol 40 mg p.o. daily. He underwent an upper endoscopy on 02/27 revealing evidence of gastric varices, portal gastropathy, portal dual adenopathy with spontaneous oozing and small distal esophageal ulcers. I discussed the case with Dr. Barbosa, and with stable H&H the patient is cleared for discharge. We discussed [facility] This was reviewed with the patient and his sister who verbalized understanding. (4) Anemia of chronic disease: Multifactorial including anemia of chronic disease and chronic GI blood loss. Stable H&H through the weekend after 5 units of packed red blood cells this admission. No bright red blood per rectum per patient or other bleeding. Essentially stable at this point and will stop phlebotomizing regularly so as not to add to his anemia. Trend H/H in am. (5) DMII (diabetes mellitus, type 2): At goal, Apprec inpatient glycemic pharmacist assistance with insulin titrations. (6) Thrombocytopenia: Chronic, Secondary to cirrhosis (7) Comfort measures only status: The patient is more comfortable today. His breathing at ease. He is not verbally communicating, but shakes his head yes and no. He is somewhat more alert than yesterday. Sister is at bedside. Family's needs and patient's needs are met currently. Continue Roxanol and other supportive care efforts as needed Subjective 57-year-old man with end-stage Del Cid cirrhosis, on comfort measures. Patient appears very comfortable. He is not eating at this moment, but is engaged with his family, sister at the bedside. Physical Exam 2 Vital Signs (Past 24 Hours): Last Vital Signs Temp 36.7 C 03/07/18 07:58 Pulse 84 03/07/18 07:58 Resp 24 03/07/18 07:58 BP 151/80 H 03/07/18 07:58 Pulse Ox 95 03/07/18 07:58 GEN: somnolent, opens eyes spontaneously and seems to nod yes and no to questions. Appears comfortable. HEENT: some secretions are present RESP: no respiratory distress ABD: nondistended EXT: no swelling Results & Data Medications Administered Current Inpatient Medications Acetaminophen (Tylenol) 325 mg PO Q6H PRN PRN Reason: pain/fever Stop: 03/23/18 00:50 Atropine Sulfate (Atropine Sulfate 1% Oph Soln) 4 drops SL Q2HWA PRN PRN Reason: secretions Stop: 04/07/18 17:59 Lorazepam (Ativan) 0.5 mg in 1 mls @ 1 mls/min IV Q4H PRN PRN Reason: Anxiety/Agitation Stop: 04/05/18 13:17 Last Admin: 03/07/18 16:25 Dose: 1 mls/min Morphine Sulfate (Roxanol) 10 mg PO Q1H PRN PRN Reason: RR>16, agitation, pain Stop: 03/21/18 10:39 Last Admin: 03/08/18 14:22 Dose: 10 mg Ondansetron HCl (Zofran) 4 mg IV Q6H PRN PRN Reason: Nausea Stop: 04/06/18 10:39 Tramadol HCl (Ultram) 25 mg PO Q4H PRN PRN Reason: Pain Stop: 03/23/18 00:50 Last Admin: 03/06/18 09:46 Dose: 25 mg
[2018-03-08] MEDS: ATROPINE SULFATE 1% OP SOLN 2 ML BTL SL PRN (18:08)
[2018-03-09] MEDS: ATROPINE SULFATE 1% OP SOLN 2 ML BTL SL PRN (00:27)
[2018-03-09] MEDS: MoRPHine SULFATE 10 MG/0.5 ML UDP PO PRN ×4 (00:27→21:01)
--- NOTE | 2018-03-09 17:42 | Palliative Care Progress Note ---
Date of Service March 09, 2018 Assessment & Plan (1) Palliative care encounter: Patient is a 57-year-old male with NAFLD -on the liver transplant list at [facility]. Patient was admitted on 02/20 with increased weakness, vomiting for 2 days, burning in his stomach, and increased lower extremity edema. Patient had been taking his PPI prior to admission. In the emergency room patient's hemoglobin was 6.8 with a platelet count of 73K -he was admitted to manage his vomiting and evaluate anemia. Patient with large amount of ascites-he underwent paracentesis on 02/21 for 2.8 L and again on 02/25 for another 2.8 L Since admission patient has required transfusion of 5 units of packed red cells. She was seen and evaluated by GI who performed an upper endoscopy which showed oozing from the duodenum as well as punctate ulceration. Patient is continued on his PPI. Patient's hemoglobin had remained stable. Patient declining rapidly-now at EOL-patient now on comfort care only. Patient is not medically stable for transfer to a facility as this would likely hasten his demise-we will continue comfort care inpatient. (2) Decompensated hepatic cirrhosis: Patient now at EOL (3) DEL CID (nonalcoholic steatohepatitis): Approaching [id number]-patient now DNR,comfort care only (4) Acute renal failure: (5) Vomiting: Resolved, may have been due to UTI (6) Ascites: Status post thoracentesis on 02/21 and on 02/25-both times were 2.8 L-has not reaccumulated by exam Subjective Patient seen and examined-patient's sister at bedside Patient is nonresponsive to voice or touch Physical Exam 2 Vital Signs (Past 24 Hours): Last Vital Signs Temp 36.7 C 03/07/18 07:58 Pulse 84 03/07/18 07:58 Resp 24 03/07/18 07:58 BP 151/80 H 03/07/18 07:58 Pulse Ox 95 03/07/18 07:58 Constitutional: Appears comfortable, no facial grimacing or dyspnea Eyes: Eyes do not close completely, dry sclera Respiratory: Unlabored Cardiovascular: Tachycardic, hyperdynamic precordium Gastrointestinal (Abdomen): Distended, firm Musculoskeletal: Weakness Skin: Increased pallor Neurologic: Unresponsive to voice or touch Time Spent Attending Total time spent 40 minutes with greater than 50% of the time spent at bedside discussing end-of-life issues at length with patient's sister. _ (1) Vomiting Nausea presence: unspecified Vomiting Intractability: unspecified Vomiting type: unspecified Qualified Code(s): R11.10 - Vomiting, unspecified
--- NOTE | 2018-03-09 18:04 | Hospitalist Progress Note ---
Date of Service March 09, 2018 Assessment & Plan (1) Hepatic encephalopathy: (2) Hyponatremia: (3) Liver cirrhosis secondary to DEL CID: (4) Anemia of chronic disease: (5) DMII (diabetes mellitus, type 2): (6) Thrombocytopenia: (7) Comfort measures only status: The patient is comfortable today. His breathing at ease. He is not verbally communicating. Somnolent. Sister is at bedside. Family's needs and patient's needs are met currently. Continue Roxanol and other supportive care efforts as needed. He is not medically stable for transfer to outpatient facility. Subjective GEN: somnolent, opens eyes spontaneously Appears comfortable. HEENT: some secretions are present RESP: no respiratory distress ABD: nondistended EXT: no swelling Physical Exam 2 Vital Signs (Past 24 Hours): Last Vital Signs Temp 36.7 C 03/07/18 07:58 Pulse 84 03/07/18 07:58 Resp 24 03/07/18 07:58 BP 151/80 H 03/07/18 07:58 Pulse Ox 95 03/07/18 07:58 Results & Data Medications Administered Current Inpatient Medications Acetaminophen (Tylenol) 325 mg PO Q6H PRN PRN Reason: pain/fever Stop: 03/23/18 00:50 Atropine Sulfate (Atropine Sulfate 1% Oph Soln) 4 drops SL Q2HWA PRN PRN Reason: secretions Stop: 04/07/18 17:59 Last Admin: 03/09/18 00:27 Dose: 4 drops Lorazepam (Ativan) 0.5 mg in 1 mls @ 1 mls/min IV Q4H PRN PRN Reason: Anxiety/Agitation Stop: 04/05/18 13:17 Last Admin: 03/07/18 16:25 Dose: 1 mls/min Morphine Sulfate (Roxanol) 10 mg PO Q1H PRN PRN Reason: RR>16, agitation, pain Stop: 03/21/18 10:39 Last Admin: 03/09/18 21:01 Dose: 10 mg Ondansetron HCl (Zofran) 4 mg IV Q6H PRN PRN Reason: Nausea Stop: 04/06/18 10:39 Tramadol HCl (Ultram) 25 mg PO Q4H PRN PRN Reason: Pain Stop: 03/23/18 00:50 Last Admin: 03/06/18 09:46 Dose: 25 mg
--- NOTE | 2018-03-10 04:06 | Death Summary ---
Date of Service March 10, 2018 Pronouncement Note Date and Time of Date of : 03/10/18 Time of : 03:15 PCOD Preliminary cause of : End stage liver disease Contributing Factors (1) Hepatic encephalopathy: (2) Hyponatremia: (3) Liver cirrhosis secondary to DEL CID: (4) Anemia of chronic disease: (5) DMII (diabetes mellitus, type 2): (6) Thrombocytopenia: (7) Comfort measures only status: Summary Additional details: Dr. Melgar to accomplish discharge summary. Additional Data Confirmation of : no pulse, no respirations, no heart sounds and pupils fixed and dilated Family: not available Attending physician: Alejandrina Melgar DO
--- NOTE | 2018-03-12 14:17 | Discharge Summary ---
Date of Service March 12, 2018 Admission HPI Per Admitting Provider History obtained from patient, family, and records. Medical history significant for cirrhosis secondary to nonalcoholic fatty liver disease, hypertension, history of esophageal varices, portal gastropathy, colonic polyps, DM 2 insulin requiring, chronic anemia (baseline hemoglobin of 7), mood disorder. Recent confinement July 2017 for UGIB secondary to esophageal varices status post banding. Patient transferred to [facility] for possible TIPS. Patient refused TIPS recommendation due to concerns about potential hepatic encephalopathy post procedure. Last few weeks patient noted by his sister to have progressive functional decline, not doing a lot at home. As per patient progressive abdominal distention and bilateral leg swelling despite compliance with home diuretic regimen. Patient denies chest pain, cough , SOB. 2 days history of nausea and dry heaving. Patient complaining of burning epigastric discomfort. Denies black/bloody stools. Patient noted to be a little more sleepy than usual, eyes droopy as per sister. Patient denies depression. IV PPI given at the ER. 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 Admission Exam Per Admitting Provider GENERAL: Comfortable, wane, cachectic/chronically ill, no respiratory distress SKIN: Pallor, warm HEENT: Pale palpebral conjunctivae, droopy eyelids bilateral, dry buccal mucosa NECK : Supple, no tenderness CHEST : Decreased breath sounds , no tenderness HEART : RRR, no obvious murmurs ABDOMEN: distention, positive fluid wave, nontender RECTAL : Stool Hemoccult negative as per ER MD EXTREMITIES : norm LE swelling, no tenderness, no other conspicuous deformities noted NEUROLOGIC : Coherent but occasionally lethargic, no facial asymmetry, no other gross focality, gait and stance not assessed Principal Diagnosis Weakness secondary to UTI-resolved Decompensated Del Cid cirrhosis Significant deconditioning Discharge Exam Patient , see summary Discharge Data Allergies Allergy/AdvReac Type Severity Reaction Status Date / Time No Known Drug Allergies Allergy Unknown NONE Verified 07/04/17 07:14 ragweed pollen Allergy Unknown SEASONAL Verified 07/04/17 07:14 ALLERGIES Rosine Allergy Unknown SEASONAL Uncoded 07/04/17 07:14 ALLERGIES. Consultations 02/20/18 20:09 ED Decision to Admit Stat 02/21/18 00:51 Consult Case Management - Discharge Planning Routine Consult Gastroenterology Routine 02/24/18 10:06 Consult Case Management - Discharge Planning Routine 02/27/18 12:45 Consult Palliative Care Routine Procedures Performed Operation Date: 02/27/18 08:30 Actual Procedures p EGD Biopsy Cytology - Smita Mahmood Ordered Studies 02/20/18 19:47 US venous doppler LE BI Stat 02/20/18 19:57 CT abd pelvis wo con Stat 02/20/18 21:46 CT head/brain wo con Urgent 02/21/18 08:27 US paracentesis abd w/image Routine 02/25/18 11:00 US paracentesis abd w/image Routine Hospital Course (1) Hepatic encephalopathy: (2) Hyponatremia: (3) Liver cirrhosis secondary to DEL CID: (4) Anemia of chronic disease: (5) DMII (diabetes mellitus, type 2): (6) Thrombocytopenia: (7) ASTRID (acute kidney injury): 57-year-old man with Del Cid cirrhosis presented initially with anasarca and generalized weakness. He was treated for a urinary tract infection and anasarca improved with diuretic therapy. Gastroneurology was consulted. The patient underwent a therapeutic paracentesis twice during his hospitalization with approximately 2.8 L removed each time. He underwent an upper endoscopy on 02/27 revealing evidence of gastric varices, portal gastropathy, portal duodenopathy with spontaneous oozing and small distal esophageal ulcers. The case was discussed with the on-call application dba and with a stable H&H the patient was cleared for discharge when able. We discussed the option of TIPS which was something the patient could explore as an outpatient with his density control puncher at [facility]. Despite correction of these issues, the patient remained significantly deconditioned and continued to decline clinically. He intermittently developed hepatic encephalopathy. Palliative was consulted and ultimately transition him to comfort care measures with assistance of the family. He on 03/10/18. Total Time Total Time Spent Total Time Spent (In Minutes): 60 Total Time Includes: Examination of the Patient, Discharge Planning, Medication Reconciliation and Communication With Other Providers Discharge Plan Discharge Items Disposition: Admission Data Admit Date/Time: 02/20/18 22:58 Service: Oncology Other DC Date/Time DO NOT enter until pt leaves facility: 03/10/18 03:15
== END 2018-03-10 03:15 | disposition expired ==
LOC: ED 18:04 → SUATTDRO 22:58 → 2W 22:58 → 4E 03-05 19:39